=== PATIENT | male | born 1950 | race Caucasian/White ===

== ENCOUNTER 2021-04-03 08:43 | Emergency (ER) | payer OTHER, MEDICARE, SELFPAY ==
[2021-04-03] VITALS (15 sets, daily range): BP systolic 145–176; BP diastolic 76–145; PULSE 70–91; RESP 12–16; TEMP 36.7; O2SAT 97–100
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
--- NOTE | ~2021-04-03 | XR_ITS ---
[XR ribs RT 2V w CXR 2V ] INDICATION: Right rib pain TECHNIQUE: Frontal projection of the upper right ribs, frontal projection of the lower right ribs, ob lique projection of all the right ribs, frontal inspiratory chest x-ray for interpretation. FINDINGS: There are no displaced rib fractures identified. There are no soft tissue abnormality see n. The lungs are clear. IMPRESSION: 1:No acute displaced rib fractures. Reviewed, dictated and finalized at location A.
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
== END 2021-04-03 11:41 | disposition home or self-care (01) ==
PROVIDERS: Emergency Provider General Practice; PCP Internal Medicine
DX: R07.81 Pleurodynia (principal); E11.9 Type 2 diabetes mellitus without complications; Z87.891 Personal history of nicotine dependence; M47.812 Spondylosis without myelopathy or radiculopathy, cervical region; I65.29 Occlusion and stenosis of unspecified carotid artery; V49.40XA Driver injured in collision with unspecified motor vehicles in traffic accident, initial encounter
CPT/HCPCS: 71046; 71100; 72125; 72128; 99284

== ENCOUNTER 2023-04-30 01:41 | Day surgery (SDC) | payer MEDICARE, SELFPAY ==
[2023-04-21 12:15] VITALS: BMI 24.3
[2023-04-30 09:21] VITALS: BP 152/66; PULSE 81; RESP 18; TEMP 36.2; O2SAT 99; BMI 24.2
--- NOTE | 2023-04-30 09:37 | PM.HPGS ---
History of Present Illness History of Present Illness Consent: Risks, benefits, and alternatives have been discussed and questions answered. Patient agrees to proceed with procedure. Chief complaint: history of colon polyps Narrative: Tolu Mathis is a 72 year old male Presents for screening colonoscopy. Patient has a history of colon polyps in 2016. Most recent colonoscopy was limited somewhat by debris. Patient states bowel habits have improved with taking fiber supplementation. Patient denies any blood in his stools his bowel habits are normal. Review of Systems Review of Systems: Review of systems noncontributory. [facility] Past Medical History Medical History (Updated 04/30/23 @ 09:39 by Clyde Arshad MD) Diabetes mellitus Social History Social History (Updated 04/03/21 @ 10:34 by Norman Clifford, PAJignesh) Smoking packs per day: 2 Smoking cigarettes per day: 40.0 Years smoked: 25 Smoking pack-years: 50.00 Smoking status: Former smoker Tobacco type: cigarettes Alcohol intake: former Substance use: current Substance use type: marijuana Other substance usage details: OCC. GUM Living arrangements: with family Spiritual care concerns: No Meds Home Medications and Allergies Home Medications Medication Instructions Recorded Confirmed Type Azo 1 cap PO BID 04/21/23 04/21/23 History Lactobacillus rhamnosus GG 10 1 cap PO DAILY 04/21/23 04/21/23 History billion cell capsule (Culturelle) alogliptin 25 mg tablet (Nesina) 25 mg PO DAILY 04/21/23 04/21/23 History amlodipine 10 mg tablet 10 mg PO DAILY 04/21/23 04/21/23 History atorvastatin 20 mg tablet 20 mg PO DAILY 04/21/23 04/21/23 History cetirizine 10 mg tablet (Zyrtec) 10 mg PO DAILY 04/21/23 04/21/23 History cholecalciferol (vitamin D3) 50 50 mcg PO DAILY 04/21/23 04/21/23 History mcg (2,000 unit) capsule (Vitamin D3) famotidine 20 mg tablet 20 mg PO DAILY 04/21/23 04/21/23 History gabapentin 300 mg capsule 300 mg PO TID 04/21/23 04/21/23 History glimepiride 4 mg tablet 4 mg PO BID 04/21/23 04/21/23 History losartan 50 mg tablet 50 mg PO DAILY 04/21/23 04/21/23 History metformin 500 mg tablet,extended 1,000 mg PO BID 04/21/23 04/21/23 History release 24 hr omeprazole 40 mg capsule,delayed 40 mg PO DAILY 04/21/23 04/21/23 History release semaglutide 0.25 mg or 0.5 mg (2 0.5 mg subcut WEEKLY 04/21/23 04/21/23 History mg/3 mL) subcutaneous pen injector (Ozempic) Allergies Allergy/AdvReac Type Severity Reaction Status Date / Time prednisone AdvReac Unknown DOES NOT Verified 07/27/17 07:43 LIKE TO TAKE IT Vital Signs Vital Signs - 24 hr 04/30/23 09:21 Temperature 97.2 F L Pulse Rate 81 Respiratory Rate 18 Blood Pressure 152/66 H Pulse Oximetry 99 Oxygen Delivery Room Air Exam Narrative: Physical exam reveals patient to be alert. Vital signs stable. HEENT exam is unremarkable. Patient is anicteric. Lungs are clear to auscultation and percussion. Heart is without murmur or extra sounds. Abdomen bowel sounds are present soft nontender with no organomegaly. Digital external rectal exam is normal. Assessment and Plan Assessment and plan (1) History of colon polyps: Code(s): Z86.010 - Personal history of colonic polyps Status: Acute Assessment and Plan: Patient has a prior history of colon polyps. He presents today for surveillance colonoscopy. Further recommendations may be given after endoscopy.
[2023-04-30 09:43] LABS: Glucose Point of Care 106 mg/dl (65-105)
[2023-04-30] MEDS: LACTATED RINGERS 1,000 ML 150 ML IV CONT (09:47)
--- NOTE | 2023-04-30 10:30 | WPDANESEPPF ---
Anes - Initial Pre Proc Eval Procedure: Operation Date: 04/30/23 10:30 Proposed Procedures p Colonoscopy - Clyde Arshad MD Date/Time: 04/30/23 10:30 Surgeon: Clyde Arshad MD Pre Op Diagnosis: history of colon polyps Patient Data Age: 72 Gender: M Height: 1.73 m Weight: 72.2 kg Last Vital Signs Temp 97.2 F L 04/30/23 09:21 Pulse 81 04/30/23 09:21 Resp 18 04/30/23 09:21 BP 152/66 H 04/30/23 09:21 Pulse Ox 99 04/30/23 09:21 O2 Del Method Room Air 04/30/23 09:21 Allergies Allergy/AdvReac Type Severity Reaction Status Date / Time prednisone AdvReac Unknown DOES NOT Verified 07/27/17 07:43 LIKE TO TAKE IT Home Medications Medication Instructions Recorded Confirmed Type Azo 1 cap PO BID 04/21/23 04/21/23 History Lactobacillus rhamnosus GG 10 1 cap PO DAILY 04/21/23 04/21/23 History billion cell capsule (Culturelle) alogliptin 25 mg tablet (Nesina) 25 mg PO DAILY 04/21/23 04/21/23 History amlodipine 10 mg tablet 10 mg PO DAILY 04/21/23 04/21/23 History atorvastatin 20 mg tablet 20 mg PO DAILY 04/21/23 04/21/23 History cetirizine 10 mg tablet (Zyrtec) 10 mg PO DAILY 04/21/23 04/21/23 History cholecalciferol (vitamin D3) 50 50 mcg PO DAILY 04/21/23 04/21/23 History mcg (2,000 unit) capsule (Vitamin D3) famotidine 20 mg tablet 20 mg PO DAILY 04/21/23 04/21/23 History gabapentin 300 mg capsule 300 mg PO TID 04/21/23 04/21/23 History glimepiride 4 mg tablet 4 mg PO BID 04/21/23 04/21/23 History losartan 50 mg tablet 50 mg PO DAILY 04/21/23 04/21/23 History metformin 500 mg tablet,extended 1,000 mg PO BID 04/21/23 04/21/23 History release 24 hr omeprazole 40 mg capsule,delayed 40 mg PO DAILY 04/21/23 04/21/23 History release semaglutide 0.25 mg or 0.5 mg (2 0.5 mg subcut WEEKLY 04/21/23 04/21/23 History mg/3 mL) subcutaneous pen injector (Ozempic) Laboratory Tests 04/30/23 09:40 POC Capillary Glucose 106 H mg/dl (65-105) Patient hx anesthesia problems: none Family hx anesthesia problems: none Results Review: All pre-operative results and documents have been reviewed as part of the pre-operative evaluation. [facility] Past Medical History Medical History (Updated 04/30/23 @ 09:39 by Clyde Arshad MD) Diabetes mellitus Social History Social History (Updated 04/03/21 @ 10:34 by Norman Clifford, PA-C) Smoking packs per day: 2 Smoking cigarettes per day: 40.0 Years smoked: 25 Smoking pack-years: 50.00 Smoking status: Former smoker Tobacco type: cigarettes Alcohol intake: former Substance use: current Substance use type: marijuana Other substance usage details: OCC. GUMMY Living arrangements: with family Spiritual care concerns: No Anes - Eval Final PreProcedure Day of Procedure 04/30/23 10:30 Patient weight: normal Heart: regular rate and rhythm Lungs: clear to auscultation Airway: Mallampati scale class II Neurological: alert and oriented Last oral intake: >/= 8 hours ASA classification: III Emergent: no Anesthetic plan: proceed Anesthesia type and monitoring: general GIVS and standard monitoring Results Review: All pre-operative results and documents have been reviewed as part of the pre-operative evaluation. Informed Consent: The patient's anesthetic plan and its attendant risks and benefits were discussed with the patient/family/POA. Questions were solicited and answers provided to the satisfaction of the patient/family/POA.
[2023-04-30 11:06] VITALS: BP 112/53; PULSE 70; RESP 20; O2SAT 97
[2023-04-30 11:16] VITALS: BP 120/65; PULSE 71; RESP 20; O2SAT 98
[2023-04-30 11:26] VITALS: BP 129/75; PULSE 68; RESP 24; O2SAT 100
== END 2023-04-30 11:39 | disposition home or self-care (01) ==
PROVIDERS: PCP Internal Medicine; Visit Provider Internal Medicine Gastroenterology
PROC: 0DJD8ZZ Inspection of Lower Intestinal Tract, Via Natural or Artificial Opening Endoscopic (ICD-10-PCS; CPT 45378; principal; 2023-04-30 10:30)
DX: Z12.11 Encounter for screening for malignant neoplasm of colon (principal); K64.8 Other hemorrhoids; K57.30 Diverticulosis of large intestine without perforation or abscess without bleeding; Z86.010 Personal history of colon polyps; E11.9 Type 2 diabetes mellitus without complications; Z79.85 Long-term (current) use of injectable non-insulin antidiabetic drugs; Z79.84 Long term (current) use of oral hypoglycemic drugs; Z87.891 Personal history of nicotine dependence; F12.90 Cannabis use, unspecified, uncomplicated
CPT/HCPCS: G0105; 82948; J2704; J7120

== ENCOUNTER 2023-10-22 11:25 | Emergency (ER) | payer MEDICARE, SELFPAY ==
--- NOTE | ~2023-10-22 | CT_ITS ---
EXAMINATION: CT brain wo con DATE: 10/22/2023 12:31 INDICATION: Head injury. TECHNIQUE: Computed tomography (CT) of the head was performed without intravenous contrast. The mA wa s adjusted according to patient size. Iterative reconstruction technique was employed. The dose-lengt h product was 681.00 mGy-cm. COMPARISON: None FINDINGS: There are scattered areas of low attenuation in the cerebral white matter, which is within normal limits for the patient's age. There is no intracranial hemorrhage, acute infarction, or abnorm al intracranial mass lesion. The ventricles are normal in size. The orbits are normal. There is mucos al thickening in the paranasal sinuses. The mastoid air cells are normal. IMPRESSION: 1. Normal aging brain. Reviewed, dictated and finalized at location A. IMPRESSION: 1. Normal aging brain.
--- NOTE | ~2023-10-22 | CT_ITS ---
EXAMINATION: CT cervical spine wo con DATE: 10/22/2023 12:32 INDICATION: Head injury. Neck injury. TECHNIQUE: Computed tomography (CT) of the cervical spine was performed without intravenous contrast. Automated exposure control and iterative reconstruction technique were employed. The dose-length pro duct was 531.87 mGy-cm. COMPARISON: None FINDINGS: There is mild emphysema. Bone alignment is normal. Vertebral body heights are normal. There is mildly decreased disc height at C4-C5, severely decreased disc height at C5-C6 and C6-C7, and mil dly decreased disc height at C7-T1. The following disc levels are specifically discussed: C2-C3: There is mild bilateral uncovertebral joint osteoarthritis. There is severe right and moderate left facet joint osteoarthritis. There is no neural foraminal stenosis. There is no central canal st enosis. C3-C4: There is mild left uncovertebral joint osteoarthritis. There is no facet joint osteoarthritis. There is mild left neural foraminal stenosis. There is mild central canal stenosis. C4-C5: There is severe bilateral uncovertebral joint osteoarthritis. There is mild right facet joint osteoarthritis. There is mild bilateral neural foraminal stenosis. There is moderate central canal st enosis. C5-C6: There is severe bilateral uncovertebral joint osteoarthritis. There is no facet joint osteoart hritis. There is severe right and moderate left neural foraminal stenosis. There is moderate central canal stenosis. C6-C7: There is severe bilateral uncovertebral joint osteoarthritis. There is severe bilateral facet joint osteoarthritis. There is mild bilateral neural foraminal stenosis. There is mild central canal stenosis. C7-T1: There is mild bilateral uncovertebral joint osteoarthritis. There is severe bilateral facet vijay int osteoarthritis. There is mild bilateral neural foraminal stenosis. There is no central canal sten osis. IMPRESSION: 1. No fracture. 2. Severe cervical spondylosis. 3. Mild emphysema. Reviewed, dictated and finalized at location A.
[2023-10-22 11:26] VITALS: BP 174/72; PULSE 80; RESP 18; TEMP 36.6; O2SAT 97
--- NOTE | 2023-10-22 13:04 | ED.FALL ---
HPI - Fall General Chief Complaint: Fall Stated Complaint: fall Time Seen by Provider: 10/22/23 12:04 History of Present Illness HPI Narrative: Patient is a 72-year-old male who presents ER after trip and fall. He was walking his dog and stepping up curb when he fell forward striking his head jerking his head backwards. He reports immediate loss of sensation and function of the arms and legs. He was lying on the ground shopping for help. After several minutes he began to regain some strength and sensation. He endorses tingling to his hands bilaterally but no other numbness. He reports that he does still feel some weakness in his hands. He is on no blood thinning medications. He is in a cervical collar. reports very mild dementia the patient gives an appropriate history. Related Data Home Medications Medication Instructions Recorded Confirmed alogliptin 25 mg tablet mg 10/22/23 amlodipine 10 mg tablet mg 10/22/23 atorvastatin 20 mg tablet mg 10/22/23 cetirizine 10 mg capsule (Zyrtec) mg 10/22/23 10/22/23 donepezil 5 mg tablet mg 10/22/23 escitalopram oxalate 10 mg tablet mg 10/22/23 gabapentin 100 mg capsule mg 10/22/23 glimepiride 4 mg tablet mg 10/22/23 liraglutide 0.6 mg/0.1 mL (18 mg/3 mg subcut 10/22/23 mL) subcutaneous pen injector (Victoza 2-Asher) losartan 50 mg tablet mg 10/22/23 metformin 500 mg tablet,extended mg PO 10/22/23 release 24 hr omeprazole 40 mg capsule,delayed mg 10/22/23 release Allergies Allergy/AdvReac Type Severity Reaction Status Date / Time prednisone AdvReac Unknown DOES NOT Verified 10/22/23 11:32 LIKE TO TAKE IT Review of Systems Review of Systems: All systems reviewed & are unremarkable except as noted in HPI and below Constitutional: Constitutional: Reports no additional constitutional complaints ENT: Reports system reviewed and no additional complaints, except as documented Cardiovascular: Cardiovascular: Reports no additional cardiovascular complaints Respiratory: Respiratory: Reports no additional respiratory complaints Gastrointestinal: Gastrointestinal: Reports no additional gastrointestinal complaints Musculoskeletal: Musculoskeletal: Reports no additional musculoskeletal complaints Neurologic: Denies syncope, Denies headache(s), Reports focal weakness and Reports numbness [facility] Past Medical History Medical History (Updated 10/22/23 @ 14:23 by Deepak Telles MD) Diabetes mellitus Hyperlipidemia Hypertension Surgical History Surgical History (Updated 10/22/23 @ 13:07 by Deepak Telles MD) History of colonoscopy Social History Social History Smoking packs per day: 2 Smoking cigarettes per day: 40.0 Years smoked: 25 Smoking pack-years: 50.00 Smoking status: Former smoker Tobacco type: cigarettes Alcohol intake: former Substance use: current Substance use type: marijuana Other substance usage details: OCC. GUMMY Living arrangements: with family Spiritual care concerns: No Exam Narrative: GENERAL: Well-appearing, well-nourished, and in no acute distress. HEAD: Normocephalic, atraumatic. ENT: Mucous membranes moist. NECK: Supple. No midline tenderness of cervical spine. CHEST: Clear to auscultation. No respiratory distress. HEART: Regular rate and rhythm. Normal peripheral pulses. ABDOMEN: Soft, nontender, nondistended. EXTREMITIES: Normal range of motion. No edema. 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 SKIN: Warm, dry, no rash. NEURO: Alert and oriented x3. No sharp touch deficit in upper lower extremities. Strength abnormalities as document above. PSYCH: Normal mood and affect. Course Course Emergency Course: Neurosurgery consulted and feels this does represent central cord syndrome and patient would need to be in a neuro ICU for close monitoring of his mean arterial pres
[2023-10-22 13:33] VITALS: BP 157/73; PULSE 78; RESP 16; O2SAT 96
[2023-10-22 13:45] LABS: Basophils Absolute Auto 0.2 K/mm3 (0.0-0.1); Basophils Percent Auto 1.2 % (0.2-1.2); Eosinophils Absolute Auto 0.4 K/mm3 (0-0.3); Eosinophils Percent Auto 3.3 % (0-4.4); Hematocrit 33.9 % (42.0-52.0); Hemoglobin 11.3 g/dL (14.0-18.0); Immature Granulocyte Absolute 0.06 K/mm3 (0.00-0.031); Immature Granulocyte Percent A 0.5 % (0-0.5); Lymphocytes Absolute Auto 1.13 K/mm3 (0.9-3.2); Lymphocytes Percent Auto 8.9 % (18.3-44.2); Mean Corpuscular HGB Conc 33.3 g/dl (32-36); Mean Corpuscular Hemoglobin 29.6 pg (26-34); Mean Corpuscular Volume 88.7 fl (80-100); Monocytes Absolute Auto 0.9 K/mm3 (0.1-0.6); Monocytes Percent Auto 6.7 % (2.6-8.5); Neutrophils Absolute Auto 10.1 K/mm3 (1.3-6.7); Neutrophils Percent Auto 79.4 % (45.5-73.1); Platelet Count Result 468 k/mm3 (150-375); Red Blood Count 3.82 M/mm3 (4.6-6.20); Red Cell Distribution Width 13.9 % (11.5-14.5); White Blood Count 12.7 K/mm3 (4.5-10.0)
[2023-10-22 13:57] LABS: Partial Thromboplastin Time 26.8 Seconds (22.3-36.8); Prothrombin Time 13.2 Seconds (11.1-14.7)
[2023-10-22 13:59] LABS: Alanine Aminotransferase 22 U/L (6-50); Albumin Level 4.8 g/dL (3.5-5.1); Alkaline Phosphatase 63 U/L (38-126); Anion Gap 7 mmol/L (4-12); Aspartate Amino Transferase 31 U/L (17-59); Bilirubin,Total 0.5 mg/dL (0.2-1.3); Blood Urea Nitrogen 14 mg/dL (9-20); Calcium 9.6 mg/dL (8.4-10.2); Carbon Dioxide 23 mmol/L (22-30); Chloride 101 mmol/L (98-107); Estimated CRCL calculation 70 ml/min; Estimated Glomerular Filt Rate > 60; Glucose 152 mg/dL (65-110); Potassium 4.6 mmol/L (3.4-5.0); Sodium 131 mmol/L (137-145)
== END 2023-10-22 16:30 | disposition short-term general hospital (02) ==
PROVIDERS: Emergency Provider Emergency Medicine; PCP Internal Medicine
DX: S14.129A Central cord syndrome at unspecified level of cervical spinal cord, initial encounter (principal); E11.9 Type 2 diabetes mellitus without complications; E78.5 Hyperlipidemia, unspecified; I10 Essential (primary) hypertension; F03.90 Unspecified dementia, unspecified severity, without behavioral disturbance, psychotic disturbance, mood disturbance, and anxiety; Z87.891 Personal history of nicotine dependence; M47.812 Spondylosis without myelopathy or radiculopathy, cervical region; J43.9 Emphysema, unspecified; Z79.85 Long-term (current) use of injectable non-insulin antidiabetic drugs; Z79.84 Long term (current) use of oral hypoglycemic drugs; W10.1XXA Fall (on)(from) sidewalk curb, initial encounter; Y93.K1 Activity, walking an animal
CPT/HCPCS: 36415; 70450; 72125; 80053; 85025; 85610; 85730; 99285; L0140

== ENCOUNTER 2023-12-23 08:50 | Outpatient (RCR) | payer MEDICARE, SELFPAY ==
[2023-12-23 09:00] VITALS: BMI 25.6
== END 2024-03-07 13:21 | disposition home or self-care (01) ==
LOC: ANHWOC 08:50
PROVIDERS: PCP Internal Medicine; Visit Provider Internal Medicine
DX: L89.309 Pressure ulcer of unspecified buttock, unspecified stage (principal)
CPT/HCPCS: 99214; G0463

== ENCOUNTER 2024-05-06 09:24 | Inpatient (IN) | payer MEDICARE, SELFPAY ==
[2024-05-06] VITALS (17 sets, daily range): BP systolic 113–170; BP diastolic 54–81; PULSE 60–92; RESP 17–20; TEMP 36.4–36.7; O2SAT 93–100; BMI 23.4
--- NOTE | ~2024-05-06 | XR_ITS ---
EXAMINATION: XR chest 1V portable DATE: 05/06/2024 10:32 INDICATION: Cough and dyspnea. TECHNIQUE: A single frontal view of the chest was obtained. COMPARISON: Chest 2 views 04/03/2021 FINDINGS: There are airspace opacities in right lower lung zone. No pleural effusion or pneumothorax. The heart size is normal. There is a left chest pacer/fibrillator with lead in right ventricle. Ther e are changes of posterior fusion procedure in cervical spine. IMPRESSION: 1. Airspace opacities in right lower lung zone, consistent with atelectasis versus pneumonia. Reviewed, dictated and finalized at location A. IMPRESSION: 1. Airspace opacities in right lower lung zone, consistent with atelectasis teresa sherice pneumonia.
--- NOTE | 2024-05-06 09:33 | ECG_ITS ---
Test Date: 2024-05-06 09:38:00 Measurements Intervals [place] Rate: 87 P: 83 NC: 188 QRS: 19 QRSD: 90 T: 71 QT: 355 QTc: 428 Interpretive Statements SINUS RHYTHM No previous ECG available for comparison Electronically Signed On 05-06-2024 15:36:25 CDT by Rand Rios M.D.
--- NOTE | 2024-05-06 10:01 | ED_ITS ---
HPI - URI/Sore Throat General Chief Complaint: Upper Respiratory Infection <Sukhwinder Ventura PA-C - Last Filed: 05/07/24 14:23> Stated Complaint: sick for 3 days <Sukhwinder Ventura PA-C - Last Filed: 05/07/24 14:23> Time Seen by Provider: 05/06/24 09:32 <Sukhwinder Ventura PA-C - Last Filed: 05/07/24 14:23> Source: patient <SHRAVAN Talavera Last Filed: 05/07/24 14:23> Mode of arrival: ambulatory <SHRAVAN Talavera Last Filed: 05/07/24 14:23> Limitations: no limitations <Sukhwinder Ventura PA-C - Last Filed: 05/07/24 14:23> History of Present Illness HPI Narrative: This is a 73-year-old male with PMH of DM, HLD, HTN , Alzheimer's dementia who presents to the ED for chief complaint of cough x3 days. Patient reports cough along with shortness of breath with exertion. family is here bedside and helping with history, although patient does seem to be a reliable historian as well. They report that he has had this cough ongoing for the past couple of days and starting to become productive. He reports increasing dyspnea, especially with exertion. States that he has just been feeling very fatigued and unwell overall. Family states the cough has been productive. Denies chest pain. Denies any known fevers, chills, back pain, numbness, weakness, abdominal pain, nausea, vomiting, diarrhea. <Sukhwinder Ventura PA-C - Last Filed: 05/07/24 14:23> Related Data Home Medications: Home Medications Medication Instructions Recorded Confirmed sacubitril 49 mg-valsartan 51 mg 1 tablet PO BID 01/12/24 05/06/24 tablet (Entresto) dapagliflozin propanediol 5 mg 10 mg PO DAILY 05/06/24 05/06/24 tablet (Farxiga) escitalopram oxalate 10 mg tablet 10 mg PO 1700 05/06/24 05/06/24 gabapentin 300 mg capsule 600 mg PO HS 05/06/24 05/06/24 gabapentin 300 mg capsule 900 mg PO DAILY 05/06/24 05/06/24 metformin 500 mg tablet,extended 1,000 mg PO BID 05/06/24 05/06/24 release 24 hr tamsulosin 0.4 mg capsule 0.4 mg PO 1700 05/06/24 05/06/24 <Sukhwinder Ventura PA-C - Last Filed: 05/07/24 14:23> Allergies/Adverse Reactions: Allergies Allergy/AdvReac Type Severity Reaction Status Date / Time prednisone AdvReac Unknown DOES NOT Verified 04/07/24 11:26 LIKE TO TAKE IT <Sukhwinder Ventura PA-C - Last Filed: 05/07/24 14:23> Review of Systems Review of Systems: All systems as dictated in HPI <Sukhwinder Ventura PA-C - Last Filed: 05/07/24 14:23> [facility] Past Medical History Medical History: Medical History Central cord syndrome Diabetes mellitus Diabetic neuropathy Hyperlipidemia Hypertension <Sukhwinder Ventura PA-C - Last Filed: 05/07/24 14:23> Surgical History Surgical History: Surgical History AICD (automatic cardioverter/defibrillator) present H/O hernia repair History of colonoscopy <Sukhwinder Ventura PA-C - Last Filed: 05/07/24 14:23> Social History Social History: Social History Smoking packs per day: 2 Smoking cigarettes per day: 40.0 Years smoked: 25 Smoking pack-years: 50.00 Smoking status: Never smoker Tobacco type: cigarettes Alcohol intake: former Substance use: never Substance use type: does not use Other substance usage details: OCC. GUMMY Do You Feel Safe in your Home?: Yes Lack of Transportation: No Lack of Food: Never True Current Housing: I Have Housing Concerned About Future Housing: No Difficulty Paying Gas/Electric Bills: No Difficulty Paying for Meds: No Currently Unemployed: No Education: High School Diploma/GED Difficulty w/ Childcare or Family Care: No Living arrangements: with family Spiritual care concerns: No <SHRAVAN Talavera Last Filed: 05/07/24 14:23> Exam Narrative: GENERAL: Well-appearing, well-nourished, and in no acute distress. HEAD: Normocephalic, atraumatic. EYES: PERRLA and EOMI. ENT: Nares clear, no rhinorrhea or epistaxis. Mucous membranes moist. Oropharynx without tonsillar hypertrophy exudate or other lesions. NECK: Supple. No adenopathy or masses. CHEST: No respiratory distress. Saturating 98% room air. Mild wheezing at the bases bilaterally. Questionable rales heard side. HEART: Regular rate and rhythm. No murmur heard. Normal peripheral pulses. ABDOMEN: Soft, nontender, nondistended, normal active bowel sounds. MSK: Normal range of motion. No edema. SKIN: Warm, dry, no rash. NEURO: Alert and oriented x4. No focal deficits. PSYCH: Normal mood and affect. <SHRAVAN Talavera Last Filed: 05/07/24 14:23> Course Vital Signs Vital signs: Vital Signs Pulse Rate 84 05/06/24 09:30 Respiratory Rate 19 05/06/24 09:30 Blood Pressure 142/72 H 05/06/24 09:30 Pulse Oximetry 95 05/06/24 09:30 Temperature 97.9 F 05/07/24 12:00 Pulse Rate 72 05/07/24 14:26 Respiratory Rate 18 05/07/24 14: Blood Pressure 144/63 H 05/07/24 12:00 Pulse Oximetry 93 05/07/24 12:00 Oxygen Delivery Room Air 05/07/24 12:00 <SHRAVAN Talavera Last Filed: 05/07/24 14:23> Vital Signs Pulse Rate 84 05/06/24 09:30 Respiratory Rate 19 05/06/24 09:30 Blood Pressure 142/72 H 05/06/24 09:30 Pulse Oximetry 95 05/06/24 09:30 Temperature 97.9 F 05/07/24 12:00 Pulse Rate 72 05/07/24 14:26 Respiratory Rate 18 05/07/24 14:26 Blood Pressure 144/63 H 05/07/24 12:00 Pulse Oximetry 93 05/07/24 12:00 Oxygen Delivery Room Air 05/07/24 12:00 <Rea Husain MD - Last Filed: 05/07/24 14:34> MDM - URI/Sore Throat MDM Narrative Medical decision making narrative: This is a 73 yo male who presents to the ED for chief complaint of cough and dyspnea. Vitals Are normal. He is saturating well on room air. No respiratory distress. Exam shows Some mild wheezing and adventitious breath sounds. He does appear mildly ill but has good mental status. Not meeting se psis criteria shows elevated white count of 17. BNP elevated at 39 90. Troponin initially elevated at 0.072. EKG does show nonspecific changes but does not show acute ischemia. Again the patient is not having any chest pain today. Viral swabs are negative Chest x-ray: IMPRESSION: 1. Airspace opacities in right lower lung zone, consistent with atelectasis versus pneumonia. Presentation overall is consistent with pneumonia. He will be treated with Rocephin and azithromycin here in the ED. will hold on large volume fluid resuscitation due to possible coinciding CHF and not meeting sepsis. Blood pressure is stable in the 140s. curb 65 score is only 1 today. Advised that the patient be admitted for pneumonia CHF exacerbation with jerman vated troponin/BNP. He is understanding and agreeable. Family understand and agree with this plan as well. Discussed the plan with hospitalist, SOFI Meadows who agrees to admit the patient. Patient will be admitted in stable condition CURB-65 Score for Pneumonia Severity from [email or web address] on 05/06/2024 All calculations should be rechecked by clinician prior to use RESULT SUMMARY: 1 points Low risk group: 2.7% 30-day mortality. Consider outpatient treatment. INPUTS: Confusion ?> 0 = No BUN >19 mg/dL (>7 mmol/L urea) ?> 0 = No Respiratory Rate >=0 ?> 0 = No Systolic BP <90 mmHg or Diastolic BP <=0 mmHg ?> 0 = No Age >=5 ?> 1 = Yes <Sukhwinder Ventura PA-C - Last Filed: 05/07/24 14:23> Lab Data Result diagrams: 05/07/24 04:26 05/07/24 04:26 <Sukhwinder Ventura PA-C - Last Filed: 05/07/24 14:23> Labs: Lab Results 05/06/24 05/06/24 05/06/24 Range/Units 10:14 11:09 11:10 WBC 17.3 H (4.5-10.0) K/mm3 RBC 4.25 L (4.6-6.20) M/mm3 Hgb 12.2 L (14.0-18.0) g/dL Hct 37.7 L (42.0-52.0) % MCV 88.7 (80-100) fl MCH 28.7 (26-34) pg MCHC 32.4 (32-36) g/dl RDW 15.5 H (11.5-14.5) % Plt Count 345 D (150-375) k/mm3 MPV 9.5 (7.4-10.4) fl Immature Gran % (Auto) 0.4 (0-0.5) % Neut % (Auto) 82.9 H (45.5-73.1) % Lymph % (Auto) 7.7 L (18.3-44.2) % [place] % (Auto) 7.8 (2.6-8.5) % Eos % (Auto) 0.4 (0-4.4) % Baso % (Auto) 0.8 (0.2-1.2) % Lymph # (Auto) 1.33 (0.9-3.2) K/mm3 [place] # (Auto) 1.4 H (0.1-0.6) K/mm3 Eos # (Auto) 0.1 (0-0.3) K/mm3 Baso # (Auto) 0.1 (0.0-0.1) K/mm3 Abs Immat Gran (auto) 0.07 H (0.00-0.031) K/mm3 Absolute Neuts (auto) 14.4 H (1.3-6.7) K/mm3 Absolute Nucleated RBC 0.000 (0.0-0.012) K/mm3 Nucleated RBC % 0.0 (0.0-0.2) % Sodium 138 (137-145) mmol/L Potassium 4.0 (3.4-5.0) mmol/L Chloride 102 (98-107) mmol/L Carbon Dioxide 26 (22-30) mmol/L Anion Gap 10 (4-12) mmol/L BUN 20 (9-20) mg/dL Creatinine 0.90 (0.7-1.3) mg/dL Estim Creat Clear Calc 64 ml/min Estimated GFR > 60 (59 - ) Glucose 170 H (65-110) mg/dL Calcium 9.1 (8.4-10.2) mg/dL Magnesium 1.9 (1.6-2.3) mg/dL Total Bilirubin 0.8 (0.2-1.3) mg/dL AST 25 (17-59) U/L ALT 17 (6-50) U/L Alkaline Phosphatase 85 (38-126) U/L Troponin I 0.072 H* (0.000-0.034) ng/mL NT-Pro-B Natriuret Pep 3990 H (19.9-100) pg/mL Total Protein 8.0 (6.3-8.2) g/dL Albumin 4.1 (3.5-5.1) g/dL Influenza A (RT-PCR) Negative (Negative) Influenza B (RT-PCR) Negative (Negative) RSV (RT-PCR) Negative (Negative) SARS-CoV-2 RNA (RT-PCR) Negative (Negative) <Sukhwinder Ventura PA-C - Last Filed: 05/07/24 14:23> Lab Results 05/06/24 05/06/24 05/06/24 Range/Units 10:14 11:09 11:10 WBC 17.3 H (4.5-10.0) K/mm3 RBC 4.25 L (4.6-6.20) M/mm3 Hgb 12.2 L (14.0-18.0) g/dL Hct 37.7 L (42.0-52.0) % MCV 88.7 (80-100) fl MCH 28.7 (26-34) pg MCHC 32.4 (32-36) g/dl RDW 15.5 H (11.5-14.5) % Plt Count 345 D (150-375) k/mm3 MPV 9.5 (7.4-10.4) fl Immature Gran % (Auto) 0.4 (0-0.5) % Neut % (Auto) 82.9 H (45.5-73.1) % Lymph % (Auto) 7.7 L (18.3-44.2) % [place] % (Auto) 7.8 (2.6-8.5) % Eos % (Auto) 0.4 (0-4.4) % Baso % (Auto) 0.8 (0.2-1.2) % Lymph # (Auto) 1.33 (0.9-3.2) K/mm3 [place] # (Auto) 1.4 H (0.1-0.6) K/mm3 Eos # (Auto) 0.1 (0-0.3) K/mm3 Baso # (Auto) 0.1 (0.0-0.1) K/mm3 Abs Immat Gran (auto) 0.07 H (0.00-0.031) K/mm3 Absolute Neuts (auto) 14.4 H (1.3-6.7) K/mm3 Absolute Nucleated RBC 0.000 (0.0-0.012) K/mm3 Nucleated RBC % 0.0 (0.0-0.2) % Sodium 138 (137-145) mmol/L Potassium 4.0 (3.4-5.0) mmol/L Chloride 102 (98-107) mmol/L Carbon Dioxide 26 (22-30) mmol/L Anion Gap 10 (4-12) mmol/L BUN 20 (9-20) mg/dL Creatinine 0.90 (0.7-1.3) mg/dL Estim Creat Clear Calc 64 ml/min Estimated GFR > 60 (59 - ) Glucose 170 H (65-110) mg/dL Calcium 9.1 (8.4-10.2) mg/dL Magnesium 1.9 (1.6-2.3) mg/dL Total Bilirubin 0.8 (0.2-1.3) mg/dL AST 25 (17-59) U/L ALT 17 (6-50) U/L Alkaline Phosphatase 85 (38-126) U/L Troponin I 0.072 H* (0.000-0.034) ng/mL NT-Pro-B Natriuret Pep 3990 H (19.9-100) pg/mL Total Protein 8.0 (6.3-8.2) g/dL Albumin 4.1 (3.5-5.1) g/dL Influenza A (RT-PCR) Negative (Negative) Influenza B (RT-PCR) Negative (Negative) RSV (RT-PCR) Negative (Negative) SARS-CoV-2 RNA (RT-PCR) Negative (Negative) <Rea Husain MD - Last Filed: 05/07/24 14:34> ECG Data EKG #1: ECG completion date: 05/06/24 <Sukhwinder Ventura PA-C - Last Filed: 05/07/24 14:23> ECG completion time: 09:38 <Sukhwinder Ventura PA-C - Last Filed: 05/07/24 14:23> Prior ECG tracings: available for review <Sukhwinder Ventura PA-C - Last Filed: 05/07/24 14:23> Interpretation: sinus rhythm Rate 87 Normal QRS Normal QTC Nonspecific ST T wave changes and anterior leads No acute ischemic findings <Sukhwinder Ventura PA-C - Last Filed: 05/07/24 14:23> Discharge Plan Discharge Clinical Impression: Pneumonia <Sukhwinder Ventura PA-C - Last Filed: 05/07/24 14:23> Patient Disposition: Still a Patient <Sukhwinder Ventura PA-C - Last Filed: 05/07/24 14:23> Condition: Stable <Sukhwinder Ventura PA-C - Last Filed: 05/07/24 14:23> Attestation Supervising Provider Attestation I was informed by VALERIA that this patient was being admitted for pneumonia and elevated troponin. I had received provider report from urgent care about this patient who they felt needed further work up given his underlying cardiac history (implantable device). I was aware this patient had arrived to the dep [facility] but did not personally evaluate them and was not involved in their care though was available for consultation as needed. <Rea Husain MD - Last Filed: 05/07/24 14:34>
[2024-05-06] MEDS: IPRATROPIUM 0.5 MG/ALBUTEROL SULFATE 2.5 MG AMPUL.NEB 3 ML INHALATION (10:20)
[2024-05-06 10:57] LABS: Influenza A QL RT-PCR Negative (Negative); Influenza B QL RT-PCR Negative (Negative); RSV RNA, RT-PCR Negative (Negative); SARS-CoV-2 RNA PCR Negative (Negative)
--- NOTE | 2024-05-06 11:13 | PC.NURSE ---
Per VALERIA Pretty, no cultures needed prior to antibiotic administration
[2024-05-06 11:16] LABS: Basophils Absolute Auto 0.1 K/mm3 (0.0-0.1); Basophils Percent Auto 0.8 % (0.2-1.2); Eosinophils Absolute Auto 0.1 K/mm3 (0-0.3); Eosinophils Percent Auto 0.4 % (0-4.4); Hematocrit 37.7 % (42.0-52.0); Hemoglobin 12.2 g/dL (14.0-18.0); Immature Granulocyte Absolute 0.07 K/mm3 (0.00-0.031); Immature Granulocyte Percent A 0.4 % (0-0.5); Lymphocytes Absolute Auto 1.33 K/mm3 (0.9-3.2); Lymphocytes Percent Auto 7.7 % (18.3-44.2); Mean Corpuscular HGB Conc 32.4 g/dl (32-36); Mean Corpuscular Hemoglobin 28.7 pg (26-34); Mean Corpuscular Volume 88.7 fl (80-100); Mean Platelet Volume 9.5 fl (7.4-10.4); Monocytes Absolute Auto 1.4 K/mm3 (0.1-0.6); Monocytes Percent Auto 7.8 % (2.6-8.5); Neutrophils Absolute Auto 14.4 K/mm3 (1.3-6.7); Neutrophils Percent Auto 82.9 % (45.5-73.1); Platelet Count Result 345 k/mm3 (150-375); Red Blood Count 4.25 M/mm3 (4.6-6.20); Red Cell Distribution Width 15.5 % (11.5-14.5); White Blood Count 17.3 K/mm3 (4.5-10.0)
[2024-05-06 11:32] LABS: Alanine Aminotransferase 17 U/L (6-50); Albumin Level 4.1 g/dL (3.5-5.1); Alkaline Phosphatase 85 U/L (38-126); Anion Gap 10 mmol/L (4-12); Aspartate Amino Transferase 25 U/L (17-59); Bilirubin,Total 0.8 mg/dL (0.2-1.3); Blood Urea Nitrogen 20 mg/dL (9-20); Calcium 9.1 mg/dL (8.4-10.2); Carbon Dioxide 26 mmol/L (22-30); Chloride 102 mmol/L (98-107); Estimated CRCL calculation 64 ml/min; Estimated Glomerular Filt Rate > 60; Glucose 170 mg/dL (65-110); Magnesium 1.9 mg/dL (1.6-2.3); Sodium 138 mmol/L (137-145)
[2024-05-06 11:43] LABS: Troponin I 0.072 ng/mL (0.000-0.034)
[2024-05-06] MEDS: AZITHROMYCIN 500 MG/NS 250 ML 500 MG/250 ML BAG 250 MG IVPB (11:51)
[2024-05-06 12:30] LABS: NT Pro B Type Natriuretic Pept 3990 pg/mL (19.9-100)
--- NOTE | 2024-05-06 12:53 | ECG_ITS ---
Test Date: 2024-05-06 13:05:08 Measurements Intervals [place] Rate: 64 P: 69 [place]: 188 QRS: 2 QRSD: 97 T: 89 QT: 430 QTc: 445 Interpretive Statements SINUS RHYTHM POSSIBLE ANTERIOR MYOCARDIAL INFARCTION , OF INDETERMINATE AGE [30 ms Q WAVE IN V3/V4, OR R < 0.2 mV IN V4] Compared to ECG 05/06/2024 09:38:00 NO SIGNIFICANT CHANGES Electronically Signed On 05-06-2024 15:39:54 CDT by Rand Rios M.D.
--- NOTE | 2024-05-06 12:56 | P.HP_ITS ---
H&P: HPI History of Present Illness Date/Time: 05/06/24 12:56 Chief Complaint: cough shortness of breath with exertion Narrative: This is a 73-year-old male with a significant past medical history of diabetes, CHF, hyperlipidemia, hypertension, BPH, Alzheimer's dementia, former smoker who presented with a 3 day history of cough and shortness of breath with dyspnea. Patient states that he had a cough and shortness of breath for 3 days prior to presenting to the hospital however today and worsening shortness of breath that concerned him and he came in for further evaluation. He denies any recent sick contacts. He also reports that he took some Dimetapp for his cough which did not give him much relief. Patient denies any fever, chills, nausea, vomiting, diarrhea, chest pain. Patient endorses cough, congestion, shortness of breath. Workup in the hospital included a chest x-ray which showed airspace opacities in right lower lung zone consistent with atelectasis versus pneumonia. Initial labs showed a white blood cell count of 17.3, hemoglobin 12.2, blood glucose 170, troponin 0.072, proBNP 3990. Respiratory panel was negative for influenza a and B, RSV, COVID. EKG showed sinus rhythm with a rate of 87, QTC 428. There were concerned for ST elevation in V3 and V4 however patient is non symptomatic and denied any chest pain. He was given DuoNeb, Rocephin, azithromycin, and 40 mg IV push Lasix while in the ED. Review of Systems Review of Systems: All systems reviewed & are unremarkable except as noted in HPI and below Constitutional: Constitutional: Reports as per HPI and Reports no additional constitutional complaints Eyes: Eyes: Reports as per HPI and Reports no additional eye complaints ENT: Reports system reviewed and no additional complaints, except as doc umented and Reports as per HPI Cardiovascular: Cardiovascular: Reports as per HPI and Reports no additional cardiovascular complaints Respiratory: Respiratory: Reports as per HPI and Reports no additional respiratory complaints Gastrointestinal: Gastrointestinal: Reports as per HPI and Reports no additional gastrointestinal complaints Genitourinary: Genitourinary: Reports no additional male genitourinary complaints and Reports as per HPI Musculoskeletal: Musculoskeletal: Reports no additional musculoskeletal complaints and Reports as per HPI Integumentary/Breasts: Skin/Breast: Reports system reviewed and no additional complaints, except as docu and Reports as per HPI Neurologic: Reports system reviewed and no additional complaints, except as documented and Reports as per HPI Psychiatric: Psychiatric: Reports no additional psychiatric complaints and Reports as per HPI [facility] Past Medical History Medical History Central cord syndrome Diabetes mellitus Diabetic neuropathy Hyperlipidemia Hypertension Surgical History Surgical History AICD (automatic cardioverter/defibrillator) present H/O hernia repair History of colonoscopy Social History Social History Smoking packs per day: 2 Smoking cigarettes per day: 40.0 Years smoked: 25 Smoking pack-years: 50.00 Smoking status: Never smoker Tobacco type: cigarettes Alcohol intake: former Substance use: never Substance use type: does not use Other substance usage details: OCC. GUMMY Do You Feel Safe in your Home?: Yes Lack of Transportation: No Lack of Food: Never True Current Housing: I Have Housing Concerned About Future Housing: No Difficulty Paying Gas/Electric Bills: No Difficulty Paying for Meds: No Currently Unemployed: No Education: High School Diploma/GED Difficulty w/ Childcare or Family Care: No Living arrangements: with family Spiritual care concerns: No Meds Home Medications and Allergies Home Medications Medication Instructions Recorded Confirmed Type donepezil 5 mg tablet 5 mg PO HS #30 tabs 11/16/23 05/06/24 Rx metoprolol succinate 25 mg 25 mg PO DAILY #30 tabs 11/16/23 05/06/24 Rx tablet,extended release 24 hr omeprazole 40 mg capsule,delayed 40 mg PO BID #60 caps 11/16/23 05/06/24 Rx release sacubitril 49 mg-valsartan 51 mg 1 tablet PO BID 01/12/24 05/06/24 History tablet (Entresto) dapagliflozin propanediol 5 mg 10 mg PO DAILY 05/06/24 05/06/24 History tablet (Farxiga) escitalopram oxalate 10 mg tablet 10 mg PO 1700 05/06/24 05/06/24 History gabapentin 300 mg capsule 600 mg PO HS 05/06/24 05/06/24 History gabapentin 300 mg capsule 900 mg PO DAILY 05/06/24 05/06/24 History metformin 500 mg tablet,extended 1,000 mg PO BID 05/06/24 05/06/24 History release 24 hr tamsulosin 0.4 mg capsule 0.4 mg PO 1700 05/06/24 05/06/24 History Allergies Allergy/AdvReac Type Severity Reaction Status Date / Time prednisone AdvReac Unknown DOES NOT Verified 04/07/24 11:26 LIKE TO TAKE IT Vital Signs Vital Signs - 24 hr 05/06/24 09:31 05/06/24 10:20 05/06/24 10:30 Temperature 97.6 F Pulse Rate 92 71 73 Respiratory Rate 20 18 18 Blood Pressure 170/81 H Pulse Oximetry 93 Oxygen Delivery Room Air 05/06/24 11:00 05/06/24 12:00 05/06/24 10:00 Temperature 98.1 F Pulse Rate 77 72 77 Respiratory Rate 20 20 19 Blood Pressure 113/73 130/62 145/79 H Pulse Oximetry 93 95 94 Oxygen Delivery 05/06/24 09:30 Temperature Pulse Rate 84 Respiratory Rate 19 Blood Pressure 142/72 H Pulse Oximetry 95 Oxygen Delivery Exam Narrative: General: In no acute distress, well nourished Head: atraumatic, no encephalopathy Eyes:PERRLA, sclera clear ENT: moist mucous membranes, nasal passages clear Neck: supple, no JVD, no adenopathy, trachea midline Cardiac: Normal S1 and S2. No murmur, gallops or friction rubs, peripheral pulses intact. Respiratory: Lungs clear to auscultation, no adventitious lung sounds currently on room air Gastrointestinal: soft, non-distended, non-tender, normoactive bowel sounds. : voiding without difficulty. Extremities: moves all extremities well, no edema, good ROM, strength 5/5 Skin: clean, dry, intact. No wounds or lesions. Neuro: Alert and oriented x4, cranial nerves intact, no neuro deficits. Psych: normal mood, normal affect, interactive H&P: Results Labs Labs: Short CBC 05/06/24 Range/Units 11:09 WBC 17.3 H (4.5-10.0) K/mm3 Hgb 12.2 L (14.0-18.0) g/dL Hct 37.7 L (42.0-52.0) % Plt Count 345 D (150-375) k/mm3 BMP 05/06/24 11:10 Sodium 138 Potassium 4.0 Chloride 102 Carbon Dioxide 26 BUN 20 Creatinine 0.90 Glucose 170 H Calcium 9.1 Cardiac Enzymes 05/06/24 Range/Units 11:10 Troponin I 0.072 H* (0.000-0.034) ng/mL Liver Function 05/06/24 Range/Units 11:10 Total Bilirubin 0.8 (0.2-1.3) mg/dL AST 25 (17-59) U/L ALT 17 (6-50) U/L Alkaline Phosphatase 85 (38-126) U/L Albumin 4.1 (3.5-5.1) g/dL Imaging Chest x-ray: Radiologist's impression: EXAMINATION: XR chest 1V portable DATE: 05/06/2024 10:32 INDICATION: Cough and dyspnea. TECHNIQUE: A single frontal view of the chest was obtained. COMPARISON: Chest 2 views 04/03/2021 FINDINGS: There are airspace opacities in right lower lung zone. No pleural effusion or pneumothorax. The heart size is normal. There is a left chest pacer/fibrillator with lead in right ventricle. There are changes of posterior fusion procedure in cervical spine. IMPRESSION: 1. Airspace opacities in right lower lung zone, consistent with atelectasis versus pneumonia. Reviewed, dictated and finalized at location A. Assessment and Plan Assessment and plan (1) Community acquired pneumonia: Code(s): J18.9 - Pneumonia, unspecified organism Status: Acute Assessment and Plan: * chest x-ray revealed airspace opacities in right lower lung zone consistent with pneumonia * white blood cell count 17.3 * respiratory panel negative for influenza a B, RSV, COVID * continue DuoNeb breathing treatments * continue Rocephin and azithromycin * will check urine strep, urine Legionella, mycoplasma * will check procalcitonin (2) Acute exacerbation of CHF (congestive heart failure): Code(s): I50.9 - Heart failure, unspecified Status: Acute Assessment and Plan: * will obtain echocardiogram as we do not have one to review from the EMR * continue Entresto, spironolactone and metoprolol * proBNP 3990 * patient was given a dose of 40 mg IV push Lasix in the ED * continue Lasix 40 mg IV push b.i.d. (3) Elevated troponin: Code(s): R79.89 - Other specified abnormal findings of blood chemistry Status: Acute Assessment and Plan: * troponin 0.072 * initial EKG initially showing sinus rhythm with possible anterior TX of indeterminate age, with a rate of 87, QTC 428. patient denied any signs or symptoms of TX while in the ED * likely demand ischemia * repeat EKG showing sinus rhythm with a rate of 64, QTC 445. There is some ST elevation in leads V3 and V4 however not as prominent as the 1st EKG. * Will consult Cardiology * admit to IMU for continuous cardiac monitoring (4) Type 2 diabetes mellitus with hyperglycemia: Code(s): E11.65 - Type 2 diabetes mellitus with hyperglycemia Status: Acute Assessment and Plan: * Blood sugars ranging 143-170 * Hgb A1C 5.7 on 11/10/2023 * Repeat Hgb A1C 6.9 * Accu checks AC/HS * low dose SSI ordered * hypoglycemic protocol in place * Diabetic diet ordered * will hold Farxiga and metformin for now (5) BPH (benign prostatic hyperplasia): Code(s): N40.0 - Benign prostatic hyperplasia without lower urinary tract symptoms Status: Acute Assessment and Plan: * continue tamsulosin (6) GERD (gastroesophageal reflux disease): Code(s): K21.9 - Gastro-esophageal reflux disease without esophagitis Status: Acute Assessment and Plan: * Protonix ordered (7) Hyperlipidemia: Code(s): E78.5 - Hyperlipidemia, unspecified Status: Chronic Assessment and Plan: * continue rosuvastatin (8) Hypertension: Code(s): I10 - Essential (primary) hypertension Status: Chronic Assessment and Plan: * blood pressures ranging * continue Entresto, spironolactone, metoprolol (9) Alzheimer's dementia: Code(s): G30.9 - Alzheimer's disease, unspecified; F02.80 - Dementia in other diseases classified elsewhere, unspecified severity, without behavioral disturbance, psychotic disturbance, mood disturbance, and anxiety Status: Chronic Assessment and Plan: * continue Aricept Quality VTE Prophylaxis VTE prophylaxis: pharmacologic ordered Hospitalist MIPS Advance Care Plan I have confirmed that the patient's Advanced Care Plan is present, code status is documented, or surrogate decision maker is listed in patient medical record.: Yes Medication Reconciliation I have utilized all available resources to obtain, update and review the patients current medications (includes all prescriptions, OTC, herbals, cannabis, and nutritional supplements).: Yes
[2024-05-06] MEDS: FUROSEMIDE INJ 40 MG/4 ML VIAL IV PUSH (13:23)
--- NOTE | 2024-05-06 13:32 | PC.NURSE ---
recieved report from ER nurse at [id number]
--- NOTE | 2024-05-06 13:50 | ADMGEN ---
This patient, Tolu Mathis, was admitted to IMU Room 205- at 1350 Patient/family oriented to hospital policies and general routines including ID bracelet, bed and alarms, visiting hours, pain management, procedures, bathroom and other care routines, personal items, smoking policy, room service/diet, and visiting hours. Information on how to activate the Rapid Response Team has been discussed. Patient/Family are encouraged to report perceived risks to care and to ask questions if they do not understand what they are told or what they should do.
[2024-05-06 14:42] LABS: Magnesium 1.9 mg/dL (1.6-2.3)
[2024-05-06 14:58] LABS: Troponin I 0.076 ng/mL (0.000-0.034)
[2024-05-06 15:05] LABS: Hemoglobin A1C 6.9 % (<5.7)
[2024-05-06 15:14] LABS: Thyroid Stimulating Hormone 0.763 uIU/mL (0.465-4.680)
[2024-05-06 15:20] LABS: Procalcitonin 0.2 ng/mL
--- NOTE | 2024-05-06 16:18 | P.CONCA_ITS ---
Assessment and Plan Assessment and plan (1) Elevated troponin: Code(s): R79.89 - Other specified abnormal findings of blood chemistry Status: Acute Assessment and Plan: His troponin levels are mildly elevated and flat. He does not have any anginal symptoms. EKG shows sinus rhythm with no ST or T-wave abnormalities. These troponin levels do not represent an acute coronary syndrome. He recently had a left heart catheterization that showed DIRECTOR WHOLESALE of his RCA. At this point, do not plan on any additional cardiac workup as he recently had an extensive workup at [place] including left heart catheterization, echocardiogram. Cardiology will sign off at this point. Please do not hesitate to call with questions. He will follow up with his vegetable tester at [place] in the future. At History of Present Illness History of Present Illness Consult date/time: 05/06/24 16:18 Reason For Visit: Pneumonia, CHF Narrative: Tolu Mathis is a 73-year-old male with coronary artery disease, heart failure, and ICD placed at [place] in the setting of syncope, coronary artery disease, and HFrEF. He comes to [facility] with complaints of cough and congestion. Cardiology has been asked to see him because his troponin levels were sampled in our mildly elevated. Patient denies any chest pain, palpitations, syncope, or presyncope. He has not had any therapy from his ICD. He is known to have a RCA DIRECTOR WHOLESALE. Review of Systems Review of Systems: All systems reviewed & are unremarkable except as noted in HPI and below PMFSH Past Medical History Medical History Central cord syndrome Diabetes mellitus Hyperlipidemia Hypertension Surgical History Surgical History History of colonoscopy Social History Social History Smoking packs per day: 2 Smoking cigarettes per day: 40.0 Years smoked: 25 Smoking pack-years: 50.00 Smoking status: Never smoker Tobacco type: cigarettes Alcohol intake: former Substance use: never Substance use type: does not use Other substance usage details: OCC. GUMMY Do You Feel Safe in your Home?: Yes Lack of Transportation: No Lack of Food: Never True Current Housing: I Have Housing Concerned About Future Housing: No Difficulty Paying Gas/Electric Bills: No Difficulty Paying for Meds: No Currently Unemployed: No Education: High School Diploma/GED Difficulty w/ Childcare or Family Care: No Living arrangements: with family Spiritual care concerns: No Meds Home Medications and Allergies Home Medications Medication Instructions Recorded Confirmed Type donepezil 5 mg tablet 5 mg PO HS #30 tabs 11/16/23 05/06/24 Rx escitalopram oxalate 10 mg tablet 10 mg PO DAILY #30 tabs 11/16/23 05/06/24 Rx metoprolol succinate 25 mg 25 mg PO DAILY #30 tabs 11/16/23 05/06/24 Rx tablet,extended release 24 hr omeprazole 40 mg capsule,delayed 40 mg PO BID #60 caps 11/16/23 05/06/24 Rx release spironolactone 25 mg tablet 25 mg PO DAILY #30 tabs 11/16/23 05/06/24 Rx tamsulosin 0.4 mg capsule 0.4 mg PO DAILY #30 caps 11/16/23 05/06/24 Rx sacubitril 49 mg-valsartan 51 mg 1 tablet PO BID 01/12/24 05/06/24 History tablet (Entresto) rosuvastatin 5 mg tablet 5 mg PO .COMPLEX #45 tabs 02/01/24 05/06/24 Rx dapagliflozin propanediol 5 mg 10 mg PO DAILY 05/06/24 05/06/24 History tablet (Farxiga) gabapentin 300 mg capsule 600 mg PO DAILY 05/06/24 05/06/24 History gabapentin 300 mg capsule 900 mg PO HS 05/06/24 05/06/24 History metformin 500 mg tablet,extended 1,000 mg PO BID 05/06/24 05/06/24 History release 24 hr Allergies Allergy/AdvReac Type Severity Reaction Status Date / Time prednisone AdvReac Unknown DOES NOT Verified 04/07/24 11:26 LIKE TO TAKE IT Vital Signs Vital Signs - 24 hr 05/06/24 09:31 05/06/24 10:20 05/06/24 10:30 Temperature 36.4 C Pulse Rate 92 71 73 Respiratory Rate 20 18 18 Blood Pressure 170/81 H Pulse Oximetry 93 Oxygen Delivery Room Air 05/06/24 11:00 05/06/24 12:00 05/06/24 10:00 Temperature 36.7 C Pulse Rate 77 72 77 Respiratory Rate 20 20 19 Blood Pressure 113/73 130/62 145/79 H Pulse Oximetry 93 95 94 Oxygen Delivery 05/06/24 09:30 05/06/24 13:32 05/06/24 14:01 Temperature 36.6 C Pulse Rate 84 63 65 Respiratory Rate 19 17 20 Blood Pressure 142/72 H 127/65 155/61 H Pulse Oximetry 95 94 98 Oxygen Delivery 05/06/24 14:15 05/06/24 14:00 05/06/24 16:00 Temperature Pulse Rate 67 64 Respiratory Rate Blood Pressure Pulse Oximetry Oxygen Delivery Room Air 05/06/24 14:14 Temperature 36.6 C Pulse Rate 65 Respiratory Rate 20 Blood Pressure 155/61 H Pulse Oximetry 98 Oxygen Delivery Exam Const: General: comfortable, no acute distress, alert and awake Orientation/consciousness: patient oriented x3 HENMT: Head: normal to inspection Eyes: General: appearance normal, both eyes and all related structures Pupils: Equal, round and reactive pupils present Neck: Neck: normal visual inspection, supple and no JVD Carotids: normal carotid upstroke Chest: Other: Left pectoral ICD incision well healed. Resp: Effort & Inspection: normal respiratory effort Auscultation: clear to auscultation bilaterally Cardio: Rate: regular rate Rhythm: regular rhythm Heart sounds: S1 normal heart sound present, S2 normal heart sound present and no murmurs GI: Auscultation: normal bowel sounds Skin: General skin exam: normal color Neuro: General: patient oriented x3 Cranial nerves: Yes Equal, round and reactive pupils present Extrem: General: normal to inspection Psych: Appearance: grossly normal Mental Status: mental status grossly normal Results Labs and Meds 05/06/24 11:09 05/06/24 11:10 Lab results: Cardiac Enzymes 05/06/24 05/06/24 Range/Units 11:10 14:24 AST 25 (17-59) U/L Troponin I 0.072 H* 0.076 H* (0.000-0.034) ng/mL CBC 05/06/24 Range/Units 11:09 WBC 17.3 H (4.5-10.0) K/mm3 RBC 4.25 L (4.6-6.20) M/mm3 Hgb 12.2 L (14.0-18.0) g/dL Hct 37.7 L (42.0-52.0) % Plt Count 345 D (150-375) k/mm3 Lymph # (Auto) 1.33 (0.9-3.2) K/mm3 [place] # (Auto) 1.4 H (0.1-0.6) K/mm3 Eos # (Auto) 0.1 (0-0.3) K/mm3 Baso # (Auto) 0.1 (0.0-0.1) K/mm3 Comprehensive Metabolic Panel 05/06/24 Range/Units 11:10 Sodium 138 (137-145) mmol/L Potassium 4.0 (3.4-5.0) mmol/L Chloride 102 (98-107) mmol/L Carbon Dioxide 26 (22-30) mmol/L BUN 20 (9-20) mg/dL Creatinine 0.90 (0.7-1.3) mg/dL Glucose 170 H (65-110) mg/dL Calcium 9.1 (8.4-10.2) mg/dL AST 25 (17-59) U/L ALT 17 (6-50) U/L Alkaline Phosphatase 85 (38-126) U/L Total Protein 8.0 (6.3-8.2) g/dL Albumin 4.1 (3.5-5.1) g/dL Intake and Output 05/06/24 05/06/24 05/06/24 07:59 15:59 23:59 Intake Total 300 Balance 300 Intake: IV 300 Azithromycin 500 mg/Ns 250 ml 250 500 mg In 250 ml @ 250 mls/hr IVPB ONCE STA Rx#:[id number] cefTRIAXone 1 GM/NS 50 ML 1 gm 50 In 50 ml @ 100 mls/hr IVPB ONCE STA Rx#:[id number] Patient Weight 05/06/24 23:59 Weight 69.9 kg
[2024-05-06 16:59] LABS: Glucose Point of Care 167 mg/dl (65-105)
[2024-05-06] MEDS: ACETAMINOPHEN 325 MG TABLET 650 MG PO (18:26)
[2024-05-06] MEDS: INSULIN ASPART (*BKC) 100 UNITS/ML SUB-Q (19:45)
[2024-05-06 20:29] LABS: Glucose Point of Care 285 mg/dl (65-105)
[2024-05-06] MEDS: ESCITALOPRAM OXALATE 10 MG TABLET PO (21:53)
[2024-05-06] MEDS: DONEPEZIL HCL 5 MG TABLET PO (21:53)
[2024-05-06] MEDS: GABAPENTIN 300 MG CAPSULE 600 MG PO (21:53)
[2024-05-06] MEDS: TAMSULOSIN HCL 0.4 MG CAPSULE PO (21:54)
[2024-05-06] MEDS: SACUBITRIL/VALSARTAN 49-51 MG TABLET 1 TABLET PO (21:54)
[2024-05-07] VITALS (18 sets, daily range): BP systolic 135–155; BP diastolic 51–82; PULSE 59–87; RESP 14–22; TEMP 36.5–36.7; O2SAT 91–95
[2024-05-07 04:47] LABS: Basophils Absolute Auto 0.2 K/mm3 (0.0-0.1); Basophils Percent Auto 1.2 % (0.2-1.2); Eosinophils Absolute Auto 0.5 K/mm3 (0-0.3); Eosinophils Percent Auto 4.2 % (0-4.4); Hematocrit 37.3 % (42.0-52.0); Hemoglobin 12.1 g/dL (14.0-18.0); Immature Granulocyte Absolute 0.06 K/mm3 (0.00-0.031); Immature Granulocyte Percent A 0.5 % (0-0.5); Lymphocytes Absolute Auto 2.12 K/mm3 (0.9-3.2); Mean Corpuscular HGB Conc 32.4 g/dl (32-36); Mean Corpuscular Hemoglobin 28.6 pg (26-34); Mean Corpuscular Volume 88.2 fl (80-100); Mean Platelet Volume 9.8 fl (7.4-10.4); Monocytes Absolute Auto 1.4 K/mm3 (0.1-0.6); Monocytes Percent Auto 11.4 % (2.6-8.5); Neutrophils Absolute Auto 8.2 K/mm3 (1.3-6.7); Neutrophils Percent Auto 65.7 % (45.5-73.1); Platelet Count Result 357 k/mm3 (150-375); Red Blood Count 4.23 M/mm3 (4.6-6.20); Red Cell Distribution Width 15.3 % (11.5-14.5); White Blood Count 12.5 K/mm3 (4.5-10.0)
[2024-05-07 05:01] LABS: Alanine Aminotransferase 16 U/L (6-50); Albumin Level 4.1 g/dL (3.5-5.1); Alkaline Phosphatase 75 U/L (38-126); Anion Gap 12 mmol/L (4-12); Aspartate Amino Transferase 26 U/L (17-59); Bilirubin,Total 0.7 mg/dL (0.2-1.3); Blood Urea Nitrogen 26 mg/dL (9-20); Calcium 9.1 mg/dL (8.4-10.2); Carbon Dioxide 28 mmol/L (22-30); Chloride 100 mmol/L (98-107); Estimated CRCL calculation 53 ml/min; Estimated Glomerular Filt Rate > 60; Glucose 146 mg/dL (65-110); Potassium 3.8 mmol/L (3.4-5.0); Sodium 140 mmol/L (137-145)
[2024-05-07 08:05] LABS: Glucose Point of Care 171 mg/dl (65-105)
[2024-05-07 08:08] LABS: Troponin I 0.039 ng/mL (0.000-0.034)
[2024-05-07] MEDS: AMOXICILLIN/CLAVULANATE K 875-125 MG TAB 1 TABLET PO ×2 (08:56→20:31)
[2024-05-07] MEDS: AZITHROMYCIN 250 MG TABLET PO (08:56)
[2024-05-07] MEDS: METOPROLOL SUCCINATE EXT REL 25 MG TABCR PO (08:56)
[2024-05-07] MEDS: SACUBITRIL/VALSARTAN 49-51 MG TABLET 1 TABLET PO ×2 (08:56→20:31)
[2024-05-07] MEDS: GABAPENTIN 300 MG CAPSULE 900 MG PO (08:57)
[2024-05-07] MEDS: ACETAMINOPHEN 325 MG TABLET 650 MG PO ×2 (08:57→17:04)
[2024-05-07] MEDS: PANTOPRAZOLE 40 MG TABLET PO (08:57)
[2024-05-07] MEDS: ENOXAPARIN 40 MG/0.4 ML SYRINGE SUB-Q (08:57)
[2024-05-07 11:53] LABS: Glucose Point of Care 168 mg/dl (65-105)
[2024-05-07 13:07] LABS: MRSA (PCR) NOT DETECTED (NOT DETECTE)
[2024-05-07] MEDS: IPRATROPIUM 0.5 MG/ALBUTEROL SULFATE 2.5 MG AMPUL.NEB 3 ML INHALATION ×2 (14:26→20:39)
[2024-05-07] MEDS: TAMSULOSIN HCL 0.4 MG CAPSULE PO (17:03)
[2024-05-07] MEDS: ESCITALOPRAM OXALATE 10 MG TABLET PO (17:04)
[2024-05-07] MEDS: INSULIN ASPART (*BKC) 100 UNITS/ML SUB-Q ×2 (17:04→20:32)
[2024-05-07 17:13] LABS: Glucose Point of Care 204 mg/dl (65-105)
--- NOTE | 2024-05-07 17:13 | P.PNIM_ITS ---
Progress Note: A&P Assessment and Plan (1) Community acquired pneumonia: Code(s): J18.9 - Pneumonia, unspecified organism Status: Acute Assessment and Plan: Patient presents with CRISOSTOMO and cough. CXR shows airspace opacities in right lower lung zone consistent with pneumonia. WBC 17.3K. Influenza, RSV and COVID PCR negative. Urine Ag ordered. No BCx ordered. PCT 0.2. remains on room air. WBC trending down. Given DuoNebs, Rocephin and azithromycin in the ED but not continued. Order Sputum Resume DuoNeb breathing treatments Resume abx but change to oral route. (2) Acute exacerbation of CHF (congestive heart failure): Code(s): I50.9 - Heart failure, unspecified Status: Acute Assessment and Plan: Possible CHF exacerbation but felt less likely. proBNP 3990. CXR as above. Weight stable when compared to prior visits. He was given Lasix IV 40mg once in ED but not continued Continue Entresto, spironolactone and metoprolol Cardiology consulted and appreciate their input (3) Elevated troponin: Code(s): R79.89 - Other specified abnormal findings of blood chemistry Status: Acute Assessment and Plan: Troponin was elevated to 0.072. EKG showing sinus rhythm with possible anterior HI of indeterminate age Patient denies symptoms to suggest cardiac ischemia. Elevated Troponin felt related demand ischemia and not acute coronary syndrome He has had a recent LHC at [place] that showed [employer] of his RCA. Appreciate Cardiology input (4) Type 2 diabetes mellitus with hyperglycemia: Code(s): E11.65 - Type 2 diabetes mellitus with hyperglycemia Status: Acute Assessment and Plan: A1c 6.9%. The patient's blood glucose was reviewed on 05/07 Glucose elevated at times. Diabetic diet Continue AccuCheks covering with sliding scale. Hypoglycemia protocol available as needed. Continue current medications. (5) BPH (benign prostatic hyperplasia): Code(s): N40.0 - Benign prostatic hyperplasia without lower urinary tract symptoms Status: Acute Assessment and Plan: Stable. Continue tamsulosin (6) Hypertension: Code(s): I10 - Essential (primary) hypertension Status: Chronic Assessment and Plan: Patient's blood pressure was reviewed on 05/07 Blood pressure remains reasonably well controlled. Will continue current medications. (7) Alzheimer's dementia: Code(s): G30.9 - Alzheimer's disease, unspecified; F02.80 - Dementia in other diseases classified elsewhere, unspecified severity, without behavioral disturbance, psychotic disturbance, mood disturbance, and anxiety Status: Chronic Assessment and Plan: Stable. Continue Aricept and lexapro Monitor symptoms of feeling 'weird' and shaking. Plan DVT prophylaxis - Lovenox Code status - full Subjective Date/time seen: 05/07/24 17:13 Interval history: 73yo male with DM, CHF, BPH, dementia and HTN here for CRISOSTOMO and cough. Patient feels well. he has these episodes where he feels 'weird' and hands started to shake. These have happened at home. Glucose normal during these episodes. He is unsure if there are other symptoms associated with it. Family in the room feel this is related to anxiety. Better after eating. No CP. Cough is productive still. He has had a recent ICD interrogation this week and no issues. Exam Narrative: AF 97.9 140/72 70 18 95% ra Gen - NARD Chest - distant BS with expiratory wheezes, nml RR CV - RRR S1/S2. Tele showing PVCs. Abd - Soft, NT/ND, Positive BS Ext - No pedal edema Psych - Nml mood and affect Skin - Warm and dry Objective Data Vital Signs Vital Signs: Vital Signs - 24 hr 05/06/24 18:00 05/06/24 20:00 05/06/24 20:22 Temperature 97.6 F Pulse Rate 69 67 Respiratory Rate 20 Blood Pressure 160/71 H Pulse Oximetry 100 Oxygen Delivery Room Air 05/06/24 20:00 05/06/24 22:00 05/06/24 23:13 Temperature Pulse Rate 61 61 Respiratory Rate Blood Pressure Pulse Oximetry Oxygen Delivery Room Air 05/06/24 23:22 05/07/24 00:00 05/07/24 02:00 Temperature 97.7 F Pulse Rate 60 59 L 59 L Respiratory Rate 20 Blood Pressure 159/54 H Pulse Oximetry 95 Oxygen Delivery 05/07/24 04:00 05/07/24 04:00 05/07/24 04:45 Temperature 98.1 F Pulse Rate 63 72 Respiratory Rate 20 Blood Pressure 135/51 L Pulse Oximetry 92 Oxygen Delivery Room Air 05/07/24 06:00 05/07/24 08:00 05/07/24 08:00 Temperature 98.1 F Pulse Rate 73 87 86 Respiratory Rate 20 Blood Pressure 152/82 H Pulse Oximetry 92 Oxygen Delivery 05/07/24 08:44 05/07/24 08:56 05/07/24 08:00 Temperature Pulse Rate 87 Respiratory Rate Blood Pressure Pulse Oximetry 91 Oxygen Delivery Room Air Room Air 05/07/24 10:00 05/07/24 12:00 05/07/24 12:00 Temperature Pulse Rate 77 77 Respiratory Rate Blood Pressure Pulse Oximetry Oxygen Delivery Room Air 05/07/24 12:00 05/07/24 14:00 05/07/24 14:26 Temperature 97.9 F Pulse Rate 72 72 72 Respiratory Rate 22 H 18 Blood Pressure 144/63 H Pulse Oximetry 93 Oxygen Delivery 05/07/24 16:00 05/07/24 16:00 Temperature 97.9 F Pulse Rate 73 70 Respiratory Rate 18 Blood Pressure 140/72 Pulse Oximetry 95 Oxygen Delivery Intake/Output Intake/Output: Intake & Output 05/04/24 05/05/24 05/06/24 05/07/24 23:59 23:59 23:59 23:59 Intake Total 1020 1720 Output Total 1750 Balance -730 1720 Meds/Results Medications: Active Medications Generic Name Dose Route Start Last Admin Trade Name Freq PRN Reason Stop Dose Admin Acetaminophen 650 mg 05/06/24 12:56 05/07/24 17:04 Acetaminophen 325 Mg Tablet PO 650 mg Q4H PRN Administration Mild Pain (1-3) or Fever Albuterol/Ipratropium 3 ml 05/07/24 14:00 05/07/24 14:26 Ipratropium 0.5 Mg/Albuterol Sulfate 2.5 Mg Ampul.Neb 3 Ml INHALATION 3 ml Q6HRT DIONE Administration Amoxicillin/Clavulanate Potassium 1 tablet 05/07/24 09:00 05/07/24 08:56 Amoxicillin/Clavulanate K 875-125 Mg Tab PO 05/12/24 21:01 1 tablet Q12HR DIONE Administration Azithromycin 250 mg 05/07/24 09:00 05/07/24 08:56 Azithromycin 250 Mg Tablet PO 05/10/24 09:01 250 mg DAILY DIONE Administration Dextrose 12.5 gm 05/06/24 13:22 Dextrose 50% 25 Gm/50 Ml Syringe IV PUSH PRN PRN Hypoglycemia Protocol Donepezil HCl 5 mg 05/07/24 21:00 Donepezil Hcl 5 Mg Tablet PO HS DIONE Enoxaparin Sodium 40 mg 05/07/24 09:00 05/07/24 08:57 Enoxaparin 40 Mg/0.4 Ml Syringe SUB-Q 40 mg DAILY DIONE Administration Escitalopram Oxalate 10 mg 05/07/24 17:00 05/07/24 17:04 Escitalopram Oxalate 10 Mg Tablet PO 10 mg 1700 DIONE Administration Gabapentin 900 mg 05/07/24 09:00 05/07/24 08:57 Gabapentin 300 Mg Capsule PO 900 mg DAILY DIONE Administration Gabapentin 600 mg 05/07/24 21:00 Gabapentin 300 Mg Capsule PO HS DIONE Glucagon 1 mg 05/06/24 13:22 Glucagon For Inj 1 Mg Vial IM PRN PRN Hypoglycemia Protocol Glucose 15 gm 05/06/24 13:22 Glucose Oral Gel 15 Gm Of Glucse In 37.5 Gm Tube PO PRN PRN Hypoglycemia Protocol Dextrose 1,000 mls @ 100 mls/hr 05/06/24 13:22 Dextrose 5% 1,000 Ml IVPB PRN PRN Hypoglycemia Protocol Insulin Aspart 2 - 5 units 05/06/24 17:00 05/07/24 17:04 Insulin Aspart (*Bkc) 100 Units/Ml SUB-Q 2 units TIDWM DIONE Administration Protocol Insulin Aspart 1 - 2 units 05/06/24 21:00 05/06/24 19:45 Insulin Aspart (*Bkc) 100 Units/Ml SUB-Q 1 units HS DIONE Administration Protocol Metoprolol Succinate 25 mg 05/07/24 09:00 05/07/24 08:56 Metoprolol Succinate Ext Rel 25 Mg Tabcr PO 25 mg DAILY DIONE Administration Ondansetron HCl 4 mg 05/06/24 13:31 Ondansetron Inj 4 Mg/2 Ml Vial IV PUSH Q6H PRN Nausea And Vomiting Pantoprazole Sodium 40 mg 05/07/24 09:00 05/07/24 08:57 Pantoprazole 40 Mg Tablet PO 40 mg QAM DIONE Administration Sacubitril/Valsartan 1 tablet 05/07/24 09:00 05/07/24 08:56 Sacubitril/Valsartan 49-51 Mg Tablet PO 1 tablet Q12HR DIONE Administration Tamsulosin HCl 0.4 mg 05/07/24 17:00 05/07/24 17:03 Tamsulosin Hcl 0.4 Mg Capsule PO 0.4 mg 1700 DIONE Administration Radiology Results: ITS Impressions Chest X-Ray 05/06/24 10:46 IMPRESSION: 1. Airspace opacities in right lower lung zone, consistent with atelectasis versus pneumonia. Labs Labs: Laboratory Results - last 24 hr 05/06/24 05/07/24 05/07/24 19:41 04:21 04:26 WBC 12.5 H RBC 4.23 L Hgb 12.1 L Hct 37.3 L MCV 88.2 MCH 28.6 MCHC 32.4 RDW 15.3 H Plt Count 357 MPV 9.8 Immature Gran % (Auto) 0.5 Neut % (Auto) 65.7 Lymph % (Auto) 17.0 L [place] % (Auto) 11.4 H Eos % (Auto) 4.2 Baso % (Auto) 1.2 Lymph # (Auto) 2.12 [place] # (Auto) 1.4 H Eos # (Auto) 0.5 H Baso # (Auto) 0.2 H Abs Immat Gran (auto) 0.06 H Absolute Neuts (auto) 8.2 H Absolute Nucleated RBC 0.000 Nucleated RBC % 0.0 Sodium 140 Potassium 3.8 Chloride 100 Carbon Dioxide 28 Anion Gap 12 BUN 26 H Creatinine 1.10 Estim Creat Clear Calc 53 Estimated GFR > 60 Glucose 146 H POC Capillary Glucose 285 H Calcium 9.1 Total Bilirubin 0.7 AST 26 ALT 16 Alkaline Phosphatase 75 Troponin I 0.039 H* Total Protein 8.0 Albumin 4.1 Nasal MRSA (PCR) 05/07/24 05/07/24 08:00 11:47 WBC RBC Hgb Hct MCV MCH MCHC RDW Plt Count MPV Immature Gran % (Auto) Neut % (Auto) Lymph % (Auto) [place] % (Auto) Eos % (Auto) Baso % (Auto) Lymph # (Auto) [place] # (Auto) Eos # (Auto) Baso # (Auto) Abs Immat Gran (auto) Absolute Neuts (auto) Absolute Nucleated RBC Nucleated RBC % Sodium Potassium Chloride Carbon Dioxide Anion Gap BUN Creatinine Estim Creat Clear Calc Estimated GFR Glucose POC Capillary Glucose 171 H 168 H Calcium Total Bilirubin AST ALT Alkaline Phosphatase Troponin I Total Protein Albumin Nasal MRSA (PCR) Not detected
[2024-05-07] MEDS: DONEPEZIL HCL 5 MG TABLET PO (20:31)
[2024-05-07] MEDS: GABAPENTIN 300 MG CAPSULE 600 MG PO (20:31)
[2024-05-07 20:41] LABS: Glucose Point of Care 213 mg/dl (65-105)
[2024-05-08] VITALS (17 sets, daily range): BP systolic 103–133; BP diastolic 49–67; PULSE 64–92; RESP 18–20; TEMP 36.4–36.7; O2SAT 92–95
[2024-05-08] MEDS: IPRATROPIUM 0.5 MG/ALBUTEROL SULFATE 2.5 MG AMPUL.NEB 3 ML INHALATION ×3 (02:15→13:56)
[2024-05-08] MEDS: ACETAMINOPHEN 325 MG TABLET 650 MG PO ×2 (03:58→08:27)
[2024-05-08 04:59] LABS: Basophils Absolute Auto 0.1 K/mm3 (0.0-0.1); Basophils Percent Auto 0.8 % (0.2-1.2); Eosinophils Absolute Auto 0.5 K/mm3 (0-0.3); Hemoglobin 11.1 g/dL (14.0-18.0); Immature Granulocyte Absolute 0.05 K/mm3 (0.00-0.031); Immature Granulocyte Percent A 0.4 % (0-0.5); Lymphocytes Absolute Auto 1.82 K/mm3 (0.9-3.2); Mean Corpuscular HGB Conc 32.6 g/dl (32-36); Mean Corpuscular Hemoglobin 28.6 pg (26-34); Mean Corpuscular Volume 87.6 fl (80-100); Mean Platelet Volume 9.9 fl (7.4-10.4); Monocytes Absolute Auto 1.4 K/mm3 (0.1-0.6); Monocytes Percent Auto 10.9 % (2.6-8.5); Neutrophils Absolute Auto 9.1 K/mm3 (1.3-6.7); Neutrophils Percent Auto 69.9 % (45.5-73.1); Platelet Count Result 363 k/mm3 (150-375); Red Blood Count 3.88 M/mm3 (4.6-6.20); Red Cell Distribution Width 15.2 % (11.5-14.5)
[2024-05-08 05:17] LABS: Alanine Aminotransferase 13 U/L (6-50); Albumin Level 3.7 g/dL (3.5-5.1); Alkaline Phosphatase 73 U/L (38-126); Anion Gap 12 mmol/L (4-12); Aspartate Amino Transferase 19 U/L (17-59); Bilirubin,Total 0.6 mg/dL (0.2-1.3); Blood Urea Nitrogen 23 mg/dL (9-20); Calcium 8.7 mg/dL (8.4-10.2); Carbon Dioxide 26 mmol/L (22-30); Chloride 97 mmol/L (98-107); Estimated CRCL calculation 48 ml/min; Estimated Glomerular Filt Rate 60; Glucose 187 mg/dL (65-110); Potassium 3.3 mmol/L (3.4-5.0); Sodium 135 mmol/L (137-145)
[2024-05-08 08:20] LABS: Glucose Point of Care 198 mg/dl (65-105)
[2024-05-08] MEDS: AMOXICILLIN/CLAVULANATE K 875-125 MG TAB 1 TABLET PO (08:27)
[2024-05-08] MEDS: SACUBITRIL/VALSARTAN 49-51 MG TABLET 1 TABLET PO (08:27)
[2024-05-08] MEDS: AZITHROMYCIN 250 MG TABLET PO (08:28)
[2024-05-08] MEDS: PANTOPRAZOLE 40 MG TABLET PO (08:28)
[2024-05-08] MEDS: METOPROLOL SUCCINATE EXT REL 25 MG TABCR PO (08:28)
[2024-05-08] MEDS: GABAPENTIN 300 MG CAPSULE 900 MG PO (08:28)
[2024-05-08] MEDS: ENOXAPARIN 40 MG/0.4 ML SYRINGE SUB-Q (08:28)
[2024-05-08] MEDS: INSULIN ASPART (*BKC) 100 UNITS/ML SUB-Q (12:37)
[2024-05-08 13:01] LABS: Glucose Point of Care 277 mg/dl (65-105)
--- NOTE | 2024-05-08 14:21 | P.DS_ITS ---
DS: Admitting Diagnosis Discharge Date 05/08/24 Admitting Diagnosis Dyspnea on exertion DS: Discharge Diagnosis Discharge Diagnosis (1) Community acquired pneumonia: Code(s): J18.9 - Pneumonia, unspecified organism Status: Acute (2) Elevated troponin: Code(s): R79.89 - Other specified abnormal findings of blood chemistry Status: Acute (3) Type 2 diabetes mellitus with hyperglycemia: Code(s): E11.65 - Type 2 diabetes mellitus with hyperglycemia Status: Acute (4) BPH (benign prostatic hyperplasia): Code(s): N40.0 - Benign prostatic hyperplasia without lower urinary tract symptoms Status: Acute (5) Hypertension: Code(s): I10 - Essential (primary) hypertension Status: Chronic (6) Alzheimer's dementia: Code(s): G30.9 - Alzheimer's disease, unspecified; F02.80 - Dementia in other diseases classified elsewhere, unspecified severity, without behavioral disturbance, psychotic disturbance, mood disturbance, and anxiety Status: Chronic DS: Summary Hospital Course Reason for hospitalization: 73yo male with DM, CHF, BPH, dementia and HTN here for CRISOSTOMO and cough. Please see H&P for details. Hospital Course: Patient presented with CRISOSTOMO and cough. CXR shows airspace opacities in right lower lung zone consistent with pneumonia. WBC 17.3K. Influenza, RSV and COVID PCR negative. Urine Ag ordered. No BCx ordered. PCT 0.2. He remained on room air. WBC trended down. Treated with DuoNebs, Rocephin and azithromycin in the ED. Sputum ordered. We continued DuoNeb breathing treatments and abx. Possible CHF exacerbation but felt less likely. proBNP 3990. Weight stable when compared to prior visits. He was given Lasix IV 40mg once in ED but not continued. We continued Entresto, spironolactone and metoprolol. Troponin was elevated to 0.072. EKG showing sinus rhythm with possible anterior NH of indeterminate age; QTc 428. Patient denies symptoms to suggest cardiac ischemia. Elevated Troponin felt related demand ischemia and not acute coronary syndrome. He has had a recen t LHC at [place] that showed [employer] OFFICER of his RCA. Cardiology consulted and appreciate their input. He overall did well and was able to be discharged on 05/08/24. Status at Discharge Cognitive/behavioral status at discharge: stable Time Spent with Patient Time attestation: Total time spent providing and/or coordinating discharge services: 35 minutes Time spent: Greater than 30 minutes Exam Narrative: AF 97.5 123/67 64 20 92% ra Gen - NARD Chest - rt base rhonchi o/w scattered rhonchi. nml RR. no wheezing CV - RRR S1/S2. Tele showing no significant dysrhythmias Abd - Soft, NT/ND, Positive BS Ext - No pedal edema Psych - Nml mood and affect Skin - Warm and dry DS: Data Data Completed and Pending Labs on day of discharge: Labs from last 24 hours 05/08/24 05/08/24 05/08/24 11:24 07:43 04:25 WBC 13.0 H RBC 3.88 L Hgb 11.1 L Hct 34.0 L MCV 87.6 MCH 28.6 MCHC 32.6 RDW 15.2 H Plt Count 363 MPV 9.9 Immature Gran % (Auto) 0.4 Neut % (Auto) 69.9 Lymph % (Auto) 14.0 L [place] % (Auto) 10.9 H Eos % (Auto) 4.0 Baso % (Auto) 0.8 Lymph # (Auto) 1.82 [place] # (Auto) 1.4 H Eos # (Auto) 0.5 H Baso # (Auto) 0.1 Abs Immat Gran (auto) 0.05 H Absolute Neuts (auto) 9.1 H Absolute Nucleated RBC 0.000 Nucleated RBC % 0.0 Sodium 135 L Potassium 3.3 L Chloride 97 L Carbon Dioxide 26 Anion Gap 12 BUN 23 H Creatinine 1.20 Estim Creat Clear Calc 48 Estimated GFR 60 Glucose 187 H POC Capillary Glucose 277 H 198 H Calcium 8.7 Total Bilirubin 0.6 AST 19 ALT 13 Alkaline Phosphatase 73 Total Protein 7.0 Albumin 3.7 05/07/24 05/07/24 20:30 16:15 WBC RBC Hgb Hct MCV MCH MCHC RDW Plt Count MPV Immature Gran % (Auto) Neut % (Auto) Lymph % (Auto) [place] % (Auto) Eos % (Auto) Baso % (Auto) Lymph # (Auto) [place] # (Auto) Eos # (Auto) Baso # (Auto) Abs Immat Gran (auto) Absolute Neuts (auto) Absolute Nucleated RBC Nucleated RBC % Sodium Potassium Chloride Carbon Dioxide Anion Gap BUN Creatinine Estim Creat Clear Calc Estimated GFR Glucose POC Capillary Glucose 213 H 204 H Calcium Total Bilirubin AST ALT Alkaline Phosphatase Total Protein Albumin Discharge Plan Discharge Attending physician on discharge: Mario Arceo Consulting providers: Rand Rios Discharging Clinician: Mario Arceo Anticipated Discharge Date/Time: 05/08/24 14:27 Patient Disposition: Home, Self-Care Activity: as tolerated Diet: diabetic Discharge Instructions: Please check glucose before meals and before bed. Record and bring into your doctor for review. Please complete your antibiotic course even if you are starting to feel well. Take precautions to avoid falls. Rise slowly from a lying or sitting position. Pause before standing or walking. Check daily morning weights after voiding. Call your doctor if you gain more than 3 lb in 2 days or 5 lb in 1 week. Contact your doctor or call 911 and come to the Emergency Room if you have fever s, lightheadedness with standing or other worrisome symptoms. Avoid NSAIDs (ibuprofen, naproxen, Aleve). Tylenol is safe to take. Follow-up with your primary care provider in 1-2 weeks. Please call for appointment. Thank you for using [facility] for your health care needs. Patient Instructions: Antibiotic Form, Amoxicillin/Clavulanate Potassium (By mouth), Azithromycin (By mouth), Community Acquired Pneumonia (DC) Stand Alone Forms: General Discharge Information Follow-up/Referrals: Abdirizak,MD Lio [Primary Care Provider] - Call for Appointment Discharge Medications: New azithromycin [Zithromax] 250 mg Tablet 250 mg PO DAILY Qty: 2 0RF albuterol sulfate 90 mcg/actuation HFA aerosol inhaler 2 puff inhalation QID PRN (Reason: shortness of breath or wheezing) Qty: 6.7 0RF amoxicillin-pot clavulanate 875-125 mg tablet 1 tablet PO Q12H Qty: 9 0RF Continued Entresto 49-51 mg tablet 1 tablet PO BID Hold Instructions: Patient Condition gabapentin 300 mg capsule 900 mg PO DAILY metformin 500 mg tablet extended release 24 hr 1,000 mg PO BID gabapentin 300 mg capsule 600 mg PO HS dapagliflozin propanediol [Farxiga] 5 mg tablet 10 mg PO DAILY tamsulosin 0.4 mg capsule 0.4 mg PO 1700 escitalopram oxalate 10 mg tablet 10 mg PO 1700 donepezil 5 mg tablet 5 mg PO HS Qty: 30 0RF omeprazole 40 mg capsule,delayed release(DR/EC) 40 mg PO BID Qty: 60 0RF metoprolol succinate 25 mg Tablet Extended Release 24 Hr 25 mg PO DAILY Qty: 30 0RF Date of admission: 05/07/24 18:23 Primary Care Provider: YashiraLio Admitting Provider: Mario Arceo Attending physician on admission: Mario Arceo Condition: Stable Hospitalist MIPS Heart Failure (Exclusion) Patient has history of Heart Transplant or Left Ventricular Assistive Device?: No IF YES, STOP HERE Heart Failure (Qualifier) Patient has current or prior documentation of LVEF less than or equal to 40%, or mod/servere depressed LVSF?: No IF NO, STOP HERE
[2024-05-08] MEDS: POTASSIUM CHLORIDE 20 MEQ PACKET (FOR LIQUID) 40 MEQ PO (15:16)
== END 2024-05-08 15:18 | disposition home or self-care (01) | DRG 194 ==
LOC: ANHED 13:06 → ANHIMU 13:28
PROVIDERS: Nurse Practitioner Acute Care; Admitting Provider Internal Medicine; Emergency Provider Physician Assistant; PCP Internal Medicine; Visit Provider Internal Medicine
DX: J18.9 Pneumonia, unspecified organism (principal); I24.89 Other forms of acute ischemic heart disease; E11.65 Type 2 diabetes mellitus with hyperglycemia; N40.0 Benign prostatic hyperplasia without lower urinary tract symptoms; G30.9 Alzheimer's disease, unspecified; F02.80 Dementia in other diseases classified elsewhere, unspecified severity, without behavioral disturbance, psychotic disturbance, mood disturbance, and anxiety; I11.0 Hypertensive heart disease with heart failure; I50.9 Heart failure, unspecified; I25.10 Atherosclerotic heart disease of native coronary artery without angina pectoris; E78.5 Hyperlipidemia, unspecified; E11.42 Type 2 diabetes mellitus with diabetic polyneuropathy; Z20.822 Contact with and (suspected) exposure to COVID-19; Z87.891 Personal history of nicotine dependence; Z95.810 Presence of automatic (implantable) cardiac defibrillator
CPT/HCPCS: 36415; 71045; 80053; 82948; 83036; 83735; 83880; 84145; 84443; 84484; 85025; 87449; 87581; 87637; 87641; 87899; 93005; 94640; 96365; 96367; 96372; 96375; 99285; A9270; G0378; J0456; J0696; J1650; J1815; J1940

== ENCOUNTER 2024-05-17 08:00 | Outpatient (RCR) | payer MEDICARE, SELFPAY ==
--- NOTE | 2024-02-24 11:01 | OPREHPOC ---
Outpatient Therapy Plan of Care This is a Multidisciplinary Plan of Care that may contain components documented by all disciplines (PT, OT, and ST.) PT Problem 1 PT Problem #1 Knowledge Deficit PT Goal 1 Goal *indep with HEP Target Visit 8 PT Problem 2 PT Problem #2 Pain PT Goal 1 Goal 1* pain rating of 2/10 at worst 2* self assessment with Neck DIsability Index rating of 10% limitation in activity level 3* pt report headache occurance of 1x/wk Target Visit 8 PT Problem 3 PT Problem #3 Impaired Strength PT Goal 1 Goal increase strength of shoulders, to increase activity at home and self care activities: in standing x 5 reps to 90': 1* R flexion with 4# 2* R abduction with 3# 3* L flexion with 5# 4* L abduction with 5# Target Visit 8
--- NOTE | 2024-02-24 11:01 | PTOPEVAL1 ---
Assessment and note entered by Catherine Cam, PT Evaluation Information Assessment Status Evaluation Other ICD-10 Condition Codes ( Z98.1--s/p cervical fusion PT) Onset October 28, 2023 Subjective Information after cervical fusion--- C 3 to T-1, cardiac cath and life vest placed; had in pt rehab to November 16, then had [facility] therapy; d/c from [facility] in January; doing the exercises from [facility] therapy; increase walking--able to walk 3 blocks outside; doing band exercises at home-- blue for elbow and standing exercises at sink; no longer using the neck brace, cane, walker or any equipment; feel comfortable with walking and mobility in his home and community; since surgery-- no longer do yard work, heavy tasks around home; per pt-- surgeon told him to take it easy GOAL: get arms stronger; is R handed and have weakness of both arms; Reported Pain Level Pain Score Self Report Additional Pain Score Comments pain range in the past week 0-3/10; increase pain: wake up in am decrease pain: tylenol not use heat/ice; have headaches 2-3x/week, take tylenol to ease it; R shoulder pain 0-4/10; L shoulder pain 0-2/10; Assessment PT Clinical Summary Tolu is s/p cervical fusion of C 3 to T1. He has completed in pt and [facility] therapy services. Self assessment Neck Disability Index rating of 18% limitation in activity level. He has restrictions from dr of take it easy and light lifting only. He is scheduled to have cardiac defibrillator implanted next week and is wearing a life vest now. He has headaches 2-3 x/week with neck pain. With the evaluation: he has decreased cervical rotation from the fusion; decreased R and L shoulder ROM and strength; tightness and spasms over cervical incision; poor shoulder and neck positioning; indep with gait and mobility skills. Skilled PT services are indicated for modalities to decrease pain and spasms, to reduce headaches; therapeutic exercises to increase shoulder strength and positioning with education for HEP and posture. Plan of Care Interventions Hot Pack/Cold Pack,Manual Therapy,Neuro Re- education,Patient Education,Therapeutic Activities,Therapeutic Exercise,Other Other Interventions taping, I[facility] PT Services Indicated Yes Treatment Frequency and 1-2 x/wk for 8 visits Duration These treatments will address the objective and functional deficits as defined above. The patient will be advanced safely and appropriately in order for the patient to progress towards his/her prior level of function. Additional exercises will be introduced and as well as a comprehensive home exercise program upon discharge, if needed, ?to ensure carryover of functional gains achieved in the clinic. This treatment plan has been reviewed and agreement upon by the patient.
--- NOTE | 2024-04-14 08:56 | PTOPPROG ---
Assessment and note entered by [facility] Evaluation Information Assessment Status Progress ICD-10 Condition Codes (PT) Cervicalgia M54.2,Weakness R53.1 Other ICD-10 Condition Codes ( Z98.1 s/p cervical fusion PT) Onset 10/28/23 Subjective Information Pt. reports he has been unable to attend therapy due to recent defibrillator placement. He has been unable to do therapy or HEP due to precautions with being unable to lift the left arm overhead. He reports that he no longer has his precautions. He states that he continues to notice a generalized weakness. He states that he is also concerned regarding his balance. he states that he continues to walk the dog daily, but can only go a short distance. he reports that he is still able to get into the community without assistance. He states that he notices that he tends to stumble more often, and recalls one fall recently while bending to grade something off the ground. He reports that his goal for therapy is to improve his strength and improve his balance. Assessment PT Clinical Summary Pt. is a 73 year old male who re-enters the clinic post fusion and post defibrillator implantation. He presents with generalized l.e. and u.e. weakness, impaired gait, impaired balance, moderate fall risk and functional decline. Continued skilled PT is indicated in order to improve these areas to allow for improved safety and efficiency with IADL's. New goals established on this date reflecting current impairments. We will discontinue goal that were established prior to his last procedure and begin to focus on goals established on this date. Plan of Care Interventions Gait Training,Manual Therapy,Neuro Re-education, Patient/Caregiver Educati,Therapeutic Activities, Therapeutic Exercise Other Interventions [facility] PT Services Indicated Yes Treatment Frequency and 2x/week x 10 visits Duration These treatments will address the objective and functional deficits as defined above. The patient will be advanced safely and appropriately in order for the patient to progress towards his/her prior level of function. Additional exercises will be introduced and as well as a comprehensive home exercise program upon discharge, if needed, ?to ensure carryover of functional gains achieved in the clinic. This treatment plan has been reviewed and agreement upon by the patient.
--- NOTE | 2024-04-14 08:57 | OPREHPOC ---
Outpatient Therapy Plan of Care This is a Multidisciplinary Plan of Care that may contain components documented by all disciplines (PT, OT, and ST.) PT Problem 1 PT Problem #1 Knowledge Deficit PT Goal 1 Goal / Goal Update *indep with HEP Target Visit 2 Progress Not Met PT Problem 2 PT Problem #2 Impaired Balance PT Goal 1 Goal / Goal Update Pt. will improve his Tinetti score to 24 or greater indicating low fall risk. Pt. will be able to safely reach to the floor for 5-10 reps to lift and small object without support Target Visit 10 PT Problem 3 PT Problem #3 Impaired Wheelchair Mobil PT Goal 1 Goal / Goal Update Pt. will present with 4+/5 gross l.e. and u.e. strength Pt. will be able to stand on Airex foam with NBOS for duration of 2 minutes without LOB indicating improved stability and postural control. Target Visit 10 PT Problem 4 PT Problem #4 Impaired Gait PT Goal 1 Goal / Goal Update Pt. will be able to ambulate a distance of 300' demonstrating appropriate olivia with no incidence of lateral deviation or LOB. Target Visit 10 PT Problem 5 PT Problem #5 Impaired Endurance PT Goal 1 Goal / Goal Update Pt. will be able to participate in 30 minutes of standing therapeutic activities without rest indicating improved endurance. Target Visit 10
--- NOTE | 2024-04-28 09:12 | PCPTNOTE ---
Pt. did not show for physical therapy appointment this morning. Called and spoke with pt. and pt. asked to reschedule for later this morning.
--- NOTE | 2024-05-09 08:43 | PCPTNOTE ---
Pt canceled due to illness.
--- NOTE | 2024-05-17 08:46 | PTOPDC ---
Assessment and note entered by Catherine Cam, PT Discharge Report Assessment Status Discharge ICD-10 Condition Codes (PT) Cervicalgia M54.2,Weakness R53.1 Other ICD-10 Condition Codes ( Z98.1 s/p cervical fusion PT) Onset 10/28/23 Subjective Information was in the hospital for pneumonia for 4 days; not having any pain in neck, but sometimes feel like arms need to rest; after sit and rest, few minutes and it passes; am little slow getting around due to breathing, now have an inhaler to help my breathing; have not had any falls since starting therapy; is doing everything at home; agrees to discharge from therapy and continue with HEP. Reported Pain Level Pain Score 0: Self Report Assessment PT Clinical Summary Tolu has received 8 PT sessions. Compared to the last reevaluation: increase UE and LE strength; self assessment with Neck Disability Index rating from 18 to 8% limitation in activity level; Tinetti balance score from 18 to 26/28 for improved mobility safety & balance; 5 reps sit/stand time of 20 seconds; 12 steps without hand railing, indep and 2 minute walking test distance of 460' with good gait pattern; education completed for HEP and safety with mobility. The goals were achieved. Discharge PT services. Plan of Care PT Services Indicated No
== END 2024-05-17 10:11 | disposition home or self-care (01) ==
LOC: ANHPT 08:00
PROVIDERS: PCP Internal Medicine
DX: Z98.1 Arthrodesis status (principal)
CPT/HCPCS: 97110; 97112; 97161; 97530

== ENCOUNTER 2024-06-13 14:36 | Outpatient (CLI) | payer MEDICARE, SELFPAY ==
--- NOTE | ~2024-06-13 | XR_ITS ---
Clinical Indication: Cough PA and lateral views of the chest: Comparison: 05/06/2024 Findings: The lungs are clear, without evidence of focal consolidation or pleural effusion. Probable COPD. Cardiomediastinal silhouette is stable, with pacemaker device. Bones and soft tissues are unrem arkable, aside from cervicothoracic spine fixation hardware. Impression: COPD. Clear lungs. Reviewed, dictated and finalized at location . [employer] Impression: COPD. Clear lungs.
== END 2024-06-13 14:37 | disposition home or self-care (01) ==
PROVIDERS: PCP Internal Medicine; Visit Provider Internal Medicine
DX: R05.3 Chronic cough (principal); J44.9 Chronic obstructive pulmonary disease, unspecified
CPT/HCPCS: 71046

== ENCOUNTER 2024-06-30 13:30 | Outpatient (RCR) | payer MEDICARE, SELFPAY | END 2024-10-17 10:23 | disposition home or self-care (01) | LOC: ANHDMC 13:30 | PROVIDERS: PCP Internal Medicine; Visit Provider Internal Medicine Endocrinology, Diabetes & Metabolism | DX: E11.65 Type 2 diabetes mellitus with hyperglycemia (principal); Z71.89 Other specified counseling | CPT/HCPCS: 97110; 97530; G0108 ==

== ENCOUNTER 2024-07-25 12:43 | Outpatient (CLI) | payer MEDICARE, SELFPAY ==
--- NOTE | ~2024-07-25 | XR_ITS ---
CHEST RADIOGRAPH, PA AND LATERAL CLINICAL HISTORY: Cough . COMPARISON: 06/13/2024 TECHNIQUE: PA and lateral views of the chest. FINDINGS The left mid lung is partially obscured due to AICD generator. A single wire projects over the right atrium and right ventricle. The remainder of the cardiomediastinal silhouette is otherwise unremarkable. The lungs are clear. Visualized osseous structures and soft tissues are unremarkable. IMPRESSION: No focal infiltrate or effusion. Reviewed, dictated and finalized at location A. [employer]ENSING ADVISOR
== END 2024-07-25 12:44 | disposition home or self-care (01) ==
PROVIDERS: PCP Internal Medicine; Visit Provider Internal Medicine
DX: R05.9 Cough, unspecified (principal)
CPT/HCPCS: 71046

== ENCOUNTER 2024-08-25 09:25 | Outpatient (RCR) | payer MEDICARE, SELFPAY | END 2024-11-21 09:23 | disposition home or self-care (01) | LOC: ANHDMC 09:25 | PROVIDERS: Visit Provider Internal Medicine Endocrinology, Diabetes & Metabolism | DX: E11.65 Type 2 diabetes mellitus with hyperglycemia (principal); G35 Multiple sclerosis; G31.84 Mild cognitive impairment of uncertain or unknown etiology; Z71.89 Other specified counseling | CPT/HCPCS: G0108 ==

== ENCOUNTER 2024-11-02 00:57 | Day surgery (SDC) | payer MEDICARE, SELFPAY ==
[2024-10-20 15:12] VITALS: BMI 25.4
--- NOTE | 2024-11-01 14:45 | WPDANESEPPF ---
Anes - Initial Pre Proc Eval Procedure: Operation Date: 11/02/24 13:30 Proposed Procedures p Esophagogastroduodenoscopy EGD - Brian Eid MD Date/Time: 11/01/24 14:45 Surgeon: Brian Eid MD Pre Op Diagnosis: GERD, Melena, Anemia Patient Data Age: 73 Gender: M Height: 1.73 m Weight: 76 kg Allergies Allergy/AdvReac Type Severity Reaction Status Date / Time prednisone AdvReac Unknown DOES NOT Verified 11/02/24 12:35 LIKE TO TAKE IT Home Medications ?Medication ?Instructions ?Recorded ?Confirmed ?Type donepezil 5 mg tablet 5 mg PO HS #30 tabs 11/16/23 11/02/24 Rx metoprolol succinate 25 mg 25 mg PO DAILY #30 tabs 11/16/23 11/02/24 Rx tablet,extended release 24 hr omeprazole 40 mg capsule,delayed 40 mg PO BID #60 caps 11/16/23 11/02/24 Rx release sacubitril 49 mg-valsartan 51 mg 1 tablet PO BID 01/12/24 11/02/24 History tablet (Entresto) dapagliflozin propanediol 5 mg 10 mg PO DAILY 05/06/24 11/02/24 History tablet (Farxiga) escitalopram oxalate 10 mg tablet 10 mg PO 1700 05/06/24 11/02/24 History gabapentin 300 mg capsule 600 mg PO HS 05/06/24 11/02/24 History gabapentin 300 mg capsule 900 mg PO DAILY 05/06/24 11/02/24 History metformin 500 mg tablet,extended 1,000 mg PO BID 05/06/24 11/02/24 History release 24 hr albuterol sulfate 90 mcg/actuation 2 puff inhalation QID PRN 05/08/24 10/20/24 Rx aerosol inhaler shortness of breath or wheezing #6.7 grams blood-glucose sensor (Dexcom G7 #9 ea 08/09/24 08/22/24 Rx Sensor device) sodium zirconium cyclosilicate 10 10 g PO DAILY 08/09/24 11/02/24 History gram oral powder packet (Lokelma) pen needle, diabetic 32 gauge x #400 ea 08/31/24 Rx (BD Ultra-Fine Ai Pen Needle) rosuvastatin 5 mg tablet 5 mg PO DAILY #90 tabs 09/14/24 11/02/24 Rx semaglutide 0.25 mg or 0.5 mg (2 0.5 mg subcut WEEKLY 10/20/24 11/02/24 History mg/3 mL) subcutaneous pen injector Patient hx anesthesia problems: none Family hx anesthesia problems: none Results Review: All pre-operative results and documents have been reviewed as part of the pre-operative evaluation. [facility] Past Medical History Medical History (Updated 11/01/24 @ 14:46 by Tolu Cruz DO) Cardiomyopathy ICD (implantable cardioverter-defibrillator) in place Alzheimer's dementia Anemia Black stools Diarrhea Diabetic neuropathy Central cord syndrome Hyperlipidemia Hypertension Diabetes mellitus Surgical History Surgical History H/O hernia repair AICD (automatic cardioverter/defibrillator) present History of colonoscopy Social History Social History Smoking packs per day: 2 Smoking cigarettes per day: 40.0 Years smoked: 30 Smoking pack-years: 60.00 Smoking status: Former smoker Tobacco type: cigarettes Alcohol intake: former Substance use: never Substance use type: does not use Other substance usage details: OCC. GUMMY Do You Feel Safe in your Home?: Yes Lack of Transportation: No Lack of Food: Never True Current Housing: I Have Housing Concerned About Future Housing: No Difficulty Paying Gas/Electric Bills: No Difficulty Paying for Meds: No Currently Unemployed: No Education: High School Diploma/GED Difficulty w/ Childcare or Family Care: No Living arrangements: with family Spiritual care concerns: No Anes - Eval Final PreProcedure Day of Procedure 11/01/24 14:45 Patient weight: normal Heart: regular rate and rhythm Lungs: clear to auscultation and normal air movement Airway: Mallampati scale class III Neurological: alert and oriented Last oral intake: >/= 8 hours ASA classification: IV Emergent: no Anesthetic plan: proceed Anesthesia type and monitoring: general GIVS and standard monitoring Results Review: All pre-operative results and documents have been reviewed as part of the pre-operative evaluation. Informed Consent: The patient's anesthetic plan and its attendant risks and benefits were discussed with the patient/family/POA. Questions were solicited and answers provided to the satisfaction of the patient/family/POA.
--- OUTSIDE RECORDS SUMMARY | 2024-11-02 01:03 | XMS_ITS | Encounter Summary ---
Author Organization [facility] Address [address] [place] [address] Phone Care Team Providers Care Order Desk Caller Name Role Phone Lio Reveles MD Primary Care Provider + [phone] Vahe Rouse MD Unavailable [phone] Emily Staples RN Unavailable Unavailable Gisselle Morgan RN Unavailable Unavaila Alie Henao RN Unavailable Unavailable Kalyani Muller Unavailable Unavailable Encounter Details Date Type Department Care Team (Late st Contact Info) Description 11/01/2024 Telephone [facility] Cardiology [address] [facility] [address] [place] [address] [place] [address] Yeison Tom MD [address] [facility] [address] [place] [address] Social History Tobacco Use Types Packs/Day Years Used Date Smoking Tobacco: Former Cigarettes Q uit: 1999 Passive Smoke Exposure: Never Smokeless Tobacco: Never [facility] Utilities Answer Date Recorded In the past 12 months has [employer] electric, gas, oil, or water company threatened to shut off services in your home? No 11/02/2023 Social Connection and Isolat ion Panel [NHANES] Answer Date Recorded In a typical week, how many times do you talk on the phone with family, friends, or neighbors? More than three times a week 11/02/2023 How often do you get togethe r with friends or relatives? More than three times a week 11/02/2023 How often do you attend chur ch or yarsani services? Never 11/02/2023 Do you belong to any clubs o r organizations such as restorationism groups, unions, fraternal or athletic groups, or school groups? No 11/02/2023 How often do you attend meet ings of the clubs or organizations you belong to? Never 11/02/2023 Are you , , di vorced, , never , or living with a partner? 11/02/2023 AUDIT-C Answer Date Recorded Q1: How often do you have a drink containing alcohol? Never 03/03/2024 Q2: How many drinks containi ng alcohol do you have on a typical day when you are drinking? Patient does not drink Q3: How often do you have si x or more drinks on one occasion? Never 03/03/2024 Overall Financial Resource Strain (CARDIA) Answe r Date Recorded How hard is it for you to pa y for the very basics like food, housing, medical care, and heating? Not very hard 11/02/2023 Hunger Vital Sign Answer Date Recorded Within the past 12 months, y ou worried that your food would run out before you got the money to buy more. Never true 11/02/19 24 Within the past 12 months, t he food you bought just didn't last and you didn't have money to get more. Never true 11/02/2023 PRAPARE - Transportation Answer Date Re corded In the past 12 months, has l ack of transportation kept you from medical appointments or from getting medications? No 10/12 In the past 12 months, has l ack of transportation kept you from meetings, work, or from getting things needed for daily living? No 11/02/2023 Housing Stability Vital Sign Answer Ryan e Recorded In the last 12 months, was t here a time when you were not able to pay the mortgage or rent on time? No 11/02/2023 In the last 12 months, how many places have you lived? 1 11/02/2023 In the last 12 months, was t here a time when you did not have a steady place to sleep or slept in a fdc (including now)? No 11/02/2023 Personal Safety Answer Date Recorded Have you ever been in or are you currently in a harmful physical or emotional relationship or is someone making you feel afraid or unsafe? 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 Perioperative Cardiac Rhythm Device Management form received, completed, and faxed back to requesting facility. Fax confirmation received. documented in this encounter Plan of Treatment Not on file documented as of this encounter Visit Diagnoses Not on filedocumented in this encounter Care Teams Order Desk Caller Relationship Specialty Start Date End Date Lio Reveles MD PCP - General Internal Medicine 10/24/23 Vahe Rouse MD [address] [place] [address] Referring Physician Neurology 01/04/24 Emily Staples, welding pantograph machine operator Failure Coordinator Transplant 05/03/24 Gisselle Morgan, welding pantograph machine operator Failure Coordinator 05/03/24 Alie Joyner, french folderPlasterer Maintenance 10/31/24 Kalyani Muller Primary Digital Marketing Lead Transplant 10/31/24 documented as of this encounter
--- OUTSIDE RECORDS SUMMARY | 2024-11-02 01:03 | XMS_ITS | Encounter Summary ---
Author Organization [facility] Address [address] [place] [address] Phone Care Team Providers Care Certified Ophthalmic Assistant Name Role Phone Lio Reveles MD Primary Care Provider + [phone] Vahe Rouse MD Unavailable [phone] Emily Staples RN Unavailable Unavailable Gisselle Morgan RN Unavailable Unavaila Alie Henao RN Unavailable Unavailable Kalyani uMller Unavailable Unavailable Encounter Details Date Type Department Care Team (Late st Contact Info) Description 01/15/2024 Telephone [facility] Cardiology [address] [facility] [address] 8th [place] [address] [place] [address] Benji Esparza MD [address] [facility] [address] [place] [address] Social History Tobacco Use Types Packs/Day Years Used Date Smoking Tobacco: Former Cigarettes [facility] Utilities Answer Date Recorded In the past 12 months has [employer] electric, gas, oil, or water company threatened [...] week 11/02/2023 How often do you attend [facility] or jewish services? Never 11/02/2023 Do you belong to any clubs o r organizations such as jainism groups, unions, fraternal or athletic groups, or school groups? No 11/02/2023 How often do you attend meet ings of the clubs or organizations you belong to? Never 11/02/2023 Are you , , di vorced, , never , or living with a partner? 11/02/2023 AUDIT-C Answer Date Recorded Q1: How often do you have a drink containing alcohol? Never 11/05/2023 Q2: How many drinks containi ng alcohol do you have on a typical day when you are drinking? Patient does not drink Q3: How often do you have si x or more drinks on one occasion? Never 11/05/2023 Overall Financial Resource Strain (CARDIA) Answe r [...] place to sleep or slept in a care home (including now)? No 11/02/2023 Personal Safety Answer Date Recorded Have you ever been in or are you currently in a harmful physical or emotional relationship or is someone making you feel afraid or unsafe? 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 Gender Identity Male 03/25/2023 11:15 AM CDT Sexual Orientation Not on file documented as of this encounter Plan of Treatment Not on file documented as of this encounter Visit Diagnoses Not on filedocumented in this encounter Care Teams Certified Ophthalmic Assistant Relationship Specialty Start Date End Date Lio Reveles MD PCP - General Internal Medicine 10/24/23 Vahe Rouse MD [address] [facility] [address] [place] [address] Referring Physician Neurology 01/04/24 Emily Staples, catcher helper Failure Coordinator Transplant 05/03/24 Gisselle Morgan, catcher helper Failure Coordinator 05/03/24 Alie Joyner, earth science technical officerBakery Machine Mechanic 10/31/24 Kalyani Muller Primary Luggage Maker Transplant 10/31/24 documented as of this encounter
--- OUTSIDE RECORDS SUMMARY | 2024-11-02 01:03 | XMS_ITS | Encounter Summary ---
Author Organization [facility] Address [address] [place] [address] Care Team Providers Care System Sales Consultant Name Role Phone Lio Reveles MD Primary Care Provider + [phone] Vahe Rouse MD Unavailable [phone] Emily Staples RN Unavailable Unavailable Gisselle Morgan RN Unavailable Unavaila Alie Henao RN Unavailable Unavailable Kalyani Muller Unavailable Unavailable Encounter Details Date Type Department Care Team (Late st Contact Info) Description 11/01/2024 Telephone [facility] Transplant Heart [address] [facility] [id number] [place] [address] Avinash Cleaning Social History Tobacco Use Types Packs/Day Years Used Date Smoking Tobacco: Former Cigarettes Q uit: 1999 Passive Smoke Exposure: Never Smokeless Tobacco: Never [facility] Utilities Answer Date Recorded In the past 12 months has [employer], gas, oil, or water [employer] threatened to shut off services in your [...] 11/02/2023 How often do you attend chur or jainism services? Never 11/02/2023 Do you belong to any clubs o r organizations such as tenriism groups, unions, fraternal or athletic groups, or [...] place to sleep or slept in a jail (including now)? No 11/02/2023 Personal Safety Answer Date Recorded Have you ever been in or are you currently in a harmful physical or emotional relationship or is someone making you feel afraid or unsafe? 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 She needs this faxed back today as the surgery is tomorrow. Please fax the form back and the fax number is on the form in [employer] marked CMRD please signon October 27, 2024. * Telephone Encounter - Avinash Cleaning - 11/01/2024 1:54 PM CDT Received call from [facility] with [facility] needing to speak with nurse coordinator regarding: Isabella with [facility] left a voicemail over lunch regarding the CRMD form. She apologized that they sent to the wrong fax number initially but stated we hopefully have it now. There's a blank CRMD form in the media tab from 10/27 that I believe she's referring to. The patient procedure is scheduled for tomorrow morning. They're requesting a call back to see if this is able to be completed today. If not, they want to let the patient know and get him rescheduled. Please call their office back at [phone] documented in this encounter Plan of Treatment Not on file documented as of this encounter Visit Diagnoses Not on filedocumented in this encounter Care Teams System Sales Consultant Relationship Specialty Start Date End Date Lio Reveles MD PCP - General Internal Medicine 10/24/23 Vahe Rouse MD [address] [place] [address] Referring Physician Neurology 01/04/24 Emily Staples, forest products gatherer Failure Coordinator Transplant 05/03/24 Gisselle Morgan, forest products gatherer Failure Coordinator 05/03/24 Alie Joyner, airline ticket agentMedical Health Researcher 10/31/24 Kalyani Muller Primary Church Musician Transplant 10/31/24 documented as of this encounter
--- OUTSIDE RECORDS SUMMARY | 2024-11-02 01:03 | XMS_ITS | Clinical Summary ---
Author Organization [facility] [address] [place] [address] Care Team Providers Care Children'S Minister Name Role Phone Lio Reveles MD Primary Care Provider + [phone] Vahe Rouse MD Unavailable [phone] Emily Staples RN Unavailable Unavailable Gisselle Morgan RN Unavailable Unavaila Alie Henao RN Unavailable Unavailable Kalyani Muller Unavailable Unavailable Allergies No known active allergies Medications metFORMIN XR (GLUCOPHAGE XR) 500 mg 24 hr tabletIndications :type 2 diabetes mellitus Take 2 tablets (1,000 mg total) by mouth 2 (two) times a day 01/06/20 23 Active omeprazole (PriLOSEC) 40 mg capsuleIndication s:Treatment of Non-Bleeding Gastric Disorder Take 1 capsule (40 mg total) by mouth 2 (two) times a day 02/25/20 23 Active gabapentin (NEURONTIN) 300 mg capsuleIndication s:Diabetic Peripheral Neuropathy,Postop erative Acute Pain Take 1 capsule (300 mg total) by mouth 3 (three) times a day 11/06/19 24 025 Active escitalopram (LEXAPRO) 10 mg tabletIndications :Generalized Anxiety Disorder Take 1 tablet (10 mg total) by mouth every morning 11/17/19 24 Active sacubitriL-valsar cheatham (ENTRESTO) 49-51 mg tabletIndications :chronic heart failure Take 1 tablet by mouth 2 (two) times a day with meals 180 tablet 3 01/01/20 24 Active rosuvastatin (CRESTOR) 5 mg tabletIndications :hyperlipidemia Take 1 tablet (5 mg total) by mouth nightly 02/01/20 24 Active Dexcom G7 Sensor device CHANGE SENSOR EVERY 10-14 DAYS TO CHECK BLOOD SUGAR 02/20/20 24 Active dapagliflozin propanediol (FARXIGA) 10 mg tablet Take 1 tablet (10 mg total) by mouth daily 90 tablet 2 04/21/20 24 Active sodium zirconium cyclosilicate (Lokelma) 10 gram packetIndications :hyperkalemia Take 1 packet (10 g total) by mouth daily Take one packet three times a day for 2 days, then take one packet daily. 90 packet 3 05/31/20 24 025 Active FIASP 100 unit/mL (3 mL) pen for injection INJECT 4 UNITS UNDER THE SKIN THREE TIMES DAILY BEFORE A MEAL WITH SLIDING SCALE. MAX DAILY DOSE OF 20 UNITS. 05/23/20 24 Active BASAGLAR 100 unit/mL (3 mL) pen for injection ADMINISTER 15 UNITS UNDER THE SKIN EVERY MORNING 05/23/20 24 Active BD Ai 2nd Gen Pen Needle 32 gauge x 5/32 needle USE FOUR TIMES DAILY 03/23/20 24 Active metoprolol XL (TOPROL-XL) 50 mg extended release tabletIndications :chronic heart failure,hypertens ion Take 1 tablet (50 mg total) by mouth daily before breakfast 90 tablet 2 09/15/19 25 Active donepeziL (ARICEPT) 5 mg tablet Take 1 tablet (5 mg total) by mouth nightly 30 tablet 5 10/06/19 25 025 Active donepeziL (ARICEPT) 5 mg tablet Take 1 tablet (5 mg total) by mouth nightly 30 tablet 5 06/27/20 24 025 Discontin ued(Reord er) Active Problems Problem Noted Date Diagnosed Date VT (ventricular tachycardia) 03/03/2024 Cardiomyopathy, ischemic 02/04/2024 Chronic systolic heart failure 02/03/2024 Syncope 01/06/2024 Ischemic congestive cardiomyopathy 01/04/2024 Macroalbuminuric diabetic nephropathy 12/11/2023 Hyperlipidemia 12/11/2023 Degenerative joint disease of hand 12/11/2023 Acute bronchitis 12/11/2023 Erectile dysfunction 12/11/2023 Hyperlipidemia, unspecified 11/17/2023 Benign prostatic hyperplasia without lower urinary tract symptoms 11/17/2023 Presence of automatic (implantable) cardiac defi brillator 11/06/2023 Assessment & Plan (09/14/2024 11:48 AM METHOD CONSULTANT): Denies therapies. Central cord syndrome at C4 level of cervical sp inal cord 11/06/2023 Central cord syndrome, initial encounter 024 Ischemic cardiomyopathy 10/28/2023 Assessment & Plan (09/14/2024 11:47 AM METHOD CONSULTANT): ICM: Chronic systolic heart failure. Denies angina. He appears euvolemic on exam, with NYHA class I-II findings. Denies ICD therapies. Increase metoprolol to 50 mg xl daily, continue Farxiga 10 mg daily, entresto 49/51 mg BID, aldactone stopped previously for hyperkalemia. ASA and crestor [address] Marinelli in 3 months. Hyponatremia 10/25/2023 Assessment & Plan (10/27/2023 12:27 PM CDT): - FWR to 1.5 L - Trend BMP - 10/25: Na 127 (133) - 10/26: Na 133 - Further management per PCP Leukocytosis 10/24/2023 Assessment & Plan (10/25/2023 11:53 AM CDT): UA negative WBC trending down 11 (14) Fall on same level as cause of accidental injury 10/23/2023 Central cord syndrome 10/23/2023 Assessment & Plan (10/27/2023 12:19 PM CDT): # Concern for central cord syndrome - Ortho spine consult - C-spine precautions - Soft C-collar - HOB < 30 degrees - Pain control - Standing scoli AP/lateral - MRI total spine - Hold DVT ppx per Ortho - F/U with Orthopedic Spine in 2-3 weeks Hypertension 10/23/2023 Assessment & Plan (10/27/2023 12:20 PM CDT): - Home losartan held due to K 5.2, normotensive blood pressures - Home amlodipine daily - Further management per PCP Type 2 diabetes mellitus 10/23/2023 Assessment & Plan (10/27/2023 12:20 PM CDT): - Home metformin, glimepiride and Victoza held - SSI - 10/25 Hypoglycemia overnight, continue QID POCT - Further management per PCP GERD (gastroesophageal reflux disease) Assessment & Plan (10/23/2023 12:56 PM CDT): - Home omeprazole-> pantoprazole Discharge planning issues 10/23/2023 Assessment & Plan (10/27/2023 12:20 PM CDT): 10/22: new admit. Pending further spine recs and PT/OT evals 10/24: Pending therapy evaluations. Family interested in rehab/placement. 10/25: Pending therapy re-evaluation 10/26: Discharge home Hyperkalemia 10/23/2023 Assessment & Plan (10/25/2023 11:55 AM CDT): - Home Losartan held - Telemetry x 24 hours -RESOLVED Alzheimer's disease, unspecified 05/28/2023 Assessment & Plan (10/23/2023 12:55 PM CDT): - Home donepezil Encounters Date Type Department Care Team Description 11/01/2024 Telephone [facility] [address] [facility] Medicine 8th [place] [address] [place] [address] Yeison Tom MD 11/01/2024 Telephone [facility] [address] [facility] [address] [phone] [place] [address] Avinash Cleaning 10/31/2024 Telephone [facility] [address] [facility] [address] [phone] [place] [address] Karina Amador 10/19/2024 Documentation Orthopaedic Surgery Fer Pizano BS 10/17/2024 Orders Only [facility] [address] [facility] 8th [place] [address] [place] [address] Yeison Tom MD 09/14/2024 10:00 AM METHOD CONSULTANT Office Visit [facility] [address] [facility] 8th [place] [address] [place] [address] Pratibha Jennings NP Presence of automatic (implantable) cardiac defibrillator (Primary Dx); Ischemic cardiomyopathy 08/29/2024 Telephone [facility] [address] [facility] [address] Floor [address] [place] [address] Rupesh Casper LCSW from Last 3 Months Immunizations Immunization Administration Dates Next Due Influenza, Quad, Adjuvantate d, Intramuscular 04/28/2022 Influenza, Quadrivalent, Hig h Dose, Preservative Free, Intrr 04/10/2020 Influenza, Quadrivalent, Spl it, Intramuscular 04/08/2021,05/10/2019,06/03/2017 Influenza, Unspecified 04/12/2022 Pneumococcal Conjugate PCV 13 04/10/2020 Pneumococcal Polysaccharide PPV23 04/11/2021 Tdap 09/04/2022 ZOSTER Recombinant 08/14/2022,05/28/2022 Surgical History Surgery Date Site/Laterality Comments FL FLUORO GUIDED LUMBAR PUNCTURE 03/18/2023 Right HERNIA REPAIR 07/13/1992 - 07/12/1993 SPINAL FUSION 10/28/2023 C4-6 laminectomy ; C3-T1 cervicothoracic fusion with instrumentation-Dr. Clyde Dotson CARDIAC CATHETERIZATION 10/12/2023 - 11/10/2023 COLONOSCOPY Medical History Medical History Date Comments Diabetes mellitus (HCC) Hypertension GERD (gastroesophageal reflux disease) Alzheimer disease (HCC) Family History Medical History Relation Name Comments Diabetes Father Hypertension Father Diabetes Mother Diabetes type I Mother heart problems Mother Diabetes Sister Relation Name Status Comments Father Mother Sister Social History Tobacco Use Types Packs/Day Years Used Date Smoking Tobacco: Former Cigarettes Q uit: 2000 Passive Smoke Exposure: Never Smokeless Tobacco: Never Tobacco Cessation:Counseling Given: Not Answered [facility] Utilities Answer Date Recorded In the past 12 months has [employer], gas, oil, or water [employer] threatened to shut off services in your [...] often do you attend chur ch or faith services? Never 11/02/2023 Do you belong to any clubs o r organizations such as episcopal groups, unions, fraternal or athletic groups, or [...] place to sleep or slept in a alf (including now)? No 11/02/2023 Personal Safety Answer Date Recorded Have you ever been in or are you currently in a harmful physical or emotional relationship or is someone making you feel afraid or unsafe? Denies 03/03/2024 Sex and Gender Information Value Date Recorded Sex Assigned at Not on file Legal Sex Male 5:49 AM METHOD CONSULTANT Gender Identity Male 03/25/2023 11:15 AM CDT Sexual Orientation Not on file Obstetrics History Last Filed Vital Signs Vital Sign Reading Time Taken Comments Blood Pressure 126/75 09/14/2024 10:13 AM METHOD CONSULTANT Pulse 92 09/14/2024 10:13 AM METHOD CONSULTANT Temperature 36.6 C (97.8 F) 06/27/2024 10:39 AM METHOD CONSULTANT Respiratory Rate 25 03/03/2024 2:20 PM CDT Oxygen Saturation 96% 09/14/2024 10:13 AM METHOD CONSULTANT Inhaled Oxygen Concentration - - Weight 77.8 kg (171 lb 9.6 oz) 09/14/2024 10:13 AM METHOD CONSULTANT Height 171.5 cm (5' 7.5 ) 09/14/2024 10:13 AM CS T Body Mass Index 26.48 09/14/2024 10:13 AM METHOD CONSULTANT Plan of Treatment Health Maintenance Due Date Last Done Comments Albumin Creatinine Ratio, Urine 1952 Colon Cancer Screening-Colonoscopy 1952 Depression Screening 1952 Hepatitis C Screening 1952 Dilated Eye Exam 1952 Foot Exam 1952 Hepatitis B Screening 1970 Well Visit 65+ 2017 Covid-19 Vaccine (2023-08 5 season) 2024 04/27/2022, 11/14/2021, 05/29/2021, Additional history exists Hemoglobin A1C 04/22/2024 10/22/2023 Lipid Panel 01/05/2025 01/06/2024, 10/11, 10/23/2023 Fall Risk Assessment 03/03/2025 03/03/2024, 08/29/20 23 Influenza Vaccine (Season Ended) 2025 04/28/2022, 04/12/2022, 04/08/2021, Additional history exists eGFR 06/21/2025 06/21/2024, 05/13, 05/12/2024, Additional history exists DTaP/Tdap/Td Vaccine (2 - Td or Tdap) 09/04/2032 09/04/2022 Pneumococcal vaccine 65+ Completed 04/11/2021, 03/14 Zoster Vaccine Completed 08/14/2022, 05/28/2022 Abdominal Aortic Aneurysm (A AA) Screen Completed 10/22/2023 Medical Devices Implanted Type Area Lead Systems Architect Device Identifier Shelf Expiration Date Model / Serial / Lot DoveConviene Angio-Seal Vip 6fr Closere Device [id number] - [id number] - [id number] Implanted:Qty: 1 on 11/05/2023 by Héctor Richards MD at [facility] Collagen Right: Groin [employer] Kandice 06/15/2024 [id number] / [id number] / [id number] [employer] Kandice Defibrillator Single Chamber Vigilant 0.99x5.37x7.36cm D232 - [id number] - [id number] Implanted:Qty: 1 on 03/03/2024 by Yeison Tom MD at [facility] ICD Left: Chest Wall [employer] Kandice 06/16/2025 [id number] / [id number] / [id number] [employer] Kandice Lead Cardioverter Defibrillator Bipolar Active Fixation Endocardium Steroid Eluting [place] 4 Front [id number] 0672 - [id number] - [id number] Implanted:Qty: 1 on 03/03/2024 by Yeison Tom MD at [facility] Lead Right: Ventricle [employer] Kandice 09/24/2025 0672 / [id number] / [id number] Allosource Crushed Fresh Frozen Cancellous 1-4mm Graft 15ml Bone [id number] - [id number] Implanted:Qty: 1 on 10/28/2023 by Clyde Dotson MD at [facility] N/A: Spine Cervical Allosource 12/15/2027 [id number] / / [id number] Nuv[employer] Inc Screw Spine Reline C Lock Open Non-Sterile Latex Free [id number] - [id number] Implanted:Qty: 10 on 10/28/2023 by Clyde Dotson MD at [facility] N/A: Spine Cervical [employer]uv[employer] Inc [id number] / / [employer]uv[employer] Screw Spinal Posterior Cervical Solid Reline C 3.5x14mm [id number] - [id number] Implanted:Qty: 6 on 10/28/2023 by Clyde Dotson MD at [facility] N/A: Spine Cervical [employer]uv[employer] Inc [id number] / / Nuv[employer] Inc Reline C Screw 3.5x20mm Ma [id number] - [id number] Implanted:Qty: 2 on 10/28/2023 by Clyde Dotson MD at [facility] N/A: Spine Cervical [employer] Inc [id number] / / [employer] Screw Spinal Thoracic Solid Reline 4.0x24mm Titanium [id number] - [id number] Implanted:Qty: 2 on 10/28/2023 by Clyde Dotson MD at [facility] N/A: Spine Cervical Nuv[employer] Inc [id number] / / Nuv[employer] Inc Melvin Spinal Posterior Cervical Prebent Reline 4.0x80mm Titanium [id number] - [id number] Implanted:Qty: 2 on 10/28/2023 by Clyde Dotson MD at [facility] N/A: Spine Cervical [employer]uv[employer] Inc [id number] / / Procedures Procedure Name Priority Date/Time Associated Diagnosis Comments DEVICE CHECK - REMOTE Routine 10/17/2024 6:10 AM CDT BASIC METABOLIC PANEL Routine 06/21/2024 1:50 PM METHOD CONSULTANT Ischemic cardiomyopathy LIPID PANEL Routine 01/06/2024 11:37 AM CDT Ischemic cardiomyopathy Hyperlipidemia Syncope, unspecified syncope type CT CHEST ABDOMEN PELVIS W CONTRAST ED 10/22/2023 7:10 PM CDT HEMOGLOBIN A1C STAT 10/22/2023 5:22 PM CDT from Last 3 Months or Most Recently Relevant to Health Maintenance Results * DEVICE CHECK - REMOTE (10/17/2024 6:10 AM CDT) Anatomical Region Laterality Modality Other 10/17/2024 6:10 AM CDT Narrative 10/20/2024 7:29 AM CDT Interpretation Summary: Battery and Leads (BL) Normal parameters noted on battery and lead(s) --- 15 years remaining (this is an estimate based on prior usage) Presenting Rhythm (KS) Ventricular Sensing (VS) --- rate 55 Arrhythmic events (AE) No new arrhythmic events in monitoring period Transmission Information (TI) Device Summary Report Procedure Note Yeison Tom MD - 10/20/2024 Interpretation Summary: Battery and Leads (BL) Normal parameters noted on battery and lead(s) --- 15 years remaining(this is an estimate based on prior usage) Presenting Rhythm (KS) Ventricular Sensing (VS) --- rate 55 Arrhythmic events (AE) No new arrhythmic events in monitoring period Transmission Information (TI) Device Summary Report Yeison Tom MD [facility] PROCEDURES Final Result * (ABNORMAL) Basic metabolic panel (06/21/2024 1:50 PM METHOD CONSULTANT) Pathologist [facility] Glucose 133(H) 70 - 99 mg/dL [facility] - 01 BUN 19 8 - 27 mg/dL [facility] - 01 Creatinine, Serum 1.31(H) 0.76 - 1.27 mg/dL [facility] - 01 eGFR 58(L) >59 mL/min/1.7 3 [facility] - 01 BUN/creat ratio 15 10 - 24 [facility] - 01 Sodium 141 134 - 144 mmol/L [facility] - 01 Potassium, sr 4.9 3.5 - 5.2 mmol/L [facility] - 01 Chloride 105 96 - 106 mmol/L [facility] - 01 CO2 25 20 - 29 mmol/L [facility] - 01 Calcium 9.3 8.6 - 10.2 mg/dL [facility] - 01 Blood 06/21/2024 1:50 PM METHOD CONSULTANT 06/21/2024 Narrative [facility] - 06/22/2024 7:10 AM METHOD CONSULTANT Performed at: [address] [id number] Customer Service Leader: Carlitos Jung PhD, Phone: [phone] us Vickey Marinelli MD PhD LAB BLOOD ORDERABL ES Final Result [facility] - 01 * (ABNORMAL) Lipid panel (01/06/2024 11:37 AM CDT) Cholesterol 243(H) 30 - 199 mg/dL Comment: Interpretive Data Ages < or = 19 years Acceptable: <170 mg/dL Borderline high: 170-199 mg/dL High: >or= 200 mg/dL Ages > or = 20 years Desirable: <200 mg/dL Borderline high: 200-239 mg/dL High: >or= 240 mg/dL Literature References: 1. Expert Panel on Integrated Guidelines for Cardiovascular Health and Risk Reduction in Children and Adolescents. Pediatrics 2011;128:S213 2. NCEP Expert Panel. Circulation 2004;110:227 Current Interpretive Data was last revised on 2018. Triglycerides 368(H) <=149 mg/dL [facility] Comment: Interpretive Data Ages < or = 9 years Acceptable: <75 mg/dL Borderline high: 75-99 mg/dL High: >or= 100 mg/dL Ages 10 to 20 years Acceptable: <90 mg/dL Borderline high: 90-129 mg/dL High: >or= 130 mg/dL Ages > or = 20 years Desirable: <150 mg/dL Borderline high: 150-199 mg/dL High: 200-499 mg/dL Very high: >or= 499 mg/dL Literature References: 1. Expert Panel on Integrated Guidelines for Cardiovascular Health and Risk Reduction in Children and Adolescents. Pediatrics 2011;128:S213 2. NCEP Expert Panel. Circulation 2004;110:227 Current Interpretive Data was last revised on 2018. HDL 31(L) >=40 mg/dL [facility] Comment: Interpretive Data Ages < or = 19 years Acceptable: >45 mg/dL Borderline low: 40-45 mg/dL Low: <40 mg/dL Ages > or = 20 years Desirable: >or= 60 mg/dL Low: <40 mg/dL Literature References: 1. Expert Panel on Integrated Guidelines for Cardiovascular Health and Risk Reduction in Children and Adolescents. Pediatrics 2011;128:S213 2. NCEP Expert Panel. Circulation 2004;110:227 Current Interpretive Data was last revised on 2018. LDL, calculated 138(H) <=129 mg/dL [facility] Comment: Interpretive Data Ages < or = 19 years Acceptable: <110 mg/dL Borderline high: 110-129 mg/dL High: >or= 130 mg/dL Ages > or = 20 years Optimal: <100 mg/dL Near optimal: 100-129 mg/dL Borderline high: 130-159 mg/dL High: >160 mg/dL Literature References: 1. Expert Panel on Integrated Guidelines for Cardiovascular Health and Risk Reduction in Children and Adolescents. Pediatrics 2011;128:S213 2. NCEP Expert Panel. Circulation 2004;110:227 Current Interpretive Data was last revised on 2018. Non-HDL Cholesterol 212 mg/dL [facility] Comment: Interpretive Data Ages < or = 19 years Acceptable: <120 mg/dL Borderline high: 120-144 mg/dL High: >145 mg/dL Ages > or = 20 years When triglycerides are >200 mg/dL, Non-HDL cholesterol is a secondary target of therapy with treatment goals that are 30 mg/dL greater than the LDL cholesterol target. Literature References: 1. Expert Panel on Integrated Guidelines for Cardiovascular Health and Risk Reduction in Children and Adolescents. Pediatrics 2011;128:S213 2. NCEP Expert Panel. Circulation 2004;110:227 Current Interpretive Data was last revised on 2018. Chol/HDL ratio 8 [facility] Blood 01/06/2024 11:3 7 AM CDT 01/06/2024 2:09 PM CDT us Benji Esparza MD LAB BLOOD ORDERABLES Final Result [facility] [place] [address] * CT Chest Abdomen Pelvis W Contrast (10/22/2023 7:10 PM CDT) Anatomical Region Laterality Modality Body N/A Computed Tomogra phy 10/22/2023 7:26 PM CDT Impressions 10/22/2023 7:44 PM CDT No acute traumatic injury in the chest, abdomen, or pelvis. Dictated by: Sathya Piper M.D. The radiology attending physician has personally reviewed this study, and had reviewed and/or edited this written report and agrees with it. Electronically signed by: Kathe Jason M.D. Narrative 10/22/2023 7:44 PM CDT EXAMINATION: CT CHEST ABDOMEN PELVIS W CONTRAST HISTORY: trauma TECHNIQUE: Transaxial computed tomographic images of the chest abdomen pelvis were obtained according to the standard protocol after the uneventful administration of 90 mL of intravenous contrast. COMPARISON: None. FINDINGS: CHEST: Mild apical predominant centrilobular emphysema. Mild basilar atelectasis. No pleural effusion or pneumothorax. No suspicious pulmonary nodule. Patent central airways with small amount of secretions and mild mucoid impaction in both lungs, in keeping with mild aspiration. Heart size within normal limits. No pericardial effusion. Extensive coronary artery calcifications. Aortic valve calcification. Severe atherosclerosis of the left carotid artery.No thoracic lymphadenopathy. Small hiatal hernia. Fluid filling the esophagus, placing the patient at risk for aspiration. ABDOMEN/PELVIS: Liver, pancreas, spleen within normal limits. Cholelithiasis without evidence of cholecystitis. Thickening of the adrenal glands. No hydronephrosis. Small nonobstructing renal calculi versus excreted contrast in the bilateral renal collecting systems. Distended urinary bladder. Mild prostatomegaly. Colonic diverticulosis without diverticulitis. No evidence of bowel obstruction. Normal appendix. No ascites or pneumoperitoneum. No abdominal or pelvic lymphadenopathy. Severe aortoiliac atherosclerosis without aneurysmal dilatation of the abdominal aorta, including up to moderate stenosis of the superior mesenteric artery origin and left renal artery origin. Diffuse aneurysmal dilatation of the right common iliac artery measuring 1.8 cm in caliber. Bones: Mild superior endplate irregularity of the T11 and T12 vertebral bodies, which may represent degenerative change and/or chronic compression deformity. Procedure Note Kathe Jason MD - 10/22/2023 EXAMINATION: CT CHEST ABDOMEN PELVIS W CONTRAST HISTORY: trauma TECHNIQUE: Transaxial computed tomographic images of the chest abdomen pelvis were obtained according to the standard protocol after the uneventful administration of 90 mL of intravenous contrast. COMPARISON: None. FINDINGS: CHEST: Mild apical predominant centrilobular emphysema. Mild basilar atelectasis. No pleural effusion or pneumothorax. No suspicious pulmonary nodule. Patent central airways with small amount of secretions and mild mucoid impaction in both lungs, in keeping with mild aspiration. Heart size within normal limits. No pericardial effusion. Extensive coronary artery calcifications. Aortic valve calcification. Severe atherosclerosis of the left carotid artery.No thoracic lymphadenopathy. Small hiatal hernia. Fluid filling the esophagus, placing the patient at risk for aspiration. ABDOMEN/PELVIS: Liver, pancreas, spleen within normal limits. Cholelithiasis without evidence of cholecystitis. Thickening of the adrenal glands. No hydronephrosis. Small nonobstructing renal calculi versus excreted contrast in the bilateral renal collecting systems. Distended urinary bladder. Mild prostatomegaly. Colonic diverticulosis without diverticulitis. No evidence of bowel obstruction. Normal appendix. No ascites or pneumoperitoneum. No abdominal or pelvic lymphadenopathy. Severe aortoiliac atherosclerosis without aneurysmal dilatation of the abdominal aorta, including up to moderate stenosis of the superior mesenteric artery origin and left renal artery origin. Diffuse aneurysmal dilatation of the right common iliac artery measuring 1.8 cm in caliber. Bones: Mild superior endplate irregularity of the T11 and T12 vertebral bodies, which may represent degenerative change and/or chronic compression deformity. IMPRESSION: No acute traumatic injury in the chest, abdomen, or pelvis. Dictated by: Sathya Piper M.D. The radiology attending physician has personally reviewed this study, and had reviewed and/or edited this written report and agrees with it. Electronically signed by: Kathe Jason M.D. Samantha Tucker MD IM CT PROCEDURES Final Result * (ABNORMAL) Hemoglobin A1c (10/22/2023 5:22 PM CDT) Hgb A1C 6.3(H) 4.0 - 5.6 % Estimated Average Glucose 134 mg/dL [facility] Comment: The ADA recommends reporting an estimated Average Glucose (eAG) with all Hemoglobin A1c results using the equation derived from a study of 507 normal and diabetic adults. Minority populations were underrepresented and children were not included. (Diabetes Care 2020; 43(S1): S66-S76). The eAG is not equivalent to a fasting glucose. Blood 10/22/2023 5:22 PM CDT 10/22/2023 5:31 PM CDT us Janette Navas MD LAB BLOOD ORDERABLES Final Res ult [facility] [place] [address] from Last 3 Months or Most Recently Relevant to Health Maintenance Insurance MEDICARE [facility] [place] MEDICARE [place] [employer] [place] Advance Directives For more information, please contact: [phone] * Full Code (Latest Code Status on File) Date Activated Date Inactivated Comments 03/03/2024 12:25 PM 03/03/2024 7:03 PM * Full Code Date Activated Date Inactivated Comments 10/29/2023 7:36 AM 11/06/2023 6:01 PM * Full Code Date Activated Date Inactivated Comments 10/28/2023 9:17 PM 10/29/2023 7:36 AM * Full Code Date Activated Date Inactivated Comments 10/28/2023 1:40 PM 10/28/2023 9:16 PM * Full Code Date Activated Date Inactivated Comments 10/23/2023 11:18 AM 10/27/2023 9:08 PM Care Teams Children'S Minister Relationship Specialty Start Date End Date Lio Reveles MD PCP - General Internal Medicine 10/24/23 Vahe Rouse MD [address] [facility] [address] [place] [address] Referring Physician Neurology 01/04/24 Emily Staples, astrophysics teacher Failure Coordinator Transplant 05/03/24 Gisselle Morgan, astrophysics teacher Failure Coordinator 05/03/24 Alie Joyner, mirror machine feederGourmet Coffee Attendant 10/31/24 Kalyani Muller Primary Salesperson Neckties Transplant 10/31/24
--- OUTSIDE RECORDS SUMMARY | 2024-11-02 01:03 | XMS_ITS | Encounter Summary ---
Author Organization [facility] Address [address] [place] [address] Care Team Providers Care Millroom Supervisor Name Role Phone Nikky Mathews MD Primary Care Provider Encounter Details Date Type Department Care Team (Late st Contact Info) Description 05/21/2023 Lab Requisition [facility] - DermPath Lab [address] [place] [address] Eldon Morfin MD [address] [place] [address] Social History Tobacco Use Types Packs/Day Years Used Date Smoking Tobacco: Former Cigarettes Q uit: 08/01/1998 Smokeless Tobacco: Never Comments:OCCASIONAL CIGAR Alcohol Use Standard Drinks/Week Comments No 0 (1 standard drink = 0.6 oz pur e alcohol) Sex and Gender Information Value Date Recorded Sex Assigned at Not on file Legal Sex Male 1:09 PM CUTTING SUPERVISOR Gender Identity Not on file Sexual Orientation Not on file documented as of this encounter Plan of Treatment Not on file documented as of this encounter Procedures Procedure Name Priority Date/Time Associated Diagnosis Comments DERMATOPATHOLOGY Routine 05/20/2023 12:0 0 AM CUTTING SUPERVISOR documented in this encounter Results * DERMATOPATHOLOGY (05/20/2023 12:00 AM CUTTING SUPERVISOR) Case Report Dermatopathology Report Case: [id number] Authorizing Provider: Eldon Morfin MD Collected: 05/20/2023 12:00 AM Ordering Location: [facility] DermPath Lab Received: 05/21/2023 07:40 AM Pathologist: Miranda Yañez MD Specimen: Skin, right ant neck 11/10/202 3 2:27 PM [facility] DERMATOPATHOLOGY LABORATORY Final Diagnosis Specimen A. SKIN, right ant neck: BENIGN VERRUCOUS KERATOSIS, INFLAMED (L82.1) (see microscopic description) 3 2:27 PM [facility] DERMATOPATHOLOGY LABORATORY Clinical History Nevus vs BCC 3 2:27 PM [facility] DERMATOPATHOLOGY LABORATORY Gross Description Specimen A: Received is one formalin filled container labeled with the patient's name and designated right ant neck. The specimen consists of a(2) pieces shave biopsy measuring 5x3x1, 5x4x1 mm. Jar 0. 3 2:27 PM [facility] DERMATOPATHOLOGY LABORATORY Microscopic Description Specimen A. SKIN, right ant neck: Sections show hyperkeratosis, papillomatosis, hypergranulosis, and acanthosis. Inflammatory cells are present within the dermis. These histological findings can be seen in a verruca vulgaris or a seborrheic keratosis. Additional deeper sections were obtained and reviewed. 3 2:27 PM [facility] DERMATOPATHOLOGY LABORATORY Disclaimer An external and internal positive and negative controls are appropriate for the histochemical, immunohistochemical and immunofluorescence stain(s) in this case (if any), except where stated explicitly. The performance characteristics of the stain(s) cited in this report were developed and its performance characteristic determined by the Dermatopathology Laboratory at [facility], directed by Dr. Marito Guerrero. These tests need not be, and therefore are not, approved by the [place] Food and Drug Administration. The tests are used for clinical purposes. Billing Codes Specimen Charges Stain Charges 58546 1 3 2:27 PM [facility] DERMATOPATHOLOGY LABORATORY Embedded Images 3 2:27 PM [facility] DERMATOPATHOLOGY LABORATORY Pathology/Cytolog y TISSUE SPECIMEN FROM SKIN / Unknown 05/20/2023 05/21/2023 7:40 AM [facility] us Eldon Morfin MD LAB - PATHOLOGY/CYTOLOGY ORDERAB LES Final Result DERMATOPATHOLOGY LABORATORY [facility] - Department of Dermatology [address], [address] [phone] documented in this encounter Visit Diagnoses Not on filedocumented in this encounter Care Teams Millroom Supervisor Relationship Specialty Start Date End Date Nikky Mathews MD [address] [place] [address] PCP - General Internal Medicine 09/01/11 documented as of this encounter
--- OUTSIDE RECORDS SUMMARY | 2024-11-02 01:03 | XMS_ITS | Clinical Summary ---
Author Organization [facility] Address [address] [place] [address] Care Team Providers Care Legal Process Specialist Name Role Phone Nikky Mathews MD Primary Care Provider [phone] Social History Tobacco Use Types Packs/Day Years Used Date Smoking Tobacco: Never Assessed Sex and Gender Information Value Date Recorded Sex Assigned at Not on file Legal Sex Male 11:48 AM CDT Gender Identity Not on file Sexual Orientation Not on file Plan of Treatment Health Maintenance Due Date Last Done Comments Colorectal Cancer Screening Colonoscopy (10 Years) 1952 Hepatitis C 1970 DTaP, Tdap and Td Vaccines ( 1 - Tdap) 11/19/1971 Pneumococcal Vaccine: 50+ Ye ars (1 of 1 - PCV) 2002 Zoster Vaccines (1 of 2) 2002 Annual Medicare Wellness Visit 2017 COVID-19 Vaccine (1 - 2023-2 5 season) 2024 PHQ-2 (Physician Nelson) 07/13/2024 RSV Immunization or 60+ Years (1 - 1-dose 75+ series) 11/19/2027 Meningococcal B Vaccine Aged Out No l onger eligible based on patient's age to complete this topic Meningococcal Vaccine Aged Out No steven ethel eligible based on patient's age to complete this topic RSV Immunizations Under 20 Months Aged Out No longer eligible based on patient's age to complete this topic Insurance MEDICARE Care Teams Legal Process Specialist Relationship Specialty Start Date End Date Nikky Mathews MD [address] [place] [address] PCP - General INTERNAL MEDICINE 01/09/20
--- OUTSIDE RECORDS SUMMARY | 2024-11-02 01:03 | XMS_ITS | Referral Summary ---
Author Organization [facility] Physician Office Building [id number] [place] [address] Care Team Providers Care Imager Name Role Phone Lio Reveles MD Primary Care Provider + [phone] Vahe Rouse MD Unavailable [phone] Emily Staples RN Unavailable Unavailable Gisselle Morgan RN Unavailable Unavaila Alie Henao RN Unavailable Unavailable Kalyani Muller Unavailable Unavailable Encounters Date Type Department Care Team Description 11/01/2024 Telephone [facility] Advanced Medicine [address]th [place] [address] [place] [address] Yeison Tom MD 11/01/2024 Telephone [facility] Transplant Heart [address] [facility] [address] [phone] [place] [address] Avinash Cleaning 10/31/2024 Telephone [facility] Transplant Heart [address] [facility] [id number] [place] [address] Karina Amador 10/19/2024 Documentation Orthopaedic Surgery Fer Pizano BS 10/17/2024 Orders Only [facility] [address] [place] [address] Advanced Medicine 8th [place] [address] [place] [address] Yeison Tom MD 09/14/2024 10:00 AM PIZZA DELIVERY DRIVER Office Visit [facility] [address] [place] [address] Advanced Medicine 8th [place] [address] [place] [address] Pratibha Jennings NP Presence of automatic (implantable) cardiac defibrillator (Primary Dx); Ischemic cardiomyopathy 08/29/2024 Telephone [facility] [address] [facility] First Floor [address] [place] [address] Rupesh Casper LCSW from Last 3 Months Allergies No known active allergies Medications metFORMIN [...] MAX DAILY DOSE OF 20 UNITS. 05/23/20 Active BASAGLAR 100 unit/mL (3 mL) pen for injection ADMINISTER 15 UNITS UNDER THE SKIN EVERY MORNING 05/23/20 Active BD Ai 2nd Gen Pen Needle [...] 11/06/2023 Assessment & Plan (09/14/2024 11:48 AM PIZZA DELIVERY DRIVER): Denies therapies. Central cord syndrome at C4 level of cervical sp inal cord 11/06/2023 Central cord syndrome, initial encounter 024 Ischemic cardiomyopathy 10/28/2023 Assessment & Plan (09/14/2024 11:47 AM PIZZA DELIVERY DRIVER): ICM: Chronic systolic heart failure. Denies angina. [...] (10/23/2023 12:55 PM CDT): - Home donepezil Immunizations Immunization Administration Dates Next Due Influenza, Quad, Adjuvantate d, Intramuscular 04/28/2022 Influenza, Quadrivalent, Hig h Dose, Preservative Free, Intrr 04/10/2020 Influenza, Quadrivalent, Spl it, Intramuscular 04/08/2021,05/10/2019,06/03/2017 Influenza, Unspecified 04/12/2022 Pneumococcal Conjugate PCV 13 04/10/2020 Pneumococcal Polysaccharide PPV23 04/11/2021 Tdap 09/04/2022 ZOSTER Recombinant 08/14/2022,05/28/2022 Social History Tobacco Use Types Packs/Day Years Used Date Smoking Tobacco: Former Cigarettes Q uit: 2000 Passive Smoke Exposure: Never Smokeless Tobacco: Never Tobacco Cessation:Counseling Given: Not Answered [facility] [employer] Answer Date Recorded In the past 12 months has Immunovaccine, [employer], oil, or water [employer] threatened to shut off services in your [...] often do you attend chur ch or congregational services? Never 11/02/2023 Do you belong to any clubs o r organizations such as pentecostal groups, unions, fraternal or athletic groups, or [...] place to sleep or slept in a retirement (including now)? No 11/02/2023 Personal Safety Answer Date Recorded Have you ever been in or are you currently in a harmful physical or emotional relationship or is someone making you feel afraid or unsafe? Denies 03/03/2024 Sex and Gender Information Value Date Recorded Sex Assigned at Not on file Legal Sex Male 5:49 AM PIZZA DELIVERY DRIVER Gender Identity Male 03/25/2023 11:15 AM CDT Sexual Orientation Not on file Last Filed Vital Signs Vital Sign Reading Time Taken Comments Blood Pressure 126/75 09/14/2024 10:13 AM PIZZA DELIVERY DRIVER Pulse 92 09/14/2024 10:13 AM PIZZA DELIVERY DRIVER Temperature 36.6 C (97.8 F) 06/27/2024 10:39 AM PIZZA DELIVERY DRIVER Respiratory Rate 25 03/03/2024 2:20 PM CDT Oxygen Saturation 96% 09/14/2024 10:13 AM PIZZA DELIVERY DRIVER Inhaled Oxygen Concentration - - Weight 77.8 kg (171 lb 9.6 oz) 09/14/2024 10:13 AM PIZZA DELIVERY DRIVER Height 171.5 cm (5' 7.5 ) 09/14/2024 10:13 AM CS T Body Mass Index 26.48 09/14/2024 10:13 AM PIZZA DELIVERY DRIVER Plan of Treatment Not on file Medical Devices Implanted Type Area Respiratory Therapy Aide Device Identifier Shelf Expiration Date Model / Serial / Lot TerumAvid [employer] Medical Kandice Angio-Seal Vip 6fr Closere Device [id number] - [id number] - [id number] Implanted:Qty: 1 on 11/05/2023 by Héctor Richards MD at [facility] Collagen Right: Groin Terumo Medical Kandice 06/15/2024 [id number] / [id number] / [id number] [employer] Kandice Defibrillator Single Chamber Vigilant 0.99x5.37x7.36cm D232 - [id number] - [id number] Implanted:Qty: 1 on 03/03/2024 by Yeison Tom MD at [facility] ICD Left: Chest Wall [employer] Kandice 06/16/2025 D232 / [id number] / [id number] [employer] Kandice Lead Cardioverter Defibrillator Bipolar Active Fixation Endocardium Steroid Eluting Lehighton 4 Front [id number] 0672 - [id number] - [id number] Implanted:Qty: 1 on 03/03/2024 by Yeison Tom MD at [facility] Lead Right: Ventricle [employer] Kandice 09/24/2025 0672 / [id number] / [id number] Allosource Crushed Fresh Frozen Cancellous 1-4mm Graft 15ml Bone [id number] - [id number] Implanted:Qty: 1 on 10/28/2023 by Clyde Dotson MD at [facility] N/A: Spine Cervical Allosource 12/15/2027 [id number] / / [id number] Nuvasive Inc Screw Spine Reline C Lock Open Non-Sterile Latex Free [id number] - [id number] Implanted:Qty: 10 on 10/28/2023 by Clyde Dotson MD at [facility] N/A: Spine Cervical Nuvasive Inc [id number] / / Nuvasive Inc Screw Spinal Posterior Cervical Solid Reline C 3.5x14mm [id number] - [id number] Implanted:Qty: 6 on 10/28/2023 by Clyde Dotson MD at [facility] N/A: Spine Cervical Nuv[employer] Inc [id number] / / Nuvasive Inc Reline C Screw 3.5x20mm Ma [id number] - [id number] Implanted:Qty: 2 on 10/28/2023 by Clyde Dotson MD at [facility] N/A: Spine Cervical Nuv[employer] Inc [id number] / / Nuv[employer] Inc Screw Spinal Thoracic Solid Reline 4.0x24mm Titanium [id number] - [id number] Implanted:Qty: 2 on 10/28/2023 by Clyde Dotson MD at [facility] N/A: Spine Cervical Nuvasive Inc [id number] / / Nuvasive Inc Melvin Spinal Posterior Cervical Prebent Reline 4.0x80mm Titanium [id number] - [id number] Implanted:Qty: 2 on 10/28/2023 by Clyde Dotson MD at [facility] N/A: Spine Cervical Nuvasive Inc [id number] / / Procedures Procedure Name Priority Date/Time Associated Diagnosis Comments DEVICE CHECK - REMOTE Routine 10/17/2024 6:10 AM CDT BASIC METABOLIC PANEL Routine 06/21/2024 1:50 PM PIZZA DELIVERY DRIVER Ischemic cardiomyopathy LIPID PANEL Routine 01/06/2024 11:37 [...] estimate based on prior usage) Presenting Rhythm (AZ) Ventricular Sensing (VS) --- rate 55 Arrhythmic events (AE) No new arrhythmic events in monitoring period Transmission Information (TI) Device Summary Report Procedure Note Yeison Tom MD - 10/20/2024 Interpretation Summary: Battery and Leads (BL) Normal parameters noted on battery and lead(s) --- 15 years remaining(this is an estimate based on prior usage) Presenting Rhythm (AZ) Ventricular Sensing (VS) --- rate 55 Arrhythmic events (AE) No new arrhythmic events in monitoring period Transmission Information (TI) Device Summary Report Yeison Tom MD [facility] PROCEDURES Final Result * (ABNORMAL) Basic metabolic panel (06/21/2024 1:50 PM PIZZA DELIVERY DRIVER) Glucose 133(H) 70 - 99 mg/dL [facility] [...] 01 Calcium 9.3 8.6 - 10.2 mg/dL [facility] - 01 Blood 06/21/2024 1:50 PM PIZZA DELIVERY DRIVER 06/21/2024 Narrative [facility] - 06/22/2024 7:10 AM PIZZA DELIVERY DRIVER Performed at: 01 - [facility] [id number] Revenue Stamper: Carlitos Jung PhD, Phone: [phone] us Vickey Marinelli MD PhD LAB BLOOD ORDERABL ES Final Result [facility] - * (ABNORMAL) Lipid panel (01/06/2024 11:37 AM [...] on 2018. Triglycerides 368(H) <=149 mg/dL [facility] Comment: Interpretive Data Ages < or = [...] revised on 2018. HDL 31(L) >=40 mg/dL [facility] Comment: Interpretive Data Ages < or = [...] on 2018. LDL, calculated 138(H) <=129 mg/dL [facility] Comment: Interpretive Data Ages < or = [...] revised on 2018. Non-HDL Cholesterol 212 mg/dL [facility] Comment: Interpretive Data Ages < or = [...] last revised on 2018. Chol/HDL ratio 8 [facility] Blood 01/06/2024 11:3 7 AM CDT 01/06/2024 2:09 PM CDT us Benji Esparza MD LAB BLOOD ORDERABLES Final Result [facility] Department [place] [address] * CT Chest Abdomen Pelvis W Contrast [...] by: Kathe Jason M.D. Samantha Tucker MD IMG CT PROCEDURES Final Result * (ABNORMAL) Hemoglobin A1c (10/22/2023 5:22 PM CDT) Hgb A1C 6.3(H) 4.0 - 5.6 % Estimated Average Glucose 134 mg/dL [facility] Comment: The ADA recommends reporting an estimated [...] MD LAB BLOOD ORDERABLES Final Res ult [facility] Department [place] [address] from Last 3 Months or Most Recently Relevant to Health Maintenance Insurance MEDICARE [facility] MEDICARE [facility] Advance Directives For more information, please contact: [phone] * Full Code (Latest Code Status on [...] 11:18 AM 10/27/2023 9:08 PM Care Teams Imager Relationship Specialty Start Date End Date Lio Reveles MD PCP - General Internal Medicine 10/24/23 Vahe Rouse MD [address] [place] [address] Referring Physician Neurology 01/04/24 Emily Staples, retail shift leader Failure Coordinator Transplant 05/03/24 Gisselle Morgan, retail shift leader Failure Coordinator 05/03/24 Alie Joyner, metal melterMachine Sizer 10/31/24 Kalyani Muller Primary Complex Director Transplant 10/31/24
--- OUTSIDE RECORDS SUMMARY | 2024-11-02 01:03 | XMS_ITS | Encounter Summary ---
Author Organization [facility] Healthcare Address [address] [place] [address] Care Team Providers Care Medical Voucher Clerk Name Role Phone Lio Reveles MD Primary Care Provider + [phone] Vahe Rouse MD Unavailable [phone] Emily Staples RN Unavailable Unavailable Gisselle Morgan RN Unavailable Unavaila Alie Henao RN Unavailable Unavailable Kalyani Muller Unavailable Unavailable Encounter Details Date Type Department Care Team (Late st Contact Info) Description 10/19/2024 Documentation Orthopaedic Surgery Fer Pizano BS Social History Tobacco Use Types Packs/Day Years Used Date Smoking Tobacco: Former Cigarettes Q uit: 2000 Passive Smoke Exposure: Never Smokeless Tobacco: Never [facility] Utilities Answer Date Recorded In the past 12 months has [employer] electric, gas, oil, or water company threatened [...] often do you attend chur ch or jewish services? Never 11/02/2023 Do you belong to any clubs o r organizations such as taoist groups, unions, fraternal or athletic groups, or [...] place to sleep or slept in a mcc (including now)? No 11/02/2023 Personal Safety Answer Date Recorded Have you ever been in or are you currently in a harmful physical or emotional relationship or is someone making you feel afraid or unsafe? Denies 03/03/2024 Sex and Gender Information Value Date Recorded Sex Assigned at Not on file Legal Sex Male 5:49 AM SPRINKLER INSTALLER Gender Identity Male 03/25/2023 11:15 AM CDT Sexual Orientation Not on file documented as of this encounter Plan of Treatment Not on file documented as of this encounter Visit Diagnoses Not on filedocumented in this encounter Care Teams Medical Voucher Clerk Relationship Specialty Start Date End Date Lio Reveles MD PCP - General Internal Medicine 10/24/23 Vahe Rouse MD [address] [facility] [address] [place] [address] Referring Physician Neurology 01/04/24 Emily Staples, senior electronics design engineer Failure Coordinator Transplant 05/03/24 Gisselle Morgan, senior electronics design engineer Failure Coordinator 05/03/24 Alie Joyner, callisthenics instructorLathe Turner 10/31/24 Kalyani Muller Primary Manager Printing Transplant 10/31/24 documented as of this encounter
--- OUTSIDE RECORDS SUMMARY | 2024-11-02 01:03 | XMS_ITS | Data Portability ---
[facility] [address] [facility] [place] [address] Care Team Providers Care Budget Analyst Name Role Phone NOAM REVELES Primary Care Provider [phone] Assessment Encounter Date Assessment Date Assessment LastModified by Organization Details LastModified Time 02/29/2024 02/29/2024 Medicare annual wellness preventative checklist all risk assessments have been discussed immunizations ordered and screenings ordered were appropriate and patient agreeable keep regular follow up Not available 03/05/2024 14:04:00 04/04/2024 04/04/2024 he will continue current therapy follow up in 2 months advised to get flu COVID and RSV shots [email or web address] Not available 04/09/2024 13:58:54 05/16/2024 05/16/2024 needs a spacer for his inhaler. Healthy lifestyle care instructions seems to be doing well clinically following up the pneumonia diagnosis he will keep his regular appointment [email or web address] Not available 05/22/2024 16:41:30 06/06/2024 06/06/2024 clinically he has pneumonia has resolved blood pressure looks good no signs of decompensated heart failure follow up with sc September 01, 2024 [email or web address] Not available 06/09/2024 14:58:12 09/05/2024 09/05/2024 fall seems to be doing fine diarrhea is getting better order CBC CMP lipid A1c urinary albumin creatinine ratio continue current therapy follow up in 3 months [email or web address] Not available 09/05/2024 20:56:32 Plan of Treatment Reminders Order Date Submit Date Provider Last Modified By Organization Details Last Modified Time Details Appointments ANY 15 2024 10:15A Brigitte Reveles MD Not available Not available Not available Lab HbA1c (hemoglob in A1c), blood 2024 025 [facility], [address] [facility], [place], [address], 09/07/2024 07:08:15 albumin/c reatinine , mass ratio, urine 2024 025 [facility], [address] [facility], [facility] [address], [place], [address], 09/07/2024 07:08:12 lipid panel, serum 2024 025 [facility], [address] [facility], [facility] [address], [place], [address], 09/07/2024 07:08:13 CMP, serum or plasma 2024 025 [facility], [address] [facility], [facility] [address], [place], [address], 09/07/2024 07:08:14 CBC w/ auto diff 2024 025 [facility], [address] [facility], [facility] [address], [place], [address], 09/07/2024 07:08:16 Referral None recorded. Procedures None recorded. Surgeries None recorded. Imaging None recorded. Medication Orders albuterol sulfate HFA 90 mcg/actua tion aerosol inhaler 2023 024 [email or web address] [id number], [address], [place], [id number], 05/16/2024 17:47:37 Patient TargetsNo targets recorded. Patient Instructions Encounter Date Encounter Id Patient Instructions Last Modified By Organization Details Last Modified Time 02/29/2024 [id number] preventing falls : care instructions [email or web address] Not available 02/29/2024 13:11:15 Medicare Wellnes s Preventive Checklist [email or web address] Not available 02/29/2024 13:11:15 04/04/2024 [id number] A healthy lifestyle: care instructions [email or web address] Not available 04/09/2024 14:02:03 05/16/2024 [id number] A healthy lifestyle: care instructions [email or web address] Not available 05/16/2024 17:47:37 09/05/2024 [id number] A healthy lifestyle: care instructions [email or web address] Not available 09/05/2024 11:45:04 Reason for Referral None Reported. Results Created Date Observation Date Name Description Value Unit Range Abnormal Flag Note LastModifiedBy Organization Detail LastModifiedTime 09/06/1909/07/2024 ALBUM IN/CR EATIN INE RATIO ,URIN E creatinine, urine 61.4 mg/dL notest ab. Not Available [facility] ([facility]) [address] [place], [address], 09/07/2024 07:08:12 09/06/1909/07/2024 ALBUM IN/CR EATIN INE RATIO ,URIN E albumin, urine 22.5 ug/mL notest ab. Not Available [facility] ([facility]) [address] [place], [address], 09/07/2024 07:08:12 09/06/1909/07/2024 ALBUM IN/CR EATIN INE RATIO ,URIN E alb/creat ratio 37 mg/g_ creat 0-29 above high normal Tesha l: 0 - 29 Moder ately incre ased: 30 - 300 Sever camila incre ased: >300 Not Available [facility] ([facility]) [address] [place], [address], 09/07/2024 07:08:12 09/06/1909/07/2024 LIPID PANEL cholesterol, total 120 mg/dL 100-19 9 Not Available [facility] ([facility]) [address] [place], [address], 09/07/2024 07:08:13 09/06/1909/07/2024 LIPID PANEL triglyceride s 78 mg/dL 0-149 Not Available [facility] ([facility]) [address] [place], [address], 09/07/2024 07:08:13 09/06/19 25 09/07/2024 LIPID PANEL HDL cholesterol 39 mg/dL >39 below low normal Not Available [facility] ([facility]) [address] [place], [address], 09/07/2024 07:08:13 09/06/19 25 09/07/2024 LIPID PANEL VLDL cholesterol renny 16 mg/dL 5-40 Not Available [facility] ([facility]) [address] [place], [address], 09/07/2024 07:08:13 09/06/19 25 09/07/2024 LIPID PANEL LDL chol calc ([facility]) 65 mg/dL 0-99 Not Available [facility] ([facility]) [address] [place], [address], 09/07/2024 07:08:13 09/06/19 25 09/07/2024 COMP. METAB OLIC PANEL (14) glucose 49 mg/dL 70-99 below low normal Not Available [facility] ([facility]) [address] [place], [address], 09/07/2024 07:08:14 09/06/19 25 09/07/2024 COMP. METAB OLIC PANEL (14) BUN 20 mg/dL 8-27 Not Available [facility] ([facility]) [address] [place], [address], 09/07/2024 07:08:14 09/06/19 25 09/07/2024 COMP. METAB OLIC PANEL (14) creatinine 1.18 mg/dL 0.76-1 .27 Not Available [facility] ([facility]) [address] [place], [address], 09/07/2024 07:08:14 09/06/19 25 09/07/2024 COMP. METAB OLIC PANEL (14) eGFR 66 mL/mi n/1.7 3 >59 Not Available [facility] ([facility]) [address] [place], [address], 09/07/2024 07:08:14 09/06/19 25 09/07/2024 COMP. METAB OLIC PANEL (14) BUN/creatini ne ratio 17 10-24 Not Available [facility] ([facility]) [address] [place], [address], 09/07/2024 07:08:14 09/06/19 25 09/07/2024 COMP. METAB OLIC PANEL (14) sodium 143 mmol/ L 134-14 4 Not Available [facility] ([facility]) [address] [place], [address], 09/07/2024 07:08:14 09/06/19 25 09/07/2024 COMP. METAB OLIC PANEL (14) potassium 4.5 mmol/ L 3.5-5. 2 Not Available [facility] ([facility]) [address] [place], [address], 09/07/2024 07:08:14 09/06/19 25 09/07/2024 COMP. METAB OLIC PANEL (14) chloride 105 mmol/ L 96-106 Not Available [facility] ([facility]) [address] [place], [address], 09/07/2024 07:08:14 09/06/19 25 09/07/2024 COMP. METAB OLIC PANEL (14) carbon dioxide, total 25 mmol/ L 20-29 Not Available [facility] ([facility]) [address] [place], [address], 09/07/2024 07:08:14 09/06/19 25 09/07/2024 COMP. METAB OLIC PANEL (14) calcium 9.8 mg/dL 8.6-10 .2 Not Available [facility] ([facility]) [address] [facility] [place], [address], 09/07/2024 07:08:14 09/06/19 25 09/07/2024 COMP. METAB OLIC PANEL (14) protein, total 7.1 g/dL 6.0-8. 5 Not Available [facility] ([facility]) [address] [place], [address], 09/07/2024 07:08:14 09/06/19 25 09/07/2024 COMP. METAB OLIC PANEL (14) albumin 4.4 g/dL 3.8-4. 8 Not Available [facility] ([facility]) [address] [place], [address], 09/07/2024 07:08:14 09/06/19 25 09/07/2024 COMP. METAB OLIC PANEL (14) globulin, total 2.7 g/dL 1.5-4. 5 Not Available [facility] ([facility]) [address] [place], [address], 09/07/2024 07:08:14 09/06/1909/07/2024 COMP. METAB OLIC PANEL (14) bilirubin, total 0.3 mg/dL 0.0-1. 2 Not Available [facility] ([facility]) [address] [place], [address], 09/07/2024 07:08:14 09/06/19 25 09/07/2024 COMP. METAB OLIC PANEL (14) alkaline phosphatase 62 IU/L 44-121 Not Available [facility] ([facility]) [address] [place], [address], 09/07/2024 07:08:14 09/06/19 25 09/07/2024 COMP. METAB OLIC PANEL (14) AST (SGOT) 20 IU/L 0-40 Not Available [facility] ([facility]) [address] [place], [address], 09/07/2024 07:08:14 09/06/19 25 09/07/2024 COMP. METAB OLIC PANEL (14) ALT (SGPT) 13 IU/L 0-44 Not Available [facility] ([facility]) [address] [place], [address], 09/07/2024 07:08:14 09/06/19 25 09/07/2024 HEMOG LOBIN A1C hemoglobin A1C 7.3 % 4.8-5. 6 above high normal Predi abete s: 5.7 - 6.4 Diabe rere: >6.4 Glyce jeannine contr ol for adult s with diabe rere: <7.0 Not Available [facility] ([facility]) [address] [place], [address], 09/07/2024 07:08:15 09/06/1909/06/2024 CBC WITH DIFFE RENTI AL/PL ATELE T WBC 7.6 x10e3 /uL 3.4-10 .8 Not Available [facility] ([facility]) [address] [place], [address], 09/07/2024 07:08:16 09/06/19 25 09/06/2024 CBC WITH DIFFE RENTI AL/PL ATELE T RBC 4.58 x10e6 /uL 4.14-5 .80 Not Available [facility] ([facility]) [address] [place], [address], 09/07/2024 07:08:16 09/06/19 25 09/06/2024 CBC WITH DIFFE RENTI AL/PL ATELE T hemoglobin 12.1 g/dL 13.0-1 7.7 below low normal Not Available [facility] ([facility]) [address] [place], [address], 09/07/2024 07:08:16 09/06/19 25 09/06/2024 CBC WITH DIFFE RENTI AL/PL ATELE T hematocrit 40.1 % 37.5-5 1.0 Not Available [facility] ([facility]) [address] [place], [address], 09/07/2024 07:08:16 09/06/19 25 09/06/2024 CBC WITH DIFFE RENTI AL/PL ATELE T MCV 88 fL 79-97 Not Available [facility] ([facility]) [address] [facility], [place], [address], 09/07/2024 07:08:16 09/06/19 25 09/06/2024 CBC WITH DIFFE RENTI AL/PL ATELE T MCH 26.4 pg 26.6-3 3.0 below low normal Not Available [facility] ([facility]) [address] [place], [address], 09/07/2024 07:08:16 09/06/19 25 09/06/2024 CBC WITH DIFFE RENTI AL/PL ATELE T MCHC 30.2 g/dL 31.5-3 5.7 below low normal Not Available [facility] ([facility]) [address] [place], [address], 09/07/2024 07:08:16 09/06/19 25 09/06/2024 CBC WITH DIFFE RENTI AL/PL ATELE T RDW 15.2 % 11.6-1 5.4 Not Available [facility] ([facility]) [address] [place], [address], 09/07/2024 07:08:16 09/06/19 25 09/06/2024 CBC WITH DIFFE RENTI AL/PL ATELE T platelets 320 x10e3 /uL 150-45 0 Not Available [facility] ([facility]) [address] [place], [address], 09/07/2024 07:08:16 09/06/19 25 09/06/2024 CBC WITH DIFFE RENTI AL/PL ATELE T neutrophils 54 % notest ab. Not Available [facility] ([facility]) [address] [place], [address], 09/07/2024 07:08:16 09/06/19 25 09/06/2024 CBC WITH DIFFE RENTI AL/PL ATELE T lymphs 23 % notest ab. Not Available [facility] ([facility]) [address] [place], [address], 09/07/2024 07:08:16 09/06/19 25 09/06/2024 CBC WITH DIFFE RENTI AL/PL ATELE T monocytes 11 % notest ab. Not Available [facility] ([facility]) [address] [facility], [place], [address], 09/07/2024 07:08:16 09/06/19 25 09/06/2024 CBC WITH DIFFE RENTI AL/PL ATELE T eos 10 % notest ab. Not Available [facility] ([facility]) [address] [place], [address], 09/07/2024 07:08:16 09/06/1909/06/2024 CBC WITH DIFFE RENTI AL/PL ATELE T basos 2 % notest ab. Not Available [facility] ([facility]) [address] [place], [address], 09/07/2024 07:08:16 09/06/19 25 09/06/2024 CBC WITH DIFFE RENTI AL/PL ATELE T neutrophils (absolute) 4.1 x10e3 /uL 1.4-7. 0 Not Available [facility] ([facility]) [address] [place], [address], 09/07/2024 07:08:16 09/06/19 25 09/06/2024 CBC WITH DIFFE RENTI AL/PL ATELE T lymphs (absolute) 1.8 x10e3 /uL 0.7-3. 1 Not Available [facility] ([facility]) [address] [facility], [place], [address], 09/07/2024 07:08:16 09/06/19 25 09/06/2024 CBC WITH DIFFE RENTI AL/PL ATELE T monocytes(ab solute) 0.8 x10e3 /uL 0.1-0. 9 Not Available [facility] ([facility]) [address] [facility], [place], [address], 09/07/2024 07:08:16 09/06/19 25 09/06/2024 CBC WITH DIFFE RENTI AL/PL ATELE T eos (absolute) 0.8 x10e3 /uL 0.0-0. 4 above high normal Not Available [facility] ([facility]) [address] [facility], [place], [address], 09/07/2024 07:08:16 09/06/19 25 09/06/2024 CBC WITH DIFFE RENTI AL/PL ATELE T baso (absolute) 0.2 x10e3 /uL 0.0-0. 2 Not Available [facility] ([facility]) [address] [facility], [place], [address], 09/07/2024 07:08:16 09/06/19 25 09/06/2024 CBC WITH DIFFE RENTI AL/PL ATELE T immature granulocytes 0 % notest ab. Not Available [facility] ([facility]) [address] [facility], [place], [address], 09/07/2024 07:08:16 09/06/19 25 09/06/2024 CBC WITH DIFFE RENTI AL/PL ATELE T immature grans (abs) 0.0 x10e3 /uL 0.0-0. 1 Not Available [facility] ([facility]) [address] [facility], [place], [address], 09/07/2024 07:08:16 05/06/20 24 05/06/2024 XR, chest No observ ation record ed. [facility] [address], [place], [address], 05/09/2024 09:14:40 06/14/20 24 06/13/2024 XR, chest , 2 view No observ ation record ed. [facility] [address] [facility] [address], [place], [address], 06/18/2024 22:53:25 07/25/19 25 07/25/2024 XR, chest , 2 view No observ ation record ed. [facility] [address] [facility], [place], [address], 07/27/2024 09:34:35 Result Notes None recorded. 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 288199217 Active Not Available [facility] 4 05:26:53 Essential hypertension 19921873 Active Not Available [facility] 4 05:26:53 Acute bronchitis 65871413 Active Not Available [facility] 4 05:26:53 Ischemic congestive cardiomyopath y 028294842 Active 2023 Noam Reveles MD Attn: Accounting ,[address] [place], [address] , [facility] 4 21:59:48 Central cord syndrome 956131656 Active 2023 Noam Reveles MD Attn: Accounting ,[address] [place], [address] , [facility] 4 21:59:49 Secondary erectile dysfunction 227916654 Active Not Available [facility] 4 05:26:53 Degenerative joint disease of hand 69415083 Active Not Available [facility] 4 05:26:53 Problem Notes None recorded. Procedures Surgical History Date Name Laterality Status Provider Name and Address Organization Details Recorded Time Hernia Repair completed Martina RORO Walsh [facility] 10/12/2023 14:30:07 simple cystectomy completed Martina Walsh MA [facility] 10/12/2023 14:30:15 Vasectomy completed Martina RORO Walsh [facility] 10/12/2023 14:30:27 Imaging Results Imaging Date Name Status LastModified by [facility] Details LastModified Time 05/06/2024 XR, chest completed [address] [place] [address], [address], 05/09/2024 09:14:40 06/13/2024 XR, chest, 2 view completed [address] [place] [address], [address], 06/18/2024 22:53:25 07/25/2024 XR, chest, 2 view completed [address] [place] [address], [address], 07/27/2024 09:34:35 Procedure Notes None recorded. Medical Equipment None Reported. Allergies Allergen ID Allergen Name Allergen Category Reaction Reaction Severity Criticality Documentation Date Start Date Code Code System Note Provider Name and Address Organization Details Recorded Time [id number] prednison e medicatio n Not available Not available Not available 09/05/2024 8640 RxNorm Not Available Not Available Not Available Medications Name Sig Start Date Stop Date Status Note LastModified by Organization Details LastModified Time Prescript ion - Change 08/30 completed Not Available Not Available Not Available Prescript ion - Renewal 06/03 completed Not Available Not Available Not Available Prescript ion - Prior Authoriza tion Request 10/11 completed Prior Authoriz ation Request faxed 04-23-20 Not Available Not Available Not Available losartan 50 mg tablet TAKE ONE TABLET BY MOUTH EVERY DAY FOR BLOOD PRESSURE 01/03 completed Not Available Not Available Not Available cyclobenz aprine 10 mg tablet TAKE 1 TABLET BY MOUTH EVERY 8 HOURS 04/04 completed Not Available Not Available Not Available atorvasta tin 20 mg tablet Take 1 tablet every day by oral route. active Endo put pt on per Emily @ Not Available Not Available Not Available donepezil 5 mg tablet TAKE 1 TABLET BY MOUTH AT BEDTIME active Not Available Not Available No t Available clindamyc in HCl 300 mg capsule Take 1 capsule every 6 hours by oral route after meals for 10 days. 02/24 completed Not Available Not Available Not Available azithromy sigrid 250 mg tablet TAKE 1 TABLET BY MOUTH ONCE DAILY FOR 2 DAYS. 05/16 completed Not Available Not Available Not Available benzonata te 200 mg capsule TAKE ONE CAPSULE BY MOUTH THREE TIMES DAILY NEEDED FOR 10 DAYS 10/11 completed Not Available Not Available Not Available minocycli ne 100 mg capsule TAKE 1 CAPSULE BY MOUTH TWICE DAILY FOR 14 DAYS 08/30 completed Not Available Not Available Not Available lisinopri l 20 mg tablet TAKE ONE TABLET BY MOUTH EVERY DAY FOR BLOOD PRESSURE 03/30 completed Not Available Not Available Not Available benzoyl peroxide 5 % topical gel APPLY TOPICALL Y TO RASH TWICE DAILY UNTIL CLEAR 08/30 completed Not Available Not Available Not Available Viagra 50 mg tablet Take 1 tablet every day by oral route as needed for 30 days. 01/20 completed 1 box of viagra 50 mg. [id number]. 1 box sample of viagra 5omg, lot. [id number] 0. exp. 12/11/19 19. with package insert. Not Available Not Available Not Available metronida zole 250 mg tablet TAKE 1 TABLET BY MOUTH EVERY 8 HOURS FOR 10 DAYS 09/05 completed Not Available Not Available Not Available amlodipin e 5 mg tablet TAKE 1 TABLET BY MOUTH EVERY DAY DIRECTED 03/30 completed Not Available Not Available Not Available sulfameth oxazole 800 mg-trimet hoprim 160 mg tablet TAKE ONE TABLET BY MOUTH EVERY TWELVE HOURS AFTER MEALS FOR 5 DAYS 10/11 completed Not Available Not Available Not Available peg-elect rolyte solution 420 gram oral solution 10/26 completed Not Available Not Available Not Available omeprazol e 40 mg capsule,d elayed release TAKE 1 CAPSULE BY MOUTH TWICE DAILY BEFORE A MEAL FOR STOMACH active Not Available Not Available No t Available tramadol 50 mg tablet take 1/2 tablet by mouth three times daily as needed for pain active Not Available Not Available No t Available spironola ctone 25 mg tablet TAKE 1 TABLET BY MOUTH DAILY 04/04 completed Not Available Not Available Not Available oxycodone -acetamin ophen 5 mg-325 mg tablet TAKE 1 TABLET BY MOUTH EVERY 4 HOURS NEEDED FOR PAIN 01/03 completed Not Available Not Available Not Available quinapril 10 mg tablet TAKE 1 TABLET BY MOUTH EVERY DAY DIRECTED 11/19 completed Not Available Not Available Not Available tamsulosi n 0.4 mg capsule TAKE 1 CAPSULE BY MOUTH EVERY DAY 2024 active Not Available Not Available Not Avai lable Humalog U-100 Insulin 100 unit/mL subcutane ous solution 01/20 completed Not Available Not Available Not Available amlodipin e 10 mg tablet TAKE ONE TABLET BY MOUTH EVERY MORNING FOR BLOOD PRESSURE 01/03 completed Not Available Not Available Not Available benzonata te 100 mg capsule Take 1 capsule 3 times a day by oral route as needed for 10 days. 08/30 completed Not Available Not Available Not Available metformin 1,000 mg tablet Take 1 tablet twice a day by oral route as directed for 30 days. 11/18 completed Not Available Not Available Not Available neomycin- polymyxin -dexameth 3.5 mg/mL-10, 000 unit/mL-0 .1% eye drops INSTILL 1 DROP INTO LEFT EYE FOUR TIMES DAILY FOR 4 DAYS 01/03 completed Not Available Not Available Not Available glimepiri de 4 mg tablet TAKE TWO TABLETS BY MOUTH EVERY DAY FOR DIABETES 01/03 completed Not Available Not Available Not Available gabapenti n 300 mg capsule TAKE 2 CAPSULE BY MOUTH EVERY MORNING AND 3 CAPSULE BY MOUTH EVERY EVENING active Not Available Not Available No t Available quinapril 20 mg tablet TAKE ONE TABLET BY MOUTH EVERY DAY FOR BLOOD PRESSURE 03/30 completed Not Available Not Available Not Available gabapenti n 100 mg capsule TAKE ONE CAPSULE BY MOUTH THREE TIMES DAILY DIRECTED 09/05 completed Not Available Not Available Not Available metoprolo l succinate ER 25 mg tablet,ex tended release 24 hr TAKE 1 TABLET BY MOUTH EVERY DAY active Not Available Not Available No t Available clobetaso l 0.05 % topical ointment RUB IN WELL TWICE DAILY TO RED AREAS UNTIL CLEAR 08/13 completed Not Available Not Available Not Available albuterol sulfate HFA 90 mcg/actua tion aerosol inhaler INHALE 2 PUFFS BY MOUTH EVERY 4 HOURS active Not Available Not Available No t Available pioglitaz one 30 mg tablet Take 1 tablet every day by oral route as directed for 30 days. 02/24 completed Not Available Not Available Not Available metformin ER 500 mg tablet,ex tended release 24 hr TAKE 2 TABLETS BY MOUTH TWICE DAILY active Not Available Not Available No t Available amoxicill in 875 mg-potass ium clavulana te 125 mg tablet TAKE 1 TABLET BY MOUTH EVERY 12 HOURS 05/16 completed Not Available Not Available Not Available amoxicill in 500 mg-potass ium clavulana te 125 mg tablet Take 1 tablet every 12 hours by oral route with meals for 7 days. 08/25 completed Not Available Not Available Not Available escitalop mahad 10 mg tablet TAKE 1 TABLET BY MOUTH DAILY 2024 active Not Available Not Available Not Avai lable rosuvasta tin 5 mg tablet TAKE 1 TABLET BY MOUTH EVERY OTHER DAY active Not Available Not Available No t Available metformin ER 1,000 mg tablet,ex tended release 24hr (osmotic) Take 1 tablet twice a day by oral route after meals for 30 days. 03/30 completed Not Available Not Available Not Available Januvia 100 mg tablet TAKE ONE TABLET BY MOUTH EVERY DAY FOR DIABETES 11/19 completed Not Available Not Available Not Available ProChambe r USE DIRECTED WITH INHALER. active Not Available Not Available No t Available sodium,po tassium,m ag sulfates 17.5 gram-3.13 gram-1.6 gram oral soln 10/11 completed Not Available Not Available Not Available Tradjenta 5 mg tablet TAKE ONE TABLET DAILY FOR DIABETES 10/11 completed Not Available Not Available Not Available Accu-Chek Matilda Plus test strips TEST ONCE DAILY active Not Available Not Available No t Available Victoza 2-Asher 0.6 mg/0.1 mL (18 mg/3 mL) subcutane ous pen injector INJECT 0.6MG EVERY DAY UNDER THE SKIN 01/03 completed Not Available Not Available Not Available aloglipti n 25 mg tablet Take 1 tablet every day by oral route. 01/03 completed Not Available Not Available Not Available Farxiga 10 mg tablet TAKE ONE TABLET BY MOUTH EVERY DAY with a meal FOR DIABETES active Not Available Not Available No t Available Farxiga 5 mg tablet TAKE 1 TABLET BY MOUTH DAILY 09/05 completed Not Available Not Available Not Available Entresto 49 mg-51 mg tablet TAKE 1 TABLET BY MOUTH TWICE DAILY 04/04 completed Not Available Not Available Not Available Basaglar KwikPen U-100 Insulin 100 unit/mL (3 mL) subcutane ous ADMINIST ER 15 UNITS UNDER THE SKIN EVERY MORNING active Not Available Not Available No t Available Robitussi n Cough-Pema st Congestio n DM 5 mg-100 mg/5 mL oral liquid Take 10 mL 3 times a day by oral route as needed for 10 days. 10/11 completed Not Available Not Available Not Available TRUEplus Pen Needle 31 gauge x 3/16 USE DIRECTED TO INJECT VICTOZA 01/03 completed Not Available Not Available Not Available Fiasp FlexTouch U-100 Insulin 100 unit/mL (3 mL) subcutane ous pen INJECT 4 UNITS UNDER THE SKIN THREE TIMES DAILY BEFORE A MEAL WITH SLIDING SCALE. MAX DAILY DOSE OF 20 UNITS. active Not Available Not Available No t Available Fiasp U-100 Insulin 4 Units tid active Per [facility] put pt on Not Available Not Available Not Available Ozempic 0.25 mg or 0.5 mg (2 mg/1.5 mL) subcutane ous pen injector INJECT 0.5MG UNDER THE SKIN every week 07/29 completed Not Available Not Available Not Available Lokelma 10 gram oral powder packet TAKE 10G BY MOUTH THREE TIMES DAILY active Not Available Not Available No t Available BD Ai 2nd Gen Pen Needle 32 gauge x 5/32 USE FOUR TIMES DAILY active Not Available Not Available No t Available Gvoke HypoPen 2-Pack 1 mg/0.2 mL subcutane ous auto-inje ctor INJECT 1MG UNDER THE SKIN DIRECTED ONCE NEEDED FOR HYPOGLYC EMIA. active Not Available Not Available No t Available Paxlovid 300 mg (150 mg x 2)-100 mg tablets in a dose pack TK 2 NIRMATRE LVIR TS AND 1 RITONAVI R T TOGETHER PO BID FOR 5 DAYS BID FOR 5 DAYS 02/18 completed Not Available Not Available Not Available Dexcom G7 Purchasing Manager DIRECTED active Not Available Not Available No t Available Dexcom G7 Sensor device CHANGE SENSOR EVERY 10-14 DAYS TO CHECK BLOOD SUGAR active Not Available Not Available No t Available Ozempic 0.25 mg or 0.5 mg (2 mg/3 mL) subcutane ous pen injector INJECT 0.5MG UNDER THE SKIN EVERY WEEK 07/29 completed switched to Victoza Not Available Not Available Not Available Vitals Date Recorded Body height Body mass index (BMI) Body weight Oxygen saturation Oxygen saturation in Arterial blood by Pulse oximetry Heart rate Systolic blood pressure Diastolic blood pressure Provider Name and Address Organization Details Last Updated DateTime 4 170.18 cm 24.9 kg/m2 77210.4 7 g 96 % 96 % 66 /min 108 mm[Hg] 64 mm[Hg] Cory Christensen MA [facility] 4 12:22:28 Date Recorded Pain severity - 0-10 verbal numeric rating [Score] - Reported Provider Name and Address Organization Details Last Updated DateTime 02/29/2024 0 Chata Sanz [facility] 02/29/2024 12:31:02 Date Recorded Body height Provider Name an d Address Organization Details Last Updated DateTime 04/04/2024 170.18 cm Maria Ines Hammer MA [facility] 4 11:14:34 Date Recorded Body mass index (BMI) Body weight Heart rate Oxygen saturation Oxygen saturation in Arterial blood by Pulse oximetry Systolic blood pressure Diastolic blood pressure Provider Name and Address Organization Details Last Updated DateTime 4 24.1 kg/m2 52199.2 2 g 77 /min 97 % 97 % 130 mm[Hg] 78 mm[Hg] Joanne Mc MA [facility] 4 11:21:03 Date Recorded Body height Body mass index (BMI) Body weight Heart rate Oxygen saturation Oxygen saturation in Arterial blood by Pulse oximetry Systolic blood pressure Diastolic blood pressure Provider Name and Address Organization Details Last Updated DateTime 4 170.18 cm 24.3 kg/m2 07301.1 8 g 66 /min 93 % 93 % 126 mm[Hg] 62 mm[Hg] Maria Ines Hammer MA [facility] 4 14:26:47 Date Recorded Body height Body mass index (BMI) Body weight Heart rate Oxygen saturation Oxygen saturation in Arterial blood by Pulse oximetry Systolic blood pressure Diastolic blood pressure Provider Name and Address Organization Details Last Updated DateTime 4 170.18 cm 25.6 kg/m2 41788.3 5 g 55 /min 98 % 98 % 136 mm[Hg] 70 mm[Hg] Maria Ines Hammer MA [facility] 4 14:23:25 Date Recorded Body height Body mass index (BMI) Body weight Heart rate Oxygen saturation Oxygen saturation in Arterial blood by Pulse oximetry Systolic blood pressure Diastolic blood pressure Provider Name and Address Organization Details Last Updated DateTime 5 170.18 cm 26.6 kg/m2 63924.6 3 g 56 /min 96 % 96 % 120 mm[Hg] 62 mm[Hg] Joanne Mc MA [facility] 5 11:05:56 Social History Question Answer Notes LastModified by Organizat ion Details LastModified Time Tobacco Smoking Status [facility] 12:31:51 Do You Have An Advance Directive? No Information not available 11/19/2023 What Is Your Level Of Alcohol Consumption? None Information not available 05/21/2021 Are You Blind Or Do You Have Difficulty Seeing? No Information not available 10/12/2023 What Is Your Level Of Caffeine Consumption? Moderate 3 Cups A Day [email or web address] Information not available 01/04/2024 In The 14 Days Before Symptom Onset, Have You Had Close Contact With A Laboratory-confi rmed COVID-19 While That Case Was Ill? No Information not available 11/19/2023 In The 14 Days Before Symptom Onset, Have You Had Close Contact With A Person Who Is Under Investigation For COVID-19 While That Person Was Ill? No Information not available 11/19/2023 Have You Been To An Area Known To Be High Risk For COVID-19? No Information not available 11/19/2023 Are You Currently Employed? No Information not available 11/19/2023 Are You Deaf Or Do You Have Serious Difficulty Hearing? Yes Hearing Aids- Both Ear Information not available 10/12/2023 What Type Of Diet Are You Following? REGULAR Information not available 11/19/2023 What Is The Highest Grade Or Level Of School You Have Completed Or The Highest Degree You Have Received? [id number] Information not available 02/29/2024 Are There Any Guns Present In Your Home? No Information not available 11/19/2023 In The Past 7 Days, How Many Days Did You Exercise? -1 Information not available 02/29/2024 In The Past 7 Days, How Much Pain Have You [place]? None Information not available 02/29/2024 In General, Would You Say You Health Is: Good Information not available 02/29/2024 How Would You Describe The Condition Of Your Mouth And Teeth- Including False Teeth Or Dentures? Good Information not available 02/29/2024 Each Night, How Many Hours Of Sleep Do You Get? 8 Information not available 02/29/2024 Has Anyone Ever Told You That You Snore? Yes Information not available 02/29/2024 In The Past 7 Days, How Often Have You [place] Sleepy In The Daytime? Sometimes Information not available 02/29/2024 # Alcohol Drinks Per Week 0 Information not available 02/29/2024 What Was The Date Of Your Most Recent Tobacco Screening? 09/05/2024 [email or web address] Information not available 09/05/2024 What Is Your Current Pack Years? 10packyears Information not available 11/19/2023 What Is Your Relationship Status? Information not available 10/12/2023 Do You Use Your Seat Belt Or Car Seat Routinely? Yes Information not available 10/12/2023 Do You Have Smoke And Carbon Monoxide Detectors In Your Home? Yes Information not available 11/19/2023 How Much Tobacco Do You Smoke? No Information not available 11/19/2023 Do You Feel Stressed (tense, Restless, Nervous, Or Anxious, Or Unable To Sleep At Night)? [id number] Information not available 10/12/2023 Do You Use Any Illicit Or Recreational Drugs? No Information not available 11/19/2023 Do You Use Sunscreen Routinely? No Information not available 02/29/2024 Has Tobacco Cessation Counseling Been Provided? No Information not available 11/19/2023 How Many Years Have You Smoked Tobacco? 30 Patient Also Smoked Cigarettes For About 30 Years [email or web address] Information not available 09/13/2014 Do You Or Have You Ever Used Any Other Forms Of Tobacco Or Nicotine? No Information not available 05/21/2021 Sex: Male Functional Status Question Answer Note LastModified by Organizat ion Details LastModified Time Are you able to care for yourself? Yes Information not available 10/12/2023 What is your exercise level? Occasional Information not available 11/19/2023 Mental Status None recorded. Family History Relationship Description Onset Age of this Age Resolved Age Notes LastModified by Organization Details LastModified Time Father Alcohol abuse [email or web address] Not available 2023 14:35:19 Father Diabetes mellitus [email or web address] Not available 2023 14:35:32 Father Heart disease [email or web address] Not available 2023 14:35:39 Father Hypertensive disorder [email or web address] Not available 2023 14:35:50 Father Hypercholest erolemia apaytonma Not available 2023 14:35:57 Brother Diabetes mellitus [email or web address] Not available 2023 14:35:32 Mother Diabetes mellitus [email or web address] Not available 2023 14:35:32 Mother Heart disease [email or web address] Not available 2023 14:35:39 Mother Hypertensive disorder [email or web address] Not available 2023 14:35:50 Mother Hypercholest erolemia apaytonma Not available 2023 14:35:57 Sister Diabetes mellitus [email or web address] Not available 2023 14:35:32 Sister Kidney disease [email or web address] Not available 2023 14:36:02 Medical History Condition Response Coronary Artery Disease N Other Y Atrial Fibrillation N High Blood Pressure Y Thyroid Problems N Kidney or Bladder Problems N Depression N COPD N Blood Clots N GI Problems N Have you had a mammogram in the last yea r? N Skin Problems N Anemia N Heart Attack (NC) N Diabetes Y Anxiety Disorder N Muscle, Joint, or Bone Problems Y Seizures/Epilepsy N Have you had a colonoscopy in the last 1 0 years? Y Acid Reflux (GERD) N Cancer N Stroke N Allergies N Asthma N Have you had a PSA blood test in the las t year? Y High Cholesterol Y Hepatitis N Liver Disease N Headaches N Osteoporosis N Heart Failure N Immunizations Vaccine Type Date Status Note Provider Nam e and Address Organization Details Recorded Time COVID-19, mRNA, LNP-S, PF, 30 mcg/0.3 mL dose 1 completed Not Available [facility] 08/05/2023 05:26:53 COVID-19, mRNA, LNP-S, PF, 30 mcg/0.3 mL dose 1 completed Not Available [facility] 08/05/2023 05:26:53 influenza, unspecified formulation 2 completed [place], [place] [facility] 09/05/2024 09:46:47 Influenza, split virus, quadrivalent, preservative 9 completed Not Available [facility] 08/05/2023 05:26:53 pneumococcal polysaccharide PPV23 1 [place] [facility] 09/05/2024 09:46:47 Pneumococcal conjugate PCV 13 0 [place] [facility] 09/05/2024 09:46:47 zoster recombinant 2 [place] [facility] 09/05/2024 09:46:47 Influenza, high-dose, quadrivalent, PF 0 completed Joanne Mc [place] [facility] 09/05/2024 09:46:47 Influenza, adjuvanted, quadrivalent, PF 2 completed [place] [facility] 09/05/2024 09:46:47 COVID-19, mRNA, LNP-S, PF, 30 mcg/0.3 mL dose 1 [place] [facility] 09/05/2024 09:46:47 COVID-19, mRNA, LNP-S, PF, 30 mcg/0.3 mL dose, darleen-sucrose 2 completed Joanne [place] [facility] 09/05/2024 09:46:47 COVID-19, mRNA, LNP-S, bivalent, PF, 30 mcg/0.3 mL dose 2 completed Joanne [place] [facility] 09/05/2024 09:46:47 zoster recombinant 3 completed Joanne Mc [place] [facility] 09/05/2024 10:54:09 Influenza, split virus, quadrivalent, preservative 7 completed Not Available [facility] 07/30/2019 02:49:48 Influenza, split virus, quadrivalent, preservative 1 completed Curtis Fox [place] [facility] 04/08/2021 13:12:07 Tdap 3 completed Stephy Guevar[place] [facility] 09/04/2022 12:19:54 Influenza, high-dose, trivalent, PF 5 completed Noam Reveles MD Attn: Accounting[address] [place], [address], [place] [facility] 09/05/2024 20:53:10 Past Encounters Encounter ID Performer Location Encounter Start Date Encounter Closed Date Diagnosis/Indication Diagnosis SNOMED-CT Code Diagnosis ICD10 Code Diagnosis Note [id number] [facility] (Adult Med) [address] [place] [address] [id number] 09/13/2014 16:14:24 09/14/2014 11:03:15 Diabetes mellitus 74841621 Hyperlipidemia 72179968 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 782821280 Essential hypertension 69615090 Acute bronchitis 76171453 [id number] [facility] (Adult Med) [address] [place] [address] [id number] 04/09/2015 13:36:28 04/09/2015 17:58:50 Diabetes mellitus 39106189 Essential hypertension 79343605 Hyperlipidemia 19436053 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 215236186 [id number] Nikky Mathews MD [facility] (Adult Med) [address] [place] [address] [id number] 09/13/2015 09:48:53 09/13/2015 11:14:18 Diabetes mellitus 91109202 E13.65 Essential hypertension 05864482 I10 Hyperlipidemia 38264478 E78.5 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 917249027 E11.21 Secondary erectile dysfunction 807616170 N52.8 [id number] Tenisha MicheleArturo Carter (Adult Med) [address] [place] [address] [id number] 10/29/2015 11:50:40 10/29/2015 14:48:10 Diabetes mellitus 46474474 E11.9 Secondary erectile dysfunction 123583600 N52.8 Degenerati ve joint disease of hand 45402488 M19.041 M19.042 [id number] Nikky Mathews MD [facility] (Adult Med) [address] [place] [address] [id number] 04/04/2016 16:28:18 04/04/2016 17:40:02 Diabetes mellitus 09002077 E11.9 Degenerati ve joint disease of hand 24489357 M19.041 M19.042 Hyperlipidemia 85365126 E78.5 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 Hyperlipidemia 68330405 E78.5 Low saturated fat diet. Essential hypertension 16728958 I10 Covered by quinapril as well. Diabetes mellitus 252207 09 E11.9 Diabetic diet, exercise, keep the weight down. Annual eye check. [id number] [facility] [address] [place] [address] [id number] 06/03/2017 09:47:08 06/03/2017 11:09:41 Type 2 diabetes mellitus 91487408 E11.65 diabetic diet, exercise, will adjust his medication s. He will change his eating habit. Essential hypertension 27809191 I10 Covered by quinapril as well. Low salt diet. will add amlodipine to bring down the BP to the more safe level. 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 Annual eye check. Type 2 kirsten betes mellitus 46482096 E11.65 diabetic diet, exercise, will adjust his medication s. He will change his eating habit. Essential hypertension 86379099 I10 Covered by quinapril as well. Low salt diet. will add amlodipine to bring down the BP to the more safe level. 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 Annual eye check. Patient agreed the metformin ER 1,00 mg twice /day to achieve the better control of his rachell 2 DM. [id number] MD Emma King (Adult Med) [address] [place] [address] [id number] 01/26/2018 12:20:07 01/26/2018 13:41:59 Essential hypertension 68223373 I10 Covered by quinapril as well. Low salt diet. will add amlodipine to bring down the BP to the more safe level.Will increase amlodipine to 10 mg/day. Type 2 kirsten betes mellitus without complication 392947090 E11.9 Diabetic diet, exercise, keep the weight down. OTC aspirin /day. Diabetes mellitus 993336 09 E11.9 Diabetic diet, exercise, keep the weight down. Annual eye check. Patient agreed the metformin ER 500 mg twice /day to achieve the better control of his rachell 2 DM. Dyslipidemia 928320296 E 78.5 Low saturated fat diet, exercise and keep the weight down Type 2 kirsten betes mellitus 27297142 E11.65 diabetic diet, exercise, will adjust his medication s. He will change his eating habit. [id number] [facility] [address] [place] [address] [id number] 03/30/2018 10:04:31 03/30/2018 11:07:33 Furuncle 341961200 L02.92 Type 2 kirsten betes mellitus without complication 121287835 E11.9 Diabetic diet, exercise, keep the weight down. OTC aspirin /day. Has enough medication s. [id number] [facility] [address] [place] [address] [id number] 04/01/2018 16:18:44 04/08/2018 16:12:51 Furuncle 475707653 L02.92 Right buttock resolving, advised to continue clindamyci n. Discussed with patient and he understood and agreed. [id number] MD Emma King (Adult Med) [address] [place] [address] [id number] 04/06/2018 15:56:11 04/07/2018 12:14:40 Furuncle 357269820 L02.92 Right buttock resolving, advised to continue clindamyci n. Discussed with patient and he understood and agreed. [id number] Nikky Mathews MD [facility] (Adult Med) [address] [place] [address] [id number] 08/27/2018 10:09:37 08/30/2018 09:32:56 Diabetes mellitus 54270776 E11.9 Diabetic diet, exercise, keep the weight down. Annual eye check. Patient agreed the metformin ER 500 mg twice /day to achieve the better control of his rachell 2 DM. Discussed with patient, he agreed with add on pioglitazo ne. Retinopath y due to diabetes mellitus 0247386 E13.3593 Under the care of his ophthalmol ogist. Essential hypertension 56009889 I10 Covered by quinapril as well. Low salt diet. will add amlodipine to bring down the BP to the more safe level.Will increase amlodipine to 10 mg/day. Blood sugar is 261 mg%, patient informed 08-27-2018 . Hyperlipidemia 08758845 E78.5 Low saturated fat diet. Type 2 kirsten betes mellitus without complication 822487290 E11.9 Diabetic diet, exercise, keep the weight down. OTC aspirin /day. Has enough medication s. Dyslipidemia 694900181 E 78.5 Low saturated fat diet, exercise and keep the weight down Type 2 kirsten betes mellitus 28433667 E11.65 diabetic diet, exercise, will adjust his medication s. He will change his eating habit. [id number] Nikky Mathews MD [facility] (Adult Med) [address] [place] [address] [id number] 10/25/2018 15:53:18 10/26/2018 09:24:31 Uncontrolled type 2 diabetes mellitus 415194124 E11.65 Will check HgA1C. Retinopath y due to diabetes mellitus 2473076 E13.3593 Under the care of his ophthalmol ogist. 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 Degenerati ve joint disease of hand 01489909 M19.041 M19.042 Stable, able to ambulate by himself without assitance. Hyperlipidemia 70696884 E78.5 Low saturated fat diet. Essential hypertension 58820460 I10 Covered by quinapril as well. Low salt diet. will add amlodipine to bring down the BP to the more safe level.Will increase amlodipine to 10 mg/day. Blood sugar is 261 mg%, patient informed 08-27-2018 . [id number] Nikky Mathews MD [facility] (Adult Med) [address] [place] [address] [id number] 12/17/2018 16:46:47 12/20/2018 09:42:49 Type 2 diabetes mellitus without complication 512597777 E11.9 Diabetic diet, exercise, keep the weight down. OTC aspirin /day. Has enough medication s. Dyslipidem ia due to type 2 diabetes mellitus 3083566686 02 E78.5 On low saturated fat diet. and atorvastat in 90 dys supply with 3 more refills. Essential hypertension 02045455 I10 Covered by quinapril as well. Low salt diet. will add amlodipine to bring down the BP to the more safe level.Will increase amlodipine to 10 mg/day. Blood sugar is 261 mg%, patient informed 08-27-2018 . Dyslipidemia 287228209 E 78.5 Low saturated fat diet, exercise and keep the weight down Type 2 kirsten betes mellitus 14457921 E11.65 diabetic diet, exercise, will adjust his medication s. He will change his eating habit. [id number] Nikky Mathews MD [facility] (Adult Med) [address] [place] [address] [id number] 02/24/2019 16:42:14 02/24/2019 17:27:56 Diabetes mellitus 46392863 E11.9 Diabetic diet, exercise, keep the weight down. Annual eye check. Patient agreed the metformin ER 500 mg twice /day to achieve the better control of his rachell 2 DM. Discussed with patient, he agreed with add on pioglitazo ne. [id number] Nikky Mathews MD [facility] (Adult Med) [address] [place] [address] [phone] 06/17/2019 10:32:26 06/20/2019 10:09:21 Degenerative joint disease of hand 93181987 M19.041 M19.042 Stable, able to ambulate by himself without assitance. Diabetes mellitus 495588 09 E11.9 Diabetic diet, exercise, keep the weight down. Annual eye check. Patient agreed the metformin ER 500 mg twice /day to achieve the better control of his rachell 2 DM. Discussed with patient, he agreed with add on pioglitazo ne. Essential hypertension 23687808 I10 Covered by quinapril as well. Low salt diet. will add amlodipine to bring down the BP to the more safe level.Will increase amlodipine to 10 mg/day. Blood sugar is 261 mg%, patient informed 08-27-2018 . Hyperlipidemia 52033894 E78.5 Low saturated fat diet. 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 On quinapril. Secondary erectile dysfunction 386806848 N52.8 Stable, not on viagra. Dyslipidemia 051324349 E 78.5 Low saturated fat diet, exercise and keep the weight down Type 2 kirsten betes mellitus without complication 816894077 E11.9 Diabetic diet, exercise, keep the weight down. OTC aspirin /day. Has enough medication s. Type 2 kirsten betes mellitus 24373334 E11.65 diabetic diet, exercise, will adjust his medication s. He will change his eating habit. [id number] MD Emma King (Adult Med) [address] [place] [address] [id number] 07/01/2019 12:23:14 07/04/2019 14:10:16 Acute bronchitis 48046592 J20.9 Discussed with patient, D/C smiley. [id number] [facility] [address] [place] [address] [id number] 08/25/2019 15:29:19 08/26/2019 08:58:09 Diabetes mellitus 48233855 E11.9 Diabetic diet, exercise, keep the weight down. Annual eye check. Patient agreed the metformin ER 500 mg twice /day to achieve the better control of his rachell 2 DM. Discussed with patient, he agreed with add on pioglitazo ne. Degenerati ve joint disease of hand 84047981 M19.041 M19.042 Stable, able to ambulate by himself without assitance. Essential hypertension 67312166 I10 Covered by quinapril as well. Low salt diet. will add amlodipine to bring down the BP to the more safe level.Will increase amlodipine to 10 mg/day. Blood sugar is 261 mg%, patient informed 08-27-2018 . Hyperlipidemia 72608244 E78.5 Low saturated fat diet. 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 On quinapril. Type 2 kirsten betes mellitus 10849861 E11.65 diabetic diet, exercise, will adjust his medication s. He will change his eating habit. Type 2 kirsten betes mellitus without complication 233801192 E11.9 Diabetic diet, exercise, keep the weight down. OTC aspirin /day. Has enough medication s. Dyslipidemia 340627309 E 78.5 Low saturated fat diet, exercise and keep the weight down [id number] Nikky Mathews MD [facility] (Adult Med) [address] [place] [address] [id number] [id number] 12/22/2019 08:14:26 12/23/2019 06:57:50 Type 2 diabetes mellitus 84844707 E11.65 diabetic diet, exercise, will adjust his medication s. He will change his eating habit. 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 [id number] Nikky Mathews MD [facility] (Adult Med) [address] [place] [address] [id number] 05/22/2020 08:32:52 05/23/2020 10:59:28 Acute bronchitis 66281154 J20.9 Discussed with patient, D/Mahnaz reis. Degenerati ve joint disease of hand 95538848 M19.041 M19.042 Stable, able to ambulate by himself without assitance. Diabetes mellitus 244053 09 E11.9 Diabetic diet, exercise, keep the weight down. Annual eye check. Patient agreed the metformin ER 500 mg twice /day to achieve the better control of his rachell 2 DM. Discussed with patient, he agreed with add on pioglitazo ne. Essential hypertension 92019421 I10 Covered by quinapril as well. Low salt diet. will add amlodipine to bring down the BP to the more safe level.Will increase amlodipine to 10 mg/day. Blood sugar is 261 mg%, patient informed 08-27-2018 . Will continue to monitor Blood pressure., once porter virus pandemic is over. Hyperlipidemia 85397920 E78.5 Low saturated fat diet. Low animal fat diet. 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 On quinapril. Secondary erectile dysfunction 558372626 N52.8 Stable, not on viagra. Dyslipidemia 175855875 E 78.5 Low saturated fat diet, exercise and keep the weight down Type 2 kirsten betes mellitus without complication 032488121 E11.9 Diabetic diet, exercise, keep the weight down. OTC aspirin /day. Has enough medication s. Type 2 kirsten betes mellitus 54537975 E11.65 diabetic diet, exercise, will adjust his medication s. He will change his eating habit. [id number] [facility] [address] [place] [phone] 08/13/2020 08:20:45 08/14/2020 08:43:41 Diabetes mellitus 44273693 E11.9 Diabetic diet, exercise, keep the weight down. Annual eye check. Patient agreed the metformin ER 500 mg twice /day to achieve the better control of his rachell 2 DM. Discussed with patient, he agreed with add on pioglitazo ne. Essential hypertension 83592081 I10 Covered by quinapril as well. Low salt diet. will add amlodipine to bring down the BP to the more safe level.Will increase amlodipine to 10 mg/day. Blood sugar is 261 mg%, patient informed 08-27-2018 . Will continue to monitor Blood pressure., once porter virus pandemic is over. Degenerati ve joint disease of hand 37812023 M19.041 M19.042 Stable, able to ambulate by himself without assitance. [id number] Nikky Mathews MD [facility] (Adult Med) [address] [place] [address] 01/01/2021 11:35:21 01/01/2021 12:15:57 Diabetes mellitus 75566821 E11.9 Diabetic diet, exercise, keep the weight down. Annual eye check. Patient agreed the metformin ER 500 mg twice /day to achieve the better control of his rachell 2 DM. Discussed with patient, he agreed with add on pioglitazo ne. Degenerati ve joint disease of hand 09779670 M19.041 M19.042 Stable, able to ambulate by himself without assitance. Essential hypertension 63221638 I10 Covered by quinapril as well. Low salt diet. will add amlodipine to bring down the BP to the more safe level.Will increase amlodipine to 10 mg/day. Blood sugar is 261 mg%, patient informed 08-27-2018 . Will continue to monitor Blood pressure., once porter virus pandemic is over. He just drank his morning coffee which might have raise Blood pressure, will continue to monitor his blood pressure. he is comfort with current medication s. 01-01-2021 . Hyperlipidemia 99238603 E78.5 Low saturated fat diet. Low animal fat diet. 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 On quinapril. Secondary erectile dysfunction 410867016 N52.8 Stable, not on viagra. [id number] Nikky Mathews MD [facility] (Adult Med) [address] [place] [address] 04/08/2021 11:48:12 04/10/2021 16:10:15 Diabetes mellitus 19656281 E11.9 Diabetic diet, exercise, keep the weight down. Annual eye check. Patient agreed the metformin ER 500 mg twice /day to achieve the better control of his rachell 2 DM. Discussed with patient, he agreed with add on pioglitazo ne. Degenerati ve joint disease of hand 80984642 M19.041 M19.042 Stable, able to ambulate by himself without assitance. Essential hypertension 33128593 I10 Covered by quinapril as well. Low salt diet. will add amlodipine to bring down the BP to the more safe level.Will increase amlodipine to 10 mg/day. Blood sugar is 261 mg%, patient informed 08-27-2018 . Will continue to monitor Blood pressure., once porter virus pandemic is over. He just drank his morning coffee which might have raise Blood pressure, will continue to monitor his blood pressure. he is comfort with current medication s. 01-01-2021 . Blood pressure reading is 142/66 mm Hg. He is on quinapril. 04-08-2021 . Hyperlipidemia 02172533 E78.5 Low saturated fat diet. Low animal fat diet. 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 On quinapril. Secondary erectile dysfunction 531579344 N52.8 Stable, not on viagra. Administra tion of influenza vaccine 20906929 Z23 Will get annual flu shot. Dyslipidemia 927854279 E 78.5 Low saturated fat diet, exercise and keep the weight down Type 2 kirsten betes mellitus without complication 921868187 E11.9 Diabetic diet, exercise, keep the weight down. OTC aspirin /day. Has enough medication s. Type 2 kirsten betes mellitus 19460097 E11.65 diabetic diet, exercise, will adjust his medication s. He will change his eating habit. [id number] Nikky Mathews MD [facility] (Adult Med) [address] [place] [address] 05/21/2021 10:20:28 05/24/2021 12:24:20 Hyperlipidemia 20718035 E78.5 Low saturated fat diet. Low animal fat diet. Secondary erectile dysfunction 981207978 N52.8 Stable, not on viagra. Essential hypertension 40297712 I10 Covered by quinapril as well. Low salt diet. will add amlodipine to bring down the BP to the more safe level.Will increase amlodipine to 10 mg/day. Blood sugar is 261 mg%, patient informed 08-27-2018 . Will continue to monitor Blood pressure., once porter virus pandemic is over. He just drank his morning coffee which might have raise Blood pressure, will continue to monitor his blood pressure. he is comfort with current medication s. 01-01-2021 . Blood pressure reading is 142/66 mm Hg. He is on quinapril. 04-08-2021 . Diabetes mellitus 148383 09 E11.9 Diabetic diet, exercise, keep the weight down. Annual eye check. Patient agreed the metformin ER 500 mg twice /day to achieve the better control of his rachell 2 DM. Discussed with patient, he agreed with add on pioglitazo ne. Degenerati ve joint disease of hand 01427948 M19.041 M19.042 Stable, able to ambulate by himself without assitance. Microalbum inuric diabetic nephropathy 452243082 E11.21 Normal renal functions, normal BUN, creatinine and GFR on 04-15-2021 , on 05-02-2021 elevated albumin/cr eatine ratio could be hypertensi ve and diabetic nephropath y, will increase quinapril to 20 mg /day . Copies of lab. explained and provided to patient today, 05-21-2021 . [id number] MD Emma King (Adult Med) [address] [place] [phone] 08/05/2021 09:33:33 08/06/2021 10:04:23 Type 2 diabetes mellitus 86587685 E11.65 diabetic diet, exercise, will adjust his medication s. He will change his eating habit. Persistent cough 0952504 02 R05.3 Will try benzontate for the mean time. [id number] MD Emma King (Adult Med) [address] [place] [phone] 08/30/2021 15:36:26 09/02/2021 12:30:09 Type 2 diabetes mellitus 93765424 E11.65 diabetic diet, exercise, will adjust his medication s. He will change his eating habit. Has lost some weight, also has gone to endocrinol ogist , rosalinda was D/C, and farxiga was put in , starting 5 mg/day , now is on 10 mg/day, stil on ozempic shot. he had seen his blood sugar has come down. 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 On quinapril. Repeat test of urine albumin reported to be normal from his endocrinol ogist office. 11-19-2021 . Screening for malignant neoplasm of prostate 743887601 Z12.5 He went to his urologist Dr. Saldana, and was suggested to have PSA screening. Type 2 kirsten betes mellitus 48859332 E11.65 diabetic diet, exercise, will adjust his medication s. He will change his eating habit. Has lost some weight, also has gone to endocrinol ogist , rosalinda was D/C, and farxiga was put in , starting 5 mg/day , now is on 10 mg/day, stil on ozempic shot. he had seen his blood sugar has come down.Heavenly nguyen he is under the care of his endocrinol ogist.., 11-19-2021 . [id number] MD Emma King (Adult Med) [address] [place] [phone] 02/18/2022 10:15:10 02/19/2022 11:59:28 Type 2 diabetes mellitus 22076917 E11.65 diabetic diet, exercise, will adjust his medication s. He will change his eating habit. Has lost some weight, also has gone to endocrinol ogist , ezequieluvia was D/C, and xavierxiga was put in , starting 5 mg/day , now is on 10 mg/day, stil on ozempic shot. he had seen his blood sugar has come down.Heavenly nguyen he is under the care of his endocrinol ogist.., 11-19-2021 . Dyslipidem ia due to type 2 diabetes mellitus 8194204631 02 E78.5 On low saturated fat diet. and atorvastat in 90 dys supply with 3 more refills.As 02-18-2022 his LDL is 44 mg%. HDL is 35 mg% from out side lab. Open wound, heel 3495906 09 S91.301A Discussed with patient, will try ABS as ordered. Essential hypertension 40405430 I10 Covered by quinapril as well. Low salt diet. will add amlodipine to bring down the BP to the more safe level.Will increase amlodipine to 10 mg/day. Blood sugar is 261 mg%, patient informed 08-27-2018 . Will continue to monitor Blood pressure., once porter virus pandemic is over. He just drank his morning coffee which might have raise Blood pressure, will continue to monitor his blood pressure. he is comfort with current medication s. 01-01-2021 . Blood pressure reading is 142/66 mm Hg. He is on quinapril. 04-08-2021 .. As 02-18-2022 blood pressure is 120/66 today. [id number] MD Emma King (Adult Med) [address] [place] [address] 07/11/2022 10:31:47 07/15/2022 14:49:24 Overweight 628487622 E66.3 BMI is 26.3, he has been advised to watch his diabetic diet, exercise and keep the weight down. Smoker 31940299 F17.200 Advised to quit smoking if he still smokes. Acute bronchitis 4553670 2 J20.9 Discussed with patient, Becka/Mahnaz reis. Type 2 kirsten zehra mellitus 09707657 E11.65 diabetic diet, exercise, will adjust his medication s. He will change his eating habit. Has lost some weight, also has gone to endocrinol ogist , ezequieluvia was D/C, and farxiga was put in , starting 5 mg/day , now is on 10 mg/day, stil on ozempic shot. he had seen his blood sugar has come down.Heavenly nguyen he is under the care of his endocrinol ogist.., 11-19-2021 . [id number] Nikky Mathews MD [facility] (Adult Med) [address] [place] [phone] 09/04/2022 10:18:01 09/08/2022 15:20:39 Administration of diphtheria, pertussis, and tetanus vaccine 143407554 Z23 He tolerated shot well. Type 2 kirsten betalexus mellitus 40597371 E11.65 diabetic diet, exercise, will adjust his medication s. He will change his eating habit. Has lost some weight, also has gone to endocrinol ogist , alyia was D/C, and farxiga was put in , starting 5 mg/day , now is on 10 mg/day, stil on ozempic shot. he had seen his blood sugar has come down.Heavenly nguyen he is under the care of his endocrinol ogist.., 11-19-2021 . as 09-04-22, wants to refill test strip at [facility].. Chronic cough 26121777 R 05.3 smokes once a while, benzonatat e only temporally relieve the cough, will x ray and try promethazi ne with codeine,.o r similar product. He agreed. Diabetic p eripheral neuropathy 253127816 E11.40 Pain of feet, on OTC cream, was told to have diabetic neuropathy , asking some med for relief. [id number] [facility] [address] [place] [phone] 12/11/2022 11:51:32 12/15/2022 16:10:44 Dementia 69818200 F03.90 wants him to be evaluated by neurolognoah johnson. She has no written consent, from patient, to relase [facility] informatio n to her, nor the latter has no signature or date on it, will keep copy in file, patient agreed for the referral. Type 2 kirsten betes mellitus 44599412 E11.65 diabetic diet, exercise, will adjust his medication s. He will change his eating habit. Has lost some weight, also has gone to endocrinol ogist , rosalinda was D/C, and farxiga was put in , starting 5 mg/day , now is on 10 mg/day, stil on ozempic shot. he had seen his blood sugar has come down.Heavenly nguyen he is under the care of his endocrinol ogist.., 11-19-2021 . as 09-04-22, wants to refill test strip at [facility] Administra tion of pneumococcal vaccine 93600071 Z23 He declined today 12-11-22. [id number] Nikky Mathews MD [facility] (Adult Med) [address] [place] [address] 01/29/2023 15:37:23 01/30/2023 14:36:48 Type 2 diabetes mellitus 97289205 E11.65 diabetic diet, exercise, will adjust his medication s. He will change his eating habit. Has lost some weight, also has gone to endocrinol ogist , rosalinda was D/C, and farxiga was put in , starting 5 mg/day , now is on 10 mg/day, stil on ozempic shot. he had seen his blood sugar has come down.Heavenly nguyen he is under the care of his endocrinol ogist.., 11-19-2021 . as 09-04-22, wants to refill test strip at [facility] Diabetic p eripheral neuropathy 918788438 E11.40 Pain of feet, on OTC cream, was told to have diabetic neuropathy , asking some med for relief. Wants 100 mg instead of 300 mg of gabapentin from which he took and made him sleep for 2 days. Urinary tr act infectious disease 27564718 N39.0 Will send urine to Lab for U/A and culture , ABS also been ordered in case, he agreed. 01-29-23. [id number] Nikky Mathews MD [facility] (Adult Med) [address] [place] [address] 03/30/2023 16:12:13 03/30/2023 17:01:55 Alzheimer's disease 20108040 G30.9 saw neurolognoah johnson, had spinal CSG analysis tau elevated. , he has been informed the diagnosis, might be referred to [facility] for ne treatment. Type 2 kirsten betes mellitus 90448622 E11.65 diabetic diet, exercise, will adjust his medication s. He will change his eating habit. Has lost some weight, also has gone to endocrinol ogist , ezequielshukri was D/C, and farxiga was put in , starting 5 mg/day , now is on 10 mg/day, stil on ozempic shot. he had seen his blood sugar has come down.Heavenly nguyen he is under the care of his endocrinol ogist.., 11-19-2021 . as 09-04-22, wants to refill test strip at [facility].. Acid reflux 061637965 K2 1.9 Med refills. Diabetic p eripheral neuropathy 103797831 E11.40 Pain of feet, on OTC cream, was told to have diabetic neuropathy , asking some med for relief. Wants 100 mg instead of 300 mg of gabapentin from which he took and made him sleep for 2 days. Essential hypertension 30751408 I10 Covered by quinapril as well. Low salt diet. will add amlodipine to bring down the BP to the more safe level.Will increase amlodipine to 10 mg/day. Blood sugar is 261 mg%, patient informed 08-27-2018 . Will continue to monitor Blood pressure., once porter virus pandemic is over. He just drank his morning coffee which might have raise Blood pressure, will continue to monitor his blood pressure. he is comfort with current medication s. 01-01-2021 . Blood pressure reading is 142/66 mm Hg. He is on quinapril. 04-08-2021 .. As 02-18-2022 blood pressure is 120/66 today. Was on lisinopril which made him having dry cough , will stop it and change to losartan , he agreed, -03-30-23. SARS-CoV-2 mRNA vaccine declined 0975173120 Z28.21 He declined 03-30-23. [id number] Nikky Mathews MD [facility] (Adult Med) [address] [place] [address] 06/26/2023 09:48:36 06/29/2023 14:43:57 Type 2 diabetes mellitus 32461040 E11.65 Diabetic diet, exercise and keep the weight down. Med refills. Alzheimer's disease 9334 1860 G30.9 saw neurolognoah johnson, had spinal CSG analysis tau elevated. , he has been informed the diagnosis, might be referred to [facility] for the treatment. Essential hypertension 48180672 I10 Covered by quinapril as well. Low salt diet. will add amlodipine to bring down the BP to the more safe level.Will increase amlodipine to 10 mg/day. Blood sugar is 261 mg%, patient informed 08-27-2018 . Will continue to monitor Blood pressure., once porter virus pandemic is over. He just drank his morning coffee which might have raise Blood pressure, will continue to monitor his blood pressure. he is comfort with current medication s. 01-01-2021 . Blood pressure reading is 142/66 mm Hg. He is on quinapril. 04-08-2021 .. As 02-18-2022 blood pressure is 120/66 today. Was on lisinopril which made him having dry cough , will stop it and change to losartan , he agreed, -03-30-23. BP 130/76 today 06-26-23. Dyslipidem ia due to type 2 diabetes mellitus 4673511111 02 E78.5 On low saturated fat diet. and atorvastat in 90 dys supply with 3 more refills.As 02-18-2022 his LDL is 44 mg%. HDL is 35 mg% from out side lab. Diabetic p eripheral neuropathy 550730369 E11.40 Pain of feet, on OTC cream, was told to have diabetic neuropathy , asking some med for relief. Wants 100 mg instead of 300 mg of gabapentin from which he took and made him sleep for 2 days. Acid reflux 440248903 K2 1.9 Med refills. Acute bronchitis 0864550 2 J20.9 Discussed with patient, Becka/Mahnaz reis. [id number] Noam Reveles MD [facility] [employer] [facility] [place] [address] [place] [address] 10/12/2023 14:13:47 10/12/2023 15:24:53 Diabetes mellitus 67655322 E11.9 Essential hypertension 11883752 I10 Screening for malignant neoplasm of prostate 844010704 Z12.5 Hyperlipidemia 84067075 E78.5 [id number] Noam Reveles MD [facility] [facility] [place] [address] [place] [address] 11/19/2023 13:49:54 11/19/2023 14:48:10 Diabetes mellitus 93491580 E11.9 Essential hypertension 07585020 I10 Hyperlipidemia 59978241 E78.5 Ischemic c ongestive cardiomyopathy 255726399 I25.5 Central cord syndrome 28 5896711 S14.129D [id number] Noam Reveles MD [facility] [place] [address] [place] [address] 01/04/2024 10:55:41 01/04/2024 12:03:07 Essential hypertension 65442718 I10 Diabetes mellitus 039990 09 E11.9 Central cord syndrome 28 4970451 S14.129D Ischemic c ongestive cardiomyopathy 228306331 I25.5 [id number] Noam Reveles MD [facility] [facility] [place] [address] [place] [address] 02/29/2024 11:28:44 02/29/2024 13:10:10 Adult health examination 100216526 Z00.00 Health Risk Assessment collected and reviewed [id number] Noam Reveles MD [facility] [facility] [place] [address] [place] [address] 04/04/2024 10:38:30 04/04/2024 12:08:46 Overweight 530461614 E66.3 Essential hypertension 12258994 I10 Hyperlipidemia 71461942 E78.5 Diabetes mellitus 819176 09 E11.9 Ischemic c ongestive cardiomyopathy 216948427 I25.5 [id number] Noam Reveles MD [facility] [place] [address] [place] [address] 05/16/2024 13:56:02 05/16/2024 15:19:59 Body mass index 20-24 - normal 334654779 Z68.24 Pneumonia 670390126 J18. 9 Essential hypertension 32692842 I10 Diabetes mellitus 759293 09 E11.9 Hyperlipidemia 85035347 E78.5 [id number] Noam Reveles MD [facility] [place] [address] [place] [address] 06/06/2024 14:12:33 06/06/2024 15:10:12 Pneumonia 320326542 J18.9 Ischemic c ongestive cardiomyopathy 388047496 I25.5 Essential hypertension 37080275 I10 [id number] Noam Reveles MD [facility] [facility] [place] [address] [place] [address] 09/05/2024 10:55:19 09/05/2024 11:41:03 Body mass index 25-29 - overweight 421766830 Z68.26 Overweight 066659859 E66 .3 Administra tion of influenza vaccine 66469850 Z23 Essential hypertension 83692189 I10 Diabetes mellitus 317010 09 E11.9 Hyperlipidemia 51354162 E78.5 Health Concerns Section Related Observation LastModified by Organization Detai ls LastModified Time None Recorded Concern Status LastModified by Organization Details LastModified Time None Recorded Advance Directives Directive N: Payers Encounter Date Sequence Insurance Name Policy Number Policy Dang Covered Member ID Dang Member ID Guarantor Name 02/29/2024 1 [place] Tolu Lotts [id number] [facility] 02/29/2024 2 [employer] (MEDICARE SUPPLEMENT) Tolu Lotts [id number] [facility] 04/04/2024 1 [place] Tolu Kirkpatrick Delfina [id number] Tolu Delfina 04/04/2024 2 [employer] (MEDICARE SUPPLEMENT) Tolu Mathis [id number] Tolu Delfina 05/16/2024 1 [place] Tolu Mathis [id number] Tolu Delfina 05/16/2024 2 [employer] (MEDICARE SUPPLEMENT) Tolu Mathis [id number] [facility] 06/06/2024 1 [place] Tolu Mathis [id number] [facility] 06/06/2024 2 [employer] (MEDICARE SUPPLEMENT) Tolu Mathis [id number] [facility] 09/05/2024 1 [place] Tolu Mathis [id number] Tolu Delfina 09/05/2024 2 [employer] (MEDICARE SUPPLEMENT) [facility] [id number] [facility] Notes Date Note Type Note Provider Name and Address Organization Details Recorded Time 02/29/2024 text/html MAW 2Reported bypatient.Diet and Nutrition:healthy diet Fracture Risk:no sudden unexplained fractures;history of fractures Concentration and Memory:no decreased concentrating ability; no memory lapses or loss; does not forget words Speech/Motor difficulties:no speech difficulties; no difficulty expressing formulated concepts; no difficulty with fine manipulative tasks; no difficulty writing/copying; no slowed reaction time; does not knock things over when trying to pick them up Hearing:loss of hearing: in both ears; wears hearing aids Vision:worse both distance and near(bifocals, cataracts);increased sensitivity to glare Activities of Daily Living:able to bathe with limited or no assistance; able to contol urination and bowels; able to dress with limited or no assistance; able to feed self with limited or no assistance; able to get out of chair or bed with limited or no assistance; able to groom with limited or no assistance; able to toilet with limited or no assistance Instrumental Activities of Daily Living:able to do house work with limited or no assistance; able to grocery shop with limited or no assistance; able to manage medications with limited or no assistance; able to manage money with limited or no assistance; able to prepare meals with limited or no assistance; able to use the phone with limited or no assistance Falls Risk Assessment:no frequent falls while walking; no fall since last visit; no dizziness/vertigo; fall(s) in the past year 1 Home Safety:reviewed sun protection; no unsafe diya hazzards; no unsafe stairs; working smoke/CO detectors; practicing 'safer sex'; no fire arms; has hand bars in the bathroom/shower; good lighting in the home Noam Reveles MD Attn: [employer] [place], [address], [facility] 03/05/2024 14:04:14 04/04/2024 text/html he has had no hypoglycemic spells did see endocrinology. Ischemic cardiomyopathy no signs or symptoms of heart failure. Central cord syndrome status post surgical intervention doing fine Noam Reveles MD Attn: Accounting, [address] [place], [place], [address] [place] [address], [facility] 04/09/2024 14:02:07 05/16/2024 text/html hospitalize CRISOSTOMO pneumonia discharged on Zithromax and Augmentin feeling better slow improvement slight elevated tropes felt to be demand ischemia breathing is doing fine no chest pain occasionally he will feel a little bit of wheeze. hypertension no headache no dizziness dyslipidemia trying to follow his diet blood sugars have been doing okay no hyper or hypoglycemic symptomatology Noam Reveles MD Attn: Accounting, [address] [place], [address], [facility] 05/22/2024 16:42:04 06/06/2024 text/html appears to be do ing fine with no interval developments or complaints getting over the pneumonia nicely Noam Reveles MD Attn: Accounting, [address] [place], [address], [facility] 06/09/2024 14:58:51 09/05/2024 text/html hypertension no headache or dizziness blood pressure looks good. Dyslipidemia trying to follow a low-fat he is taking his atorvastatin without any difficulties cardiomyopathy no PND orthopnea no edema. Diarrhea being worked on by GI doing better with the metronidazole is scheduled for an EGD did have some black tarry stools that he admitted to with GI Noam Reveles MD Attn: Accounting,[address] [facility], [place], [address], [facility] 09/05/2024 20:56:53
--- OUTSIDE RECORDS SUMMARY | 2024-11-02 01:03 | XMS_ITS | Clinical Summary ---
Author Organization [facility] Address [address] [address] Care Team Providers Care Bacteriologist Industrial Name Role Phone Nikky Mathews MD Primary Care Provider [phone] Source Comments [facility],non-owned Affiliates and Associated Physician Practices is amultiple site organization consisting of ambulatory clinics and hospital sitesin [place], [place], [place] and [place]. This disclosure is being madepursuant to the Care Everywhere program and may not contain all information available regarding this patient. Last updated 18.[facility] Allergies No known active allergies Medications * Be aware that medications may not be up to date on this document. Alwaysverify current medications with the patient. metFORMIN (GLUCOPHAGE) 1000 MG tablet Take 1,000 mg by mouth 2 times daily with breakfast and dinner. Active atorvastatin (LIPITOR) 20 MG tablet Take 20 mg by mouth at bedtime. Active glimepiride (AMARYL) 4 MG tablet Take 4 mg by mouth daily with breakfast. Active lisinopril (PRINIVIL;ZESTR IL) 5 MG tablet Take 5 mg by mouth once daily. Active aspirin 81 MG tablet Take 81 mg by mouth once daily. Active Family History Medical History Relation Name Comments Diabetes Father Stroke Father CAD (Coronary Artery Disease) Mother Cancer Mother Diabetes Mother Relation Name Status Comments Father Mother Social History Tobacco Use Types Packs/Day Years Used Date Smoking Tobacco: Former Cigarettes Q uit: 08/01/1998 Smokeless Tobacco: Never Comments:OCCASIONAL CIGAR Alcohol Use Standard Drinks/Week Comments No 0 (1 standard drink = 0.6 oz pur e alcohol) Sex and Gender Information Value Date Recorded Sex Assigned at Not on file Legal Sex Male 1:09 PM SOLAR FABRICATION TECHNICIAN Gender Identity Not on file Sexual Orientation Not on file Last Filed Vital Signs Vital Sign Reading Time Taken Comments Blood Pressure 193/90 09/01/2011 1:15 PM SOLAR FABRICATION TECHNICIAN Pulse 88 09/01/2011 1:15 PM SOLAR FABRICATION TECHNICIAN Temperature 36.6 C (97.9 F) 09/01/2011 1:15 PM SOLAR FABRICATION TECHNICIAN Respiratory Rate 18 09/01/2011 1:15 PM SOLAR FABRICATION TECHNICIAN Oxygen Saturation - - Inhaled Oxygen Concentration - - Weight 79.4 kg (175 lb) 09/01/2011 1:15 PM SOLAR FABRICATION TECHNICIAN Height 174 cm (5' 8.5 ) 09/01/2011 1:15 PM SOLAR FABRICATION TECHNICIAN Body Mass Index 26.22 09/01/2011 1:15 PM SOLAR FABRICATION TECHNICIAN Plan of Treatment Health Maintenance Due Date Last Done Comments COLOGUARD (AGES 45-75) - COL ON CA SCREENING 1952 COLON MONITORING 1952 COLONOSCOPY - COLON CA SCREENING 1952 CT COLONOGRAPHY - COLON CA SCREENING 1952 Colorectal Cancer Screening 1952 FIT - COLON CA SCREENING 1952 FLEX SIG - COLON CA SCREENING 1952 MEDICARE AWV 12 MONTHS 1952 HEPATITIS C SCREENING 11/14/1970 DTAP/TDAP/TD VACCINES (1 - Tdap) 11/19/1971 PNEUMOCOCCAL VACCINE 50+ (1 of 1 - PCV) 2002 ZOSTER VACCINE (1 of 2) 2002 AAA SCREENING 2017 COVID-19 VACCINE ( - 2023-2 5 season) 2024 DEPRESSION SCREENING 07/13/2024 INFLUENZA VACCINE (Season Ended) 2025 Respiratory Syncytial Virus (RSV) Vaccine Pt: or over 60 yrs (1 - 1-dose 75+ series) 11/19/2027 HEPATITIS B VACCINE Aged Out No longe r eligible based on patient's age to complete this topic HIB VACCINE Aged Out No longer eligi ble based on patient's age to complete this topic HPV VACCINE Aged Out No longer eligi ble based on patient's age to complete this topic MENINGOCOCCAL (Group B) VACC INE SHARED DECISION-MAKING Aged Out No longer eligibl e based on patient's age to complete this topic MENINGOCOCCAL GROUPS A/C/Y/W VACCINE Aged Out No longer eligible b ased on patient's age to complete this topic Insurance [facility] MEDICARE AET Care Teams Bacteriologist Industrial Relationship Specialty Start Date End Date Nikky Mathews MD [address] [place] [id number] PCP - General Internal Medicine 09/01/11
--- OUTSIDE RECORDS SUMMARY | 2024-11-02 01:03 | XMS_ITS | Encounter Summary ---
Author Organization [facility] Healthcare Address [address] [place] [address] Care Team Providers Care Wedding Makeup Artist Name Role Phone Lio Reveles MD Primary Care Provider [phone] Vahe Rouse MD Unavailable [phone] Emily Staples RN Unavailable Unavailable Gisselle Morgan RN Unavailable Unavaila Alie Henao RN Unavailable Unavailable Kalyani Muller Unavailable Unavailable Encounter Details Date Type Department Care Team (Late st Contact Info) Description 10/31/2024 Telephone [facility] Transplant Heart [address] [facility] [id number] [place] [address] Karina Amador Social History Tobacco Use Types Packs/Day Years Used Date Smoking Tobacco: Former Cigarettes Q uit: 1999 Passive Smoke Exposure: Never Smokeless Tobacco: Never [facility] Utilities Answer Date Recorded In the past 12 months has [employer], gas, oil, or water [employer] threatened to shut off services in your [...] How often do you attend chur or sabianist services? Never 11/02/2023 Do you belong to any clubs o r organizations such as shinto groups, unions, fraternal or athletic groups, or [...] place to sleep or slept in a skilled nursing (including now)? No 11/02/2023 Personal Safety Answer Date Recorded Have you ever been in or are you currently in a harmful physical or emotional relationship or is someone making you feel afraid or unsafe? Denies 03/03/2024 Sex and Gender Information Value Date Recorded Sex Assigned at Not on file Legal Sex Male 5:49 AM MANAGER PAYMENT Gender Identity Male 03/25/2023 11:15 AM CDT Sexual Orientation Not on file documented as of this encounter Miscellaneous Notes * Telephone Encounter - Nano Diaz RN - 10/31/2024 3:33 PM CDT Called and connected to the voicemail- message left * Telephone Encounter - Karina Amador - 10/31/2024 2:37 PM CDT Received call from [facility] needing to speak with nurse coordinator regarding: [facility] is waiting for the return of CRMD form in [employer] [place] on both 10/21/24 and . Please sign and a fax back today Patient needs a return call from the nurse coordinator. Please call back back [phone] and fax the form, fax number is on the form documented in this encounter Plan of Treatment Not on file documented as of this encounter Visit Diagnoses Not on filedocumented in this encounter Care Teams Wedding Makeup Artist Relationship Specialty Start Date End Date Lio Reveles MD PCP - General Internal Medicine 10/24/23 Vahe Rouse MD [address] [place] [address] Referring Physician Neurology 01/04/24 Emily Staples, field auditor Failure Coordinator Transplant 05/03/24 Gisselle Morgan, field auditor Failure Coordinator 05/03/24 Alie Joyner, infrastructure security architectEbd Special Education Teacher 10/31/24 Kalyani Muller Primary Seasoner Hand Transplant 10/31/24 documented as of this encounter
[2024-11-02 12:38] VITALS: BP 125/44; PULSE 62; RESP 16; TEMP 36.5; O2SAT 96
[2024-11-02 12:54] LABS: Glucose Point of Care 107 mg/dl (65-105)
[2024-11-02] MEDS: LACTATED RINGERS 1,000 ML 150 ML IV CONT (12:54)
--- NOTE | 2024-11-02 13:28 | PM.IMHP ---
H&P: HPI History of Present Illness Date/Time: 11/02/24 13:28 Chief Complaint: Dark stools Narrative: This patient has been experiencing dark stools intermittently. There is no definite evidence also melena or hematochezia. The patient denies abdominal pain. He is referred for EGD to rule out upper sources of possible GI bleeding. Review of Systems Review of Systems: All systems reviewed & are unremarkable except as noted in HPI and below PMFSH Past Medical History Medical History (Updated 11/01/24 @ 14:46 by Tolu Cruz, ) Cardiomyopathy ICD (implantable cardioverter-defibrillator) in place Alzheimer's dementia Anemia Black stools Diarrhea Diabetic neuropathy Central cord syndrome Hyperlipidemia Hypertension Diabetes mellitus Surgical History Surgical History H/O hernia repair AICD (automatic cardioverter/defibrillator) present History of colonoscopy Social History Social History Smoking packs per day: 2 Smoking cigarettes per day: 40.0 Years smoked: 30 Smoking pack-years: 60.00 Smoking status: Former smoker Tobacco type: cigarettes Alcohol intake: former Substance use: never Substance use type: does not use Other substance usage details: OCC. GUMMY Do You Feel Safe in your Home?: Yes Lack of Transportation: No Lack of Food: Never True Current Housing: I Have Housing Concerned About Future Housing: No Difficulty Paying Gas/Electric Bills: No Difficulty Paying for Meds: No Currently Unemployed: No Education: High School Diploma/GED Difficulty w/ Childcare or Family Care: No Living arrangements: with family Spiritual care concerns: No Meds Home Medications and Allergies Home Medications ?Medication ?Instructions ?Recorded ?Confirmed ?Type donepezil 5 mg tablet 5 mg PO HS #30 tabs 11/16/23 11/02/24 Rx metoprolol succinate 25 mg 25 mg PO DAILY #30 tabs 11/16/23 11/02/24 Rx tablet,extended release 24 hr omeprazole 40 mg capsule,delayed 40 mg PO BID #60 caps 11/16/23 11/02/24 Rx release sacubitril 49 mg-valsartan 51 mg 1 tablet PO BID 01/12/24 11/02/24 History tablet (Entresto) dapagliflozin propanediol 5 mg 10 mg PO DAILY 05/06/24 11/02/24 History tablet (Farxiga) escitalopram oxalate 10 mg tablet 10 mg PO 1700 05/06/24 11/02/24 History gabapentin 300 mg capsule 600 mg PO HS 05/06/24 11/02/24 History gabapentin 300 mg capsule 900 mg PO DAILY 05/06/24 11/02/24 History metformin 500 mg tablet,extended 1,000 mg PO BID 05/06/24 11/02/24 History release 24 hr albuterol sulfate 90 mcg/actuation 2 puff inhalation QID PRN 05/08/24 10/20/24 Rx aerosol inhaler shortness of breath or wheezing #6.7 grams blood-glucose sensor (Dexcom G7 #9 ea 08/09/24 08/22/24 Rx Sensor device) sodium zirconium cyclosilicate 10 10 g PO DAILY 08/09/24 11/02/24 History gram oral powder packet (Lokelma) pen needle, diabetic 32 gauge x #400 ea 08/31/24 Rx 5/32 (BD Ultra-Fine Ai Pen Needle) rosuvastatin 5 mg tablet 5 mg PO DAILY #90 tabs 09/14/24 11/02/24 Rx semaglutide 0.25 mg or 0.5 mg (2 0.5 mg subcut WEEKLY 10/20/24 11/02/24 History mg/3 mL) subcutaneous pen injector Allergies Allergy/AdvReac Type Severity Reaction Status Date / Time prednisone AdvReac Unknown DOES NOT Verified 11/02/24 12:35 LIKE TO TAKE IT Vital Signs Vital Signs - 24 hr 11/02/24 12:38 Temperature 97.7 F Pulse Rate 62 Respiratory Rate 16 Blood Pressure 125/44 L Pulse Oximetry 96 Oxygen Delivery Room Air Exam Const: General: cooperative and healthy appearing Resp: Effort & Inspection: normal respiratory effort and able to speak in complete sentences Auscultation: clear to auscultation bilaterally Cardio: Rate: regular rate Rhythm: regular rhythm GI: Inspection: normal to inspection GI Palp: No No hepatosplenomegaly present Auscultation: normal bowel sounds Rectal Exam: deferred Skin: General skin exam: normal color Psych: Appearance: grossly normal Mental Status: mental status grossly normal Assessment and Plan Assessment and plan (1) Black stools: Code(s): K92.1 - Melena Status: Acute Assessment and Plan: The patient is deemed a good candidate for the procedure. Consent signed. Will proceed.
[2024-11-02] MEDS: BENZOCAINE (*SP) 60 ML SPRAY CAN (HURRICAINE) 1 SPRAY MUCOUS MEM (13:34)
[2024-11-02 13:45] VITALS: BP 127/66; PULSE 54; RESP 16; O2SAT 96
[2024-11-02 13:55] VITALS: BP 128/64; PULSE 55; RESP 17; O2SAT 96
[2024-11-02 14:10] LABS: Glucose Point of Care 111 mg/dl (65-105)
== END 2024-11-02 14:15 | disposition home or self-care (01) ==
PROVIDERS: PCP Internal Medicine; Referring Provider Nurse Practitioner Family; Visit Provider Internal Medicine Gastroenterology
PROC: 0DJ08ZZ Inspection of Upper Intestinal Tract, Via Natural or Artificial Opening Endoscopic (ICD-10-PCS; CPT 43239; principal; 2024-11-02 13:30)
DX: K29.50 Unspecified chronic gastritis without bleeding (principal); K31.89 Other diseases of stomach and duodenum; E78.5 Hyperlipidemia, unspecified; I10 Essential (primary) hypertension; D64.9 Anemia, unspecified; E11.40 Type 2 diabetes mellitus with diabetic neuropathy, unspecified; G30.9 Alzheimer's disease, unspecified; F02.80 Dementia in other diseases classified elsewhere, unspecified severity, without behavioral disturbance, psychotic disturbance, mood disturbance, and anxiety; F12.90 Cannabis use, unspecified, uncomplicated; Z79.84 Long term (current) use of oral hypoglycemic drugs; Z79.51 Long term (current) use of inhaled steroids; Z79.85 Long-term (current) use of injectable non-insulin antidiabetic drugs; Z98.890 Other specified postprocedural states; Z95.810 Presence of automatic (implantable) cardiac defibrillator; Z87.891 Personal history of nicotine dependence; Z86.69 Personal history of other diseases of the nervous system and sense organs
CPT/HCPCS: 43239; 82948; 88305; 88342; J2003; J2704; J7120

== ENCOUNTER 2024-12-01 14:53 | Outpatient (CLI) | payer MEDICARE, SELFPAY ==
--- NOTE | ~2024-12-01 | XR_ITS ---
CHEST RADIOGRAPH, PA AND LATERAL CLINICAL HISTORY: wheezing . COMPARISON: 07/25/2024 and dating back to 05/06/2024 TECHNIQUE: PA and lateral views of the chest. FINDINGS The left mid lung is partially obscured due to AICD generator. A single wire projects over the right atrium and right ventricle. The remainder of the cardiomediastinal silhouette is otherwise unremarkable. Peribronchial thickening is present. The lungs are otherwise clear. IMPRESSION: Peribronchial thickening, without focal infiltrate or effusion. Reviewed, dictated and finalized at location A.
--- OUTSIDE RECORDS SUMMARY | 2024-12-01 14:58 | XMS_ITS | Encounter Summary ---
Author Organization [facility] Healthcare Address [address] [place] [address] Care Team Providers Care Boring Mill Operator Name Role Phone Lio Reveles MD Primary Care Provider + [phone] Vahe Rouse MD Unavailable [phone] Emily Staples RN Unavailable Unavailable Gisselle Morgan RN Unavailable Unavaila Alie Henao RN Unavailable Unavailable Kalyani Muller Unavailable Unavailable Encounter Details Date Type Department Care Team (Late st Contact Info) Description 10/19/2024 Documentation Orthopaedic Surgery Fer Pizano BS Social History Tobacco Use Types Packs/Day Years Used Date Smoking Tobacco: Former Cigarettes Q uit: 1999 Passive Smoke Exposure: Never Smokeless Tobacco: Never [facility] Utilities Answer Date Recorded In the past 12 months has [employer] electric, gas, oil, or water company threatened [...] often do you attend chur ch or confucianist services? 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 Gender Identity Male 03/25/2023 11:15 AM CDT Sexual Orientation Not on file documented as of this encounter Plan of Treatment Not on file documented as of this encounter Visit Diagnoses Not on filedocumented in this encounter Care Teams Boring Mill Operator Relationship Specialty Start Date End Date Lio Reveles MD PCP - General Internal Medicine 10/24/23 Vahe Rouse MD [address] [facility] [address] [place] [address] Referring Physician Neurology 01/04/24 Emily Staples, job developer for deaf adults Failure Coordinator Transplant 05/03/24 Gisselle Morgan, job developer for deaf adults Failure Coordinator 05/03/24 Alie Joyner, fabricator artificial breastAgricultural Engineering Technician 10/31/24 Kalyani Muller Primary Zoo Keeper Transplant 10/31/24 documented as of this encounter
--- OUTSIDE RECORDS SUMMARY | 2024-12-01 14:58 | XMS_ITS | Data Portability ---
[facility] [address] [place] [address] Care Team Providers Care Senior Investment Manager Name Role Phone NOAM REVELES Primary Care Provider Assessment Encounter Date Assessment Date Assessment LastModified by Organization Details LastModified Time 04/04/2024 04/04/2024 he will continue current therapy follow up in 2 months advised to get flu COVID and RSV shots Not available 04/09/2024 13:58:54 05/16/2024 05/16/2024 needs a spacer for his inhaler. Healthy lifestyle care instructions seems to be doing well clinically following up the pneumonia diagnosis he will keep his regular appointment Not available 05/22/2024 16:41:30 06/06/2024 06/06/2024 clinically he has pneumonia has resolved blood pressure looks good no signs of decompensated heart failure follow up with me September 01, 2024 Not available 06/09/2024 14:58:12 09/05/2024 09/05/2024 fall seems to be doing fine diarrhea is getting better order CBC CMP lipid A1c urinary albumin creatinine ratio continue current therapy follow up in 3 months [email or web address] Not available 09/05/2024 20:56:32 11/08/2024 11/08/2024 Augmentin 875 b.i.d. for a week albuterol inhaler he will let me know if he is not improved also opportunity here for healthy lifestyle care instructions [email or web address] Not available 11/08/2024 21:58:15 Plan of Treatment Reminders Order Date Submit Date Provider Last Modified By Organization Details Last Modified Time Details Appointments ANY 15 2024 10:15A Brigitte Reveles MD Not available Not available Not available Lab HbA1c (hemoglob in A1c), blood 2024 025 [facility], [address] [place] [address] 2, [place], [address], 09/07/2024 07:08:15 albumin/c reatinine , mass ratio, urine 2024 025 [facility], [address] [place] [address] 2, [place], [address], 09/07/2024 07:08:12 lipid panel, serum 2024 025 [facility], [address] [place] [address] 2, [place], [address], 09/07/2024 07:08:13 CMP, serum or plasma 2024 025 [facility], [address] [place] [address] 2, [place], [address], 09/07/2024 07:08:14 CBC w/ auto diff 2024 025 [facility], [address] [place] [address] 2, [place], [address], 09/07/2024 07:08:16 Referral None recorded. Procedures None recorded. Surgeries None recorded. Imaging None recorded. Medication Orders amoxicill in 875 mg-potass ium clavulana te 125 mg tablet 2024 025 [email or web address] [facility][id number], [address], [place], [place], [id number], 11/08/2024 17:14:12 albuterol sulfate HFA 90 mcg/actua tion aerosol inhaler 2024 025 [email or web address] [facility] #[id number], [address], [place], [id number], 11/08/2024 17:14:12 albuterol sulfate HFA 90 mcg/actua tion aerosol inhaler 2023 024 [email or web address] [facility] #[id number], [address], [place], [place], [id number], 05/16/2024 17:47:37 Patient TargetsNo targets recorded. Patient Instructions Encounter Date Encounter Id Patient Instructions Last Modified By Organization Details Last Modified Time 04/04/2024 [id number] A healthy lifestyle: care instructions [email or web address] Not available 04/09/2024 14:02:03 05/16/2024 [id number] A healthy lifestyle: care instructions [email or web address] Not available 05/16/2024 17:47:37 09/05/2024 [id number] A healthy lifestyle: care instructions [email or web address] Not available 09/05/2024 11:45:04 11/08/2024 [id number] A healthy lifestyle: care instructions [email or web address] Not available 11/08/2024 17:14:12 Reason for Referral None Reported. Results Created Date Observation Date Name Description Value Unit Range Abnormal Flag Note LastModifiedBy Organization Detail LastModifiedTime 09/06/1909/07/2024 ALBUM IN/CR EATIN INE RATIO ,URIN E creatinine, urine 61.4 mg/dL notest ab. Not Available [facility] ([facility]) [address] [place], [address], 09/07/2024 07:08:12 09/06/1909/07/2024 ALBUM IN/CR EATIN INE RATIO ,URIN E albumin, urine 22.5 ug/mL notest ab. Not Available [facility] ([facility]) [address] [place], [address], 09/07/2024 07:08:12 09/06/1909/07/2024 ALBUM IN/CR EATIN INE RATIO ,URIN E alb/creat ratio 37 mg/g_ creat 0-29 above high normal Tesha l: 0 - 29 Moder ately incre ased: 30 - 300 Sever camila incre ased: >300 Not Available [facility] ([facility]) [address] [place], [address], 09/07/2024 07:08:12 09/06/19 25 09/07/2024 LIPID PANEL cholesterol, total 120 mg/dL 100-19 9 Not Available [facility] ([facility]) [address] [place], [address], 09/07/2024 07:08:13 09/06/19 25 09/07/2024 LIPID PANEL triglyceride s 78 mg/dL 0-149 Not Available [facility] ([facility]) [address] [place], [address], 09/07/2024 07:08:13 09/06/19 25 09/07/2024 LIPID PANEL HDL cholesterol 39 mg/dL >39 below low normal Not Available [facility] ([facility]) [address] [place], [address], 09/07/2024 07:08:13 09/06/19 25 09/07/2024 LIPID PANEL VLDL cholesterol renny 16 mg/dL 5-40 Not Available [facility] ([facility]) [address] [place], [address], 09/07/2024 07:08:13 09/06/19 25 09/07/2024 LIPID PANEL LDL chol calc ([facility]) 65 mg/dL 0-99 Not Available [facility] ([facility]) [address] [place], [address], 09/07/2024 07:08:13 09/06/19 25 09/07/2024 COMP. METAB OLIC PANEL (14) glucose 49 mg/dL 70-99 below low normal Not Available [facility] ([facility]) [address] [place], [address], 09/07/2024 07:08:14 09/06/19 25 09/07/2024 COMP. METAB OLIC PANEL (14) BUN 20 mg/dL 8-27 Not Available [facility] ([facility]) [address] [facility] [place], [address], 09/07/2024 07:08:14 09/06/19 25 09/07/2024 COMP. METAB OLIC PANEL (14) creatinine 1.18 mg/dL 0.76-1 .27 Not Available [facility] ([facility]) [address] [facility] [place], [address], 09/07/2024 07:08:14 09/06/19 25 09/07/2024 COMP. METAB OLIC PANEL (14) eGFR 66 mL/mi n/1.7 3 >59 Not Available [facility] ([facility]) [address] [place], [address], 09/07/2024 07:08:14 09/06/19 25 09/07/2024 COMP. METAB OLIC PANEL (14) BUN/creatini ne ratio 17 10-24 Not Available [facility] ([facility]) [address] [place], [address], 09/07/2024 07:08:14 09/06/19 25 09/07/2024 COMP. METAB OLIC PANEL (14) sodium 143 mmol/ L 134-14 4 Not Available [facility] ([facility]) [address] [place], [address], 09/07/2024 07:08:14 09/06/19 25 09/07/2024 COMP. METAB OLIC PANEL (14) potassium 4.5 mmol/ L 3.5-5. 2 Not Available [facility] ([facility]) [address] [place], [address], 09/07/2024 07:08:14 09/06/19 25 09/07/2024 COMP. METAB OLIC PANEL (14) chloride 105 mmol/ L 96-106 Not Available [facility] ([facility]) [address] [place], [address], 09/07/2024 07:08:14 09/06/19 25 09/07/2024 COMP. METAB OLIC PANEL (14) carbon dioxide, total 25 mmol/ L Not Available [facility] ([facility]) [address] [facility] [place], [address], 09/07/2024 07:08:14 09/06/1909/07/2024 COMP. METAB OLIC PANEL (14) calcium 9.8 mg/dL 8.6-10 .2 Not Available [facility] ([facility]) [address] [facility] [place], [address], 09/07/2024 07:08:14 09/06/19 25 09/07/2024 COMP. METAB OLIC PANEL (14) protein, total 7.1 g/dL 6.0-8. 5 Not Available [facility] ([facility]) [address] [facility] [place], [address], 09/07/2024 07:08:14 09/06/19 25 09/07/2024 COMP. METAB OLIC PANEL (14) albumin 4.4 g/dL 3.8-4. 8 Not Available [facility] ([facility]) [address] [facility] [place], [address], 09/07/2024 07:08:14 09/06/1909/07/2024 COMP. METAB OLIC PANEL (14) globulin, total 2.7 g/dL 1.5-4. 5 Not Available [facility] ([facility]) [address] [facility] [place], [address], 09/07/2024 07:08:14 09/06/19 25 09/07/2024 COMP. METAB OLIC PANEL (14) bilirubin, total 0.3 mg/dL 0.0-1. 2 Not Available [facility] ([facility]) [address] [facility] [place], [address], 09/07/2024 07:08:14 09/06/19 25 09/07/2024 COMP. METAB OLIC PANEL (14) alkaline phosphatase 62 IU/L 44-121 Not Available [facility] ([facility] [address] [facility], [place], [address], 09/07/2024 07:08:14 09/06/19 25 09/07/2024 COMP. METAB OLIC PANEL (14) AST (SGOT) 20 IU/L 0-40 Not Available [facility] ([facility]) [address] [place], [address], 09/07/2024 07:08:14 09/06/19 25 09/07/2024 COMP. METAB OLIC PANEL (14) ALT (SGPT) 13 IU/L 0-44 Not Available [facility] ([facility]) [address] [place], [address], 09/07/2024 07:08:14 09/06/1909/07/2024 HEMOG LOBIN A1C hemoglobin A1C 7.3 % 4.8-5. 6 above high normal Predi abete s: 5.7 - 6.4 Diabe rere: >6.4 Glyce jeannine contr ol for adult s with diabe rere: <7.0 Not Available [facility] ([facility]) [address] [facility], [place], [address], 09/07/2024 07:08:15 09/06/1909/06/2024 CBC WITH DIFFE RENTI AL/PL ATELE T WBC 7.6 x10e3 /uL 3.4-10 .8 Not Available [facility] ([facility]) [address] [place], [address], 09/07/2024 07:08:16 09/06/19 25 09/06/2024 CBC WITH DIFFE RENTI AL/PL ATELE T RBC 4.58 x10e6 /uL 4.14-5 .80 Not Available [facility] ([facility]) [address] [place], [address], 09/07/2024 07:08:16 09/06/1909/06/2024 CBC WITH DIFFE RENTI AL/PL ATELE T hemoglobin 12.1 g/dL 13.0-1 7.7 below low normal Not Available [facility] ([facility]) [address] [place], [address], 09/07/2024 07:08:16 09/06/1909/06/2024 CBC WITH DIFFE RENTI AL/PL ATELE T hematocrit 40.1 % 37.5-5 1.0 Not Available [facility] ([facility]) [address] [place], [address], 09/07/2024 07:08:16 09/06/1909/06/2024 CBC WITH DIFFE RENTI AL/PL ATELE T MCV 88 fL 79-97 Not Available [facility] ([facility]) [address] [place], [address], 09/07/2024 07:08:16 09/06/1909/06/2024 CBC WITH DIFFE RENTI AL/PL ATELE T MCH 26.4 pg 26.6-3 3.0 below low normal Not Available [facility] ([facility]) [address] [place], [address], 09/07/2024 07:08:16 09/06/1909/06/2024 CBC WITH DIFFE RENTI AL/PL ATELE T MCHC 30.2 g/dL 31.5-3 5.7 below low normal Not Available [facility] ([facility]) [address] [place], [address], 09/07/2024 07:08:16 09/06/19 25 09/06/2024 CBC WITH DIFFE RENTI AL/PL ATELE T RDW 15.2 % 11.6-1 5.4 Not Available [facility] ([facility]) [address] [facility], [place], [address], 09/07/2024 07:08:16 09/06/19 25 09/06/2024 CBC WITH DIFFE RENTI AL/PL ATELE T platelets 320 x10e3 /uL 150-45 0 Not Available [facility] ([facility]) [address] [facility], [place], [address], 09/07/2024 07:08:16 09/06/19 25 09/06/2024 CBC WITH DIFFE RENTI AL/PL ATELE T neutrophils 54 % notest ab. Not Available [facility] ([facility]) [address] [facility], [place], [address], 09/07/2024 07:08:16 09/06/19 25 09/06/2024 CBC WITH DIFFE RENTI AL/PL ATELE T lymphs 23 % notest ab. Not Available [facility] ([facility]) [address] [facility], [place], [address], 09/07/2024 07:08:16 09/06/19 25 09/06/2024 CBC WITH DIFFE RENTI AL/PL ATELE T monocytes 11 % notest ab. Not Available [facility] ([facility]) [address] [facility], [place], [address], 09/07/2024 07:08:16 09/06/19 25 09/06/2024 CBC WITH DIFFE RENTI AL/PL ATELE T eos 10 % notest ab. Not Available [facility] ([facility]) [address] [facility], [place], [address], 09/07/2024 07:08:16 09/06/19 25 09/06/2024 CBC WITH DIFFE RENTI AL/PL ATELE T basos 2 % notest ab. Not Available [facility] ([facility]) [address] [facility], [place], [address], 09/07/2024 07:08:16 09/06/19 25 09/06/2024 CBC WITH DIFFE RENTI AL/PL ATELE T neutrophils (absolute) 4.1 x10e3 /uL 1.4-7. 0 Not Available [facility] ([facility]) [address] [facility], [place], [address], 09/07/2024 07:08:16 09/06/19 25 09/06/2024 CBC WITH DIFFE RENTI AL/PL ATELE T lymphs (absolute) 1.8 x10e3 /uL 0.7-3. 1 Not Available [facility] ([facility]) [address] [facility], [place], [address], 09/07/2024 07:08:16 09/06/19 25 09/06/2024 CBC WITH DIFFE RENTI AL/PL ATELE T monocytes(ab solute) 0.8 x10e3 /uL 0.1-0. 9 Not Available [facility] ([facility]) [address] [facility], [place], [address], 09/07/2024 07:08:16 09/06/19 25 09/06/2024 CBC WITH DIFFE RENTI AL/PL ATELE T eos (absolute) 0.8 x10e3 /uL 0.0-0. 4 above high normal Not Available [facility] ([facility]) [address] [facility], [place], [address], 09/07/2024 07:08:16 09/06/19 25 09/06/2024 CBC WITH DIFFE RENTI AL/PL ATELE T baso (absolute) 0.2 x10e3 /uL 0.0-0. 2 Not Available [facility] ([facility]) [address] [place], [address], 09/07/2024 07:08:16 09/06/19 25 09/06/2024 CBC WITH DIFFE RENTI AL/PL ATELE T immature granulocytes 0 % notest ab. Not Available [facility] ([facility]) [address] [facility], [place], [address], 09/07/2024 07:08:16 09/06/1909/06/2024 CBC WITH DIFFE RENTI AL/PL ATELE T immature grans (abs) 0.0 x10e3 /uL 0.0-0. 1 Not Available [facility] ([facility]) [address] [facility], [place], [address], 09/07/2024 07:08:16 05/06/2005/06/2024 XR, chest No observ ation record ed. [address], [place], [address], 05/09/2024 09:14:40 06/14/20 24 06/13/2024 XR, chest , 2 view No observ ation record ed. [address], [place], [address], 06/18/2024 22:53:25 07/25/19 25 07/25/2024 XR, chest , 2 view No observ ation record ed. [address], [place], [address], 07/27/2024 09:34:35 Result Notes None recorded. 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 122311592 Active Not Available [facility] 4 05:26:53 Essential hypertension 14147363 Active Not Available [facility] 4 05:26:53 Acute bronchitis 42294063 Active Not Available [facility] 4 05:26:53 Ischemic congestive cardiomyopath y 090873796 Active 2023 Noam Reveles MD Attn: Accounting ,[address] [place], [address] , [place] - [facility] 4 21:59:48 Central cord syndrome 760605513 Active 2023 Noam Reveles MD Attn: Accounting ,[address] [facility], [place], [address] , [place] [facility] 4 21:59:49 Secondary erectile dysfunction 929842145 Active Not Available [facility] 4 05:26:53 Osteoarthriti s of joint of hand 40557675 Active Not Available [facility] 4 05:26:53 Problem Notes None recorded. Procedures Surgical History Date Name Laterality Status Provider Name and Address Organization Details Recorded Time Hernia Repair completed Martina Walsh MA [facility] 10/12/2023 14:30:07 simple cystectomy completed Martina Walsh MA [facility] 10/12/2023 14:30:15 Vasectomy completed Martina Walsh MA [facility] 10/12/2023 14:30:27 Imaging Results Imaging Date Name Status LastModified by Organiz ation Details LastModified Time 05/06/2024 XR, chest completed [address] [place] [address], [address], 05/09/2024 09:14:40 06/13/2024 XR, chest, 2 view completed [address] [place] [address], [address], 06/18/2024 22:53:25 07/25/2024 XR, chest, 2 view [address] [place] [address], [address], 07/27/2024 09:34:35 Procedure Notes None recorded. Medical Equipment None Reported. Allergies Allergen ID Allergen Name Allergen Category Reaction Reaction Severity Criticality Documentation Date Start Date Code Code System Note Provider Name and Address Organization Details Recorded Time 281066 prednison e medicatio n other moderate high 09/05/2024 8640 RxNorm jitte rness & diffi culty sleep ing Sunita Patel, [employer]INE [employer]PA[employer]ER null, [place] - [facility] 14:19:38 Medications Name Sig Start Date Stop Date Status Note LastModified by Organization Details LastModified Time Prescript ion - Renewal 06/03 completed Not Available Not Available Not Available Prescript ion - Change 08/30 completed Not [...] Not Available Not Available amoxicill in 500 mg capsule TAKE 1 CAPSULE BY MOUTH THREE TIMES DAILY active Not Available Not Available No t Available doxycycli ne hyclate 100 mg capsule Take 1 capsule twice a day by oral route for 10 days. 2024 active Not Available Not Available Not Avai lable atorvasta tin 20 mg tablet Take 1 [...] completed Not Available Not Available Not Available hydrocodo ne 5 mg-acetam inophen 325 mg tablet TAKE 1 TABLET BY MOUTH EVERY 4-6 HOURS NEEDED FOR PAIN active Not Available Not Available No t Available minocycli ne 100 mg capsule TAKE [...] 1 box of viagra 50 mg. [id number]. 1 box sample of viagra 5omg, lot. [id number] 0. exp. 12/11/19 19. with package insert. [...] TAKE 1 CAPSULE BY MOUTH EVERY DAY active Not Available Not Available No t Available Humalog U-100 Insulin 100 unit/mL subcutane ous [...] completed Not Available Not Available Not Available methylpre dnisolone 4 mg tablets in a dose pack FOLLOW PACKAGE DIRECTIO NS active Not Available Not Available No t Available albuterol sulfate HFA 90 mcg/actua tion [...] Not Available Not Available No t Available colestipo l 1 gram tablet TAKE 1 TABLET BY MOUTH TWICE DAILY active Not Available Not Available No t Available amoxicill in 875 mg-potass ium clavulana te 125 mg tablet TAKE 1 TABLET BY MOUTH TWICE DAILY FOR 7 DAYS active Not Available Not Available No t Available amoxicill in 500 mg-potass ium clavulana te 125 mg tablet Take 1 tablet every 12 hours by oral route with meals for 7 days. 08/25 completed Not Available Not Available Not Available escitalop mahad 10 mg tablet TAKE 1 TABLET BY MOUTH DAILY active Not Available Not Available No t Available rosuvasta tin 5 mg tablet TAKE 1 TABLET BY MOUTH DAILY active Not Available Not Available No [...] completed Not Available Not Available Not Available Basaglgopal KwikPen U-100 Insulin 100 unit/mL (3 mL) [...] Available Lokelma 10 gram oral powder packet MIX 1 PACKET DAILY DIRECTED . active Not Available Not Available No t Available BD Ai 2nd Gen Pen Needle 32 gauge x 5/32 USE TO INJECT FOUR TIMES DAILY DIRECTED active Not Available Not Available No [...] Available Not Available Not Available Dexcom G7 Dray Truck Driver DIRECTED active Not Available Not Available No t Available Dexcom G7 Sensor device CHANGE SENSOR EVERY 10 DAYS. active Not Available Not Available No t Available Ozempic 0.25 mg or 0.5 mg (2 mg/3 mL) subcutane ous pen injector INJECT 0.5MG UNDER THE SKIN EVERY WEEK 07/29 completed switched to Victoza Not Available Not Available Not Available Vitals Date Recorded Body height Provider Name an d Address Organization Details Last Updated DateTime 04/04/2024 170.18 cm Maria Ines Hammer [place] - [facility] 4 11:14:34 Date Recorded Body mass index (BMI) Body weight Heart rate Oxygen saturation Oxygen saturation in Arterial blood by Pulse oximetry Systolic blood pressure Diastolic blood pressure Provider Name and Address Organization Details Last Updated DateTime 4 24.1 kg/m2 79882.2 2 g 77 /min 97 % 97 % 130 mm[Hg] 78 mm[Hg] Joanne Mc MA [facility] 4 11:21:03 Date Recorded Body height Body mass index (BMI) Body weight Heart rate Oxygen saturation Oxygen saturation in Arterial blood by Pulse oximetry Systolic blood pressure Diastolic blood pressure Provider Name and Address Organization Details Last Updated DateTime 4 170.18 cm 24.3 kg/m2 65471.1 8 g 66 /min 93 % 93 % 126 mm[Hg] 62 mm[Hg] Maria Ines Hammer MA [facility] 4 14:26:47 Date Recorded Body height Body mass index (BMI) Body weight Heart rate Oxygen saturation Oxygen saturation in Arterial blood by Pulse oximetry Systolic blood pressure Diastolic blood pressure Provider Name and Address Organization Details Last Updated DateTime 4 170.18 cm 25.6 kg/m2 53596.3 5 g 55 /min 98 % 98 % 136 mm[Hg] 70 mm[Hg] Maria Ines Hammer MA [facility] 4 14:23:25 Date Recorded Body height Body mass index (BMI) Body weight Heart rate Oxygen saturation Oxygen saturation in Arterial blood by Pulse oximetry Systolic blood pressure Diastolic blood pressure Provider Name and Address Organization Details Last Updated DateTime 5 170.18 cm 26.6 kg/m2 71873.6 3 g 56 /min 96 % 96 % 120 mm[Hg] 62 mm[Hg] Joanne Mc RORO [facility] 5 11:05:56 Date Recorded Body height Body mass index (BMI) Body weight Heart rate Oxygen saturation Oxygen saturation in Arterial blood by Pulse oximetry Systolic blood pressure Diastolic blood pressure Provider Name and Address Organization Details Last Updated DateTime 5 170.18 cm 25.6 kg/m2 54263.9 9 g 76 /min 98 % 98 % 120 mm[Hg] 66 mm[Hg] Maria Ines Hammer MA [facility] 5 16:06:54 Social History Question Answer Notes LastModified by Organizat ion Details LastModified Time Tobacco Smoking Status Former Smoker quit 1999 Chata arias [facility] 02/29/2024 12:31:51 Do You Have An Advance Directive? No Information not available 11/19/2023 Are You Blind Or Do You Have [...] Or The Highest Degree You Have Received? [id number] Information not available 02/29/2024 Are There Any Guns Present In Your Home? No Information not available 11/19/2023 In The Past 7 Days, How Many Days Did You Exercise? -1 Information not available 02/29/2024 In The Past 7 Days, How Much Pain Have You Doon? None Information not available 02/29/2024 In General, [...] Past 7 Days, How Often Have You Doon Sleepy In The Daytime? Sometimes Information not available 02/29/2024 # Alcohol Drinks Per Week 0 Information not available 02/29/2024 What Was The Date Of Your Most Recent Tobacco Screening? 11/08/2024 Information not available 11/08/2024 What Is Your Current Pack Years? 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 No Information not available 11/19/2023 Do you or have you ever used any other forms of tobacco or nicotine? No Information not available 05/21/2021 What is your level of alcohol consumption? None Information not available 05/21/2021 Are you currently employed? No Information not available 11/19/2023 Are you able to care for yourself? Yes Information n ot available 10/12/2023 What is your exercise level? Occasional Information not available 11/19/2023 Mental Status Question Answer Note LastModified by Organization D etails LastModified Time Do you feel stressed (tense, restless, nervous, or anxious, or unable to sleep at night)? [id number] Information not available 10/12/2023 Family History Relationship Description Onset Age of this Age Resolved Age Notes LastModified by Organization Details LastModified Time Father Harmful pattern of use of alcohol [email or web address] Not available 2023 14:35:19 Father Diabetes [...] Response Coronary Artery Disease N Other Y High Blood Pressure Y Atrial Fibrillation N Kidney or Bladder Problems N Thyroid Problems N GI Problems N Depression N COPD N Blood Clots N Have you had a mammogram in the last yea r? N Skin Problems N Anemia N Heart Attack ([place]) N Anxiety Disorder N Diabetes Y Muscle, Joint, or Bone Problems Y Seizures/Epilepsy N Have you had a colonoscopy in the last 1 0 years? Y Acid Reflux (GERD) N Cancer N Stroke N Asthma N Allergies N Have you had a PSA blood test in the las t year? Y High Cholesterol Y Hepatitis N Liver Disease N Headaches N Heart Failure N Osteoporosis N Immunizations Vaccine Type Date Status Note Provider Nam e and Address Organization Details Recorded Time COVID-19, mRNA, LNP-S, PF, 30 mcg/0.3 mL dose 1 completed Not Available [facility] 08/05/2023 05:26:53 COVID-19, mRNA, LNP-S, PF, 30 mcg/0.3 mL dose 1 completed Not Available [facility] 08/05/2023 05:26:53 influenza, unspecified formulation 2 completed Joanne Mc [place] null, [place] [facility] 09/05/2024 09:46:47 Influenza, split virus, quadrivalent, preservative 9 completed Not Available [facility] 08/05/2023 05:26:53 pneumococcal polysaccharide PPV23 1 completed Joanne Mc [place], [place] [facility] 09/05/2024 09:46:47 Pneumococcal conjugate PCV 13 0 completed Joanne Mc [place] [facility] 09/05/2024 09:46:47 zoster recombinant 2 completed Joanne Mc [place] [facility] 09/05/2024 09:46:47 Influenza, high-dose, quadrivalent, PF 0 completed Joanne Mc [place] [facility] 09/05/2024 09:46:47 Influenza, adjuvanted, quadrivalent, PF 2 completed Joanne Mc [place] [facility] 09/05/2024 09:46:47 COVID-19, mRNA, LNP-S, PF, 30 mcg/0.3 mL dose 1 completed Joanne Mc [place] - [...] virus, quadrivalent, preservative 7 completed Not Available [facility] 07/30/2019 02:49:48 Influenza, split virus, quadrivalent, preservative 1 completed Curtis Fox [place] [facility] 04/08/2021 13:12:07 Tdap 3 completed Stephy Guevar[place] [facility] 09/04/2022 12:19:54 Influenza, high-dose, trivalent, PF 5 completed Noam Reveles MD Attn: Accounting,[address] [facility], [place], [address], [facility] - [facility] 09/05/2024 20:53:10 Past Encounters Encounter ID Performer Location Encounter Start Date Encounter Closed Date Diagnosis/Indication Diagnosis SNOMED-CT Code Diagnosis ICD10 Code Diagnosis Note [id number] [facility] [address] [place] [address] [phone] 0 09/13/2014 16:14:24 09/14/2014 11:03:15 Diabetes mellitus [id number] Hyperlipidemia 17849596 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 894897887 Essential hypertension 92607865 Acute bronchitis [id number] [id number] Nikky Mathews MD [facility] (Adult Med) [address] [place] [address] [phone] 0 04/09/2015 13:36:28 04/09/2015 17:58:50 Diabetes mellitus 16430824 Essential hypertension 68553575 Hyperlipidemia 28924935 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 113823303 [id number] Nikky Mathews MD [facility] (Adult Med) [address] [place] [address] [phone] 0 09/13/2015 09:48:53 09/13/2015 11:14:18 Diabetes mellitus 45225593 E13.65 Essential hypertension 06444967 I10 Hyperlipidemia 82186120 E78.5 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 088511418 E11.21 Secondary erectile dysfunction 856435009 N52.8 [id number] MD Emma King (Adult Med) [address] [place] [address] [id number] 0 10/29/2015 11:50:40 10/29/2015 14:48:10 Diabetes mellitus 59056353 E11.9 Secondary erectile dysfunction 112350118 N52.8 Osteoarthr itis of joint of hand 06306171 M19.041 M19.042 [id number] MD Emma King (Adult Med) [address] [place], [place] [phone] 04/04/2016 16:28:18 04/04/2016 17:40:02 Diabetes mellitus 66198450 E11.9 Osteoarthr itis of joint of hand 21328109 M19.041 M19.042 Hyperlipidemia 90397717 E78.5 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 Hyperlipidemia 23031402 E78.5 Low saturated fat diet. Essential hypertension 49292952 I10 Covered by quinapril as well. Diabetes mellitus 938020 09 E11.9 Diabetic diet, exercise, keep the weight down. Annual eye check. [id number] [facility] [address] [place] [address] [phone] 0 06/03/2017 09:47:08 06/03/2017 11:09:41 Type 2 diabetes mellitus 32769870 E11.65 diabetic diet, exercise, will adjust his medication s. He will change his eating habit. Essential hypertension 19545777 I10 Covered by quinapril as well. Low salt diet. will add amlodipine to bring down the BP to the more safe level. 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 Annual eye check. Type 2 kirsten betes mellitus 53479021 E11.65 diabetic diet, exercise, will adjust his medication s. He will change his eating habit. Essential hypertension 40334535 I10 Covered by quinapril as well. Low salt diet. will add amlodipine to bring down the BP to the more safe level. 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 Annual eye check. Patient agreed the metformin ER 1,00 mg twice /day to achieve the better control of his rachell 2 DM. [id number] Nikky Mathews MD [facility] (Adult Med) [address] [place] [address] [phone] 0 01/26/2018 12:20:07 01/26/2018 13:41:59 Essential hypertension 23658922 I10 Covered by quinapril as well. Low salt diet. will add amlodipine to bring down the BP to the more safe level.Will increase amlodipine to 10 mg/day. Type 2 kirsten betes mellitus without complication 116214978 E11.9 Diabetic diet, exercise, keep the weight down. OTC aspirin /day. Diabetes mellitus 503692 09 E11.9 Diabetic diet, exercise, keep the weight down. Annual eye check. Patient agreed the metformin ER 500 mg twice /day to achieve the better control of his rachell 2 DM. Dyslipidemia 109428009 E 78.5 Low saturated fat diet, exercise and keep the weight down Type 2 kirsten betes mellitus 12552521 E11.65 diabetic diet, exercise, will adjust his medication s. He will change his eating habit. [id number] MD Emma King (Adult Med) [address] [place] [address] [phone] 0 03/30/2018 10:04:31 03/30/2018 11:07:33 Furuncle 066163301 L02.92 Type 2 kirsten betes mellitus without complication 134713010 E11.9 Diabetic diet, exercise, keep the weight down. OTC aspirin /day. Has enough medication s. [id number] Nikky Mathews MD [facility] (Adult Med) [address] [place] [address] 0 04/01/2018 16:18:44 04/08/2018 16:12:51 Furuncle 478747590 L02.92 Right buttock resolving, advised to continue clindamyci n. Discussed with patient and he understood and agreed. [id number] MD Emma King (Adult Med) [address] [place] [address] 0 04/06/2018 15:56:11 04/07/2018 12:14:40 Furuncle [id number] L02.92 Right buttock resolving, advised to continue clindamyci n. Discussed with patient and he understood and agreed. [id number] Nikky Mathews MD [facility] (Adult Med) [address] [place] [address] 0 08/27/2018 10:09:37 08/30/2018 09:32:56 Diabetes mellitus 88565270 E11.9 Diabetic diet, exercise, keep the weight down. Annual eye check. Patient agreed the metformin ER 500 mg twice /day to achieve the better control of his rachell 2 DM. Discussed with patient, he agreed with add on pioglitazo ne. Retinopath y due to diabetes mellitus 8094825 E13.3593 Under the care of his ophthalmol ogist. Essential hypertension 29789432 I10 Covered by quinapril as well. Low salt diet. will add amlodipine to bring down the BP to the more safe level.Will increase amlodipine to 10 mg/day. Blood sugar is 261 mg%, patient informed 08-27-2018 . Hyperlipidemia 52236676 E78.5 Low saturated fat diet. Type 2 kirsten betes mellitus without complication 588687843 E11.9 Diabetic diet, exercise, keep the weight down. OTC aspirin /day. Has enough medication s. Dyslipidemia 205882564 E 78.5 Low saturated fat diet, exercise and keep the weight down Type 2 kirsten betes mellitus 33776878 E11.65 diabetic diet, exercise, will adjust his medication s. He will change his eating habit. [id number] Nikky Mathews MD [facility] (Adult Med) [address] [place] [address] 0 10/25/2018 15:53:18 10/26/2018 09:24:31 Uncontrolled type 2 diabetes mellitus 362921081 E11.65 Will check HgA1C. Retinopath y due to diabetes mellitus 1936860 E13.3593 Under the care of his ophthalmol ogist. 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 Osteoarthr itis of joint of hand 03983801 M19.041 M19.042 Stable, able to ambulate by himself without assitance. Hyperlipidemia 00640824 E78.5 Low saturated fat diet. Essential hypertension 22886929 I10 Covered by quinapril as well. Low salt diet. will add amlodipine to bring down the BP to the more safe level.Will increase amlodipine to 10 mg/day. Blood sugar is 261 mg%, patient informed 08-27-2018 . [id number] Nikky Mathews MD [facility] (Adult Med) [address] [place] [address] [phone] 0 12/17/2018 16:46:47 12/20/2018 09:42:49 Type 2 diabetes mellitus without complication 012166806 E11.9 Diabetic diet, exercise, keep the weight down. OTC aspirin /day. Has enough medication s. Dyslipidem ia due to type 2 diabetes mellitus 2831159900 02 E78.5 On low saturated fat diet. and atorvastat in 90 dys supply with 3 more refills. Essential hypertension 98027212 I10 Covered by quinapril as well. Low salt diet. will add amlodipine to bring down the BP to the more safe level.Will increase amlodipine to 10 mg/day. Blood sugar is 261 mg%, patient informed 08-27-2018 . Dyslipidemia 981884816 E 78.5 Low saturated fat diet, exercise and keep the weight down Type 2 kirsten betes mellitus 54878574 E11.65 diabetic diet, exercise, will adjust his medication s. He will change his eating habit. [id number] MD Emma King (Adult Med) [address] [place] [address] [phone] 0 02/24/2019 16:42:14 02/24/2019 17:27:56 Diabetes mellitus 04431260 E11.9 Diabetic diet, exercise, keep the weight down. Annual eye check. Patient agreed the metformin ER 500 mg twice /day to achieve the better control of his rachell 2 DM. Discussed with patient, he agreed with add on pioglitazo ne. [id number] Nikky Mathews MD [facility] (Adult Med) [address] [place] [address] [phone] 0 06/17/2019 10:32:26 06/20/2019 10:09:21 Osteoarthritis of joint of hand 56543533 M19.041 M19.042 Stable, able to ambulate by himself without assitance. Diabetes mellitus 629594 09 E11.9 Diabetic diet, exercise, keep the weight down. Annual eye check. Patient agreed the metformin ER 500 mg twice /day to achieve the better control of his rachell 2 DM. Discussed with patient, he agreed with add on pioglitazo ne. Essential hypertension 43576573 I10 Covered by quinapril as well. Low salt diet. will add amlodipine to bring down the BP to the more safe level.Will increase amlodipine to 10 mg/day. Blood sugar is 261 mg%, patient informed 08-27-2018 . Hyperlipidemia 43788563 E78.5 Low saturated fat diet. 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 On quinapril. Secondary erectile dysfunction 019772502 N52.8 Stable, not on viagra. Dyslipidemia 867273832 E 78.5 Low saturated fat diet, exercise and keep the weight down Type 2 kirsten betes mellitus without complication 147545057 E11.9 Diabetic diet, exercise, keep the weight down. OTC aspirin /day. Has enough medication s. Type 2 kirsten betes mellitus 86677799 E11.65 diabetic diet, exercise, will adjust his medication s. He will change his eating habit. [id number] MD Emma King (Adult Med) [address] [place] [address] [phone] 0 07/01/2019 12:23:14 07/04/2019 14:10:16 Acute bronchitis 81445653 J20.9 Discussed with patient, D/Mahnaz reis. [id number] MD Emma King (Adult Med) [address] [place] [address] [phone] 0 08/25/2019 15:29:19 08/26/2019 08:58:09 Diabetes mellitus 17287907 E11.9 Diabetic diet, exercise, keep the weight down. Annual eye check. Patient agreed the metformin ER 500 mg twice /day to achieve the better control of his rachell 2 DM. Discussed with patient, he agreed with add on pioglitazo ne. Osteoarthr itis of joint of hand 07299605 M19.041 M19.042 Stable, able to ambulate by himself without assitance. Essential hypertension 68888096 I10 Covered by quinapril as well. Low salt diet. will add amlodipine to bring down the BP to the more safe level.Will increase amlodipine to 10 mg/day. Blood sugar is 261 mg%, patient informed 08-27-2018 . Hyperlipidemia 21103032 E78.5 Low saturated fat diet. 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 On quinapril. Type 2 kirsten betes mellitus 77149452 E11.65 diabetic diet, exercise, will adjust his medication s. He will change his eating habit. Type 2 kirsten betes mellitus without complication 930800255 E11.9 Diabetic diet, exercise, keep the weight down. OTC aspirin /day. Has enough medication s. Dyslipidemia 479737190 E 78.5 Low saturated fat diet, exercise and keep the weight down [id number] MD Emma King (Adult Med) [address] [place] [address] [phone] 0 12/22/2019 08:14:26 12/23/2019 06:57:50 Type 2 diabetes mellitus 52652572 E11.65 diabetic diet, exercise, will adjust his medication s. He will change his eating habit. Bilateral shoulder joint pain 1604118699 2991770 M25.511 M25.512 Under the care of his [facility] . [id number] MD [facility] (Adult Med) [address] [place] [address] 0 05/22/2020 08:32:52 05/23/2020 10:59:28 Acute bronchitis 20330653 J20.9 Discussed with patient, D/Mahnaz reis. Osteoarthr itis of joint of hand 92804180 M19.041 M19.042 Stable, able to ambulate by himself without assitance. Diabetes mellitus 540383 09 E11.9 Diabetic diet, exercise, keep the weight down. Annual eye check. Patient agreed the metformin ER 500 mg twice /day to achieve the better control of his rachell 2 DM. Discussed with patient, he agreed with add on pioglitazo ne. Essential hypertension 14833018 I10 Covered by quinapril as well. Low salt diet. will add amlodipine to bring down the BP to the more safe level.Will increase amlodipine to 10 mg/day. Blood sugar is 261 mg%, patient informed 08-27-2018 . Will continue to monitor Blood pressure., once porter virus pandemic is over. Hyperlipidemia 19852109 E78.5 Low saturated fat diet. Low animal fat diet. 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 On quinapril. Secondary erectile dysfunction 044716765 N52.8 Stable, not on viagra. Dyslipidemia 102268467 E 78.5 Low saturated fat diet, exercise and keep the weight down Type 2 kirsten betes mellitus without complication 435645293 E11.9 Diabetic diet, exercise, keep the weight down. OTC aspirin /day. Has enough medication s. Type 2 kirsten betes mellitus 30324796 E11.65 diabetic diet, exercise, will adjust his medication s. He will change his eating habit. [id number] Nikky Mathews MD [facility] (Adult Med) [address] [place] [address] 0 08/13/2020 08:20:45 08/14/2020 08:43:41 Diabetes mellitus 51650313 E11.9 Diabetic diet, exercise, keep the weight down. Annual eye check. Patient agreed the metformin ER 500 mg twice /day to achieve the better control of his rachell 2 DM. Discussed with patient, he agreed with add on pioglitazo ne. Essential hypertension 36014835 I10 Covered by quinapril as well. Low salt diet. will add amlodipine to bring down the BP to the more safe level.Will increase amlodipine to 10 mg/day. Blood sugar is 261 mg%, patient informed 08-27-2018 . Will continue to monitor Blood pressure., once porter virus pandemic is over. Osteoarthr itis of joint of hand 59816161 M19.041 M19.042 Stable, able to ambulate by himself without assitance. [id number] MD Emma King (Adult Med) [address] [place] [address] [phone] 0 01/01/2021 11:35:21 01/01/2021 12:15:57 Diabetes mellitus 09021519 E11.9 Diabetic diet, exercise, keep the weight down. Annual eye check. Patient agreed the metformin ER 500 mg twice /day to achieve the better control of his rachell 2 DM. Discussed with patient, he agreed with add on pioglitazo ne. Osteoarthr itis of joint of hand 23632419 M19.041 M19.042 Stable, able to ambulate by himself without assitance. Essential hypertension 47093479 I10 Covered by quinapril as well. Low [...] with current medication s. 01-01-2021 . Hyperlipidemia 36042996 E78.5 Low saturated fat diet. Low animal fat diet. 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 On quinapril. Secondary erectile dysfunction 416562091 N52.8 Stable, not on viagra. [id number] MD Emma King (Adult Med) [address] [place] [address] [phone] 0 04/08/2021 11:48:12 04/10/2021 16:10:15 Diabetes mellitus 83208568 E11.9 Diabetic diet, exercise, keep the weight down. Annual eye check. Patient agreed the metformin ER 500 mg twice /day to achieve the better control of his rachell 2 DM. Discussed with patient, he agreed with add on pioglitazo ne. Osteoarthr itis of joint of hand 85001217 M19.041 M19.042 Stable, able to ambulate by himself without assitance. Essential hypertension 36430445 I10 Covered by quinapril as well. Low [...] He is on quinapril. 04-08-2021 . Hyperlipidemia 69410463 E78.5 Low saturated fat diet. Low animal fat diet. 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 On quinapril. Secondary erectile dysfunction 234067491 N52.8 Stable, not on viagra. Administra tion of influenza vaccine 65549346 Z23 Will get annual flu shot. Dyslipidemia 506262636 E 78.5 Low saturated fat diet, exercise and keep the weight down Type 2 kirsten betes mellitus without complication 304859811 E11.9 Diabetic diet, exercise, keep the weight down. OTC aspirin /day. Has enough medication s. Type 2 kirsten betes mellitus 96908506 E11.65 diabetic diet, exercise, will adjust his medication s. He will change his eating habit. [id number] Nikky Mathews MD [facility] (Adult Med) [address] [place] [address] [phone] 0 05/21/2021 10:20:28 05/24/2021 12:24:20 Hyperlipidemia 33700423 E78.5 Low saturated fat diet. Low animal fat diet. Secondary erectile dysfunction 118125359 N52.8 Stable, not on viagra. Essential hypertension 06358892 I10 Covered by quinapril as well. Low [...] is on quinapril. 04-08-2021 . Diabetes mellitus 383915 09 E11.9 Diabetic diet, exercise, keep the weight down. Annual eye check. Patient agreed the metformin ER 500 mg twice /day to achieve the better control of his rachell 2 DM. Discussed with patient, he agreed with add on pioglitazo ne. Osteoarthr itis of joint of hand 13548183 M19.041 M19.042 Stable, able to ambulate by himself without assitance. Microalbum inuric diabetic nephropathy 984530754 E11.21 Normal renal functions, normal BUN, creatinine and GFR on 04-15-2021 , on 05-02-2021 elevated albumin/cr eatine ratio could be hypertensi ve and diabetic nephropath y, will increase quinapril to 20 mg /day . Copies of lab. explained and provided to patient today, 05-21-2021 . [id number] [facility] [address] [place] [address] [phone] 0 08/05/2021 09:33:33 08/06/2021 10:04:23 Type 2 diabetes mellitus 61524564 E11.65 diabetic diet, exercise, will adjust his medication s. He will change his eating habit. Persistent cough 2838778 02 R05.3 Will try benzontate for the mean time. [id number] MD Emma King (Adult Med) [address] [place] [address] [phone] 0 08/30/2021 15:36:26 09/02/2021 12:30:09 Type 2 diabetes mellitus 83416255 E11.65 diabetic diet, exercise, will adjust his medication s. He will change his eating habit. Has lost some weight, also has gone to endocrinol ogist , rosalinda was D/C, and farxiga was put in , starting 5 mg/day , now is on 10 mg/day, stil on ozempic shot. he had seen his blood sugar has come down. 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 On quinapril. Repeat test of urine albumin reported to be normal from his endocrinol ogist office. 11-19-2021 . Screening for malignant neoplasm of prostate 067190740 Z12.5 He went to his urologist Dr. Saldana, and was suggested to have PSA screening. Type 2 kirsten betes mellitus 10903345 E11.65 diabetic diet, exercise, will adjust his [...] care of his endocrinol ogist.., 11-19-2021 . [id number] Nikky Mathews MD [facility] (Adult Med) [address] [place] [address] 01040-756 0 02/18/2022 10:15:10 02/19/2022 11:59:28 Type 2 diabetes mellitus 42247591 E11.65 diabetic diet, exercise, will adjust his [...] ia due to type 2 diabetes mellitus 9162567691 02 E78.5 On low saturated fat diet. and atorvastat in 90 dys supply with 3 more refills.As 02-18-2022 his LDL is 44 mg%. HDL is 35 mg% from out side lab. Open wound, heel 2003261 09 S91.301A Discussed with patient, will try ABS as ordered. Essential hypertension 24398805 I10 Covered by quinapril as well. Low [...] As 02-18-2022 blood pressure is 120/66 today. [id number] [facility] [address] [place] [address] [phone] 0 07/11/2022 10:31:47 07/15/2022 14:49:24 Overweight 256313959 E66.3 BMI is 26.3, he has been advised to watch his diabetic diet, exercise and keep the weight down. Smoker 43116493 F17.200 Advised to quit smoking if he still smokes. Acute bronchitis 1473534 2 J20.9 Discussed with patient, D/C smiley. Type 2 kirsten betes mellitus 80148205 E11.65 diabetic diet, exercise, will adjust his medication s. He will change his eating habit. Has lost some weight, also has gone to endocrinol ogist , rosalinda was D/C, and xavierxiga was put in , starting 5 mg/day , now is on 10 mg/day, stil on ozempic shot. he had seen his blood sugar has come down.Heavenly nguyen he is under the care of his endocrinol ogist.., 11-19-2021 . [id number] MD Emma King (Adult Med) [address] [place] [address] [phone] 0 09/04/2022 10:18:01 09/08/2022 15:20:39 Administration of diphtheria, pertussis, and tetanus vaccine 732064727 Z23 He tolerated shot well. Type 2 kirsten betalexus mellitus 43376103 E11.65 diabetic diet, exercise, will adjust his [...] 09-04-22, [facility] to [facility] strip [facility] Chronic cough 66174306 R 05.3 smokes once a while, benzonatat e only temporally relieve the cough, will x ray and try promethazi ne with codeine,.o r similar product. He agreed. Diabetic p eripheral neuropathy 954959908 E11.40 Pain of feet, on OTC cream, was told to have diabetic neuropathy , asking some med for relief. [id number] Nikky Mathews MD [facility] (Adult Med) [address] [place] [address] 12/11/2022 11:51:32 12/15/2022 16:10:44 Dementia 85929063 F03.90 wants him to be evaluated by neurologis t. She has no written consent, from patient, to relase [facility] informatio n to her, nor the latter has no signature or date on it, will keep copy in file, patient agreed for the referral. Type 2 kirsten betalexus mellitus 30307125 E11.65 diabetic diet, exercise, will adjust his [...] 09-04-22, wants to refill test strip at [facility] Administra tion of pneumococcal vaccine 69614344 Z23 He declined today 12-11-22. [id number] Nikky Mathews MD [facility] (Adult Med) [address] [place] [phone] 01/29/2023 15:37:23 01/30/2023 14:36:48 Type 2 diabetes mellitus 37858153 E11.65 diabetic diet, exercise, will adjust his medication s. He will change his eating habit. Has lost some weight, also has gone to endocrinol ogist , januvia was D/C, and farxiga was put in , starting 5 mg/day , now is on 10 mg/day, stil on ozempic shot. he had seen his blood sugar has come down.Heavenly nguyen he is under the care of his endocrinol ogist.., 11-19-2021 . as 09-04-22, [facility] Diabetic p eripheral neuropathy [id number] E11.40 Pain of feet, on OTC cream, was told to have diabetic neuropathy , asking some med for relief. Wants 100 mg instead of 300 mg of gabapentin from which he took and made him sleep for 2 days. Urinary tr act infectious disease 04150189 N39.0 Will send urine to Lab for U/A and culture , ABS also been ordered in case, he agreed. 01-29-23. [id number] [facility] [address] [place] [phone] 0 03/30/2023 16:12:13 03/30/2023 17:01:55 Alzheimer's disease 40525678 G30.9 saw neurolognoah johnson, had spinal CSG analysis tau elevated. , he has been informed the diagnosis, might be referred to [facility] for ne treatment. Type 2 kirsten betes mellitus 12035043 E11.65 diabetic diet, exercise, will adjust his medication s. He will change his eating habit. Has lost some weight, also has gone to endocrinol ogist , januvia was D/C, and farxiga was put in , starting 5 mg/day , now is on 10 mg/day, stil on ozempic shot. he had seen his blood sugar has come down.Heavenly nguyen he is under the care of his endocrinol ogist.., 11-19-2021 . as 09-04-22, wants to refill test strip at [facility] Acid reflux 698702139 K2 1.9 Med refills. Diabetic p eripheral neuropathy 080443466 E11.40 Pain of feet, on OTC cream, was told to have diabetic neuropathy , asking some med for relief. Wants 100 mg instead of 300 mg of gabapentin from which he took and made him sleep for 2 days. Essential hypertension 81161181 I10 Covered by quinapril as well. Low [...] he agreed, -03-30-23. SARS-CoV-2 mRNA vaccine declined [id number] Z28.21 He declined 03-30-23. [id number] Nikky Mathews MD [facility] (Adult Med) [address] [place] [address] 06/26/2023 09:48:36 06/29/2023 14:43:57 Type 2 diabetes mellitus 65285758 E11.65 Diabetic diet, exercise and keep the weight down. Med refills. Alzheimer's disease 4875 4292 G30.9 saw neurologis elizabeth, had spinal CSG analysis tau elevated. , he has been informed the diagnosis, might be referred to [facility] for the treatment. Essential hypertension 46367282 I10 Covered by quinapril as well. Low [...] ia due to type 2 diabetes mellitus 5675251111 02 E78.5 On low saturated fat diet. and atorvastat in 90 dys supply with 3 more refills.As 02-18-2022 his LDL is 44 mg%. HDL is 35 mg% from out side lab. Diabetic p eripheral neuropathy 304897330 E11.40 Pain of feet, on OTC cream, was told to have diabetic neuropathy , asking some med for relief. Wants 100 mg instead of 300 mg of gabapentin from which he took and made him sleep for 2 days. Acid reflux 670394510 K2 1.9 Med refills. Acute bronchitis 0254730 2 J20.9 Discussed with patient, D/C smiley. [id number] Noam Reveles MD [facility] [address] [place] [phone] 10/12/2023 14:13:47 10/12/2023 15:24:53 Diabetes mellitus 17604226 E11.9 Essential hypertension 22057413 I10 Screening for malignant neoplasm of prostate 083060760 Z12.5 Hyperlipidemia 58865377 E78.5 [id number] Noam Reveles MD [facility] [address] [place] [address] 11/19/2023 13:49:54 11/19/2023 14:48:10 Diabetes mellitus 59026263 E11.9 Essential hypertension 25758677 I10 Hyperlipidemia 47390679 E78.5 Ischemic c ongestive cardiomyopathy 888712575 I25.5 Central cord syndrome 28 8550145 S14.129D [id number] Noam Reveles MD [facility] [address] [place] [address] 01/04/2024 10:55:41 01/04/2024 12:03:07 Essential hypertension 04076638 I10 Diabetes mellitus 403044 09 E11.9 Central cord syndrome 28 8327654 S14.129D Ischemic c ongestive cardiomyopathy 099476572 I25.5 [id number] Noam Reveles MD [facility] [address] [place] [address] 02/29/2024 11:28:44 02/29/2024 13:10:10 Adult health examination 380922002 Z00.00 Health Risk Assessment collected and reviewed [id number] Noam Reveles MD [facility] [address] [place] [address] 04/04/2024 10:38:30 04/04/2024 12:08:46 Overweight 257786599 E66.3 Essential hypertension 96604400 I10 Hyperlipidemia 22115746 E78.5 Diabetes mellitus 676323 09 E11.9 Ischemic c ongestive cardiomyopathy 296788109 I25.5 [id number] Noam Reveles MD [facility] [address] [place] [address] 05/16/2024 13:56:02 05/16/2024 15:19:59 Body mass index 20-24 - normal 927871738 Z68.24 Pneumonia 862959466 J18. 9 Essential hypertension 18719038 I10 Diabetes mellitus 946408 09 E11.9 Hyperlipidemia 65124227 E78.5 [id number] Noam Reveles MD [facility] [address] [place] [address] 06/06/2024 14:12:33 06/06/2024 15:10:12 Pneumonia 340054681 J18.9 Ischemic c ongestive cardiomyopathy 441506167 I25.5 Essential hypertension 39703516 I10 [id number] Noam Reveles MD [facility] [address] [place] [address] 09/05/2024 10:55:19 09/05/2024 11:41:03 Body mass index 25-29 - overweight 886421697 Z68.26 Overweight 254091183 E66 .3 Administra tion of influenza vaccine 02378651 Z23 Essential hypertension 04276879 I10 Diabetes mellitus 782281 09 E11.9 Hyperlipidemia 81180396 E78.5 [id number] Noam Reveles MD [facility] (Adult Med) [address] [place] [phone] 11/08/2024 15:50:43 11/08/2024 16:27:18 Overweight in adulthood with body mass index of 25 or more but less than 30 936003210 E66.3 Z68.25 Overweight 346905853 E66 .3 Bronchitis 66639059 J40 Health Concerns Section Related Observation LastModified by Organization Detai ls LastModified Time None Recorded Concern Status LastModified by Organization Details LastModified Time None Recorded Advance Directives Directive N: Payers Encounter Date Sequence Insurance Name Policy Number Policy Dang Covered Member ID Dang Member ID Guarantor Name 04/04/2024 1 [place] Tolu Kirkpatrick Delfina [id number] [facility] 04/04/2024 2 AETNA (MEDICARE SUPPLEMENT) [facility] [id number] [facility] 05/16/2024 1 [place] Tolu Kirkpatrick Delfina [id number] [facility] 05/16/2024 2 AET[employer] (MEDICARE SUPPLEMENT) [facility]u [facility] [id number] Tolu [facility] 06/06/2024 1 [place] Tolu Kirkpatrick Delfina [id number] [facility]u [facility] 06/06/2024 2 AET[employer] (MEDICARE SUPPLEMENT) [facility]u [facility] [id number] Tolu [facility] 09/05/2024 1 [place] Tolu Kirkpatrick Delfina [id number] Tolu [employer] 09/05/2024 2 AET[employer] (MEDICARE SUPPLEMENT) Tolu Mathis [id number] Tolu Mathis 11/08/2024 1 [place] Tolu Mathis [id number] Tolu Mathis 11/08/2024 2 AET[employer] (MEDICARE SUPPLEMENT) Tolu Mathis [id number] Tolu Mathis Notes Date Note Type Note Provider Name and Address Organization Details Recorded Time 04/04/2024 text/html he has had no hypoglycemic spells did see endocrinology. Ischemic cardiomyopathy no signs or symptoms of heart failure. Central cord syndrome status post surgical intervention doing fine Noam Reveles MD Attn: [facility] [facility], [place], [address], [facility] 04/09/2024 14:02:07 05/16/2024 text/html hospitalize CRISOSTOMO pneumonia [...] or hypoglycemic symptomatology Noam Reveles MD Attn: Accounting[address] [facility], [place], [address], [facility] 05/22/2024 16:42:04 06/06/2024 text/html appears to be do ing fine with no interval developments or complaints getting over the pneumonia nicely Noam Reveles MD Attn: Accounting[address] [facility], [place], [address], [facility] 06/09/2024 14:58:51 09/05/2024 text/html hypertension no headache [...] GI Noam Reveles MD Attn: Accounting[address] [facility], [place], [address], [facility] 09/05/2024 20:56:53 11/08/2024 text/html Acute appointmen t 7-10 days of cough congestion now with some off yellow to yellowish sputum no hemoptysis granddaughter was sick last week no specific diagnosis such as COVID or flu or strep throat he is not short of breath but he feels a little tired Noam Reveles MD Attn: Accounting,[address] [facility], [place], [address], [facility] 11/08/2024 21:58:35
--- OUTSIDE RECORDS SUMMARY | 2024-12-01 14:59 | XMS_ITS | Clinical Summary ---
Author Organization [facility] [address] [place] [address] Care Team Providers Care Utility Tech Name Role Phone Lio Reveles MD Primary Care Provider + [phone] Vahe Rouse MD Unavailable [phone] Emily Staples RN Unavailable Unavailable Gisselle Morgan RN Unavailable Unavaila Alie Henao RN Unavailable Unavailable Kalyani Muller Unavailable Unavailable Allergies No known active allergies Medications metFORMIN XR (GLUCOPHAGE XR) 500 mg 24 hr tabletIndications :type 2 diabetes mellitus Take 2 tablets (1,000 mg total) by mouth 2 (two) times a day 3 Active omeprazole (PriLOSEC) 40 mg capsuleIndication s:Treatment of Non-Bleeding Gastric Disorder Take 1 capsule (40 mg total) by mouth 2 (two) times a day 3 Active gabapentin (NEURONTIN) 300 mg capsuleIndication s:Diabetic Peripheral Neuropathy,Postop erative Acute Pain Take 1 capsule (300 mg total) by mouth 3 (three) times a day 4 Active escitalopram (LEXAPRO) 10 mg tabletIndications :Generalized Anxiety Disorder Take 1 tablet (10 mg total) by mouth every morning 4 Active sacubitriL-valsar cheatham (ENTRESTO) 49-51 mg tabletIndications :chronic heart failure Take 1 tablet by mouth 2 (two) times a day with meals 180 tablet 3 4 Active rosuvastatin (CRESTOR) 5 mg tabletIndications :hyperlipidemia Take 1 tablet (5 mg total) by mouth nightly 4 Active Dexcom G7 Sensor device CHANGE SENSOR EVERY 10-14 DAYS TO CHECK BLOOD SUGAR 4 Active dapagliflozin propanediol (FARXIGA) 10 mg tablet Take 1 tablet (10 mg total) by mouth daily 90 tablet 2 4 Active sodium zirconium cyclosilicate (Lokelma) 10 gram packetIndications :hyperkalemia Take 1 packet (10 g total) by mouth daily Take one packet three times a day for 2 days, then take one packet daily. 90 packet 3 4 05/31/20 25 Active FIASP 100 unit/mL (3 mL) pen for injection INJECT 4 UNITS UNDER THE SKIN THREE TIMES DAILY BEFORE A MEAL WITH SLIDING SCALE. MAX DAILY DOSE OF 20 UNITS. 4 Active BASAGLAR 100 unit/mL (3 mL) pen for injection ADMINISTER 15 UNITS UNDER THE SKIN EVERY MORNING 4 Active BD Ai 2nd Gen Pen Needle 32 gauge x /32 needle USE FOUR TIMES DAILY 4 Active metoprolol XL (TOPROL-XL) 50 mg extended release tabletIndications :chronic heart failure,hypertens ion Take 1 tablet (50 mg total) by mouth daily before breakfast 90 tablet 2 5 Active donepeziL (ARICEPT) 5 mg tablet Take 1 tablet (5 mg total) by mouth nightly 30 tablet 5 5 04/03/20 25 Active Active Problems Problem Noted Date Diagnosed Date [...] 11/06/2023 Assessment & Plan (09/14/2024 11:48 AM VOLTMETER OPERATOR): Denies therapies. Central cord syndrome at C4 level of cervical sp inal cord 11/06/2023 Central cord syndrome, initial encounter 024 Ischemic cardiomyopathy 10/28/2023 Assessment & Plan (09/14/2024 11:47 AM VOLTMETER OPERATOR): ICM: Chronic systolic heart failure. Denies angina. [...] Type Department Care Team Description 11/01/2024 Telephone [facility] Cardiology [address] [facility] [address]th [place] [address] [place] [address] Yeison Tom MD 11/01/2024 Telephone [facility] Trans[facility] Heart [address] [facility] [address] [place] [address] Avinash Cleaning 10/31/2024 Telephone [facility] [address] [facility] [address] [place] [address] Karina Amador 10/19/2024 Documentation Orthopaedic Surgery Fer Pizano BS 10/17/2024 Orders Only [facility] Cardiology [address] [facility] 8th [place] [address] [place] [address] Yeison Tom MD 09/14/2024 10:00 AM VOLTMETER OPERATOR Office Visit [facility] Cardiology [address] [facility] 8th [place] [address] [place] [address] Pratibha Jennings NP Presence of automatic (implantable) cardiac defibrillator (Primary Dx); Ischemic cardiomyopathy from Last 3 Months Immunizations Immunization Administration [...] Tobacco: Never Tobacco Cessation:Counseling Given: Not Answered [facility] Utilities Answer Date Recorded In the past 12 months has [employer] gas, oil, or water [employer] threatened to shut off services in your [...] week 11/02/2023 How often do you attend [facility] or spiritism services? Never 11/02/2023 Do you belong to any clubs o r organizations such as sabianism groups, unions, fraternal or athletic groups, or [...] place to sleep or slept in a detention (including now)? No 11/02/2023 Personal Safety Answer Date Recorded Have you ever been in or are you currently in a harmful physical or emotional relationship or is someone making you feel afraid or unsafe? Denies 03/03/2024 Sex and Gender Information Value Date Recorded Sex Assigned at Not on file Legal Sex Male 5:49 AM VOLTMETER OPERATOR Gender Identity Male 03/25/2023 11:15 AM CDT Sexual Orientation Not on file Obstetrics History Last Filed Vital Signs Vital Sign Reading Time Taken Comments Blood Pressure 126/75 09/14/2024 10:13 AM VOLTMETER OPERATOR Pulse 92 09/14/2024 10:13 AM VOLTMETER OPERATOR Temperature 36.6 C (97.8 F) 06/27/2024 10:39 AM VOLTMETER OPERATOR Respiratory Rate 25 03/03/2024 2:20 PM CDT Oxygen Saturation 96% 09/14/2024 10:13 AM VOLTMETER OPERATOR Inhaled Oxygen Concentration - - Weight 77.8 kg (171 lb 9.6 oz) 09/14/2024 10:13 AM VOLTMETER OPERATOR Height 171.5 cm (5' 7.5 ) 09/14/2024 10:13 AM CS T Body Mass Index 26.48 09/14/2024 10:13 AM VOLTMETER OPERATOR Plan of Treatment Health Maintenance Due Date Last Done Comments Albumin Creatinine Ratio, Urine 1952 Colon Cancer Screening-Colonoscopy 1952 Depression Screening 1952 Hepatitis C Screening 1950 Dilated Eye Exam 1952 Foot Exam 1952 Hepatitis B Screening 1970 Well Visit 65+ 2017 Covid-19 Vaccine (2023-2 5 season) 2024 04/27/2022, 11/14/2021, 05/29/2021, Additional history exists Hemoglobin A1C 04/22/2024 10/22/2023 Lipid Panel 01/05/2025 01/06/2024, 10/11, 10/23/2023 Fall Risk Assessment 03/03/2025 03/03/2024, 03/10/20 23 Influenza Vaccine (Season Ended) 2025 04/28/2022, 04/12/2022, 04/08/2021, Additional history exists eGFR 06/21/2025 06/21/2024, 05/13, 05/12/2024, Additional history exists DTaP/Tdap/Td Vaccine (2 - Td or Tdap) 09/04/2032 09/04/2022 Pneumococcal vaccine 65+ Completed 04/11/2021, 03/14 Zoster Vaccine Completed 08/14/2022, 05/28/2022 Abdominal Aortic Aneurysm (A AA) Screen Completed 10/22/2023 Medical Devices Implanted Type Area Student Records Specialist Device Identifier Shelf Expiration Date Model / Serial / Lot [employer] Kandice Angio-Seal Vip 6fr Closere Device [id number] - [id number] - [id number] Implanted:Qty: 1 on 11/05/2023 by Héctor Richards MD at [facility] Collagen Right: Groin [employer] Kandice 06/15/2024 [id number] / [id number] / [id number] [employer] Kandice Defibrillator Single Chamber Vigilant 0.99x5.37x7.36cm D232 - [id number] - [id number] Implanted:Qty: 1 on 03/03/2024 by Yeison Tom MD at [facility] ICD Left: Chest Wall [employer] Kandice 06/16/2025 D232 / [id number] / [id number] [employer] Kandice Lead Cardioverter Defibrillator Bipolar Active Fixation Endocardium Steroid Eluting Gl[place] 4 Front 7.2chc86ssf58em 0672 - [id number] - [id number] Implanted:Qty: 1 on 03/03/2024 by Yeison Tom MD at [facility] Lead Right: Ventricle [employer] Kandice 09/24/2025 0672 / [id number] / [id number] Allosource Crushed Fresh Frozen Cancellous 1-4mm Graft 15ml Bone [id number] - [id number] Implanted:Qty: 1 on 10/28/2023 by Clyde Dotson MD at [facility] N/A: Spine Cervical [employer]ource 12/15/2027 [id number] / / [id number] Nuv[employer] Inc Screw Spine Reline C Lock Open Non-Sterile Latex Free [id number] - [id number] Implanted:Qty: 10 on 10/28/2023 by Clyde Dotson MD at [facility] N/A: Spine Cervical [employer]uv[employer] Inc [id number] / / [employer]uv[employer] Screw Spinal Posterior Cervical Solid Reline C 3.5x14mm [id number] - [id number] Implanted:Qty: 6 on 10/28/2023 by Clyde Dotson MD at [facility] N/A: Spine Cervical [employer]uv[employer] Inc [id number] / / Nuv[employer] Inc Reline C Screw 3.5x20mm Ma [id number] - [id number] Implanted:Qty: 2 on 10/28/2023 by Clyde Dotson MD at [facility] N/A: Spine Cervical [employer] Inc [id number] / / [employer] Screw Spinal Thoracic Solid Reline 4.0x24mm Titanium [id number] - [id number] Implanted:Qty: 2 on 10/28/2023 by Clyde Dotson MD at [facility] N/A: Spine Cervical Nuv[employer] Inc [id number] / / Nuv[employer] Inc Melvin Spinal Posterior Cervical Prebent Reline 4.0x80mm Titanium [id number] - [id number] Implanted:Qty: 2 on 10/28/2023 by Clyde Dotson MD at [facility] N/A: Spine Cervical Nuv[employer] Inc [id number] / / Procedures Procedure Name Priority Date/Time Associated Diagnosis Comments DEVICE CHECK - REMOTE Routine 10/17/2024 6:10 AM CDT BASIC METABOLIC PANEL Routine 06/21/2024 1:50 PM VOLTMETER OPERATOR Ischemic cardiomyopathy LIPID PANEL Routine 01/06/2024 11:37 [...] estimate based on prior usage) Presenting Rhythm (NJ) Ventricular Sensing (VS) --- rate 55 Arrhythmic events (AE) No new arrhythmic events in monitoring period Transmission Information (TI) Device Summary Report Procedure Note Yeison Tom MD - 10/20/2024 Interpretation Summary: Battery and Leads (BL) Normal parameters noted on battery and lead(s) --- 15 years remaining(this is an estimate based on prior usage) Presenting Rhythm (NJ) Ventricular Sensing (VS) --- rate 55 Arrhythmic events (AE) No new arrhythmic events in monitoring period Transmission Information (TI) Device Summary Report us Yeison Tom MD [facility] PROCEDURES Final Result * (ABNORMAL) Basic metabolic panel (06/21/2024 1:50 PM VOLTMETER OPERATOR) Pathologist [facility] Glucose 133(H) 70 [...] [facility] - 01 Blood 06/21/2024 1:50 PM VOLTMETER OPERATOR 06/21/2024 Narrative [facility] - 06/22/2024 7:10 AM VOLTMETER OPERATOR Performed at: 01 - [address] [id number] Complaint Evaluation Supervisor: Carlitos Jung PhD, Phone: [phone] us Vickey Marinelli MD PhD LAB BLOOD ORDERABL ES Final Result [facility] - 01 * (ABNORMAL) Lipid panel (01/06/2024 [...] revised on 2018. Triglycerides 368(H) <=149 mg/dL [facility] Comment: Interpretive Data Ages < [...] revised on 2018. HDL 31(L) >=40 mg/dL [facility] Comment: Interpretive Data Ages < [...] on 2018. LDL, calculated 138(H) <=129 mg/dL [facility] Comment: Interpretive Data Ages < [...] revised on 2018. Non-HDL Cholesterol 212 mg/dL [facility] Comment: Interpretive Data Ages < [...] last revised on 2018. Chol/HDL ratio 8 [facility] Blood 01/06/2024 11:3 7 AM CDT 01/06/2024 2:09 PM CDT Benji Esparza MD LAB BLOOD ORDERABLES Final Result [facility] [place] [address] * CT Chest Abdomen Pelvis W Contrast [...] % Estimated Average Glucose 134 mg/dL [facility] Comment: The ADA recommends reporting an [...] LAB BLOOD ORDERABLES Final Res ult [facility] [place] [address] from Last 3 Months or Most Recently Relevant to Health Maintenance Insurance MEDICARE Getting-in [place] [employer] [place] Advance Directives For more information, please contact: [phone] * Full Code (Latest Code Status on [...] 11:18 AM 10/27/2023 9:08 PM Care Teams Utility Tech Relationship Specialty Start Date End Date Lio Reveles MD PCP - General Internal Medicine 10/24/23 Vahe Rouse MD [address] [place] [address] Referring Physician Neurology 01/04/24 Emily Staples, unit director Failure Coordinator Transplant 05/03/24 Gisselle Morgan, unit director Failure Coordinator 05/03/24 Alie Joyner, press tenderDietetic Assistant 10/31/24 Kalyani Muller Primary Insurance Checker Transplant 10/31/24
--- OUTSIDE RECORDS SUMMARY | 2024-12-01 14:59 | XMS_ITS | Encounter Summary ---
Author Organization [facility] Address [address] [place] [address] Care Team Providers Care Ux Designer Name Role Phone Nikky Mathews MD Primary Care Provider [phone] Encounter Details Date Type Department Care Team (Late st Contact Info) Description 05/21/2023 Lab Requisition [facility] Derm[facility] Lab [address] [facility], [place] [address] Eldon Morfin MD [address] [place], [place] [id number] Social History Tobacco Use Types Packs/Day Years Used Date Smoking Tobacco: Former Cigarettes Q uit: 08/01/1998 Smokeless Tobacco: Never Comments:OCCASIONAL CIGAR Alcohol Use Standard Drinks/Week Comments No 0 (1 standard drink = 0.6 oz pur e alcohol) Sex and Gender Information Value Date Recorded Sex Assigned at Not on file Legal Sex Male 1:09 PM EXPRESS CLERK Gender Identity Male 11/11/2024 4:55 PM CDT Sexual Orientation Straight 11/11/2024 4: 55 PM CDT documented as of this encounter Plan of Treatment Upcoming Encounters Date Type Department Care Team (Latest Contact Info) Description 12/21/2024 9:50 AM CDT Hospital Encounter [facility] ENDOSCOPY [address] [place] [address] Karthik Anderson MD [address] [place] [address] Surgery General 12/21/2024 9:50 AM CDT - 12/21/2024 11:50 AM CDT Surgery [facility] ENDOSCOPY [address] [place] [phone] Karthik Anderson MD [address] [place] [address] Egd+ESD Scheduled Procedures Name Priority Associated Diagnoses Date/Ti ar ESOPHAGOGASTRODUODENOSCOPY ( EGD) DIAGNOSTIC Congenital malformation of stomach 12/21/2024 9:50 AM CDT documented as of this encounter Procedures Procedure Name Priority Date/Time Associated Diagnosis Comments DERMATOPATHOLOGY Routine 05/20/2023 12:0 0 AM EXPRESS CLERK documented in this encounter Results * DERMATOPATHOLOGY (05/20/2023 12:00 AM EXPRESS CLERK) Case Report Dermatopathology Report Case: [id number] Authorizing Provider: Eldon Morfin MD Collected: 05/20/2023 12:00 AM Ordering Location: [facility] DermPath Lab Received: 05/21/2023 07:40 AM Pathologist: Miranda Yañez MD Specimen: Skin, right ant neck 3 2:27 PM [facility] DERMATOPATHOLOGY LABORATORY Final Diagnosis Specimen A. SKIN, right ant neck: BENIGN VERRUCOUS KERATOSIS, INFLAMED (L82.1) (see microscopic description) 3 2:27 PM [facility] DERMATOPATHOLOGY LABORATORY at [address]27 EXPRESS CLERK Clinical History Nevus vs BCC 3 2:27 PM [facility] DERMATOPATHOLOGY LABORATORY Gross Description Specimen A: Received is one formalin filled container labeled with the patient's name and designated right ant neck. The specimen consists of a(2) pieces shave biopsy measuring 5x3x1, 5x4x1 mm. Jar 0. 3 2:27 PM [facility] DERMATOPATHOLOGY LABORATORY Microscopic Description Specimen A. SKIN, right ant neck: Sections show hyperkeratosis, papillomatosis, hypergranulosis, and acanthosis. Inflammatory cells are present within the dermis. These histological findings can be seen in a verruca vulgaris or a seborrheic keratosis. Additional deeper sections were obtained and reviewed. 3 2:27 PM [facility] DERMATOPATHOLOGY LABORATORY Disclaimer An external and internal positive and negative controls are appropriate for the histochemical, immunohistochemical and immunofluorescence stain(s) in this case (if any), except where stated explicitly. The performance characteristics of the stain(s) cited in this report were developed and its performance characteristic determined by the Dermatopathology Laboratory at [facility], directed by Dr. Marito Guerrero. These tests need not be, and therefore are not, approved by the [place] Food and Drug Administration. The tests are used for clinical purposes. Billing Codes Specimen Charges Stain Charges 47335 1 3 2:27 PM [facility] DERMATOPATHOLOGY LABORATORY Embedded Images 3 2:27 PM [facility] DERMATOPATHOLOGY LABORATORY Pathology/Cytolog y TISSUE SPECIMEN FROM SKIN / Unknown 05/20/2023 05/21/2023 7:40 AM EXPRESS CLERK Eldon Morfin MD LAB - PATHOLOGY/CYTOLOGY ORDERAB LES Final Result DERMATOPATHOLOGY LABORATORY [facility] - Department of Dermatology [facility] [address] [place] [address], [address]rd [address] [phone] documented in this encounter Visit Diagnoses Not on filedocumented in this encounter Care Teams Ux Designer Relationship Specialty Start Date End Date Nikky Mathews MD [address] [place] [phone] PCP - General Internal Medicine 09/01/11 documented as of this encounter
--- OUTSIDE RECORDS SUMMARY | 2024-12-01 14:59 | XMS_ITS | Clinical Summary ---
Author Organization [facility] [employer] Address [address] [facility] [place] [address] Care Team Providers Care Greenkeeper Name Role Phone Nikky Mathews MD Primary Care Provider [phone] Source Comments [facility],non-owned Affiliates and Associated Physician Practices is amultiple site organization consisting of ambulatory clinics and hospital sitesin [place], [place], [place] and [place]. This disclosure is being madepursuant to the Care Everywhere program and may not contain all information available regarding this patient. Last updated 18.[facility] Allergies No known active allergies Medications * [...] 81 mg by mouth once daily. Active Encounters Date Type Department Care Team Description 11/10/2024 Telephone [facility] ENDOSCOPY [address] [place] [address] Rekha Gray Procedure (External Referral, Egd+ESD, Dr. Eid ) 11/09/2024 Telephone [facility] ENDOSCOPY [address] [place] [address] Rekha Gray Follow-up from Last 3 Months Family History Medical History Relation Name Comments [...] on file Legal Sex Male 1:09 PM CONCRETE SPREADER Gender Identity Male 11/11/2024 4:55 PM CDT Sexual Orientation Straight 11/11/2024 4: 55 PM CDT Last Filed Vital Signs Vital Sign Reading Time Taken Comments Blood Pressure 193/90 09/01/2011 1:15 PM CONCRETE SPREADER Pulse 88 09/01/2011 1:15 PM CONCRETE SPREADER Temperature 36.6 C (97.9 F) 09/01/2011 1:15 PM CONCRETE SPREADER Respiratory Rate 18 09/01/2011 1:15 PM CONCRETE SPREADER Oxygen Saturation - - Inhaled Oxygen Concentration - - Weight 79.4 kg (175 lb) 09/01/2011 1:15 PM CONCRETE SPREADER Height 174 cm (5' 8.5 ) 09/01/2011 1:15 PM CONCRETE SPREADER Body Mass Index 26.22 09/01/2011 1:15 PM CONCRETE SPREADER Plan of Treatment Upcoming Encounters Date Type Department Care Team (Latest Contact Info) Description 12/21/2024 9:50 AM CDT Hospital Encounter [facility] ENDOSCOPY [address] [place] [address] Karthik Anderson MD [facility] [place] [phone] Surgery General 12/21/2024 9:50 AM CDT - 12/21/2024 11:50 AM CDT Surgery [facility] ENDOSCOPY [address] [place] [address] Karthik Anderson MD [facility] [place] [phone] Egd+ESD Scheduled Procedures Name Priority Associated Diagnoses Date/Ti me ESOPHAGOGASTRODUODENOSCOPY ( EGD) DIAGNOSTIC Congenital malformation of stomach 12/21/2024 9:50 AM CDT Health Maintenance Due Date Last Done Comments COLOGUARD (AGES 45-75) - COLON CA SCREENING 1952 COLON MONITORING 1952 COLONOSCOPY [...] 2) 2002 AAA SCREENING 2017 COVID-19 VACCINE (1 - season) 2024 DEPRESSION SCREENING 07/13/2024 INFLUENZA VACCINE (Season Ended) 2025 04/12/2022, 04/08/2021, 05/10/2019, Additional history exists Respiratory Syncytial Virus (RSV) Vaccine Pt: or [...] to complete this topic MENINGOCOCCAL (Group B) VACCINE SHARED DECISION-MAKING Aged Out No longer eligible based on patient's age to complete this topic MENINGOCOCCAL GROUPS A/C/Y/W VACCINE Aged Out No longer eligible based on patient's age to complete this topic Insurance [facility] MEDICARE [employer] SELF PAY NO INSURANCE Member Subscriber Plan / Payer (Ef fective for All Dates) Name:Tolu Jha Member ID:Not on file Relation to Subscriber:Not on file Name:TOLU JHA Subscriber ID:Not on file (Home) Address: [address] [place] [id number] Payer ID:Not on file Group ID:Not on file Type:Self Pay Address: [place], [place] Care Teams Greenkeeper Relationship Specialty Start Date End Date Nikky Mathews MD [address] [place] [address] PCP - General Internal Medicine 09/01/11
--- OUTSIDE RECORDS SUMMARY | 2024-12-01 14:59 | XMS_ITS | Encounter Summary ---
Author Organization [facility] Address [address] [place] [address] Phone Care Team Providers Care Die Repair Name Role Phone Lio Reveles MD Primary Care Provider + [phone] Vahe Rouse MD Unavailable [phone] Emily Staples RN Unavailable Unavailable Gisselle Morgan RN Unavailable Unavaila Alie Henao RN Unavailable Unavailable Kalyani Muller Unavailable Unavailable Encounter Details Date Type Department Care Team (Late st Contact Info) Description 01/15/2024 Telephone [facility] Cardiology [address] [facility] Advanced Medicine 8th [place] [address] [place] [address] Benji Esparza MD [address] [facility] [address] [place] [address] Social History Tobacco Use Types Packs/Day Years Used Date Smoking Tobacco: Former Cigarettes [facility] Utilities Answer Date Recorded In the past 12 months has [employer] electric, gas, oil, or water company threatened [...] week 11/02/2023 How often do you attend [facility] or church services? Never 11/02/2023 Do you belong to any clubs o r organizations such as baptist groups, unions, fraternal or athletic groups, or [...] on file Legal Sex Male 5:49 AM GENDER STUDIES PROFESSOR Gender Identity Male 03/25/2023 11:15 AM CDT Sexual Orientation Not on file documented as of this encounter Plan of Treatment Not on file documented as of this encounter Visit Diagnoses Not on filedocumented in this encounter Care Teams Die Repair Relationship Specialty Start Date End Date Lio Reveles MD PCP - General Internal Medicine 10/24/23 Vahe Rouse MD [address] [facility] [address] [place] [address] Referring Physician Neurology 01/04/24 Emily Staples, cash sales audit clerk Failure Coordinator Transplant 05/03/24 Gisselle Morgan, cash sales audit clerk Failure Coordinator 05/03/24 Alie Joyner, replenishment analystChild Psychiatrist 10/31/24 Kalyani Muller Primary Pickling Operator Transplant 10/31/24 documented as of this encounter
--- OUTSIDE RECORDS SUMMARY | 2024-12-01 14:59 | XMS_ITS | Referral Summary ---
Author Organization [facility] Physician Office Building [address] [place] [address] Care Team Providers Care Consulting Systems Engineer Name Role Phone Lio Reveles MD Primary Care Provider + [phone] Vahe Rouse MD Unavailable [phone] Emily Staples RN Unavailable Unavailable Gisselle Morgan RN Unavailable Unavaila Alie Henao RN Unavailable Unavailable Kalyani Muller Unavailable Unavailable Encounters Date Type Department Care Team Description 11/01/2024 Telephone [facility] Cardiology [facility] Advanced Medicine 8th [place] [address] [place] [address] Yeison Tom MD 11/01/2024 Telephone [facility] Transplant Heart [address] [facility] [address] [phone] [place] [address] Avinash Cleaning 10/31/2024 Telephone [facility] Transplant Heart [address] [facility] [id number] [place] [address] Karina Amador 10/19/2024 Documentation Orthopaedic Surgery Fer Pizano BS 10/17/2024 Orders Only [facility] Cardiology [address] [place] [address] Advanced Medicine 8th [place] [address] [place] [address] Yeison Tom MD 09/14/2024 10:00 AM AMORTIZATION CLERK Office Visit [facility] Cardiology [address] [place] [address] Advanced Medicine 8th [place] [address] [place] [address] Pratibha Jennings NP Presence of automatic (implantable) cardiac defibrillator (Primary Dx); Ischemic cardiomyopathy from Last 3 Months Allergies No known [...] x 5/32 needle USE FOUR TIMES DAILY 4 Active metoprolol XL (TOPROL-XL) 50 mg extended release tabletIndications :chronic heart failure,hypertens ion Take 1 tablet (50 mg total) by mouth daily before breakfast 90 tablet 2 5 Active donepeziL (ARICEPT) 5 mg tablet Take 1 tablet (5 mg total) by mouth nightly 30 tablet 5 5 04/03/20 Active Active Problems Problem Noted Date Diagnosed [...] 11/06/2023 Assessment & Plan (09/14/2024 11:48 AM AMORTIZATION CLERK): Denies therapies. 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 Denies angina. [...] to 1.5 L - Trend BMP - 4/15: Na 127 (133) - 10/26: Na 133 [...] Tobacco: Never Tobacco Cessation:Counseling Given: Not Answered [place] [employer] Answer Date Recorded In the past 12 months has [employer], gas, oil, or water [employer] threatened to shut off services in your [...] week 11/02/2023 How often do you attend [facility] or pentecostalism services? Never 11/02/2023 Do you belong to any clubs o r organizations such as nondenominational groups, unions, fraternal or athletic groups, or [...] place to sleep or slept in a assisted (including now)? No 11/02/2023 Personal Safety Answer Date Recorded Have you ever been in or are you currently in a harmful physical or emotional relationship or is someone making you feel afraid or unsafe? Denies 03/03/2024 Sex and Gender Information Value Date Recorded Sex Assigned at Not on file Legal Sex Male 5:49 AM AMORTIZATION CLERK Gender Identity Male 03/25/2023 11:15 AM CDT Sexual Orientation Not on file Last Filed Vital Signs Vital Sign Reading Time Taken Comments Blood Pressure 126/75 09/14/2024 10:13 AM AMORTIZATION CLERK Pulse 92 09/14/2024 10:13 AM AMORTIZATION CLERK Temperature 36.6 C (97.8 F) 06/27/2024 10:39 AM AMORTIZATION CLERK Respiratory Rate 25 03/03/2024 2:20 PM CDT Oxygen Saturation 96% 09/14/2024 10:13 AM AMORTIZATION CLERK Inhaled Oxygen Concentration - - Weight 77.8 kg (171 lb 9.6 oz) 09/14/2024 10:13 AM AMORTIZATION CLERK Height 171.5 cm (5' 7.5 ) 09/14/2024 10:13 AM CS T Body Mass Index 26.48 09/14/2024 10:13 AM AMORTIZATION CLERK Plan of Treatment Not on file Medical Devices Implanted Type Area Hose Tester Device Identifier Shelf Expiration Date Model / Serial / Lot [employer] Kandice Angio-Seal Vip 6fr Closere Device [id number] - [id number] - [id number] Implanted:Qty: 1 on 11/05/2023 by Héctor Richards MD at [facility] Collagen Right: Groin [employer] Kandice 06/15/2024 [id number] / [id number] / [id number] [employer] Kandice Defibrillator Single Chamber Vigilant 0.99x5.37x7.36cm D232 - [id number] - [id number] Implanted:Qty: 1 on 03/03/2024 by Yeison Tom MD at [facility] ICD Left: Chest Wall [employer] Kandice 06/16/2025 D232 / [id number] / [id number] [employer] Kandice Lead Cardioverter Defibrillator Bipolar Active Fixation Endocardium Steroid Eluting [place] 4 Front [id number] 0672 - [id number] - [id number] Implanted:Qty: 1 on 03/03/2024 by Yeison Tom MD at [facility] Lead Right: Ventricle [employer] Kandice 09/24/2025 0672 / [id number] / [id number] Allosource Crushed Fresh Frozen Cancellous 1-4mm Graft 15ml Bone [id number] - [id number] Implanted:Qty: 1 on 10/28/2023 by Clyde Dotson MD at [facility] N/A: Spine Cervical [employer]ource 12/15/2027 [id number] / / [id number] Nuvasive Inc Screw Spine Reline C Lock Open Non-Sterile Latex Free [id number] - [id number] Implanted:Qty: 10 on 10/28/2023 by Clyde Dotson MD at [facility] N/A: Spine Cervical [employer] [id number] / / [employer] Screw Spinal Posterior Cervical Solid Reline C 3.5x14mm [id number] - [id number] Implanted:Qty: 6 on 10/28/2023 by Clyde Dotson MD at [facility] N/A: Spine Cervical [employer] Inc [id number] / / Nuv[employer] Inc Reline C Screw 3.5x20mm Ma [id number] - [id number] Implanted:Qty: 2 on 10/28/2023 by Clyde Dotson MD at [facility] N/A: Spine Cervical [employer] Inc [id number] / / [employer] Screw Spinal Thoracic Solid Reline 4.0x24mm Titanium [id number] - [id number] Implanted:Qty: 2 on 10/28/2023 by Clyde Dotson MD at [facility] N/A: Spine Cervical Nuv[employer] Inc [id number] / / Nuvasive Inc Melvin Spinal Posterior Cervical Prebent Reline 4.0x80mm Titanium [id number] - [id number] Implanted:Qty: 2 on 10/28/2023 by Clyde Dotson MD at [facility] N/A: Spine Cervical Nuv[employer] Inc [id number] / / Procedures Procedure Name Priority Date/Time Associated Diagnosis Comments DEVICE CHECK - REMOTE Routine 10/17/2024 6:10 AM CDT BASIC METABOLIC PANEL Routine 06/21/2024 1:50 PM AMORTIZATION CLERK Ischemic cardiomyopathy LIPID PANEL Routine 01/06/2024 11:37 [...] estimate based on prior usage) Presenting Rhythm (MO) Ventricular Sensing (VS) --- rate 55 Arrhythmic events (AE) No new arrhythmic events in monitoring period Transmission Information (TI) Device Summary Report Procedure Note Yeison Tom MD - 10/20/2024 Interpretation Summary: Battery and Leads (BL) Normal parameters noted on battery and lead(s) --- 15 years remaining(this is an estimate based on prior usage) Presenting Rhythm (MO) Ventricular Sensing (VS) --- rate 55 Arrhythmic events (AE) No new arrhythmic events in monitoring period Transmission Information (TI) Device Summary Report Yeison Tom MD [facility] PROCEDURES Final Result * (ABNORMAL) Basic metabolic panel (06/21/2024 1:50 PM AMORTIZATION CLERK) [facility] Glucose 133(H) 70 - 99 mg/dL [facility] [...] [facility] - 01 Blood 06/21/2024 1:50 PM AMORTIZATION CLERK 06/21/2024 Narrative [facility] - 06/22/2024 7:10 AM AMORTIZATION CLERK Performed at: [address] [place] [id number] Outpatient Services Director: Carlitos Jung PhD, Phone: [phone] us Vickey Marinelli MD PhD LAB BLOOD [...] revised on 2018. Triglycerides 368(H) <=149 mg/dL [facility] Comment: Interpretive Data Ages < or [...] revised on 2018. HDL 31(L) >=40 mg/dL [facility] Comment: Interpretive Data Ages < or [...] 2018. LDL, calculated 138(H) <=129 mg/dL [facility] Comment: Interpretive Data Ages < or [...] on 2018. Non-HDL Cholesterol 212 mg/dL [facility] Comment: Interpretive Data Ages < or [...] revised on 2018. Chol/HDL ratio 8 [facility] Blood 01/06/2024 11:3 7 AM CDT 01/06/2024 2:09 PM CDT us Benji Esparza MD LAB BLOOD ORDERABLES Final Result [facility] Department [place] [address] * CT Chest Abdomen Pelvis W Contrast [...] % Estimated Average Glucose 134 mg/dL [facility] Comment: The ADA recommends reporting an [...] MD LAB BLOOD ORDERABLES Final Res ult [facility] Department [place] [address] from Last 3 Months or Most Recently Relevant to Health Maintenance Insurance MEDICARE [facility] [place] MEDICARE [employer] [facility] [place] Advance Directives For more information, please contact: [phone] * Full Code (Latest Code Status on [...] 11:18 AM 10/27/2023 9:08 PM Care Teams Consulting Systems Engineer Relationship Specialty Start Date End Date Lio Reveles MD PCP - General Internal Medicine 10/24/23 Vahe Rouse MD [address] [facility] [address] [place] [address] Referring Physician Neurology 01/04/24 Emily Staples, bridge gang worker Failure Coordinator Transplant 05/03/24 Gisselle Morgan, bridge gang worker Failure Coordinator 05/03/24 Alie Joyner RN Help Desk Internship 10/31/24 Kalyani Muller Primary Manager Drug Transplant 10/31/24
== END 2024-12-01 14:54 | disposition home or self-care (01) ==
PROVIDERS: PCP Internal Medicine; Visit Provider Internal Medicine
DX: J98.8 Other specified respiratory disorders (principal); R06.2 Wheezing
CPT/HCPCS: 71046

== ENCOUNTER 2024-12-12 10:44 | Emergency (ER) | payer MEDICARE, SELFPAY ==
[2024-12-12] VITALS (9 sets, daily range): BP systolic 116–166; BP diastolic 67–100; PULSE 61–87; RESP 14–18; TEMP 36.3; O2SAT 98–100
--- NOTE | ~2024-12-12 | XR_ITS ---
EXAMINATION: XR chest 2V 12/12/2024 13:01 INDICATION: Cough and dyspnea PROCEDURE: PA and lateral views the chest COMPARISON: Comparison to multiple prior studies sequentially, with oldest reviewed study dated 04/13. FINDINGS: . There is basilar atelectasis. No focal pneumonia, edema, effusion or pneumothorax. The ca rdiomediastinal silhouette is within normal limits. There are no pleural effusions. There is no pne umothorax suspected. Pacemaker lead position unchanged. IMPRESSION: 1: Basilar atelectasis. Reviewed, dictated and finalized at location A. IMPRESSION: 1: Basilar atelectasis.
--- OUTSIDE RECORDS SUMMARY | 2024-12-12 11:17 | XMS_ITS | Encounter Summary ---
Author Organization [facility] Healthcare Address [address] [place] [address] Care Team Providers Care Ecological Technical Officer Name Role Phone Lio Reveles MD Primary Care Provider + [phone] Vahe Rouse MD Unavailable [phone] Emily Staples RN Unavailable Unavailable Gisselle Morgan RN Unavailable Unavaila Alie Henao RN Unavailable Unavailable Kalyani Muller Unavailable Unavailable Encounter Details Date Type Department Care Team (Late st Contact Info) Description 10/19/2024 Documentation Orthopaedic Surgery Fer Pizano BS Social History Tobacco Use Types Packs/Day Years Used Date Smoking Tobacco: Former Cigarettes Q uit: 2000 Passive Smoke Exposure: Never Smokeless Tobacco: Never [facility] Utilities Answer Date Recorded In the past 12 months has [employer] electric, gas, oil, or water company threatened [...] often do you attend chur ch or gnosticism services? Never 11/02/2023 Do you belong to any clubs o r organizations such as zoroastrian groups, unions, fraternal or athletic groups, or [...] on file Legal Sex Male 5:49 AM MEDICAL RECORDS RECEPTIONIST Gender Identity Male 03/25/2023 11:15 AM CDT Sexual Orientation Not on file documented as of this encounter Plan of Treatment Not on file documented as of this encounter Visit Diagnoses Not on filedocumented in this encounter Care Teams Ecological Technical Officer Relationship Specialty Start Date End Date Lio Reveles MD PCP - General Internal Medicine 10/24/23 Vahe Rouse MD [address] [facility] [address] [place] [address] Referring Physician Neurology 01/04/24 Emily Staples, watershed engineer Failure Coordinator Transplant 05/03/24 Gisselle Morgan, watershed engineer Failure Coordinator 05/03/24 Alie Joyner, peat shredder tenderBulk Tank Car Unloader 10/31/24 Kalyani Muller Primary Forms Analyst Transplant 10/31/24 documented as of this encounter
--- OUTSIDE RECORDS SUMMARY | 2024-12-12 11:18 | XMS_ITS | Encounter Summary ---
Author Organization [facility] Address [address] [place] [address] Care Team Providers Care Last Remodeler Repairer Name Role Phone Nikky Mathews MD Primary Care Provider [phone] Encounter Details Date Type Department Care Team (Late st Contact Info) Description 05/21/2023 Lab Requisition [facility] - DermPath Lab [address] [facility], [place] [address] Eldon Morfin MD [address] [place], [place] [id number] Social History Tobacco Use Types Packs/Day Years Used Date Smoking Tobacco: Former Cigarettes Q uit: 08/01/1998 Smokeless Tobacco: Never Comments:OCCASIONAL CIGAR Alcohol Use Standard Drinks/Week Comments No 0 (1 standard drink = 0.6 oz pur e alcohol) Sex and Gender Information Value Date Recorded Sex Assigned at Not on file Legal Sex Male 1:09 PM AIR TURNING MACHINE FEEDER Gender Identity Male 11/11/2024 4:55 PM CDT Sexual Orientation Straight 11/11/2024 4: 55 PM CDT documented as of this encounter Plan of Treatment Upcoming Encounters Date Type Department Care Team (Latest Contact Info) Description 12/21/2024 9:50 AM CDT Hospital Encounter [facility] ENDOSCOPY [address] [place] [address] Karthik Anderson MD [address] [place] [address] Surgery General 12/21/2024 9:50 AM CDT - 12/21/2024 11:50 AM CDT Surgery [facility] ENDOSCOPY [address] [place] [phone] Karthik Anderson MD [address] [place] [phone] Egd+ESD Scheduled Procedures Name Priority Associated Diagnoses Date/Ti ok ESOPHAGOGASTRODUODENOSCOPY ( EGD) DIAGNOSTIC Congenital malformation of stomach 12/21/2024 9:50 AM CDT documented as of this encounter Procedures Procedure Name Priority Date/Time Associated Diagnosis Comments DERMATOPATHOLOGY Routine 05/20/2023 12:0 0 AM AIR TURNING MACHINE FEEDER documented in this encounter Results * DERMATOPATHOLOGY (05/20/2023 12:00 AM AIR TURNING MACHINE FEEDER) Case Report Dermatopathology Report Case: [id number] Authorizing Provider: Eldon Morfin MD Collected: 05/20/2023 12:00 AM Ordering Location: [facility] DermPath Lab Received: 05/21/2023 07:40 AM Pathologist: Miranda Yañez MD Specimen: Skin, right ant neck 3 2:27 PM [facility] DERMATOPATHOLOGY [facility]ORATORY Final Diagnosis Specimen A. SKIN, right ant neck: BENIGN VERRUCOUS KERATOSIS, INFLAMED (L82.1) (see microscopic description) 3 2:27 PM [facility] DERMATOPATHOLOGY LABORAT[facility] at [address]27 AIR TURNING MACHINE FEEDER Clinical History Nevus vs BCC 3 2:27 PM [facility] DERMATOPATHOLOGY [facility]ORAT[facility] Gross Description Specimen A: Received is one formalin filled container labeled with the patient's name and designated right ant neck. The specimen consists of a(2) pieces shave biopsy measuring 5x3x1, 5x4x1 mm. Jar 0. 3 2:27 PM [facility] DERMATOPATHOLOGY [facility]OR[facility] Microscopic Description Specimen A. SKIN, right ant neck: Sections show hyperkeratosis, papillomatosis, hypergranulosis, and acanthosis. Inflammatory cells are present within the dermis. These histological findings can be seen in a verruca vulgaris or a seborrheic keratosis. Additional deeper sections were obtained and reviewed. 3 2:27 PM [facility] DERMATOPATHOLOGY [facility]ORAT[facility] Disclaimer An external and internal positive and negative controls are appropriate for the histochemical, immunohistochemical and immunofluorescence stain(s) in this case (if any), except where stated explicitly. The performance characteristics of the stain(s) cited in this report were developed and its performance characteristic determined by the Dermatopathology Laboratory at [facility], directed by Dr. Marito Guerrero. These tests need not be, and therefore are not, approved by the [place] Food and Drug Administration. The tests are used for clinical purposes. Billing Codes Specimen Charges Stain Charges 67616 1 3 2:27 PM [facility] DERMATOPATH[facility]Y [facility]OR[facility] Embedded Images 3 2:27 PM [facility] DERMATOPATH[facility]Y [facility] Pathology/Cytolog y TISSUE SPECIMEN FROM SKIN / Unknown 05/20/2023 05/21/2023 7:40 AM AIR TURNING MACHINE FEEDER Eldon Morfin MD LAB - PATHOLOGY/CYTOLOGY ORDERAB LES Final Result DERMATOPATHOLOGY LABORATORY [facility] - Department of Dermatology [facility] Medicine [address] [place] [address], [address] [phone] documented in this encounter Visit Diagnoses Not on filedocumented in this encounter Care Teams Last Remodeler Repairer Relationship Specialty Start Date End Date Nikky Mathews MD [address] [place] [phone] PCP - General Internal Medicine 09/01/11 documented as of this encounter
--- OUTSIDE RECORDS SUMMARY | 2024-12-12 11:18 | XMS_ITS | Referral Summary ---
Author Organization [facility] Physician Office Building [id number] [place] [phone] Care Team Providers Care Dietary Supervisor Name Role Phone Lio Reveles MD Primary Care Provider [phone] Vahe Rouse MD Unavailable Emily Staples RN Unavailable Unavailable Gisselle Morgan RN Unavailable Unavaila Alie Henao RN Unavailable Unavailable Kalyani Muller Unavailable Unavailable Encounters Date Type Department Care Team Description 11/01/2024 Telephone [facility] Cardiology [facility] Advanced Medicine [address]th [place] [address] [place] [address] Yeison Tom MD 11/01/2024 Telephone [facility] Transplant Heart [address] [facility] [address] [phone] [place] [address] Avinash Cleaning 10/31/2024 Telephone [facility] Transplant Heart [address] [facility] [address] [id number] [place] [address] Karina Amador 10/19/2024 Documentation Orthopaedic Surgery Fer Pizano BS 10/17/2024 Orders Only [facility] Cardiology [address] [place] [address] Advanced Medicine [address]th [place] [address] [place] [address] Yeison Tom MD 09/14/2024 10:00 AM LPN CMA Office Visit [facility] Cardiology [address] [place] [address] Advanced Medicine [address]th [place] [address] [place] [address] Pratibha Jennings NP Presence of automatic (implantable) [...] 11/06/2023 Assessment & Plan (09/14/2024 11:48 AM LPN CMA): Denies therapies. Central cord syndrome at C4 level of cervical sp inal cord 11/06/2023 Central cord syndrome, initial encounter 024 Ischemic cardiomyopathy 10/28/2023 Assessment & Plan (09/14/2024 11:47 AM LPN CMA): ICM: Chronic systolic heart failure. Denies angina. [...] Tobacco: Never Tobacco Cessation:Counseling Given: Not Answered [facility] [employer] Answer Date Recorded In the past 12 months has [employer], gas, oil, or water [employer] threatened to shut off services in your [...] week 11/02/2023 How often do you attend [facility] or druze services? Never 11/02/2023 Do you belong to any clubs o r organizations such as yazidi groups, unions, fraternal or athletic groups, or [...] on file Legal Sex Male 5:49 AM LPN CMA Gender Identity Male 03/25/2023 11:15 AM CDT Sexual Orientation Not on file Last Filed Vital Signs Vital Sign Reading Time Taken Comments Blood Pressure 126/75 09/14/2024 10:13 AM LPN CMA Pulse 92 09/14/2024 10:13 AM LPN CMA Temperature 36.6 C (97.8 F) 06/27/2024 10:39 AM LPN CMA Respiratory Rate 25 03/03/2024 2:20 PM CDT Oxygen Saturation 96% 09/14/2024 10:13 AM LPN CMA Inhaled Oxygen Concentration - - Weight 77.8 kg (171 lb 9.6 oz) 09/14/2024 10:13 AM LPN CMA Height 171.5 cm (5' 7.5) 09/14/2024 10:13 AM CS T Body Mass Index 26.48 09/14/2024 10:13 AM LPN CMA Plan of Treatment Not on file Medical Devices Implanted Type Area Merchandise Appraiser Device Identifier Shelf Expiration Date Model / Serial / Lot TerumQueue-it Kandice Angio-Seal Vip 6fr Closere Device [id number] - [id number] - [id number] Implanted:Qty: 1 on 11/05/2023 by Héctor Richards MD at [facility] Collagen Right: Groin [employer] Kandice 06/15/2024 [id number] / [id number] / [id number] [employer] Kandice Defibrillator Single Chamber Vigilant 0.99x5.37x7.36cm D232 - [id number] - [id number] Implanted:Qty: 1 on 03/03/2024 by Yeison Tom MD at [facility] ICD Left: Chest Wall [employer] Kandice 06/16/2025 D232 / [id number] / [id number] [employer] Kandice Lead Cardioverter Defibrillator Bipolar Active Fixation Endocardium Steroid Eluting [place] 4 Front 7.0mpz40zac28af 0672 - [id number] - [id number] Implanted:Qty: 1 on 03/03/2024 by Yeison Tom MD at [facility] Lead Right: Ventricle [employer] Kandice 09/24/2025 0672 / [id number] / [id number] Allosource Crushed Fresh Frozen Cancellous 1-4mm Graft 15ml Bone [id number] - [id number] Implanted:Qty: 1 on 10/28/2023 by Clyde Dotson MD at [facility] N/A: Spine Cervical [employer]ource 12/15/2027 [id number] / / [id number] [employer]uv[employer] Screw Spine Reline C Lock Open Non-Sterile Latex Free [id number] - [id number] Implanted:Qty: 10 on 10/28/2023 by Clyde Dotson MD at [facility] N/A: Spine Cervical [employer] [id number] / / [employer] Screw Spinal Posterior Cervical Solid Reline C 3.5x14mm [id number] - [id number] Implanted:Qty: 6 on 10/28/2023 by Clyde Dotson MD at [facility] N/A: Spine Cervical [employer] [id number] / / [employer]uv[employer] Reline C Screw 3.5x20mm Ma [id number] - [id number] Implanted:Qty: 2 on 10/28/2023 by Clyde Dotson MD at [facility] N/A: Spine Cervical [employer] [id number] / / [employer] Screw Spinal Thoracic Solid Reline 4.0x24mm Titanium [id number] - [id number] Implanted:Qty: 2 on 10/28/2023 by Clyde Dotson MD at [facility] N/A: Spine Cervical [employer] Inc [id number] / / Nuv[employer] Inc Melvin Spinal Posterior Cervical Prebent Reline 4.0x80mm Titanium [id number] - [id number] Implanted:Qty: 2 on 10/28/2023 by Clyde Dotson MD at [facility] N/A: Spine Cervical [employer] Inc [id number] / / Procedures Procedure Name Priority Date/Time Associated Diagnosis Comments DEVICE CHECK - REMOTE Routine 10/17/2024 6:10 AM CDT BASIC METABOLIC PANEL Routine 06/21/2024 1:50 PM LPN CMA Ischemic cardiomyopathy LIPID PANEL Routine 01/06/2024 11:37 [...] estimate based on prior usage) Presenting Rhythm (MT) Ventricular Sensing (VS) --- rate 55 Arrhythmic events (AE) No new arrhythmic events in monitoring period Transmission Information (TI) Device Summary Report Procedure Note Yeison Tom MD - 10/20/2024 Interpretation Summary: Battery and Leads (BL) Normal parameters noted on battery and lead(s) --- 15 years remaining(this is an estimate based on prior usage) Presenting Rhythm (MT) Ventricular Sensing (VS) --- rate 55 Arrhythmic events (AE) No new arrhythmic events in monitoring period Transmission Information (TI) Device Summary Report Yeison Tom MD [facility] PROCEDURES Final Result * (ABNORMAL) Basic metabolic panel (06/21/2024 1:50 PM LPN CMA) [facility] Glucose 133(H) 70 - 99 mg/dL [...] [facility] - 01 Blood 06/21/2024 1:50 PM LPN CMA 06/21/2024 Narrative [facility] - 06/22/2024 7:10 AM LPN CMA Performed at: [address] [place] [id number] Non Destructive Tester: Carlitos Jung PhD, Phone: [phone] us Vickey Marinelli MD PhD LAB BLOOD [...] on 2018. Triglycerides 368(H) <=149 mg/dL [facility] Comment: Interpretive Data Ages < [...] on 2018. HDL 31(L) >=40 mg/dL [facility] Comment: Interpretive Data Ages < [...] 2018. LDL, calculated 138(H) <=129 mg/dL [facility] Comment: Interpretive Data Ages < [...] revised on 2018. Non-HDL Cholesterol 212 mg/dL [facility] Comment: Interpretive Data Ages < [...] last revised on 2018. Chol/HDL ratio 8 [facility] Blood 01/06/2024 11:3 7 AM CDT 01/06/2024 2:09 PM CDT us Benji Esparza MD LAB BLOOD ORDERABLES Final Result [facility] [place] [address] * CT Chest Abdomen Pelvis W Contrast [...] % Estimated Average Glucose 134 mg/dL [facility] Comment: The ADA recommends reporting an estimated [...] ORDERABLES Final Res ult [facility] Department [place] [address] from Last 3 Months or Most Recently Relevant to Health Maintenance Insurance MEDICARE [facility] [place] MEDICARE We [facility] [place] Advance Directives For more information, please contact: [phone] * Full Code (Latest Code Status on [...] 11:18 AM 10/27/2023 9:08 PM Care Teams Dietary Supervisor Relationship Specialty Start Date End Date Lio Reveles MD PCP - General Internal Medicine 10/24/23 Vahe Rouse MD [address] [facility] [address] [place] [address] Referring Physician Neurology 01/04/24 Emily Staples, refinery operator light ends recovery Failure Coordinator Transplant 05/03/24 Gisselle Morgan, refinery operator light ends recovery Failure Coordinator 05/03/24 Alie Joyner RN Foxer 10/31/24 Kalyani Muller Primary Fleet Sales Associate Transplant 10/31/24
--- OUTSIDE RECORDS SUMMARY | 2024-12-12 11:18 | XMS_ITS | Data Portability ---
Author Organization [facility] [place] Schmid Address [address] [facility] [place] [address] Care Team Providers Care C Engineer Name Role Phone NOAM REVELES Primary Care Provider [phone] Assessment Encounter Date Assessment Date Assessment LastModified by Organization Details LastModified Time 04/04/2024 04/04/2024 he will continue current therapy follow up in 2 months advised to get flu COVID and RSV shots [email or web address] Not available 04/09/2024 13:58:54 05/16/2024 05/16/2024 needs a spacer for his inhaler. Healthy lifestyle care instructions seems to be doing well clinically following up the pneumonia diagnosis he will keep his regular appointment [email or web address] Not available 05/22/2024 16:41:30 06/06/2024 06/06/2024 clinically he has pneumonia has resolved blood pressure looks good no signs of decompensated heart failure follow up with me September 01, 2024 Not available 06/09/2024 14:58:12 09/05/2024 09/05/2024 fall seems to be doing fine diarrhea is getting better order CBC CMP lipid A1c urinary albumin creatinine ratio continue current therapy follow up in 3 months [email or web address] Not available 09/05/2024 20:56:32 11/08/2024 11/08/2024 Augmentin 875 b.i.d. for a week albuterol inhaler he will let me know if he is not improved also opportunity here for healthy lifestyle care instructions [email or web address] Not available 11/08/2024 21:58:15 Plan of Treatment Reminders Order Date Submit Date Provider Last Modified By Organization Details Last Modified Time Details Appointments ANY 15 2024 02:00P Brigitte Reveles MD Not available Not available Not available Lab HbA1c (hemoglob in A1c), blood 2024 025 [facility], [address] [place] [address] 2, [place], [address], 09/07/2024 07:08:15 albumin/c reatinine , mass ratio, urine 2024 025 [facility], [address] [place] [address] 2, [place], [address], 09/07/2024 07:08:12 lipid panel, serum 2024 025 [facility], [address] [place] [address] 2, [place], [address], 09/07/2024 07:08:13 CMP, serum or plasma 2024 025 [facility], [address] [place] [address] 2, [place], [address], 09/07/2024 07:08:14 CBC w/ auto diff 2024 025 [facility], [address] [place] [address] 2, [place], [address], 09/07/2024 07:08:16 Referral None recorded. Procedures None recorded. Surgeries None recorded. Imaging None recorded. Medication Orders amoxicill in 875 mg-potass ium clavulana te 125 mg tablet 2024 025 [id number], [address] [facility] [address], [place], [place], [id number], 12/09/2024 15:59:17 albuterol sulfate HFA 90 mcg/actua tion aerosol inhaler 2024 025 [email or web address] [facility] #81975, [address], [place], [place], [id number], 11/08/2024 17:14:12 albuterol sulfate HFA 90 mcg/actua tion aerosol inhaler 2023 024 [facility] #[id number], [address], [place], [place], [id number], 05/16/2024 17:47:37 Patient TargetsNo targets recorded. Patient Instructions Encounter Date Encounter Id Patient Instructions Last Modified By Organization Details Last Modified Time 04/04/2024 [id number] A healthy lifestyle: care instructions [email or web address] Not available 04/09/2024 14:02:03 05/16/2024 [id number] A healthy lifestyle: care instructions [email or web address] Not available 05/16/2024 17:47:37 09/05/2024 [id number] A healthy lifestyle: care instructions Not available 09/05/2024 11:45:04 11/08/2024 [id number] A healthy lifestyle: care instructions [email or web address] Not available 11/08/2024 17:14:12 Reason for Referral None Reported. Results Created Date Observation Date Name Description Value Unit Range Abnormal Flag Note LastModifiedBy Organization Detail LastModifiedTime 09/06/1909/07/2024 ALBUM IN/CR EATIN INE RATIO ,URIN E creatinine, urine 61.4 mg/dL notest ab. Not Available [facility] ([facility]) [address] [place], [address], 09/07/2024 07:08:12 09/06/1909/07/2024 ALBUM IN/CR EATIN INE RATIO ,URIN E albumin, urine 22.5 ug/mL notest ab. Not Available [facility] ([facility]) [address] [place], [address], 09/07/2024 07:08:12 09/06/1909/07/2024 ALBUM IN/CR EATIN INE RATIO ,URIN E alb/creat ratio 37 mg/g_ creat 0-29 above high normal Tesha l: 0 - 29 Moder ately incre ased: 30 - 300 Sever camila incre ased: >300 Not Available [facility] ([facility]) [address] [place], [address], 09/07/2024 07:08:12 09/06/19 25 09/07/2024 LIPID PANEL cholesterol, total 120 mg/dL 100-19 9 Not Available [facility] ([facility]) [address] [place], [address], 09/07/2024 07:08:13 09/06/19 25 09/07/2024 LIPID PANEL triglyceride s 78 mg/dL 0-149 Not Available [facility] ([facility]) [address] [place], [address], 09/07/2024 07:08:13 09/06/19 25 09/07/2024 LIPID PANEL HDL cholesterol 39 mg/dL >39 below low normal Not Available [facility] ([facility]) [address] [place], [address], 09/07/2024 07:08:13 09/06/19 25 09/07/2024 LIPID PANEL VLDL cholesterol renny 16 mg/dL 5-40 Not Available [facility] ([facility]) [address] [place], [address], 09/07/2024 07:08:13 09/06/19 25 09/07/2024 LIPID PANEL LDL chol calc (rust) 65 mg/dL 0-99 Not Available [facility] ([facility]) [address] [place], [address], 09/07/2024 07:08:13 09/06/19 25 09/07/2024 COMP. METAB OLIC PANEL (14) glucose 49 mg/dL 70-99 below low normal Not Available [facility] ([facility]) [address] [place], [address], 09/07/2024 07:08:14 09/06/19 25 09/07/2024 COMP. METAB OLIC PANEL (14) BUN 20 mg/dL 8-27 Not Available [facility] ([facility]) [address] [facility] [place], [address], 09/07/2024 07:08:14 09/06/19 25 09/07/2024 COMP. METAB OLIC PANEL (14) creatinine 1.18 mg/dL 0.76-1 .27 Not Available [facility] ([facility]) [address] [facility] [place], [address], 09/07/2024 07:08:14 09/06/19 25 09/07/2024 COMP. METAB OLIC PANEL (14) eGFR 66 mL/mi n/1.7 3 >59 Not Available [facility] ([facility]) [address] [facility] [place], [address], 09/07/2024 07:08:14 09/06/19 25 09/07/2024 COMP. METAB OLIC PANEL (14) BUN/creatini ne ratio 17 10-24 Not Available [facility] ([facility]) [address] [facility] [place], [address], 09/07/2024 07:08:14 09/06/19 25 09/07/2024 COMP. METAB OLIC PANEL (14) sodium 143 mmol/ L 134-14 4 Not Available [facility] ([facility]) [address] [facility] [place], [address], 09/07/2024 07:08:14 09/06/19 25 09/07/2024 COMP. METAB OLIC PANEL (14) potassium 4.5 mmol/ L 3.5-5. 2 Not Available [facility] ([facility]) [address] [facility] [place], [address], 09/07/2024 07:08:14 09/06/19 25 09/07/2024 COMP. METAB OLIC PANEL (14) chloride 105 mmol/ L 96-106 Not Available [facility] ([facility]) [address] [place], [address], 09/07/2024 07:08:14 09/06/19 25 09/07/2024 COMP. METAB OLIC PANEL (14) carbon dioxide, total 25 mmol/ L Not Available [facility] ([facility]) [address] [place], [address], 09/07/2024 07:08:14 09/06/1909/07/2024 COMP. METAB OLIC PANEL (14) calcium 9.8 mg/dL 8.6-10 .2 Not Available [facility] ([facility]) [address] [facility] [place], [address], 09/07/2024 07:08:14 09/06/1909/07/2024 COMP. METAB OLIC PANEL (14) protein, total 7.1 g/dL 6.0-8. 5 Not Available [facility] ([facility]) [address] [facility] [place], [address], 09/07/2024 07:08:14 09/06/19 25 09/07/2024 COMP. METAB OLIC PANEL (14) albumin 4.4 g/dL 3.8-4. 8 Not Available [facility] ([facility]) [address] [facility] [place], [address], 09/07/2024 07:08:14 09/06/1909/07/2024 COMP. METAB OLIC PANEL (14) globulin, total 2.7 g/dL 1.5-4. 5 Not Available [facility] ([facility]) [address] [facility] [place], [address], 09/07/2024 07:08:14 09/06/1909/07/2024 COMP. METAB OLIC PANEL (14) bilirubin, total 0.3 mg/dL 0.0-1. 2 Not Available [facility] ([facility]) [address] [place], [address], 09/07/2024 07:08:14 09/06/19 25 09/07/2024 COMP. METAB OLIC PANEL (14) alkaline phosphatase 62 IU/L 44-121 Not Available [facility] ([facility]) [address] [place], [address], 09/07/2024 07:08:14 09/06/19 25 09/07/2024 COMP. METAB OLIC PANEL (14) AST (SGOT) 20 IU/L 0-40 Not Available [facility] ([facility]) [address] [place], [address], 09/07/2024 07:08:14 09/06/19 25 09/07/2024 COMP. METAB OLIC PANEL (14) ALT (SGPT) 13 IU/L 0-44 Not Available [facility] ([facility]) [address] [place], [address], 09/07/2024 07:08:14 09/06/19 25 09/07/2024 HEMOG LOBIN A1C hemoglobin A1C 7.3 % 4.8-5. 6 above high normal Predi abete s: 5.7 - 6.4 Diabe rere: >6.4 Glyce jeannine contr ol for adult s with diabe rere: <7.0 Not Available [facility] ([facility]) [address] [place], [address], 09/07/2024 07:08:15 09/06/19 25 09/06/2024 CBC WITH DIFFE RENTI AL/PL ATELE T WBC 7.6 x10e3 /uL 3.4-10 .8 Not Available [facility] ([facility]) [address] [place], [address], 09/07/2024 07:08:16 09/06/19 25 09/06/2024 CBC WITH DIFFE RENTI AL/PL ATELE T RBC 4.58 x10e6 /uL 4.14-5 .80 Not Available [facility] ([facility]) [address] [facility], [place], [address], 09/07/2024 07:08:16 09/06/1909/06/2024 CBC WITH DIFFE RENTI AL/PL ATELE T hemoglobin 12.1 g/dL 13.0-1 7.7 below low normal Not Available [facility] ([facility]) [address] [place], [address], 09/07/2024 07:08:16 09/06/1909/06/2024 CBC WITH DIFFE RENTI AL/PL ATELE T hematocrit 40.1 % 37.5-5 1.0 Not Available [facility] ([facility]) [address] [facility], [place], [address], 09/07/2024 07:08:16 09/06/1909/06/2024 CBC WITH DIFFE RENTI AL/PL ATELE T MCV 88 fL 79-97 Not Available [facility] ([facility]) [address] [place], [address], 09/07/2024 07:08:16 09/06/1909/06/2024 CBC WITH DIFFE RENTI AL/PL ATELE T MCH 26.4 pg 26.6-3 3.0 below low normal Not Available [facility] ([facility]) [address] [place], [address], 09/07/2024 07:08:16 09/06/1909/06/2024 CBC WITH DIFFE RENTI AL/PL ATELE T MCHC 30.2 g/dL 31.5-3 5.7 below low normal Not Available [facility] ([facility]) [address] [place], [address], 09/07/2024 07:08:16 09/06/19 25 09/06/2024 CBC WITH DIFFE RENTI AL/PL ATELE T RDW 15.2 % 11.6-1 5.4 Not Available [facility] ([facility]) [address] [facility], [place], [address], 09/07/2024 07:08:16 09/06/19 25 09/06/2024 CBC WITH DIFFE RENTI AL/PL ATELE T platelets 320 x10e3 /uL 150-45 0 Not Available [facility] ([facility]) [address] [facility], [place], [address], 09/07/2024 07:08:16 09/06/19 25 09/06/2024 CBC WITH DIFFE RENTI AL/PL ATELE T neutrophils 54 % notest ab. Not Available [facility] ([facility]) [address] [facility], [place], [address], 09/07/2024 07:08:16 09/06/19 25 09/06/2024 CBC WITH DIFFE RENTI AL/PL ATELE T lymphs 23 % notest ab. Not Available [facility] ([facility]) [address] [facility], [place], [address], 09/07/2024 07:08:16 09/06/19 25 09/06/2024 CBC WITH DIFFE RENTI AL/PL ATELE T monocytes 11 % notest ab. Not Available [facility] ([facility]) [address] [facility], [place], [address], 09/07/2024 07:08:16 09/06/19 25 09/06/2024 CBC WITH DIFFE RENTI AL/PL ATELE T eos 10 % notest ab. Not Available [facility] ([facility]) [address] [facility], [place], [address], 09/07/2024 07:08:16 09/06/19 25 09/06/2024 CBC WITH DIFFE RENTI AL/PL ATELE T basos 2 % notest ab. Not Available [facility] ([facility]) [address] [facility], [place], [address], 09/07/2024 07:08:16 09/06/19 25 09/06/2024 CBC WITH DIFFE RENTI AL/PL ATELE T neutrophils (absolute) 4.1 x10e3 /uL 1.4-7. 0 Not Available [facility] ([facility]) [address] [facility], [place], [address], 09/07/2024 07:08:16 09/06/19 25 09/06/2024 CBC WITH DIFFE RENTI AL/PL ATELE T lymphs (absolute) 1.8 x10e3 /uL 0.7-3. 1 Not Available [facility] ([facility]) [address] [place], [address], 09/07/2024 07:08:16 09/06/19 25 09/06/2024 CBC WITH DIFFE RENTI AL/PL ATELE T monocytes(ab solute) 0.8 x10e3 /uL 0.1-0. 9 Not Available [facility] ([facility]) [address] [place], [address], 09/07/2024 07:08:16 09/06/19 25 09/06/2024 CBC WITH DIFFE RENTI AL/PL ATELE T eos (absolute) 0.8 x10e3 /uL 0.0-0. 4 above high normal Not Available [facility] ([facility]) [address] [place], [address], 09/07/2024 07:08:16 09/06/19 25 09/06/2024 CBC WITH DIFFE RENTI AL/PL ATELE T baso (absolute) 0.2 x10e3 /uL 0.0-0. 2 Not Available [facility] ([facility]) [address] [place], [address], 09/07/2024 07:08:16 09/06/19 25 09/06/2024 CBC WITH DIFFE RENTI AL/PL ATELE T immature granulocytes 0 % notest ab. Not Available [facility] ([facility]) [address] [facility], [place], [address], 09/07/2024 07:08:16 09/06/1909/06/2024 CBC WITH DIFFE RENTI AL/PL ATELE T immature grans (abs) 0.0 x10e3 /uL 0.0-0. 1 Not Available [facility] ([facility]) [address] [facility], [place], [address], 09/07/2024 07:08:16 05/06/20 24 05/06/2024 XR, chest No observ ation record ed. [address], [place], [address], 05/09/2024 09:14:40 06/14/20 24 06/13/2024 XR, chest , 2 view No observ ation record ed. [address], [place], [address], 06/18/2024 22:53:25 07/25/19 25 07/25/2024 XR, chest , 2 view No observ ation record ed. [address], [place], [address], 07/27/2024 09:34:35 12/03/19 25 12/01/2024 XR, chest , 2 view No observ ation record ed. [facility] [address] [place] [address] [address], [place], [address], 12/02/2024 17:37:18 12/03/19 25 12/01/2024 XR, chest , 2 view No observ ation record ed. [address], [place], [address], 12/09/2024 15:59:40 Result Notes None recorded. 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 814550824 Active Not Available [facility] 4 05:26:53 Essential hypertension 63242963 Active Not Available [facility] 4 05:26:53 Acute bronchitis 36412313 Active Not Available [facility] 4 05:26:53 Ischemic congestive cardiomyopath y 035824505 Active 2023 Noam Reveles MD Attn: Accounting ,[address] [place], [address] , [facility] 4 21:59:48 Central cord syndrome 398792089 Active 2023 Noam Reveles MD Attn: Accounting ,[address] [place], [address] , [facility] 4 21:59:49 Secondary erectile dysfunction 609647618 Active Not Available [facility] 4 05:26:53 Osteoarthriti s of joint of hand 46591617 Active Not Available [facility] 4 05:26:53 Problem Notes None recorded. Procedures Surgical History Date Name Laterality Status Provider Name and Address Organization Details Recorded Time Hernia Repair completed Martina Walsh MA [facility] 10/12/2023 14:30:07 simple cystectomy completed Martina Walsh MA [facility] 10/12/2023 14:30:15 Vasectomy completed Martina Walsh MA [facility] 10/12/2023 14:30:27 Imaging Results None recorded. Procedure Notes None recorded. Medical Equipment None Reported. Allergies Allergen ID Allergen Name Allergen Category Reaction Reaction Severity Criticality Documentation Date Start Date Code Code System Note Provider Name and Address Organization Details Recorded Time 824190 prednison e medicatio n other moderate high 09/05/2024 8640 RxNorm jitte rness & diffi culty sleep ing PAGE Rodriguez, [place] - [facility] 5 14:19:38 Medications Name Sig Start Date Stop [...] 1 CAPSULE BY MOUTH THREE TIMES DAILY 12/09 completed Not Available Not Available Not Available doxycycli ne hyclate 100 mg capsule TAKE 1 CAPSULE BY MOUTH TWICE DAILY FOR 10 DAYS 12/09 completed Not Available Not Available Not Available [...] completed Not Available Not Available Not Available ofloxacin 0.3 % eye drops ADMINIST ER 1 DROP IN SURGICAL EYE THREE TIMES DAILY STARTING 2 DAYS BEFORE AND CONTINUI NG FOR 1 WEEK AFTER SURGERY. active Not Available Not Available No t Available benzonata te 200 mg capsule TAKE [...] 1 box of viagra 50 mg. LOT.[id number] [id number]. 1 box sample of viagra 5omg, lot. [id number] 0. exp. 12/11/19 19. with package insert. [...] completed Not Available Not Available Not Available ofloxacin 0.3 % ear drops INSTILL 4 DROPS INTO BOTH EARS EVERY 12 HOURS FOR 7 DAYS active Not Available Not Available No t Available prednisol one acetate 1 % eye drops,sherice pension ADMINIST ER 1 DROP IN SURGICAL EYE THREE TIMES DAILY CONTINUI NG FOR 3 WEEKS AFTER SURGERY active Not Available Not Available No t Available tamsulosi n 0.4 mg capsule TAKE [...] a dose pack FOLLOW PACKAGE DIRECTIO NS 12/09 completed Not Available Not Available Not Available [...] BY MOUTH TWICE DAILY FOR 7 DAYS 12/09 completed Not Available Not Available Not Available [...] completed Not Available Not Available Not Available Jo-Ann Pruitt U-100 Insulin 100 unit/mL (3 mL) subcutane [...] 4 Units tid active Per Emily & FRANK endo put pt on Not Available Not [...] Available Not Available Not Available 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 active Not Available Not Available No [...] Updated DateTime 5 170.18 cm 26.6 kg/m2 79047.6 3 g 56 /min 96 % 96 % 120 mm[Hg] 62 mm[Hg] Joanne Mc MA [facility] - [facility] 5 11:05:56 Date Recorded Body height Body mass index (BMI) Body weight Heart rate Oxygen saturation Oxygen saturation in Arterial blood by Pulse oximetry Systolic blood pressure Diastolic blood pressure Provider Name and Address Organization Details Last Updated DateTime 5 170.18 cm 25.6 kg/m2 34563.9 9 g 76 /min 98 % 98 % 120 mm[Hg] 66 mm[Hg] Maria Ines Hammer MA [facility] 5 16:06:54 Date Recorded Body height Provider Name an d Address Organization Details Last Updated DateTime 04/04/2024 170.18 cm Maria Ines Hammer MA [facility] 4 11:14:34 Date Recorded Body mass index (BMI) Body weight Heart rate Oxygen saturation Oxygen saturation in Arterial blood by Pulse oximetry Systolic blood pressure Diastolic blood pressure Provider Name and Address Organization Details Last Updated DateTime 4 24.1 kg/m2 94765.2 2 g 77 /min 97 % 97 % 130 mm[Hg] 78 mm[Hg] Joanne Mc MA [facility] 4 11:21:03 Date Recorded Body height Body mass index (BMI) Body weight Heart rate Oxygen saturation Oxygen saturation in Arterial blood by Pulse oximetry Systolic blood pressure Diastolic blood pressure Provider Name and Address Organization Details Last Updated DateTime 4 170.18 cm 24.3 kg/m2 42454.1 8 g 66 /min 93 % 93 % 126 mm[Hg] 62 mm[Hg] Maria Ines Hammer MA [facility] 4 14:26:47 Date Recorded Body height Body mass index (BMI) Body weight Heart rate Oxygen saturation Oxygen saturation in Arterial blood by Pulse oximetry Systolic blood pressure Diastolic blood pressure Provider Name and Address Organization Details Last Updated DateTime 4 170.18 cm 25.6 kg/m2 81157.3 5 g 55 /min 98 % 98 % 136 mm[Hg] 70 mm[Hg] Maria Ines Hammer MA PA - [facility] 14:23:25 Social History Question Answer Notes LastModified by Organizat ion Details LastModified Time Tobacco Smoking Status Former Smoker quit 1999 Chata arias [place] - [facility] 02/29/2024 12:31:51 Do You Have An Advance [...] Or The Highest Degree You Have Received? [id number] Information not available 02/29/2024 Are There Any Guns Present In Your Home? No Information not available 11/19/2023 In The Past 7 Days, How Many Days Did You Exercise? -1 Information not available 02/29/2024 In The Past 7 Days, How Much Pain Have You [place]? None Information not available 02/29/2024 In General, [...] Past 7 Days, How Often Have You [place] Sleepy In The Daytime? Sometimes Information not [...] anxious, or unable to sleep at night)? [id number] Information not available 10/12/2023 Family History Relationship [...] Skin Problems N Anemia N Heart Attack ([place]) N Anxiety Disorder N Diabetes Y Muscle, [...] mRNA, LNP-S, PF, 30 mcg/0.3 mL dose completed Not Available [facility] 08/05/2023 05:26:53 COVID-19, mRNA, LNP-S, PF, 30 mcg/0.3 mL dose 1 completed Not Available [facility] 08/05/2023 05:26:53 influenza, unspecified formulation 2 completed Joanne Mc, [place] null, [place] - [facility] 09/05/2024 09:46:47 Influenza, split virus, quadrivalent, preservative 9 completed Not Available [facility] 08/05/2023 05:26:53 pneumococcal polysaccharide PPV23 1 [...] mcg/0.3 mL dose, darleen-sucrose 2 completed Joanne Mc, [place], [place] - [facility] 09/05/2024 09:46:47 COVID-19, mRNA, LNP-S, bivalent, PF, 30 mcg/0.3 mL dose 2 completed Jonane Mc [place], [place] - [facility] 09/05/2024 09:46:47 zoster recombinant 3 completed Joanne Mc [place], [place] - [facility] 09/05/2024 10:54:09 Influenza, split virus, quadrivalent, preservative 11/22/201 7 completed Not Available [facility] 07/30/2019 02:49:48 Influenza, split virus, quadrivalent, preservative 1 completed Curtis Fox MA null, [place] - [facility] 04/08/2021 13:12:07 Tdap 3 completed Stephy Guevara MA null, [place] - [facility] 09/04/2022 12:19:54 Influenza, high-dose, trivalent, PF 5 completed Noam Reveles MD Attn: Accounting[address] [place], [address], [facility] 09/05/2024 20:53:10 Past Encounters Encounter ID Performer Location Encounter Start Date Encounter Closed Date Diagnosis/Indication Diagnosis SNOMED-CT Code Diagnosis ICD10 Code Diagnosis Note [id number] Nikky Mathews MD [facility] (Adult Med) [address] [place] [id number] 09/13/2014 16:14:24 09/14/2014 11:03:15 Diabetes mellitus 99711500 Hyperlipidemia 86547786 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 531576077 Essential hypertension 71312651 Acute bronchitis 08915845 [id number] Nikky Mathews MD [facility] ([facility]ult [facility]) [address] [place] [address] [id number] 04/09/2015 13:36:28 04/09/2015 17:58:50 Diabetes mellitus 86035493 Essential hypertension 35467514 Hyperlipidemia 15002112 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 684912551 [id number] Nikky Mathews MD [facility] ([facility]ult [facility]) [address] [place] [address] [id number] 09/13/2015 09:48:53 09/13/2015 11:14:18 Diabetes mellitus 05985656 E13.65 Essential hypertension 07445673 I10 Hyperlipidemia 31420327 E78.5 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 567475626 E11.21 Secondary erectile dysfunction 917957506 N52.8 [id number] Nikky Mathews MD [facility] ([facility]) [address] [place] [id number] 10/29/2015 11:50:40 10/29/2015 14:48:10 Diabetes mellitus 00321431 E11.9 Secondary erectile dysfunction 522075408 N52.8 Osteoarthr itis of joint of hand 92332067 M19.041 M19.042 [id number] MD Emma King (Adult Med) [address] [place] [address] [phone] 0 04/04/2016 16:28:18 04/04/2016 17:40:02 Diabetes mellitus 00934533 E11.9 Osteoarthr itis of joint of hand 93808206 M19.041 M19.042 Hyperlipidemia 68908278 E78.5 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 Hyperlipidemia 76469395 E78.5 Low saturated fat diet. Essential hypertension 99101117 I10 Covered by quinapril as well. Diabetes mellitus 023812 09 E11.9 Diabetic diet, exercise, keep the weight down. Annual eye check. [id number] MD Emma King (Adult Med) [address] [place] [address] [phone] 0 06/03/2017 09:47:08 06/03/2017 11:09:41 Type 2 diabetes mellitus 32910872 E11.65 diabetic diet, exercise, will adjust his medication s. He will change his eating habit. Essential hypertension 32623167 I10 Covered by quinapril as well. Low salt diet. will add amlodipine to bring down the BP to the more safe level. 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 Annual eye check. Type 2 kirsten betes mellitus 66734606 E11.65 diabetic diet, exercise, will adjust his medication s. He will change his eating habit. Essential hypertension 69676804 I10 Covered by quinapril as well. Low salt diet. will add amlodipine to bring down the BP to the more safe level. 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 Annual eye check. Patient agreed the metformin ER 1,00 mg twice /day to achieve the better control of his rachell 2 DM. [id number] Nikky Mathews MD [facility] (Adult Med) [address] [place] [address] [phone] 0 01/26/2018 12:20:07 01/26/2018 13:41:59 Essential hypertension 10293001 I10 Covered by quinapril as well. Low salt diet. will add amlodipine to bring down the BP to the more safe level.Will increase amlodipine to 10 mg/day. Type 2 kirsten betes mellitus without complication 740076912 E11.9 Diabetic diet, exercise, keep the weight down. OTC aspirin /day. Diabetes mellitus 825903 09 E11.9 Diabetic diet, exercise, keep the weight down. Annual eye check. Patient agreed the metformin ER 500 mg twice /day to achieve the better control of his rachell 2 DM. Dyslipidemia 836442053 E 78.5 Low saturated fat diet, exercise and keep the weight down Type 2 kirsten betes mellitus 06223573 E11.65 diabetic diet, exercise, will adjust his medication s. He will change his eating habit. [id number] Nikky Mathews MD [facility] (Ad[facility]) [address] [place] [address] 0 03/30/2018 10:04:31 03/30/2018 11:07:33 Furuncle 576210741 L02.92 Type 2 kirsten betes mellitus without complication 019145150 E11.9 Diabetic diet, exercise, keep the weight down. OTC aspirin /day. Has enough medication s. [id number] [facility] [address] [place] [address] [phone] 0 04/01/2018 16:18:44 04/08/2018 16:12:51 Furuncle [id number] L02.92 Right buttock resolving, advised to continue clindamyci n. Discussed with patient and he understood and agreed. [id number] [facility] [address] [place] [address] [phone] 0 04/06/2018 15:56:11 04/07/2018 12:14:40 Furuncle 653589289 L02.92 Right buttock resolving, advised to continue clindamyci n. Discussed with patient and he understood and agreed. [id number] MD Emma King (Adult Med) [address] [place] [address] [phone] 08/27/2018 10:09:37 08/30/2018 09:32:56 Diabetes mellitus 56865738 E11.9 Diabetic diet, exercise, keep the weight down. Annual eye check. Patient agreed the metformin ER 500 mg twice /day to achieve the better control of his rachell 2 DM. Discussed with patient, he agreed with add on pioglitazo ne. Retinopath y due to diabetes mellitus 1913848 E13.3593 Under the care of his ophthalmol ogist. Essential hypertension 79479815 I10 Covered by quinapril as well. Low salt diet. will add amlodipine to bring down the BP to the more safe level.Will increase amlodipine to 10 mg/day. Blood sugar is 261 mg%, patient informed 08-27-2018 . Hyperlipidemia 37802817 E78.5 Low saturated fat diet. Type 2 kirsten betes mellitus without complication 427104198 E11.9 Diabetic diet, exercise, keep the weight down. OTC aspirin /day. Has enough medication s. Dyslipidemia 305261925 E 78.5 Low saturated fat diet, exercise and keep the weight down Type 2 kirsten betes mellitus 69192515 E11.65 diabetic diet, exercise, will adjust his medication s. He will change his eating habit. [id number] [facility] [address] [place] [address] [phone] 0 10/25/2018 15:53:18 10/26/2018 09:24:31 Uncontrolled type 2 diabetes mellitus 763008124 E11.65 Will check HgA1C. Retinopath y due to diabetes mellitus 0799987 E13.3593 Under the care of his ophthalmol ogist. 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 Osteoarthr itis of joint of hand 44757488 M19.041 M19.042 Stable, able to ambulate by himself without assitance. Hyperlipidemia 99774509 E78.5 Low saturated fat diet. Essential hypertension 20615517 I10 Covered by quinapril as well. Low salt diet. will add amlodipine to bring down the BP to the more safe level.Will increase amlodipine to 10 mg/day. Blood sugar is 261 mg%, patient informed 08-27-2018 . [id number] Nik[facility] ([facility]) [address] [place] [address] [phone] 0 12/17/2018 16:46:47 12/20/2018 09:42:49 Type 2 diabetes mellitus without complication 124391586 E11.9 Diabetic diet, exercise, keep the weight down. OTC aspirin /day. Has enough medication s. Dyslipidem ia due to type 2 diabetes mellitus 6411797287 02 E78.5 On low saturated fat diet. and atorvastat in 90 dys supply with 3 more refills. Essential hypertension 06281046 I10 Covered by quinapril as well. Low salt diet. will add amlodipine to bring down the BP to the more safe level.Will increase amlodipine to 10 mg/day. Blood sugar is 261 mg%, patient informed 08-27-2018 . Dyslipidemia 096798862 E 78.5 Low saturated fat diet, exercise and keep the weight down Type 2 kirsten betes mellitus 12668702 E11.65 diabetic diet, exercise, will adjust his medication s. He will change his eating habit. [id number] [facility] [address] [place] [address] [phone] 0 02/24/2019 16:42:14 02/24/2019 17:27:56 Diabetes mellitus 84065944 E11.9 Diabetic diet, exercise, keep the weight down. Annual eye check. Patient agreed the metformin ER 500 mg twice /day to achieve the better control of his rachell 2 DM. Discussed with patient, he agreed with add on pioglitazo ne. [id number] MD Emma King (Adult Med) [address] [place] [address] [phone] 0 06/17/2019 10:32:26 06/20/2019 10:09:21 Osteoarthritis of joint of hand 92659642 M19.041 M19.042 Stable, able to ambulate by himself without assitance. Diabetes mellitus 132632 09 E11.9 Diabetic diet, exercise, keep the weight down. Annual eye check. Patient agreed the metformin ER 500 mg twice /day to achieve the better control of his rachell 2 DM. Discussed with patient, he agreed with add on pioglitazo ne. Essential hypertension 23677117 I10 Covered by quinapril as well. Low salt diet. will add amlodipine to bring down the BP to the more safe level.Will increase amlodipine to 10 mg/day. Blood sugar is 261 mg%, patient informed 08-27-2018 . Hyperlipidemia 47872284 E78.5 Low saturated fat diet. 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 On quinapril. Secondary erectile dysfunction 132045187 N52.8 Stable, not on viagra. Dyslipidemia 064199766 E 78.5 Low saturated fat diet, exercise and keep the weight down Type 2 kirsten betes mellitus without complication 528135114 E11.9 Diabetic diet, exercise, keep the weight down. OTC aspirin /day. Has enough medication s. Type 2 kirsten betes mellitus 85425025 E11.65 diabetic diet, exercise, will adjust his medication s. He will change his eating habit. [id number] MD Emma King (Adult Med) [address] [place] [address] [phone] 0 07/01/2019 12:23:14 07/04/2019 14:10:16 Acute bronchitis 77238039 J20.9 Discussed with patient, D/C smiley. [id number] Nikky Mathews MD [facility] (Adult Med) [address] [place] [address] [phone] 0 08/25/2019 15:29:19 08/26/2019 08:58:09 Diabetes mellitus 71827139 E11.9 Diabetic diet, exercise, keep the weight down. Annual eye check. Patient agreed the metformin ER 500 mg twice /day to achieve the better control of his rachell 2 DM. Discussed with patient, he agreed with add on pioglitazo ne. Osteoarthr itis of joint of hand 40539334 M19.041 M19.042 Stable, able to ambulate by himself without assitance. Essential hypertension 19978274 I10 Covered by quinapril as well. Low salt diet. will add amlodipine to bring down the BP to the more safe level.Will increase amlodipine to 10 mg/day. Blood sugar is 261 mg%, patient informed 08-27-2018 . Hyperlipidemia 92148413 E78.5 Low saturated fat diet. 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 On quinapril. Type 2 kirsten betes mellitus 28460189 E11.65 diabetic diet, exercise, will adjust his medication s. He will change his eating habit. Type 2 kirsten betes mellitus without complication 579777339 E11.9 Diabetic diet, exercise, keep the weight down. OTC aspirin /day. Has enough medication s. Dyslipidemia 282558386 E 78.5 Low saturated fat diet, exercise and keep the weight down [id number] Nikky Mathews MD [facility] (Adult Med) [address] [place] [address] [phone] 12/22/2019 08:14:26 12/23/2019 06:57:50 Type 2 diabetes mellitus 70561437 E11.65 diabetic diet, exercise, will adjust his medication s. He will change his eating habit. Bilateral shoulder joint pain [id number] 4554486 M25.511 M25.512 Under the care of his product distribution specialist . [id number] MD Emma King (Adult Med) [address] [place] [address] [phone] 05/22/2020 08:32:52 05/23/2020 10:59:28 Acute bronchitis 55401475 J20.9 Discussed with patient, D/C smiley. Osteoarthr itis of joint of hand 65572269 M19.041 M19.042 Stable, able to ambulate by himself without assitance. Diabetes mellitus 780002 09 E11.9 Diabetic diet, exercise, keep the weight down. Annual eye check. Patient agreed the metformin ER 500 mg twice /day to achieve the better control of his rachell 2 DM. Discussed with patient, he agreed with add on pioglitazo ne. Essential hypertension 53720326 I10 Covered by quinapril as well. Low salt diet. will add amlodipine to bring down the BP to the more safe level.Will increase amlodipine to 10 mg/day. Blood sugar is 261 mg%, patient informed 08-27-2018 . Will continue to monitor Blood pressure., once porter virus pandemic is over. Hyperlipidemia 60088484 E78.5 Low saturated fat diet. Low animal fat diet. 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 On quinapril. Secondary erectile dysfunction 022340950 N52.8 Stable, not on viagra. Dyslipidemia 475173567 E 78.5 Low saturated fat diet, exercise and keep the weight down Type 2 kirsten betes mellitus without complication 411372967 E11.9 Diabetic diet, exercise, keep the weight down. OTC aspirin /day. Has enough medication s. Type 2 kirsten betes mellitus 59023832 E11.65 diabetic diet, exercise, will adjust his medication s. He will change his eating habit. [id number] MD Emma King (Adult Med) [address] [place] [address] [phone] 08/13/2020 08:20:45 08/14/2020 08:43:41 Diabetes mellitus 85283072 E11.9 Diabetic diet, exercise, keep the weight down. Annual eye check. Patient agreed the metformin ER 500 mg twice /day to achieve the better control of his rachell 2 DM. Discussed with patient, he agreed with add on pioglitazo ne. Essential hypertension 98257958 I10 Covered by quinapril as well. Low salt diet. will add amlodipine to bring down the BP to the more safe level.Will increase amlodipine to 10 mg/day. Blood sugar is 261 mg%, patient informed 08-27-2018 . Will continue to monitor Blood pressure., once porter virus pandemic is over. Osteoarthr itis of joint of hand 71876118 M19.041 M19.042 Stable, able to ambulate by himself without assitance. [id number] Nikky Mathews MD [facility] ([facility]) [address] [place] [address] [phone] 01/01/2021 11:35:21 01/01/2021 12:15:57 Diabetes mellitus 37068582 E11.9 Diabetic diet, exercise, keep the weight down. Annual eye check. Patient agreed the metformin ER 500 mg twice /day to achieve the better control of his rachell 2 DM. Discussed with patient, he agreed with add on pioglitazo ne. Osteoarthr itis of joint of hand 34204344 M19.041 M19.042 Stable, able to ambulate by himself without assitance. Essential hypertension 84571438 I10 Covered by quinapril as well. Low [...] with current medication s. 01-01-2021 . Hyperlipidemia 97280824 E78.5 Low saturated fat diet. Low animal fat diet. 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 On quinapril. Secondary erectile dysfunction 791468622 N52.8 Stable, not on viagra. [id number] MD Emma King (Adult Med) [address] [place] [address] [phone] 0 04/08/2021 11:48:12 04/10/2021 16:10:15 Diabetes mellitus 82461748 E11.9 Diabetic diet, exercise, keep the weight down. Annual eye check. Patient agreed the metformin ER 500 mg twice /day to achieve the better control of his rachell 2 DM. Discussed with patient, he agreed with add on pioglitazo ne. Osteoarthr itis of joint of hand 24477166 M19.041 M19.042 Stable, able to ambulate by himself without assitance. Essential hypertension 52744009 I10 Covered by quinapril as well. Low [...] He is on quinapril. 04-08-2021 . Hyperlipidemia 42057688 E78.5 Low saturated fat diet. Low animal fat diet. 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 On quinapril. Secondary erectile dysfunction 454888944 N52.8 Stable, not on viagra. Administra tion of influenza vaccine 99561821 Z23 Will get annual flu shot. Dyslipidemia 892194482 E 78.5 Low saturated fat diet, exercise and keep the weight down Type 2 kirsten betes mellitus without complication 469114509 E11.9 Diabetic diet, exercise, keep the weight down. OTC aspirin /day. Has enough medication s. Type 2 kirsten betes mellitus 30087590 E11.65 diabetic diet, exercise, will adjust his medication s. He will change his eating habit. [id number] [facility] [address] [place] [address] [phone] 05/21/2021 10:20:28 05/24/2021 12:24:20 Hyperlipidemia 44259857 E78.5 Low saturated fat diet. Low animal fat diet. Secondary erectile dysfunction 781653881 N52.8 Stable, not on viagra. Essential hypertension 32050951 I10 Covered by quinapril as well. Low [...] is on quinapril. 04-08-2021 . Diabetes mellitus 912913 09 E11.9 Diabetic diet, exercise, keep the weight down. Annual eye check. Patient agreed the metformin ER 500 mg twice /day to achieve the better control of his rachell 2 DM. Discussed with patient, he agreed with add on pioglitazo ne. Osteoarthr itis of joint of hand 23373779 M19.041 M19.042 Stable, able to ambulate by himself without assitance. Microalbum inuric diabetic nephropathy 783547295 E11.21 Normal renal functions, normal BUN, creatinine and GFR on 04-15-2021 , on 05-02-2021 elevated albumin/cr eatine ratio could be hypertensi ve and diabetic nephropath y, will increase quinapril to 20 mg /day . Copies of lab. explained and provided to patient today, 05-21-2021 . [id number] MD Emma King (Adult Med) [address] [place] [address] [phone] 08/05/2021 09:33:33 08/06/2021 10:04:23 Type 2 diabetes mellitus 45942842 E11.65 diabetic diet, exercise, will adjust his medication s. He will change his eating habit. Persistent cough 5907962 02 R05.3 Will try benzontate for the mean time. [id number] MD Emma King (Adult Med) [address] [place] [address] [phone] 0 08/30/2021 15:36:26 09/02/2021 12:30:09 Type 2 diabetes mellitus 52176184 E11.65 diabetic diet, exercise, will adjust his medication s. He will change his eating habit. Has lost some weight, also has gone to endocrinol ogist , januvia was D/C, and farxiga was put in , starting 5 mg/day , now is on 10 mg/day, stil on ozempic shot. he had seen his blood sugar has come down. 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 On quinapril. Repeat test of urine albumin reported to be normal from his endocrinol ogist office. 11-19-2021 . Screening for malignant neoplasm of prostate 700243848 Z12.5 He went to his urologist Dr. Saldana, and was suggested to have PSA screening. Type 2 kirsten betes mellitus 71363378 E11.65 diabetic diet, exercise, will adjust his [...] care of his endocrinol ogist.., 11-19-2021 . [id number] MD Emma King (Adult Med) [address] [place] [address] [phone] 0 02/18/2022 10:15:10 02/19/2022 11:59:28 Type 2 diabetes mellitus 08984880 E11.65 diabetic diet, exercise, will adjust his [...] ia due to type 2 diabetes mellitus 8231768426 02 E78.5 On low saturated fat diet. and atorvastat in 90 dys supply with 3 more refills.As 02-18-2022 his LDL is 44 mg%. HDL is 35 mg% from out side lab. Open wound, heel 3648696 09 S91.301A Discussed with patient, will try ABS as ordered. Essential hypertension 54344531 I10 Covered by quinapril as well. Low [...] As 02-18-2022 blood pressure is 120/66 today. [id number] Nikky Mathews MD [facility] (Adult Med) [facility] [place] [address] 07/11/2022 10:31:47 07/15/2022 14:49:24 Overweight 495511124 E66.3 BMI is 26.3, he has been advised to watch his diabetic diet, exercise and keep the weight down. Smoker 18215593 F17.200 Advised to quit smoking if he still smokes. Acute bronchitis 4887223 2 J20.9 Discussed with patient, D/C smiley. Type 2 kirsten betes mellitus 33504834 E11.65 diabetic diet, exercise, will adjust his [...] care of his endocrinol ogist.., 11-19-2021 . [id number] Nikky Mathews MD [facility] (Adult Med) [address] [place] [address] [phone] 0 09/04/2022 10:18:01 09/08/2022 15:20:39 Administration of diphtheria, pertussis, and tetanus vaccine 762086641 Z23 He tolerated shot well. Type 2 kirsten betes mellitus 58884754 E11.65 diabetic diet, exercise, will adjust his [...] 09-04-22, wants to refill test strip at [facility].. Chronic cough 24938000 R 05.3 smokes once a while, benzonatat e only temporally relieve the cough, will x ray and try promethazi ne with codeine,.o r similar product. He agreed. Diabetic p eripheral neuropathy 932922672 E11.40 Pain of feet, on OTC cream, was told to have diabetic neuropathy , asking some med for relief. [id number] Nikky Mathews MD [facility] (Adult Med) [address] [place] [address] [phone] 12/11/2022 11:51:32 12/15/2022 16:10:44 Dementia 71461614 F03.90 wants him to be evaluated by neurologis t. She has no written consent, from patient, [facility] her, nor the latter has no signature or date on it, will keep copy in file, patient agreed for the referral. Type 2 kirsten betes mellitus 03144835 E11.65 diabetic diet, exercise, will adjust his [...] 09-04-22, [facility] Administra tion of pneumococcal vaccine 70323669 Z23 He declined today 12-11-22. [id number] MD Emma King (Adult Med) [address] [place] [address] [phone] 0 01/29/2023 15:37:23 01/30/2023 14:36:48 Type 2 diabetes mellitus 78608760 E11.65 diabetic diet, exercise, will adjust his [...] 09-04-22, wants to refill test strip at [facility].. Diabetic p eripheral neuropathy 411208625 E11.40 Pain of feet, on OTC cream, was told to have diabetic neuropathy , asking some med for relief. Wants 100 mg instead of 300 mg of gabapentin from which he took and made him sleep for 2 days. Urinary tr act infectious disease 51623824 N39.0 Will send urine to Lab for U/A and culture , ABS also been ordered in case, he agreed. 01-29-23. [id number] MD Emma King (Adult Med) [address] [place] [address] [phone] 03/30/2023 16:12:13 03/30/2023 17:01:55 Alzheimer's disease 40936589 G30.9 saw neurologis t, had spinal CSG analysis tau elevated. , he has been informed the diagnosis, might be referred to [facility] for ne treatment. Type 2 kirsten betes mellitus 51493737 E11.65 diabetic diet, exercise, will adjust his medication s. He will change his eating habit. Has lost some weight, also has gone to endocrinol ogist , ezequielshukri was D/C, and radu was put in , starting 5 mg/day , now is on 10 mg/day, stil on ozempic shot. he had seen his blood sugar has come down.Heavenly nguyen he is under the care of his endocrinol ogist.., 11-19-2021 . as 09-04-22, [facility] Acid reflux 722882141 K2 1.9 Med refills. Diabetic p eripheral neuropathy 682860589 E11.40 Pain of feet, on OTC cream, was told to have diabetic neuropathy , asking some med for relief. Wants 100 mg instead of 300 mg of gabapentin from which he took and made him sleep for 2 days. Essential hypertension 93245005 I10 Covered by quinapril as well. Low [...] he agreed, -03-30-23. SARS-CoV-2 mRNA vaccine declined 7942231415 Z28.21 He declined 03-30-23. [id number] MD Emma King (Adult Med) [address] [place] [address] 06/26/2023 09:48:36 06/29/2023 14:43:57 Type 2 diabetes mellitus 78972811 E11.65 Diabetic diet, exercise and keep the weight down. Med refills. Alzheimer's disease 7618 9004 G30.9 saw neurologis t, had spinal CSG analysis tau elevated. , he has been informed the diagnosis, might be referred to [facility] for the treatment. Essential hypertension 82117444 I10 Covered by quinapril as well. Low [...] ia due to type 2 diabetes mellitus 6704168061 02 E78.5 On low saturated fat diet. and atorvastat in 90 dys supply with 3 more refills.As 02-18-2022 his LDL is 44 mg%. HDL is 35 mg% from out side lab. Diabetic p eripheral neuropathy 797133127 E11.40 Pain of feet, on OTC cream, was told to have diabetic neuropathy , asking some med for relief. Wants 100 mg instead of 300 mg of gabapentin from which he took and made him sleep for 2 days. Acid reflux 464820520 K2 1.9 Med refills. Acute bronchitis [id number] 2 J20.9 Discussed with patient, D/C smiley. [id number] Noam Reveles MD [facility] [place] [address] [place] [address] 10/12/2023 14:13:47 10/12/2023 15:24:53 Diabetes mellitus 91461002 E11.9 Essential hypertension 13988430 I10 Screening for malignant neoplasm of prostate 578143164 Z12.5 Hyperlipidemia 36689761 E78.5 [id number] [facility] [place] [address] [place] [address] 11/19/2023 13:49:54 11/19/2023 14:48:10 Diabetes mellitus 04375249 E11.9 Essential hypertension 86197340 I10 Hyperlipidemia 90896704 E78.5 Ischemic c ongestive cardiomyopathy 426878593 I25.5 Central cord syndrome 28 1862452 S14.129D [id number] Noam Reveles MD [facility] [place] [address] [place] [address] 01/04/2024 10:55:41 01/04/2024 12:03:07 Essential hypertension 86747072 I10 Diabetes mellitus 764124 09 E11.9 Central cord syndrome 28 9897228 S14.129D Ischemic c ongestive cardiomyopathy 371521235 I25.5 [id number] Noam Reveles MD [facility] [place] [address] [place] [address] 02/29/2024 11:28:44 02/29/2024 13:10:10 Adult health examination 348958880 Z00.00 Health Risk Assessment collected and reviewed [id number] Noam Reveles MD [facility] [place] [address] [place] [address] 04/04/2024 10:38:30 04/04/2024 12:08:46 Overweight 745997327 E66.3 Essential hypertension 21548404 I10 Hyperlipidemia 84918445 E78.5 Diabetes mellitus 854567 09 E11.9 Ischemic c ongestive cardiomyopathy 108423089 I25.5 [id number] Noam Reveles MD [facility] [place] [address] [place] [address] 05/16/2024 13:56:02 05/16/2024 15:19:59 Body mass index 20-24 - normal 552002405 Z68.24 Pneumonia 611613228 J18. 9 Essential hypertension 37396467 I10 Diabetes mellitus 390819 09 E11.9 Hyperlipidemia 49190089 E78.5 [id number] Noam Reveles MD [facility] [place] [address] [place] [address] 06/06/2024 14:12:33 06/06/2024 15:10:12 Pneumonia 745721926 J18.9 Ischemic c ongestive cardiomyopathy 218033162 I25.5 Essential hypertension 92662408 I10 [id number] Noam Reveles MD [facility] [place] [address] [place] [address] 09/05/2024 10:55:19 09/05/2024 11:41:03 Body mass index 25-29 - overweight 239350112 Z68.26 Overweight 380797695 E66 .3 Administra tion of influenza vaccine 79692865 Z23 Essential hypertension 00546345 I10 Diabetes mellitus 757812 09 E11.9 Hyperlipidemia 02013090 E78.5 [id number] Noam Reveles MD [facility] (Adult Med[facility] [address] [place] [address] 11/08/2024 15:50:43 11/08/2024 16:27:18 Overweight in adulthood with body mass index of 25 or more but less than 30 669384789 E66.3 Z68.25 Overweight 173307640 E66 .3 Bronchitis 54953391 J40 Health Concerns Section Related Observation LastModified by Organization Detai ls LastModified Time None Recorded Concern Status LastModified by Organization Details LastModified Time None Recorded Advance Directives Directive N: Payers Encounter Date Sequence Insurance Name Policy Number Policy Dang Covered Member ID Dang Member ID Guarantor Name 04/04/2024 1 [place] Tolu Kirkpatrick Delfina [id number] [facility] 04/04/2024 2 AETNA (MEDICARE SUPPLEMENT) Tolu [facility] [id number] [employer] [facility] 05/16/2024 1 [place] Tolu Kirkpatrick Delfina [id number] [employer] [facility] 05/16/2024 2 AETNA (MEDICARE SUPPLEMENT) Tolu [facility] [id number] Tol[employer] [facility] 06/06/2024 1 [place] Tolu Kirkpatrick Delfina [id number] Tolu [employer] 06/06/2024 2 AETNA (MEDICARE SUPPLEMENT) Tolu Mathis [id number] Tolu [employer] 09/05/2024 1 [place] Tolu Mathis [id number] Tolu [employer]is 09/05/2024 2 AETNA (MEDICARE SUPPLEMENT) Tolu Mathis [id number] Tolu [employer] 11/08/2024 1 [place] Tolu Mathis [id number] Tolu [employer] 11/08/2024 2 AETNA (MEDICARE SUPPLEMENT) Tolu Mathis [id number] Tolu Mathis Notes Date Note Type Note Provider Name and Address Organization Details Recorded Time 04/04/2024 text/html he has had no hypoglycemic spells did see endocrinology. Ischemic cardiomyopathy no signs or symptoms of heart failure. Central cord syndrome status post surgical intervention doing fine Noam Reveles MD Attn: [facility]ing,[address] [facility], [place], [address], [facility] 04/09/2024 14:02:07 05/16/2024 text/html hospitalize [...] symptomatology Noam Reveles MD Attn: Accounting,[address] [facility], [place], [address], [facility] 05/22/2024 16:42:04 06/06/2024 text/html appears to be do ing fine with no interval developments or complaints getting over the pneumonia nicely Noam Reveles MD Attn: Accounting,[address] [facility], [place], [address], [facility] 06/09/2024 14:58:51 09/05/2024 text/html hypertension [...] to with GI Noam Reveles MD Attn: Accounting, [address] [facility], [place], [address], [facility] 09/05/2024 20:56:53 11/08/2024 text/html Acute appointmen t 7-10 days of cough congestion now with some off yellow to yellowish sputum no hemoptysis granddaughter was sick last week no specific diagnosis such as COVID or flu or strep throat he is not short of breath but he feels a little tired Noam Reveles MD Attn: Accounting, [address] [facility], [place], [address], [facility] 11/08/2024 21:58:35
--- OUTSIDE RECORDS SUMMARY | 2024-12-12 11:18 | XMS_ITS | Clinical Summary ---
Author Organization [facility] Address [address] [place] [address] Care Team Providers Care Piece Goods Packer Name Role Phone Nikky Mathews MD Primary Care Provider [phone] Source Comments [facility],non-owned Affiliates and Associated Physician Practices is amultiple site organization consisting of ambulatory clinics and hospital sitesin [place], [place], [place] and [place]. This disclosure is being madepursuant to the Care Everywhere program and may not contain all information available regarding this patient. Last updated 18.[facility] Allergies No known active allergies Medications * [...] Type Department Care Team Description 11/10/2024 Telephone [facility] [address] [place] [address] Rekha Gray Procedure (External Referral, Egd+ESD, Dr. Eid ) 11/09/2024 Telephone [facility] [address] [place] [address] Rekha Gray Follow-up from Last 3 Months [...] on file Legal Sex Male 1:09 PM COMPLAINT SPECIALIST Gender Identity Male 11/11/2024 4:55 PM CDT Sexual Orientation Straight 11/11/2024 4: 55 PM CDT Last Filed Vital Signs Vital Sign Reading Time Taken Comments Blood Pressure 193/90 09/01/2011 1:15 PM COMPLAINT SPECIALIST Pulse 88 09/01/2011 1:15 PM COMPLAINT SPECIALIST Temperature 36.6 C (97.9 F) 09/01/2011 1:15 PM COMPLAINT SPECIALIST Respiratory Rate 18 09/01/2011 1:15 PM COMPLAINT SPECIALIST Oxygen Saturation - - Inhaled Oxygen Concentration - - Weight 79.4 kg (175 lb) 09/01/2011 1:15 PM COMPLAINT SPECIALIST Height 174 cm (5' 8.5) 09/01/2011 1:15 PM COMPLAINT SPECIALIST Body Mass Index 26.22 09/01/2011 1:15 PM COMPLAINT SPECIALIST Plan of Treatment Upcoming Encounters Date Type Department Care Team (Latest Contact Info) Description 12/21/2024 9:50 AM CDT Hospital Encounter [facility] [address] [place] [address] Karthik Anderson MD [facility] [place] [address] Surgery General 12/21/2024 9:50 AM CDT - 12/21/2024 11:50 AM CDT Surgery [facility] [address] [place] [address] Karthik Anderson MD [facility] [place] [address] Egd+ESD Scheduled Procedures Name Priority Associated Diagnoses [...] patient's age to complete this topic Insurance [facility] MEDICARE AETNA SELF PAY NO INSURANCE Member Subscriber Plan / Payer (Ef fective for All Dates) Name:Tolu Jha Member ID:Not on file Relation to Subscriber:Not on file Name:TOLU JHA Subscriber ID:Not on file (Home) Address: [address] [place] [address] Payer ID:Not on file Group ID:Not on file Type:Self Pay Address: [place], [place] Care Teams Piece Goods Packer Relationship Specialty Start Date End Date Nikky Mathews MD [address] [place] [address] PCP - General Internal Medicine 09/01/11
--- OUTSIDE RECORDS SUMMARY | 2024-12-12 11:18 | XMS_ITS | Encounter Summary ---
Author Organization [facility] Address [address] [place] [address] Phone Care Team Providers Care Flatbed Press Operator Name Role Phone Lio Reveles MD Primary Care Provider + [phone] Vahe Rouse MD Unavailable [phone] Emily Staples RN Unavailable Unavailable Gisselle Morgan RN Unavailable Unavaila Alie Henao RN Unavailable Unavailable Kalyani Muller Unavailable Unavailable Encounter Details Date Type Department Care Team (Late st Contact Info) Description 01/15/2024 Telephone [facility] [address] [facility] Advanced Medicine 8th [place] [address] [place] [address] Benji Esparza MD [address] [facility] [address] [place] [address] Social History Tobacco Use Types Packs/Day Years Used Date Smoking Tobacco: Former Cigarettes [facility] Utilities Answer Date Recorded In the past 12 months has [employer] electric, gas, oil, or water company [...] week 11/02/2023 How often do you attend [facility] or [facility] services? Never 11/02/2023 Do you belong to any clubs o r organizations such as worship groups, unions, fraternal or athletic groups, or [...] place to sleep or slept in a intermediate (including now)? No 11/02/2023 Personal Safety Answer Date Recorded Have you ever been in or are you currently in a harmful physical or emotional relationship or is someone making you feel afraid or unsafe? Denies 11/05/2023 Sex and Gender Information Value Date Recorded Sex Assigned at Not on file Legal Sex Male 5:49 AM SEWAGE TREATMENT PLANT OPERATOR Gender Identity Male 03/25/2023 11:15 AM CDT Sexual Orientation Not on file documented as of this encounter Plan of Treatment Not on file documented as of this encounter Visit Diagnoses Not on filedocumented in this encounter Care Teams Flatbed Press Operator Relationship Specialty Start Date End Date Lio Reveles MD PCP - General Internal Medicine 10/24/23 Vahe Rouse MD [address] [facility] [address] [place] [address] Referring Physician Neurology 01/04/24 Emily Staples, cia agent Failure Coordinator Transplant 05/03/24 Gisselle Morgan, cia agent Failure Coordinator 05/03/24 Alie Joyner, construction management assistantFlour Inspector 10/31/24 Kalyani Muller Primary Director Epidemiology Transplant 10/31/24 documented as of this encounter
--- OUTSIDE RECORDS SUMMARY | 2024-12-12 11:19 | XMS_ITS | Clinical Summary ---
Author Organization [facility] Physician Office Building [address] [place] [address] Care Team Providers Care Spray Technician Name Role Phone Lio Reveles MD Primary Care Provider + [phone] Vahe Rouse MD Unavailable [phone] Emily Staples RN Unavailable Unavailable Gisselle Morgan [...] 11/06/2023 Assessment & Plan (09/14/2024 11:48 AM EXTRACTOR AND WRINGER OPERATOR): Denies therapies. Central cord syndrome at C4 level of cervical sp inal cord 11/06/2023 Central cord syndrome, initial encounter 024 Ischemic cardiomyopathy 10/28/2023 Assessment & Plan (09/14/2024 11:47 AM EXTRACTOR AND WRINGER OPERATOR): ICM: Chronic systolic heart failure. Denies [...] Type Department Care Team Description 11/01/2024 Telephone [facility] [address] [facility] Advanced Medicine 8th [place] [address] [place] [address] Yeison Tom MD 11/01/2024 Telephone [facility] [place] [facility] Transplant Heart [address] [facility] [phone] [place] [address] Avinash Cleaning 10/31/2024 Telephone [facility] [place] [facility] Heart [address] [facility] [address] [place] [address] Karina Amador 10/19/2024 Documentation Orthopaedic Surgery Fer Pizano BS 10/17/2024 Orders Only [facility] [address] [facility] Advanced Medicine 8th [place] [address] [place] [address] Yeison Tom MD 09/14/2024 10:00 AM EXTRACTOR AND WRINGER OPERATOR Office Visit [facility] [address] [facility] 8th [place] [address] [place] [address] Pratibha Jennings NP Presence of automatic (implantable) [...] Tobacco: Never Tobacco Cessation:Counseling Given: Not Answered [facility] Utilities Answer Date Recorded In the past 12 months has [employer] gas, oil, or water [employer] threatened to shut off services in your [...] 11/02/2023 How often do you attend [facility] or buddhism services? Never 11/02/2023 Do you belong to any clubs o r organizations such as presybeterian groups, unions, fraternal or athletic groups, or [...] place to sleep or slept in a correction (including now)? No 11/02/2023 Personal Safety Answer Date Recorded Have you ever been in or are you currently in a harmful physical or emotional relationship or is someone making you feel afraid or unsafe? Denies 03/03/2024 Sex and Gender Information Value Date Recorded Sex Assigned at Not on file Legal Sex Male 5:49 AM EXTRACTOR AND WRINGER OPERATOR Gender Identity Male 03/25/2023 11:15 AM CDT Sexual Orientation Not on file Obstetrics History Last Filed Vital Signs Vital Sign Reading Time Taken Comments Blood Pressure 126/75 09/14/2024 10:13 AM EXTRACTOR AND WRINGER OPERATOR Pulse 92 09/14/2024 10:13 AM EXTRACTOR AND WRINGER OPERATOR Temperature 36.6 C (97.8 F) 06/27/2024 10:39 AM EXTRACTOR AND WRINGER OPERATOR Respiratory Rate 25 03/03/2024 2:20 PM CDT Oxygen Saturation 96% 09/14/2024 10:13 AM EXTRACTOR AND WRINGER OPERATOR Inhaled Oxygen Concentration - - Weight 77.8 kg (171 lb 9.6 oz) 09/14/2024 10:13 AM EXTRACTOR AND WRINGER OPERATOR Height 171.5 cm (5' 7.5) 09/14/2024 10:13 AM CS T Body Mass Index 26.48 09/14/2024 10:13 AM EXTRACTOR AND WRINGER OPERATOR Plan of Treatment Health Maintenance Due [...] Completed 10/22/2023 Medical Devices Implanted Type Area Workers Compensation Paralegal Device Identifier Shelf Expiration Date Model / Serial / Lot [employer]ice Angio-Seal Vip 6fr Closere Device [id number] - [id number] - [id number] Implanted:Qty: 1 on 11/05/2023 by Héctor Richards MD at [facility] Collagen Right: Groin [employer] 06/15/2024 [id number] / [id number] / [id number] [employer] Kandice Defibrillator Single Chamber Vigilant 0.99x5.37x7.36cm D232 - [id number] - [id number] Implanted:Qty: 1 on 03/03/2024 by Yeison Tom MD at [facility] ICD Left: Chest Wall [employer] K[employer] 06/16/2025 D232 / [id number] / [id number] [employer] K[employer] Lead Cardioverter Defibrillator Bipolar Active Fixation Endocardium Steroid Eluting Radiant 4 Front 7.4exu22jpj08kf 0672 - [id number] - [id number] Implanted:Qty: 1 on 03/03/2024 by Yeison Tom MD at [facility] Lead Right: Ventricle [employer] K[employer] 09/24/2025 0672 / [id number] / [id number] Allosource Crushed Fresh Frozen Cancellous 1-4mm Graft 15ml Bone [id number] - [id number] Implanted:Qty: 1 on 10/28/2023 by Clyde Dotson MD at [facility] N/A: Spine Cervical [employer] 12/15/2027 [id number] / / [id number] [employer] Inc Screw Spine Reline C Lock Open Non-Sterile Latex Free [id number] - [id number] Implanted:Qty: 10 on 10/28/2023 by Clyde Dotson MD at [facility] N/A: Spine Cervical [employer] [id number] / / [employer] Screw Spinal Posterior Cervical Solid Reline C 3.5x14mm [id number] - [id number] Implanted:Qty: 6 on 10/28/2023 by Clyde Dotson MD at [facility] N/A: Spine Cervical [employer] [id number] / / Nuv[employer] Inc Reline C Screw 3.5x20mm Ma [id number] - [id number] Implanted:Qty: 2 on 10/28/2023 by Clyde Dotson MD at [facility] N/A: Spine Cervical [employer] Inc [id number] / / Nuv[employer] Screw Spinal Thoracic Solid Reline 4.0x24mm Titanium [id number] - [id number] Implanted:Qty: 2 on 10/28/2023 by Clyde Dotson MD at [facility] N/A: Spine Cervical Nuv[employer] Inc [id number] / / Nuvasive Inc Melvin Spinal Posterior Cervical Prebent Reline 4.0x80mm Titanium [id number] - [id number] Implanted:Qty: 2 on 10/28/2023 by Clyde Dotson MD at [facility] N/A: Spine Cervical [employer] Inc [id number] / / Procedures Procedure Name Priority Date/Time Associated Diagnosis Comments DEVICE CHECK - REMOTE Routine 10/17/2024 6:10 AM CDT BASIC METABOLIC PANEL Routine 06/21/2024 1:50 PM EXTRACTOR AND WRINGER OPERATOR Ischemic cardiomyopathy LIPID PANEL Routine 01/06/2024 [...] estimate based on prior usage) Presenting Rhythm (AL) Ventricular Sensing (VS) --- rate 55 Arrhythmic events (AE) No new arrhythmic events in monitoring period Transmission Information (TI) Device Summary Report Procedure Note Yeison Tom MD - 10/20/2024 Interpretation Summary: Battery and Leads (BL) Normal parameters noted on battery and lead(s) --- 15 years remaining(this is an estimate based on prior usage) Presenting Rhythm (AL) Ventricular Sensing (VS) --- rate 55 Arrhythmic events (AE) No new arrhythmic events in monitoring period Transmission Information (TI) Device Summary Report us Yeison Tom MD [facility] PROCEDURES Final Result * (ABNORMAL) Basic metabolic panel (06/21/2024 1:50 PM EXTRACTOR AND WRINGER OPERATOR) Pathologist [facility] Glucose 133(H) 70 - 99 mg/dL [facility] [...] [facility] - 01 Blood 06/21/2024 1:50 PM EXTRACTOR AND WRINGER OPERATOR 06/21/2024 Narrative [facility] - 06/22/2024 7:10 AM EXTRACTOR AND WRINGER OPERATOR Performed at: 01 - [address] [id number] Stress Engineer: Carlitos Jung PhD, Phone: [phone] us Vickey Marinelli MD PhD LAB BLOOD [...] revised on 2018. Triglycerides 368(H) <=149 mg/dL [facility] Comment: Interpretive Data Ages < or [...] revised on 2018. HDL 31(L) >=40 mg/dL [facility] Comment: Interpretive Data Ages < or [...] 2018. LDL, calculated 138(H) <=129 mg/dL [facility] Comment: Interpretive Data Ages < or [...] revised on 2018. Non-HDL Cholesterol 212 mg/dL [facility] Comment: Interpretive Data Ages < or [...] last revised on 2018. Chol/HDL ratio 8 [facility] Blood 01/06/2024 11:3 7 AM CDT 01/06/2024 2:09 PM CDT Benji Esparza MD LAB BLOOD ORDERABLES Final Result [facility] Department [place] [address] * CT Chest Abdomen Pelvis W Contrast [...] Estimated Average Glucose 134 mg/dL [facility] Comment: The ADA recommends reporting [...] ORDERABLES Final Res ult [facility] Department [place] [address] from Last 3 Months or Most Recently Relevant to Health Maintenance Insurance MEDICARE [employer] [place] MEDICARE [employer] [place] Advance Directives For more information, please contact: [phone] * Full Code (Latest Code Status on [...] 11:18 AM 10/27/2023 9:08 PM Care Teams Spray Technician Relationship Specialty Start Date End Date Lio Reveles MD PCP - General Internal Medicine 10/24/23 Vahe Rouse MD [address] [place] [address] Referring Physician Neurology 01/04/24 Emily Staples, tinsel machine operator Failure Coordinator Transplant 05/03/24 Gisselle Morgan, tinsel machine operator Failure Coordinator 05/03/24 Alie Joyner, lapel basterSewage Disposal Worker 10/31/24 Kalyani Muller Primary Director Of Radio Services Transplant 10/31/24
--- NOTE | 2024-12-12 11:25 | ECG_ITS ---
Test Date: 2024-12-12 11:31:58 Measurements Intervals [place] Rate: 74 P: 73 TX: 197 QRS: 11 QRSD: 134 T: -4 QT: 379 QTc: 422 Interpretive Statements SINUS RHYTHM INCOMPLETE LEFT BUNDLE BRANCH BLOCK DELAYED PRECORDIAL R/S TRANSITION CONSIDER INFERIOR INFARCT, AGE INDETERMINATE ABNORMAL ECG Compared to ECG 05/06/2024 13:05:08 NO SIGNIFICANT CHANGE Electronically Signed On 12-12-2024 11:50:18 CDT by Torito Aj D.O.
[2024-12-12 11:50] LABS: Basophils Absolute Auto 0.1 K/mm3 (0.0-0.1); Basophils Percent Auto 1.2 % (0.2-1.2); Eosinophils Absolute Auto 0.1 K/mm3 (0-0.3); Hematocrit 39.3 % (42.0-52.0); Hemoglobin 12.7 g/dL (14.0-18.0); Immature Granulocyte Absolute 0.05 K/mm3 (0.00-0.031); Immature Granulocyte Percent A 0.5 % (0-0.5); Lymphocytes Absolute Auto 2.16 K/mm3 (0.9-3.2); Mean Corpuscular HGB Conc 32.3 g/dl (32-36); Mean Corpuscular Hemoglobin 27.9 pg (26-34); Mean Corpuscular Volume 86.2 fl (80-100); Mean Platelet Volume 9.5 fl (7.4-10.4); Monocytes Absolute Auto 0.9 K/mm3 (0.1-0.6); Monocytes Percent Auto 9.6 % (2.6-8.5); Neutrophils Absolute Auto 6.4 K/mm3 (1.3-6.7); Neutrophils Percent Auto 65.7 % (45.5-73.1); Platelet Count Result 405 k/mm3 (150-375); Red Blood Count 4.56 M/mm3 (4.6-6.20); Red Cell Distribution Width 15.2 % (11.5-14.5); White Blood Count 9.8 K/mm3 (4.5-10.0)
[2024-12-12 12:07] LABS: Alanine Aminotransferase 14 U/L (6-50); Albumin Level 4.2 g/dL (3.5-5.1); Alkaline Phosphatase 62 U/L (38-126); Anion Gap 11 mmol/L (4-12); Aspartate Amino Transferase 23 U/L (17-59); Bilirubin,Total 0.6 mg/dL (0.2-1.3); Blood Urea Nitrogen 15 mg/dL (9-20); Calcium 9.4 mg/dL (8.4-10.2); Carbon Dioxide 25 mmol/L (22-30); Chloride 100 mmol/L (98-107); Estimated Glomerular Filt Rate > 60; Glucose 115 mg/dL (65-110); Potassium 3.6 mmol/L (3.4-5.0); Sodium 136 mmol/L (137-145)
[2024-12-12] MEDS: IPRATROPIUM 0.5 MG/ALBUTEROL SULFATE 2.5 MG AMPUL.NEB 3 ML INHALATION (12:42)
[2024-12-12 12:43] LABS: Influenza A QL RT-PCR Negative (Negative); Influenza B QL RT-PCR Negative (Negative); RSV RNA, RT-PCR Negative (Negative); SARS-CoV-2 RNA PCR Negative (Negative)
--- OUTSIDE RECORDS SUMMARY | 2024-12-12 12:46 | XMS_ITS | Encounter Summary ---
Author Organization [facility] Healthcare Address [address] [place] [address] Care Team Providers Care Cafe Helper Name Role Phone Lio Reveles MD Primary Care Provider + [phone] Vahe Rouse MD Unavailable [phone] Emily Staples RN Unavailable Unavailable Gisselle Morgan RN Unavailable Unavaila Alie Henao RN Unavailable Unavailable Kalyani Muller Unavailable Unavailable Encounter Details Date Type Department Care Team (Late st Contact Info) Description 10/19/2024 Documentation Orthopaedic Surgery Fer Pizano BS Social History Tobacco Use Types Packs/Day Years Used Date Smoking Tobacco: Former Cigarettes Q uit: 2000 Passive Smoke Exposure: Never Smokeless Tobacco: Never [facility] Utilities Answer Date Recorded In the past 12 months has [employer] electric, gas, oil, or water company threatened [...] often do you attend chur ch or pentecostal services? Never 11/02/2023 Do you belong to [...] place to sleep or slept in a [place] [facility] facility (including now)? No 11/02/2023 Personal Safety Answer Date Recorded Have you ever been in or are you currently in a harmful physical or emotional relationship or is someone making you feel afraid or unsafe? Denies 03/03/2024 Sex and Gender Information Value Date Recorded Sex Assigned at Not on file Legal Sex Male 5:49 AM INSURANCE EXAMINER Gender Identity Male 03/25/2023 11:15 AM CDT Sexual Orientation Not on file documented as of this encounter Plan of Treatment Not on file documented as of this encounter Visit Diagnoses Not on filedocumented in this encounter Care Teams Cafe Helper Relationship Specialty Start Date End Date Lio Reveles MD PCP - General Internal Medicine 10/24/23 Vahe Rouse MD [address] [facility] [address] [place] [address] Referring Physician Neurology 01/04/24 Emily Staples, gasoline service attendant Failure Coordinator Transplant 05/03/24 Gisselle Morgan, gasoline service attendant Failure Coordinator 05/03/24 Alie Joyner, personal development coachNurse Chemical Dependency 10/31/24 Kalyani Muller Primary Auctioneer Tobacco Transplant 10/31/24 documented as of this encounter
--- OUTSIDE RECORDS SUMMARY | 2024-12-12 12:47 | XMS_ITS | Encounter Summary ---
Author Organization [facility] Address [address] [place] [address] Care Team Providers Care Interventional Tech Name Role Phone Nikky Mathews MD Primary Care Provider [phone] Encounter Details Date Type Department Care Team (Late st Contact Info) Description 05/21/2023 Lab Requisition [facility] D[facility] Lab [address] [facility], [place] [address] Eldon Morfin MD [address] [place], [place] [id number] Social History Tobacco Use Types Packs/Day Years Used Date Smoking Tobacco: Former Cigarettes Q uit: 08/01/1998 Smokeless Tobacco: Never Comments:OCCASIONAL CIGAR Alcohol Use Standard Drinks/Week Comments No 0 (1 standard drink = 0.6 oz pur e alcohol) Sex and Gender Information Value Date Recorded Sex Assigned at Not on file Legal Sex Male 1:09 PM TUG MASTER Gender Identity Male 11/11/2024 4:55 PM CDT Sexual Orientation Straight 11/11/2024 4: 55 PM CDT documented as of this encounter Plan of Treatment Upcoming Encounters Date Type Department Care Team (Latest Contact Info) Description 12/21/2024 9:50 AM CDT Hospital Encounter [facility] ENDOSCOPY [address] [place] [address] Karthik Anderson MD [address] [place] [address] Surgery General 12/21/2024 9:50 AM CDT - 12/21/2024 11:50 AM CDT Surgery [facility] ENDOSCOPY [address] [place] [phone] Karthik Anderson MD [address] [place] [address] Egd+ESD Scheduled Procedures Name Priority Associated Diagnoses Date/Ti va ESOPHAGOGASTRODUODENOSCOPY ( EGD) DIAGNOSTIC Congenital malformation of stomach 12/21/2024 9:50 AM CDT documented as of this encounter Procedures Procedure Name Priority Date/Time Associated Diagnosis Comments DERMATOPATHOLOGY Routine 05/20/2023 12:0 0 AM TUG MASTER documented in this encounter Results * DERMATOPATHOLOGY (05/20/2023 12:00 AM TUG MASTER) Case Report Dermatopathology Report Case: [id number] Authorizing Provider: Eldon Morfin MD Collected: 05/20/2023 12:00 AM Ordering Location: [facility] DermPath Lab Received: 05/21/2023 07:40 AM Pathologist: Miranda Yañez MD Specimen: Skin, right ant neck 3 2:27 PM [facility] DERMATOPATHOLOGY LABORATORY Final Diagnosis Specimen A. SKIN, right ant neck: BENIGN VERRUCOUS KERATOSIS, INFLAMED (L82.1) (see microscopic description) 3 2:27 PM [facility] DERMATOPATHOLOGY LABORATORY at [address]27 TUG MASTER Clinical History Nevus vs BCC 3 2:27 PM [facility] DERMATOPATHOLOGY LABORATORY Gross Description Specimen A: Received is one formalin filled container labeled with the patient's name and designated right ant neck. The specimen consists of a(2) pieces shave biopsy measuring 5x3x1, 5x4x1 mm. Jar 0. 3 2:27 PM [facility] DERMATOPATHOLOGY LABORATORY Microscopic Description Specimen A. SKIN, right ant neck: Sections show hyperkeratosis, papillomatosis, hypergranulosis, and acanthosis. Inflammatory cells are present within the dermis. These histological findings can be seen in a verruca vulgaris or a seborrheic keratosis. Additional deeper sections were obtained and reviewed. 3 2:27 PM [facility] DERMATOPATHOLOGY LABORATORY Disclaimer An external and internal positive and negative controls are appropriate for the histochemical, immunohistochemical and immunofluorescence stain(s) in this case (if any), except where stated explicitly. The performance characteristics of the stain(s) cited in this report were developed and its performance characteristic determined by the Dermatopathology Laboratory at [facility], directed by Dr. Marito Guerrero. These tests need not be, and therefore are not, approved by the [place] Food and Drug Administration. The tests are used for clinical purposes. Billing Codes Specimen Charges Stain Charges 99514 1 3 2:27 PM [facility] DERMATOPATHOLOGY LABORATORY Embedded Images 3 2:27 PM [facility] DERMATOPATHOLOGY LABORATORY Pathology/Cytolog y TISSUE SPECIMEN FROM SKIN / Unknown 05/20/2023 05/21/2023 7:40 AM TUG MASTER Eldon Morfin MD LAB - PATHOLOGY/CYTOLOGY ORDERAB LES Final Result DERMATOPATHOLOGY LABORATORY [facility] - Department of Dermatology [facility] Medicine [address] [place] [address], [address] [phone] documented in this encounter Visit Diagnoses Not on filedocumented in this encounter Care Teams Interventional Tech Relationship Specialty Start Date End Date Nikky Mathews MD [address] [place] [phone] PCP - General Internal Medicine 09/01/11 documented as of this encounter
--- OUTSIDE RECORDS SUMMARY | 2024-12-12 12:47 | XMS_ITS | Encounter Summary ---
Author Organization [facility] Address [address] [place] [address] Phone Care Team Providers Care Vegetable Handler Name Role Phone Lio Reveles MD Primary Care Provider + [phone] Vahe Rouse MD Unavailable [phone] Emily Staples RN Unavailable Unavailable Gisselle Morgan RN Unavailable Unavaila Alie Henao RN Unavailable Unavailable Kalyani Muller Unavailable Unavailable Encounter Details Date Type Department Care Team (Late st Contact Info) Description 01/15/2024 Telephone [facility] Cardiology [address] [facility] Advanced Medicine 8th [place] [address] [place] [address] Benji Esparza MD [address] [facility] [address] [place] [address] Social History Tobacco Use Types Packs/Day Years Used Date Smoking Tobacco: Former Cigarettes [facility] Utilities Answer Date Recorded In the past 12 months has [email or web address] electric, gas, oil, or water company threatened [...] week 11/02/2023 How often do you attend [facility] or [facility] services? Never 11/02/2023 Do you belong to any clubs o r organizations such as sabianist groups, unions, fraternal or athletic groups, or [...] place to sleep or slept in a chcf (including now)? No 11/02/2023 Personal Safety Answer Date Recorded Have you ever been in or are you currently in a harmful physical or emotional relationship or is someone making you feel afraid or unsafe? Denies 11/05/2023 Sex and Gender Information Value Date Recorded Sex Assigned at Not on file Legal Sex Male 5:49 AM INDIAN TRADER Gender Identity Male 03/25/2023 11:15 AM CDT Sexual Orientation Not on file documented as of this encounter Plan of Treatment Not on file documented as of this encounter Visit Diagnoses Not on filedocumented in this encounter Care Teams Vegetable Handler Relationship Specialty Start Date End Date Lio Reveles MD PCP - General Internal Medicine 10/24/23 Vahe Rouse MD [address] [facility] [facility] [address] [place] [address] Referring Physician Neurology 01/04/24 Emily Staples, blender machine operator Failure Coordinator Transplant 05/03/24 Gisselle Morgan, blender machine operator Failure Coordinator 05/03/24 Alie Joyner, safety net makerProject Systems Engineer 10/31/24 Kalyani Muller Primary Mold Making Supervisor Transplant 10/31/24 documented as of this encounter
--- OUTSIDE RECORDS SUMMARY | 2024-12-12 12:47 | XMS_ITS | Clinical Summary ---
Author Organization [facility] [address] [place] [address] Care Team Providers Care Answering Service Telephone Operator Name Role Phone Lio Reveles MD Primary Care Provider + [phone] Vahe Rouse MD Unavailable [phone] Emily Staples RN Unavailable Unavailable Gisselle Morgan [...] 11/06/2023 Assessment & Plan (09/14/2024 11:48 AM SPORTS JOURNALIST): Denies therapies. Central cord syndrome at C4 level of cervical sp inal cord 11/06/2023 Central cord syndrome, initial encounter 024 Ischemic cardiomyopathy 10/28/2023 Assessment & Plan (09/14/2024 11:47 AM SPORTS JOURNALIST): ICM: Chronic systolic heart failure. Denies angina. [...] Type Department Care Team Description 11/01/2024 Telephone [facility] Cardiology [address] [facility] Advanced Medicine 8th [place] [address] [place] [address] Yeison Tom MD 11/01/2024 Telephone [facility] Transplant Heart [address] [facility] [phone] [place] [address] Avinash Cleaning 10/31/2024 Telephone [facility] Transplant Heart [address] [facility] [phone] [place] [address] Karina Amador 10/19/2024 Documentation Orthopaedic Surgery Fer Pizano BS 10/17/2024 Orders Only [facility] Cardiology [address] [facility] Advanced Medicine 8th [place] [address] [place] [address] Yeison Tom MD 09/14/2024 10:00 AM SPORTS JOURNALIST Office Visit [facility] Cardiology [address] [facility] 8[address] [place] [address] [place] [phone] Pratibha Jennings NP Presence of automatic (implantable) [...] Tobacco Cessation:Counseling Given: Not Answered [facility] Utilities Answer Date Recorded In the past 12 months has [employer] gas, oil, or water [employer] threatened to shut off services in your [...] week 11/02/2023 How often do you attend [facility] or uatsdin services? Never 11/02/2023 Do you belong to [...] place to sleep or slept in a half-way (including now)? No 11/02/2023 Personal Safety Answer Date Recorded Have you ever been in or are you currently in a harmful physical or emotional relationship or is someone making you feel afraid or unsafe? Denies 03/03/2024 Sex and Gender Information Value Date Recorded Sex Assigned at Not on file Legal Sex Male 5:49 AM SPORTS JOURNALIST Gender Identity Male 03/25/2023 11:15 AM CDT Sexual Orientation Not on file Obstetrics History Last Filed Vital Signs Vital Sign Reading Time Taken Comments Blood Pressure 126/75 09/14/2024 10:13 AM SPORTS JOURNALIST Pulse 92 09/14/2024 10:13 AM SPORTS JOURNALIST Temperature 36.6 C (97.8 F) 06/27/2024 10:39 AM SPORTS JOURNALIST Respiratory Rate 25 03/03/2024 2:20 PM CDT Oxygen Saturation 96% 09/14/2024 10:13 AM SPORTS JOURNALIST Inhaled Oxygen Concentration - - Weight 77.8 kg (171 lb 9.6 oz) 09/14/2024 10:13 AM SPORTS JOURNALIST Height 171.5 cm (5' 7.5) 09/14/2024 10:13 AM CS T Body Mass Index 26.48 09/14/2024 10:13 AM SPORTS JOURNALIST Plan of Treatment Health Maintenance Due Date [...] Completed 10/22/2023 Medical Devices Implanted Type Area Commercial Fishing Vessel Operator Device Identifier Shelf Expiration Date Model / Serial / Lot [employer] Kandice Angio-Seal Vip 6fr Closere Device [id number] - [id number] - [id number] Implanted:Qty: 1 on 11/05/2023 by Héctor Richards MD at [facility] Collagen Right: Groin [employer] Kandice 06/15/2024 [id number] / [id number] / [id number] [employer] Kandice Defibrillator Single Chamber Vigilant 0.99x5.37x7.36cm D232 - [id number] - [id number] Implanted:Qty: 1 on 03/03/2024 by Yeison Tom MD at [facility] ICD Left: Chest Wall [employer] K[employer]ice 06/16/2025 D232 / [id number] / [id number] [employer] K[employer] Lead Cardioverter Defibrillator Bipolar Active Fixation Endocardium Steroid Eluting [place] 4 Front 7.6ssp13saj33tl 0672 - [id number] - [id number] Implanted:Qty: 1 on 03/03/2024 by Yeison Tom MD at [facility] Lead Right: Ventricle [employer] K[employer] 09/24/2025 0672 / [id number] / [id number] Allosource Crushed Fresh Frozen Cancellous 1-4mm Graft 15ml Bone [id number] - [id number] Implanted:Qty: 1 on 10/28/2023 by Clyde Dotson MD at [facility] N/A: Spine Cervical [employer]ource 12/15/2027 [id number] / / [id number] Nuv[employer] Inc Screw Spine Reline C Lock Open Non-Sterile Latex Free [id number] - [id number] Implanted:Qty: 10 on 10/28/2023 by Clyde Dotson MD at [facility] N/A: Spine Cervical [employer] Inc [id number] / / [employer] Screw Spinal Posterior Cervical Solid Reline C 3.5x14mm [id number] - [id number] Implanted:Qty: 6 on 10/28/2023 by Clyde Dotson MD at [facility] N/A: Spine Cervical [employer] Inc [id number] / / Nuv[employer] Inc Reline C Screw 3.5x20mm Ma [id number] - [id number] Implanted:Qty: 2 on 10/28/2023 by Clyde Dotson MD at [facility] N/A: Spine Cervical [employer] Inc [id number] / / [employer] Screw Spinal Thoracic Solid Reline 4.0x24mm Titanium [id number] - [id number] Implanted:Qty: 2 on 10/28/2023 by Clyde Dotson MD at [facility] N/A: Spine Cervical Nuv[employer] Inc [id number] / / Nuvasive Inc Melvin Spinal Posterior Cervical Prebent Reline 4.0x80mm Titanium [id number] - [id number] Implanted:Qty: 2 on 10/28/2023 by Clyde Dotson MD at [facility] N/A: Spine Cervical [employer] Inc [id number] / / Procedures Procedure Name Priority Date/Time Associated Diagnosis Comments DEVICE CHECK - REMOTE Routine 10/17/2024 6:10 AM CDT BASIC METABOLIC PANEL Routine 06/21/2024 1:50 PM SPORTS JOURNALIST Ischemic cardiomyopathy LIPID PANEL Routine 01/06/2024 11:37 [...] (ABNORMAL) Basic metabolic panel (06/21/2024 1:50 PM SPORTS JOURNALIST) Pathologist [facility] Glucose 133(H) 70 - 99 mg/dL [facility] [...] [facility] - 01 Blood 06/21/2024 1:50 PM SPORTS JOURNALIST 06/21/2024 Narrative [facility] - 06/22/2024 7:10 AM SPORTS JOURNALIST Performed at: 01 - [address] [id number] Tray Casting Machine Operator: Carlitos Jung PhD, Phone: [phone] us Vickey Marinelli MD PhD LAB BLOOD [...] revised on 2018. Triglycerides 368(H) <=149 mg/dL [facility] Comment: Interpretive Data Ages < or = [...] revised on 2018. HDL 31(L) >=40 mg/dL [facility] Comment: Interpretive Data Ages < or = [...] on 2018. LDL, calculated 138(H) <=129 mg/dL [facility] Comment: Interpretive Data Ages < or = [...] revised on 2018. Non-HDL Cholesterol 212 mg/dL [facility] Comment: Interpretive Data Ages < or = [...] last revised on 2018. Chol/HDL ratio 8 [facility] Blood 01/06/2024 11:3 7 AM CDT 01/06/2024 2:09 PM CDT Benji Esparza MD LAB BLOOD ORDERABLES Final Result [facility] [place] [address] * CT Chest Abdomen Pelvis W Contrast [...] the chest, abdomen, or pelvis. Dictated by: Satyha Piper M.D. The radiology attending physician has personally reviewed this study, and had reviewed and/or edited this written report and agrees with it. Electronically signed by: Kathe Jason M.D. Samantha Tucker MD IMG CT PROCEDURES Final Result * (ABNORMAL) Hemoglobin A1c (10/22/2023 5:22 PM CDT) Hgb A1C 6.3(H) 4.0 - 5.6 % Estimated Average Glucose 134 mg/dL [facility] Comment: The ADA recommends reporting an [...] ORDERABLES Final Res ult [facility] [place] [address] from Last 3 Months or Most Recently Relevant to Health Maintenance Insurance MEDICARE [email or web address] [place] [employer] [place] Advance Directives For more information, please contact: [phone] * Full Code (Latest Code Status on [...] 11:18 AM 10/27/2023 9:08 PM Care Teams Answering Service Telephone Operator Relationship Specialty Start Date End Date Lio Reveles MD PCP - General Internal Medicine 10/24/23 Vahe Rouse MD [address] [place] [address] Referring Physician Neurology 01/04/24 Emily Staples, health science instructor Failure Coordinator Transplant 05/03/24 Gisselle Morgan, health science instructor Failure Coordinator 05/03/24 Alie Joyner, show host/hostessApartment Maintenance Technician 10/31/24 Kalyani Muller Primary Web User Experience Strategist Transplant 10/31/24
--- OUTSIDE RECORDS SUMMARY | 2024-12-12 12:47 | XMS_ITS | Clinical Summary ---
Author Organization [facility] [employer] Address [address] [facility] [place] [address] Care Team Providers Care Auto Detailer Name Role Phone Nikky Mathews MD Primary Care Provider [phone] Source Comments [facility] [employer],non-owned Affiliates and Associated Physician Practices is amultiple site organization consisting of ambulatory clinics and hospital sitesin [place], [place], [place] and [place]. This disclosure is being madepursuant to the Care Everywhere program and may not contain all information available regarding this patient. Last updated 18.[facility] [employer] Allergies No known active allergies Medications * [...] Type Department Care Team Description 11/10/2024 Telephone [facility] ENDOSCOPY [address] [place] [address] Rekha Gray Procedure (External Referral, Egd+ESD, Dr. Eid ) 11/09/2024 Telephone [facility] [address] [place] [address] Rekha Gray Follow-up from Last 3 Months [...] on file Legal Sex Male 1:09 PM BEAD WRAPPER Gender Identity Male 11/11/2024 4:55 PM CDT Sexual Orientation Straight 11/11/2024 4: 55 PM CDT Last Filed Vital Signs Vital Sign Reading Time Taken Comments Blood Pressure 193/90 09/01/2011 1:15 PM BEAD WRAPPER Pulse 88 09/01/2011 1:15 PM BEAD WRAPPER Temperature 36.6 C (97.9 F) 09/01/2011 1:15 PM BEAD WRAPPER Respiratory Rate 18 09/01/2011 1:15 PM BEAD WRAPPER Oxygen Saturation - - Inhaled Oxygen Concentration - - Weight 79.4 kg (175 lb) 09/01/2011 1:15 PM BEAD WRAPPER Height 174 cm (5' 8.5) 09/01/2011 1:15 PM BEAD WRAPPER Body Mass Index 26.22 09/01/2011 1:15 PM BEAD WRAPPER Plan of Treatment Upcoming Encounters Date Type Department Care Team (Latest Contact Info) Description 12/21/2024 9:50 AM CDT Hospital Encounter [facility]OS[facility] [address] [place] [address] Karthik Anderson MD [facility] [place] [address] Surgery General 12/21/2024 9:50 AM CDT - 12/21/2024 11:50 AM CDT Surgery [facility] [address] [place] [address] Karthik Anderson MD [facility] [place] [phone] Egd+ESD Scheduled Procedures Name Priority Associated Diagnoses [...] patient's age to complete this topic Insurance [facility] MEDICARE [employer] SELF PAY NO INSURANCE Member Subscriber Plan / Payer (Ef fective for All Dates) Name:Tolu Jha Member ID:Not on file Relation to Subscriber:Not on file Name:TOLU JHA Subscriber ID:Not on file (Home) Address: [address] [place] [id number] Payer ID:Not on file Group ID:Not on file Type:Self Pay Address: [place], [place] Care Teams Auto Detailer Relationship Specialty Start Date End Date Nikky Mathews MD [address] [place] [address] PCP - General Internal Medicine 09/01/11
--- OUTSIDE RECORDS SUMMARY | 2024-12-12 12:47 | XMS_ITS | Referral Summary ---
Author Organization [facility] [address] [place] [address] Care Team Providers Care Field Contractor Name Role Phone Lio Reveles MD Primary Care Provider + [phone] Vahe Rouse MD Unavailable [phone] Emily Staples RN Unavailable Unavailable Gisselle Morgan RN Unavailable Unavaila Alie Henao RN Unavailable Unavailable Kalyani Muller Unavailable Unavailable Encounters Date Type Department Care Team Description 11/01/2024 Telephone [facility] Cardiology Formerly [facility], [facility] Advanced Medicine 8th [place] [address] [place] [address] Yeison Tom MD 11/01/2024 Telephone [facility] Transplant Heart [address] [facility] [address] Mailstop [phone] [place] [address] Avinash Cleaning 10/31/2024 Telephone [facility] Transplant Heart [address] [facility] [address] [id number] [place] [address] Karina Amador 10/19/2024 Documentation Orthopaedic Surgery Fer Pizano BS 10/17/2024 Orders Only [facility] Cardiology [address] [place] [address] Advanced Medicine 8th [place] [address] [place] [address] Yeison Tom MD 09/14/2024 10:00 AM SPORTS PHYSICAL THERAPIST Office Visit [facility] Cardiology [address] [place] [address] Advanced Medicine 8th [place] [address] [place] [address] Pratibha Jennings NP Presence of automatic (implantable) [...] Assessment & Plan (09/14/2024 11:48 AM SPORTS PHYSICAL THERAPIST): Denies therapies. Central cord syndrome at C4 level of cervical sp inal cord 11/06/2023 Central cord syndrome, initial encounter 024 Ischemic cardiomyopathy 10/28/2023 Assessment & Plan (09/14/2024 11:47 AM SPORTS PHYSICAL THERAPIST): ICM: Chronic systolic heart failure. Denies angina. [...] Tobacco: Never Tobacco Cessation:Counseling Given: Not Answered [facility] [employer] Answer Date Recorded In the past 12 months has [employer], gas, oil, or water [employer] threatened to shut off services in your [...] 11/02/2023 How often do you attend [facility] or temple services? Never 11/02/2023 Do you belong to any clubs o r organizations such as voodoo groups, unions, fraternal or athletic groups, or [...] file Legal Sex Male 5:49 AM SPORTS PHYSICAL THERAPIST Gender Identity Male 03/25/2023 11:15 AM CDT Sexual Orientation Not on file Last Filed Vital Signs Vital Sign Reading Time Taken Comments Blood Pressure 126/75 09/14/2024 10:13 AM SPORTS PHYSICAL THERAPIST Pulse 92 09/14/2024 10:13 AM SPORTS PHYSICAL THERAPIST Temperature 36.6 C (97.8 F) 06/27/2024 10:39 AM SPORTS PHYSICAL THERAPIST Respiratory Rate 25 03/03/2024 2:20 PM CDT Oxygen Saturation 96% 09/14/2024 10:13 AM SPORTS PHYSICAL THERAPIST Inhaled Oxygen Concentration - - Weight 77.8 kg (171 lb 9.6 oz) 09/14/2024 10:13 AM SPORTS PHYSICAL THERAPIST Height 171.5 cm (5' 7.5) 09/14/2024 10:13 AM CS T Body Mass Index 26.48 09/14/2024 10:13 AM SPORTS PHYSICAL THERAPIST Plan of Treatment Not on file Medical Devices Implanted Type Area Stock Pitcher Device Identifier Shelf Expiration Date Model / Serial / Lot TerumLawdingo Kandice Angio-Seal Vip 6fr Closere Device [id number] - [id number] - [id number] Implanted:Qty: 1 on 11/05/2023 by Héctor Richards MD at [facility] Collagen Right: Groin [employer] Kandice 06/15/2024 [id number] / [id number] / [id number] [employer] Kandice Defibrillator Single Chamber Vigilant 0.99x5.37x7.36cm D232 - [id number] - [id number] Implanted:Qty: 1 on 03/03/2024 by Yeison Tom MD at [facility] ICD Left: Chest Wall [employer] Kandice 06/16/2025 D232 / [id number] / [id number] [employer] Kandice Lead Cardioverter Defibrillator Bipolar Active Fixation Endocardium Steroid Eluting [place] 4 Front [id number] 0672 - [id number] - [id number] Implanted:Qty: 1 on 03/03/2024 by Yeison Tom MD at [facility] Lead Right: Ventricle [employer] Kandice 09/24/2025 0672 / [id number] / [id number] Allosource Crushed Fresh Frozen Cancellous 1-4mm Graft 15ml Bone [id number] - [id number] Implanted:Qty: 1 on 10/28/2023 by Clyde Dotson MD at [facility] N/A: Spine Cervical Allosource 12/15/2027 [id number] / / [id number] Nuvasive Inc Screw Spine Reline C Lock Open Non-Sterile Latex Free [id number] - [id number] Implanted:Qty: 10 on 10/28/2023 by Clyde Dotson MD at [facility] N/A: Spine Cervical Nuvasive Inc [id number] / / Nuvasive Inc Screw Spinal Posterior Cervical Solid Reline C 3.5x14mm [id number] - [id number] Implanted:Qty: 6 on 10/28/2023 by Clyde Dotson MD at [facility] N/A: Spine Cervical Nuv[employer] Inc [id number] / / Nuvasive Inc Reline C Screw 3.5x20mm Ma [id number] - [id number] Implanted:Qty: 2 on 10/28/2023 by Clyde Dotson MD at [facility] N/A: Spine Cervical Nuvasive Inc [id number] / / Nuvasive Inc Screw Spinal Thoracic Solid Reline 4.0x24mm Titanium [id number] - [id number] Implanted:Qty: 2 on 10/28/2023 by Clyde Dotson MD at [facility] N/A: Spine Cervical Nuvasive Inc [id number] / / Nuvasive Inc Melvin Spinal Posterior Cervical Prebent Reline 4.0x80mm Titanium [id number] - [id number] Implanted:Qty: 2 on 10/28/2023 by Clyde Dotson MD at [facility] N/A: Spine Cervical Nuvasive Inc [id number] / / Procedures Procedure Name Priority Date/Time Associated Diagnosis Comments DEVICE CHECK - REMOTE Routine 10/17/2024 6:10 AM CDT BASIC METABOLIC PANEL Routine 06/21/2024 1:50 PM SPORTS PHYSICAL THERAPIST Ischemic cardiomyopathy LIPID PANEL Routine 01/06/2024 11:37 [...] estimate based on prior usage) Presenting Rhythm (SD) Ventricular Sensing (VS) --- rate 55 Arrhythmic events (AE) No new arrhythmic events in monitoring period Transmission Information (TI) Device Summary Report Procedure Note Yeison Tom MD - 10/20/2024 Interpretation Summary: Battery and Leads (BL) Normal parameters noted on battery and lead(s) --- 15 years remaining(this is an estimate based on prior usage) Presenting Rhythm (SD) Ventricular Sensing (VS) --- rate 55 Arrhythmic events (AE) No new arrhythmic events in monitoring period Transmission Information (TI) Device Summary Report Yeison Tom MD [facility] PROCEDURES Final Result * (ABNORMAL) Basic metabolic panel (06/21/2024 1:50 PM SPORTS PHYSICAL THERAPIST) [facility] Glucose 133(H) 70 - 99 mg/dL [...] - 01 Blood 06/21/2024 1:50 PM SPORTS PHYSICAL THERAPIST 06/21/2024 Narrative [facility] - 06/22/2024 7:10 AM SPORTS PHYSICAL THERAPIST Performed at: [address] [place] [id number] Skein Bleacher: Carlitos Jung PhD, Phone: [phone] us Vickey Marinelli MD PhD LAB BLOOD [...] on 2018. Triglycerides 368(H) <=149 mg/dL [facility] Comment: Interpretive Data Ages < or = [...] on 2018. HDL 31(L) >=40 mg/dL [facility] Comment: Interpretive Data Ages < or = [...] 2018. LDL, calculated 138(H) <=129 mg/dL [facility] Comment: Interpretive Data Ages < or = [...] revised on 2018. Non-HDL Cholesterol 212 mg/dL [facility] Comment: Interpretive Data Ages < or = [...] last revised on 2018. Chol/HDL ratio 8 [facility] Blood 01/06/2024 11:3 7 AM CDT 01/06/2024 2:09 PM CDT us Benji Esparza MD LAB BLOOD ORDERABLES Final Result [facility] Department [place] [address] * CT Chest Abdomen Pelvis W Contrast [...] % Estimated Average Glucose 134 mg/dL [facility] Comment: The ADA recommends reporting an estimated [...] ORDERABLES Final Res ult [facility] Department [place] [address] from Last 3 Months or Most Recently Relevant to Health Maintenance Insurance MEDICARE [facility] MEDICARE [employer] [facility] [place] Advance Directives For more information, please contact: [phone] * Full Code (Latest Code Status on [...] 11:18 AM 10/27/2023 9:08 PM Care Teams Field Contractor Relationship Specialty Start Date End Date Lio Reveles MD PCP - General Internal Medicine 10/24/23 Vahe Rouse MD [address] [facility] [address] [place] [address] Referring Physician Neurology 01/04/24 Emily Staples, postal carrier Failure Coordinator Transplant 05/03/24 Gisselle Morgan, postal carrier Failure Coordinator 05/03/24 Alie Joyner RN Mother Baby Rn 10/31/24 Kalyani Muller Primary Associate Consulting Engineer Transplant 10/31/24
--- NOTE | 2024-12-12 13:28 | ED.GENADULT ---
HPI - General Adult General Chief complaint: Weakness Stated complaint: weak Time Seen by Provider: 12/12/24 12:04 History of Present Illness HPI narrative: Patient is a 74-year-old male who presents ER with fatigue and weakness. History of ALS. Recently started on doxycycline for a chest x-ray that showed peribronchial thickening. He has had some sinus congestion sore throat and cough. No fevers or chills. Had some lightheadedness today and was told to come in to be evaluated. No syncope. No new focal weakness. Related Data Home Medications ?Medication ?Instructions ?Recorded ?Confirmed ?Last Taken ?Type sacubitril 49 mg-valsartan 51 mg 1 tablet PO BID 01/12/24 12/06/24 11/01/24 History tablet (Entresto) dapagliflozin propanediol 5 mg 10 mg PO DAILY 05/06/24 12/06/24 11/01/24 History tablet (Farxiga) escitalopram oxalate 10 mg tablet 10 mg PO 1700 05/06/24 12/06/24 11/01/24 History metformin 500 mg tablet,extended 1,000 mg PO BID 05/06/24 12/06/24 11/01/24 History release 24 hr gabapentin 300 mg capsule See Rx Instructions PO .COMPLEX 12/06/24 12/06/24 Unknown History Allergies Allergy/AdvReac Type Severity Reaction Status Date / Time prednisone AdvReac Unknown DOES NOT Verified 12/12/24 10:52 LIKE TO TAKE IT Review of Systems Review of Systems: All systems reviewed & are unremarkable except as noted in HPI and below Constitutional: Constitutional: Reports no additional constitutional complaints ENT: Reports system reviewed and no additional complaints, except as documented Cardiovascular: Cardiovascular: Reports no additional cardiovascular complaints Respiratory: Respiratory: Reports no additional respiratory complaints Gastrointestinal: Gastrointestinal: Reports no additional gastrointestinal complaints [facility] Past Medical History Medical History Nocturnal diarrhea Change in stool caliber Change in bowel habits Elevated fecal calprotectin Cardiomyopathy ICD (implantable cardioverter-defibrillator) in place Alzheimer's dementia Anemia Black stools Diarrhea Diabetic neuropathy Central cord syndrome Hyperlipidemia Hypertension Diabetes mellitus Surgical History Surgical History H/O hernia repair AICD (automatic cardioverter/defibrillator) present History of colonoscopy Social History Social History Smoking packs per day: 2 Smoking cigarettes per day: 40.0 Years smoked: 30 Smoking pack-years: 60.00 Smoking status: Former smoker Tobacco type: cigarettes Alcohol intake: former Substance use: never Substance use type: does not use Other substance usage details: OCC. GUMMY Do You Feel Safe in your Home?: Yes Lack of Transportation: No Lack of Food: Never True Current Housing: I Have Housing Concerned About Future Housing: No Difficulty Paying Gas/Electric Bills: No Difficulty Paying for Meds: No Currently Unemployed: No Education: High School Diploma/GED Difficulty w/ Childcare or Family Care: No Living arrangements: with family Spiritual care concerns: No Exam Narrative: GENERAL: Frail-appearing, well-nourished, and in no acute distress. HEAD: Normocephalic, atraumatic. ENT: Mucous membranes moist. CHEST: Coarse lung sounds that clear with coughing bibasilarly. No respiratory distress. HEART: Regular rate and rhythm. Normal peripheral pulses. ABDOMEN: Soft, nontender, nondistended. EXTREMITIES: Normal range of motion. No edema. SKIN: Warm, dry, no rash. NEURO: Alert and oriented x3. PSYCH: Normal mood and affect. Course Course Emergency Course: Feels improved after nebulizer. No pneumonia. Labs unremarkable. Orthostatic. 1 L fluid given. Vital Signs Vital signs: Vital Signs Temperature 97.3 F L 12/12/24 10:47 Pulse Rate 87 12/12/24 10:47 Respiratory Rate 18 12/12/24 10:47 Blood Pressure 129/100 H 12/12/24 10:47 Pulse Oximetry 100 12/12/24 10:47 Oxygen Delivery Room Air 12/12/24 10:47 Temperature 97.3 F L 12/12/24 10:47 Pulse Rate 76 12/12/24 13:59 Respiratory Rate 14 12/12/24 13:59 Blood Pressure 140/74 12/12/24 13:59 Pulse Oximetry 98 12/12/24 13:59 Oxygen Delivery Room Air 12/12/24 12:48 Fraction of Inspired Oxygen 21 12/12/24 12:48 Medical Decision Making Vital Signs Vital Signs: Vital Signs Temperature 97.3 F L 12/12/24 10:47 Pulse Rate 87 12/12/24 10:47 Respiratory Rate 18 12/12/24 10:47 Blood Pressure 129/100 H 12/12/24 10:47 Pulse Oximetry 100 12/12/24 10:47 Oxygen Delivery Room Air 12/12/24 10:47 Temperature 97.3 F L 12/12/24 10:47 Pulse Rate 76 12/12/24 13:59 Respiratory Rate 14 12/12/24 13:59 Blood Pressure 140/74 12/12/24 13:59 Pulse Oximetry 98 12/12/24 13:59 Oxygen Delivery Room Air 12/12/24 12:48 Fraction of Inspired Oxygen 21 12/12/24 12:48 Lab Data 12/12/24 11:39 12/12/24 11:39 Labs: Lab Results 12/12/24 12/12/24 12/12/24 Range/Units 11:39 12:01 13:19 WBC 9.8 (4.5-10.0) K/mm3 RBC 4.56 L (4.6-6.20) M/mm3 Hgb 12.7 L (14.0-18.0) g/dL Hct 39.3 L (42.0-52.0) % MCV 86.2 (80-100) fl MCH 27.9 (26-34) pg MCHC 32.3 (32-36) g/dl RDW 15.2 H (11.5-14.5) % Plt Count 405 H (150-375) k/mm3 MPV 9.5 (7.4-10.4) fl Immature Gran % (Auto) 0.5 (0-0.5) % Neut % (Auto) 65.7 (45.5-73.1) % Lymph % (Auto) 22.0 (18.3-44.2) % [place] % (Auto) 9.6 H (2.6-8.5) % Eos % (Auto) 1.0 (0-4.4) % Baso % (Auto) 1.2 (0.2-1.2) % Lymph # (Auto) 2.16 (0.9-3.2) K/mm3 [place] # (Auto) 0.9 H (0.1-0.6) K/mm3 Eos # (Auto) 0.1 (0-0.3) K/mm3 Baso # (Auto) 0.1 (0.0-0.1) K/mm3 Abs Immat Gran (auto) 0.05 H (0.00-0.031) K/mm3 Absolute Neuts (auto) 6.4 (1.3-6.7) K/mm3 Absolute Nucleated RBC 0.000 (0.0-0.012) K/mm3 Nucleated RBC % 0.0 (0.0-0.2) % Sodium 136 L (137-145) mmol/L Potassium 3.6 (3.4-5.0) mmol/L Chloride 100 (98-107) mmol/L Carbon Dioxide 25 (22-30) mmol/L Anion Gap 11 (4-12) mmol/L BUN 15 D (9-20) mg/dL Creatinine 0.74 (0.7-1.3) mg/dL Estim Creat Clear Calc Not Reportable Estimated GFR > 60 (59 - ) Glucose 115 H (65-110) mg/dL Calcium 9.4 (8.4-10.2) mg/dL Total Bilirubin 0.6 (0.2-1.3) mg/dL AST 23 (17-59) U/L ALT 14 (6-50) U/L Alkaline Phosphatase 62 (38-126) U/L Total Protein 7.0 (6.3-8.2) g/dL Albumin 4.2 (3.5-5.1) g/dL Urine Color Yellow (Yellow) Urine Appearance Clear (Clear) Urine pH 7.0 (5.0-9.0) Ur Specific [place] 1.026 (1.001-1.035) Urine Protein 1+ H (Negative) mg/dL Urine Glucose (UA) 3+ H (Negative) mg/dL Urine Ketones Trace H (Negative) mg/dL Ur Blood (Man) Negative (Negative) Urine Nitrate Negative (Negative) Urine Bilirubin Negative (Negative) Urine Urobilinogen 1.0 (<2.0) mg/dL Leukocyte Esterase Rfl Negative (Negative) [place]/UL Urine RBC 0-2 (0-2) /hpf Urine WBC 0-5 (0-3) /hpf Ur Squamous Epith Cells None seen (Few) /hpf Urine Bacteria None seen /hpf Urine Casts 0-2 Influenza A (RT-PCR) Negative (Negative) Influenza B (RT-PCR) Negative (Negative) RSV (RT-PCR) Negative (Negative) SARS-CoV-2 RNA (RT-PCR) Negative (Negative) Discharge Plan Discharge Clinical Impression: Dehydration, Acute viral syndrome Patient Disposition: Home Condition: Stable Instructions: Dehydration (ED), Viral Syndrome (ED) Additional Instructions: As discussed you have a viral illness. Unfortunately there are no specific medications we can give you to make the illness end faster. Antibiotics do not work for viral illnesses. However, you can take Acetaminophen or Ibuprofen to help with fevers and pain. Stay well hydrated and rested. Return to the emergency department if your fevers and chills continue to worse after 5 days, if you develop worsening cough with thick sputum, or are unable to stay hydrated. Contact your primary care provider in the next few days for a re-evaluation and to make sure your symptoms are improving. Patient Language: Belarusian Prescriptions: No Action Entresto 49-51 mg tablet 1 tablet PO BID gabapentin 300 mg capsule See Rx Instructions PO .COMPLEX Rx Instructions: 900 mg in the morning and 600 mg in the evening orally; metformin 500 mg tablet extended release 24 hr 1,000 mg PO BID dapagliflozin propanediol [Farxiga] 5 mg tablet 10 mg PO DAILY escitalopram oxalate 10 mg tablet 10 mg PO 1700 albuterol sulfate 90 mcg/actuation HFA aerosol inhaler 2 puff inhalation QID PRN (Reason: shortness of breath or wheezing) Qty: 6.7 0RF (DME) pen needle, diabetic [BD Ultra-Fine Ai Pen Needle] 32 gauge x 5/32 needle See Rx Instructions .ROUTE .MEDSUPPLY Qty: 400 1RF Rx Instructions: use four times daily rosuvastatin 5 mg tablet 5 mg PO DAILY Qty: 90 1RF (DME) Dexcom G7 Sensor Device See Rx Instructions .ROUTE .MEDSUPPLY Qty: 9 3RF Rx Instructions: As directed semaglutide 1 mg/dose (4 mg/3 mL) pen injector 1 mg subcut WEEKLY Qty: 9 2RF donepezil 5 mg tablet 5 mg PO HS Qty: 30 0RF metoprolol succinate 25 mg Tablet Extended Release 24 Hr 25 mg PO DAILY Qty: 30 0RF Follow-up/Referrals: Abdirizak,MD Lio [Primary Care Provider] - 1 Week
[2024-12-12 13:34] LABS: Add Urine Microscopic? YES; Appearance Urine Clear (Clear); Bacteria Urine None Seen /hpf; Bilirubin Urine Negative (Negative); Blood Urine Negative (Negative); Color Urine Yellow (Yellow); Glucose Urine UA 3+ mg/dL (Negative); Ketones Urine Trace mg/dL (Negative); Leukocyte Esterase Ur Negative LEU/UL (Negative); Nitrate Urine Negative (Negative); Non Pathogenic Casts 0-2; Protein Urine 1+ mg/dL (Negative); RBC Urine 0-2 /hpf (0-2); Specific Grav Ur 1.026 (1.001-1.035); Squamous Epithelial Cell Urine None Seen /hpf (Few); WBC Urine 0-5 /hpf (0-3)
--- NOTE | 2024-12-12 14:29 | PC.NURSE ---
pt refused offer of liter NS Stated i'll drink water at home
== END 2024-12-12 14:30 | disposition home or self-care (01) ==
PROVIDERS: Family Medicine; Emergency Provider Emergency Medicine; PCP Internal Medicine
DX: E86.0 Dehydration (principal); B34.9 Viral infection, unspecified; Z20.822 Contact with and (suspected) exposure to COVID-19; G30.9 Alzheimer's disease, unspecified; F02.80 Dementia in other diseases classified elsewhere, unspecified severity, without behavioral disturbance, psychotic disturbance, mood disturbance, and anxiety; D64.9 Anemia, unspecified; I10 Essential (primary) hypertension; E11.9 Type 2 diabetes mellitus without complications; Z79.84 Long term (current) use of oral hypoglycemic drugs
CPT/HCPCS: 36415; 71046; 80053; 81001; 85025; 87637; 93005; 94640; 99284; J7030

== ENCOUNTER 2025-01-31 00:36 | Day surgery (SDC) | payer MEDICARE, SELFPAY ==
[2025-01-18 15:25] VITALS: BMI 23.8
--- OUTSIDE RECORDS SUMMARY | 2025-01-31 00:39 | XMS_ITS | Clinical Summary ---
Author Organization [facility] Address [address] [place] [address] Care Team Providers Care Computerized Table Cutter Name Role Phone Nikky Mathews MD Primary Care Provider [phone] Social History Tobacco Use Types Packs/Day Years [...] - 2023-2 5 season) 2024 PHQ-2 (Physician [place]) 07/13/2024 RSV Immunization or 60+ Years (1 [...] complete this topic Insurance MEDICARE Care Teams Computerized Table Cutter Relationship Specialty Start Date End Date Nikky Mathews MD [address] [place] [address] PCP - General INTERNAL MEDICINE 01/09/20
--- OUTSIDE RECORDS SUMMARY | 2025-01-31 00:39 | XMS_ITS | Encounter Summary ---
Author Organization [facility] Healthcare Address [address] [place] [address] Care Team Providers Care Risk Compliance Analyst Name Role Phone Lio Reveles MD Primary Care Provider + [phone] Vahe Rouse MD Unavailable [phone] Emily Staples RN Unavailable Unavailable Gisselle Morgan RN Unavailable Unavaila Alie Henao RN Unavailable Unavailable Kalyani Muller Unavailable Unavailable Encounter Details Date Type Department Care Team (Late st Contact Info) Description 10/19/2024 Documentation Orthopaedic Surgery Fer Pizano BS Social History Tobacco Use Types Packs/Day Years Used Date Smoking Tobacco: Former Cigarettes Q uit: 2000 Passive Smoke Exposure: Never Smokeless Tobacco: Never [facility] Utilities Answer Date Recorded In the past 12 months has [employer], gas, oil, or water company threatened [...] often do you attend chur ch or voodoo services? 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 Gender Identity Male 03/25/2023 11:15 AM CDT Sexual Orientation Not on file documented as of this encounter Plan of Treatment Not on file documented as of this encounter Visit Diagnoses Not on filedocumented in this encounter Care Teams Risk Compliance Analyst Relationship Specialty Start Date End Date Lio Reveles MD PCP - General Internal Medicine 10/24/23 Vahe Rouse MD [address] [facility] [address] [place] [address] Referring Physician Neurology 01/04/24 Emily Staples, streetsweeper operator Failure Coordinator Transplant 05/03/24 Gisselle Morgan, streetsweeper operator Failure Coordinator 05/03/24 Alie Joyner, deputy sheriff chiefEncapsulator 10/31/24 Kalyani Muller Primary Quality Head Transplant 10/31/24 documented as of this encounter
--- OUTSIDE RECORDS SUMMARY | 2025-01-31 00:39 | XMS_ITS | Encounter Summary ---
Author Organization [facility] Address [address] [place] [address] Phone Care Team Providers Care High Frequency Mill Operator Name Role Phone Lio Reveles MD Primary Care Provider + [phone] Vahe Rouse MD Unavailable [phone] Emily Staples RN Unavailable Unavailable Gisselle Morgan RN Unavailable Unavaila Alie Henao RN Unavailable Unavailable Kalyani Muller Unavailable Unavailable Encounter Details Date Type Department Care Team (Late st Contact Info) Description 01/30/2025 Telephone [facility] Cardiology [address] [facility] [address] [place] [address] [place] [address] Cristine De Jesus Social History Tobacco Use Types Packs/Day Years Used Date Smoking Tobacco: Former Cigarettes Q uit: 2000 Passive Smoke Exposure: Never Smokeless Tobacco: Never [facility] Utilities Answer Date Recorded In the past 12 months has [employer], gas, oil, or water [employer] threatened to shut off services in your [...] do you attend [facility] or amish services? 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 Fax confirmation received 01/30/25 at 12:35 PM. 01/30/25 [facility] documented in this encounter Plan of Treatment Not on file documented as of this encounter Visit Diagnoses Not on filedocumented in this encounter Care Teams High Frequency Mill Operator Relationship Specialty Start Date End Date Lio Reveles MD PCP - General Internal Medicine 10/24/23 Vahe Rouse MD [address] [place] [address] Referring Physician Neurology 01/04/24 Emily Staples, space physicist Failure Coordinator Transplant 05/03/24 Gisselle Morgan, space physicist Failure Coordinator 05/03/24 Alie Joyner, vision rehabilitation therapistSpine Nurse 10/31/24 Kalyani Muller Primary Pipeline Welder Transplant 10/31/24 documented as of this encounter
--- OUTSIDE RECORDS SUMMARY | 2025-01-31 00:40 | XMS_ITS | Referral Summary ---
Author Organization [facility] Physician Office Building [address] [place] [address] Care Team Providers Care Corn Lab Technician Name Role Phone Lio Reveles MD Primary Care Provider + [phone] Vahe Rouse MD Unavailable [phone] Emily Staples RN Unavailable Unavailable Gisselle Morgan RN Unavailable Unavaila Alie Henao RN Unavailable Unavailable Kalyani Muller Unavailable Unavailable Encounters Date Type Department Care Team Description 01/30/2025 Telephone [facility] Cardiology [address] [facility] [address] 8th [place] [address] [place] [phone] Cristine De Jesus 01/27/2025 Telephone [facility] Transplant Heart [address] Mailstop 30-21-860 [place] [address] Karina Amador 01/11/2025 11:15 AM CDT Office Visit [facility] [address] [facility] [facility] [address] 6th [address] [place] [address] Sara James NP Alzheimer's disease with late onset (HCC) (Primary Dx) 12/22/2024 Telephone [facility] Transplant Heart [address] [facility] [address] Mailstop 06-54-434 [place] [address] Kalyani Muller 12/14/2024 11:45 AM CDT Lab [facility] [address] [place] [address] Chronic systolic heart failure (HCC) 12/14/2024 11:15 AM CDT Office Visit [facility] Cardiology [address] [facility] [address] 8th [address] [place] [phone] Vickey Marinelli MD PhD Chronic systolic heart failure (HCC) (Primary Dx); Coronary artery disease involving [place] coronary artery of [place] heart without angina pectoris; VT (ventricular tachycardia) (HCC) 11/01/2024 Telephone [facility] Cardiology [address] [place] [address] 8th [place] [address] [place] [phone] Yeison Tom MD 11/01/2024 Telephone [facility] Transplant Heart [address] [facility] [address] Mailstop [phone] [place] [address] Avinash Cleaning from Last 3 Months Allergies No known [...] 30 tablet 5 5 04/03/20 25 Active semaglutide (Ozempic) 0.25 mg or 0.5 mg (2 mg/3 mL) pen injector injection Inject 2 mg under the skin once a week 3 Active albuterol HFA (PROVENTIL HFA,VENTOLIN HFA,PROAIR HFA) 90 mcg/actuation inhaler Take 2 puffs by mouth every 4 (four) hours 5 Active ketorolac (ACULAR) 0.5 % ophthalmic solution 5 Active ofloxacin (OCUFLOX) 0.3 % ophthalmic solution ADMINISTER 1 DROP IN SURGICAL EYE THREE TIMES DAILY STARTING 2 DAYS BEFORE AND CONTINUING FOR 1 WEEK AFTER SURGERY. 5 Active ofloxacin (FLOXIN) 0.3 % otic solution INSTILL 4 DROPS INTO BOTH EARS EVERY 12 HOURS FOR 7 DAYS 5 Active prednisoLONE acetate (PRED FORTE) 1 % ophthalmic suspension ADMINISTER 1 DROP IN SURGICAL EYE THREE TIMES DAILY CONTINUING FOR 3 WEEKS AFTER SURGERY Active Active Problems Problem Noted Date Diagnosed [...] 11/06/2023 Assessment & Plan (09/14/2024 11:48 AM CONCERT SINGER): Denies therapies. Central cord syndrome at C4 level of cervical sp inal cord 11/06/2023 Central cord syndrome, initial encounter 024 Ischemic cardiomyopathy 10/28/2023 Assessment & Plan (09/14/2024 11:47 AM CONCERT SINGER): ICM: Chronic systolic heart failure. Denies angina. [...] Tobacco: Never Tobacco Cessation:Counseling Given: Not Answered [facility] Utilities Answer Date Recorded In the past 12 months has [employer], gas, oil, or water company threatened to [...] often do you attend chur ch or islam services? Never 11/02/2023 Do you belong to [...] place to sleep or slept in a penitentiary (including now)? No 11/02/2023 Personal Safety Answer Date Recorded Have you ever been in or are you currently in a harmful physical or emotional relationship or is someone making you feel afraid or unsafe? Denies 03/03/2024 Sex and Gender Information Value Date Recorded Sex Assigned at Not on file Legal Sex Male 5:49 AM CONCERT SINGER Gender Identity Male 03/25/2023 11:15 AM CDT Sexual Orientation Not on file Last Filed Vital Signs Vital Sign Reading Time Taken Comments Blood Pressure 125/77 01/11/2025 10:58 AM CDT Pulse 65 01/11/2025 10:58 AM CDT Temperature 36.4 C (97.5 F) 01/11/2025 10:58 AM CDT Respiratory Rate 25 03/03/2024 2:20 PM CDT Oxygen Saturation 95% 01/11/2025 10:58 AM CDT Inhaled Oxygen Concentration - - Weight 71 kg (156 lb 8 oz) 01/11/2025 10:58 AM C DT Height 171.5 cm (5' 7.5) 01/11/2025 10:58 AM CD T Body Mass Index 24.15 01/11/2025 10:58 AM CDT Plan of Treatment Not on file Medical Devices Implanted Type Area Plating And Point Assembly Supervisor Device Identifier Shelf Expiration Date Model / Serial / Lot Terum[employer] Kandice Angio-Seal Vip 6fr Closere Device [id number] - [id number] - [id number] Implanted:Qty: 1 on 11/05/2023 by Héctor Richards MD at [facility] Collagen Right: Groin [employer] Kandice 06/15/2024 [id number] / [id number] / [id number] [employer] Kandice Defibrillator Single Chamber Vigilant 0.99x5.37x7.36cm D232 - [id number] - [id number] Implanted:Qty: 1 on 03/03/2024 by Yeison Tom MD at [facility] ICD Left: Chest Wall [employer] Kandice 06/16/2025 D232 / [id number] / [id number] [employer] Kandice Lead Cardioverter Defibrillator Bipolar Active Fixation Endocardium Steroid Eluting Leblanc 4 Front 7.0cmx99txa09ys 0672 - [id number] - [id number] Implanted:Qty: 1 on 03/03/2024 by Yeison Tom MD at [facility] Lead Right: Ventricle [employer] Kandice 09/24/2025 0672 / [id number] / [id number] Allosource Crushed Fresh Frozen Cancellous 1-4mm Graft 15ml Bone [id number] - [id number] Implanted:Qty: 1 on 10/28/2023 by Clyde Dotson MD at [facility] N/A: Spine Cervical [employer]osource 12/15/2027 [id number] / / [id number] Nuv[employer] Inc Screw Spine Reline C Lock Open Non-Sterile Latex Free [id number] - [id number] Implanted:Qty: 10 on 10/28/2023 by Clyde Dotson MD at [facility] N/A: Spine Cervical [employer]uv[employer] Inc [id number] / / [employer]uv[employer] Screw Spinal Posterior Cervical Solid Reline C 3.5x14mm [id number] - [id number] Implanted:Qty: 6 on 10/28/2023 by Clyde Dotson MD at [facility] N/A: Spine Cervical [employer]uv[employer] Inc [id number] / / Nuv[employer] Inc Reline C Screw 3.5x20mm Ma [id number] - [id number] Implanted:Qty: 2 on 10/28/2023 by Clyde Dotson MD at [facility] N/A: Spine Cervical [employer]uv[employer] Inc [id number] / / [employer]uv[employer] Screw Spinal Thoracic Solid Reline 4.0x24mm Titanium [id number] - [id number] Implanted:Qty: 2 on 10/28/2023 by Clyde Dotson MD at [facility] N/A: Spine Cervical Nuv[employer] Inc [id number] / / Nuvasive Inc Melvin Spinal Posterior Cervical Prebent Reline 4.0x80mm Titanium [id number] - [id number] Implanted:Qty: 2 on 10/28/2023 by Clyde Dotson MD at [facility] N/A: Spine Cervical [employer]uv[employer] Inc [id number] / / Procedures Procedure Name Priority Date/Time Associated Diagnosis Comments PRO B-TYPE NATRIURETIC PEPTIDE Routine 12/14/2024 11:50 AM CDT Chronic systolic heart failure (HCC) BASIC METABOLIC PANEL Routine 06/21/2024 1:50 PM CONCERT SINGER Ischemic cardiomyopathy LIPID PANEL Routine 01/06/2024 11:37 AM CDT Ischemic cardiomyopathy Hyperlipidemia Syncope, unspecified syncope type CT CHEST ABDOMEN PELVIS W CONTRAST ED 10/22/2023 7:10 PM CDT HEMOGLOBIN A1C STAT 10/22/2023 5:22 PM CDT from Last 3 Months or Most Recently Relevant to Health Maintenance Results * (ABNORMAL) Pro B-type natriuretic peptide (12/14/2024 11:50 AM CDT) NT-proBNP 564(H) <=300 pg/mL Comment: Interpretive Comments: A. Dyspnea in Acute Care Setting All Ages: < 300 pg/ml, acute heart failure unlikely. < 50 yrs: 300 - 450 pg/ml, further investigation warranted. > 450 pg/ml, acute heart failure likely. 50 - 74 yrs: 300 - 900 pg/ml, further investigation warranted. > 900 pg/ml, acute heart failure likely . > or = 75 yrs: 450 - 1800 pg/ml, further investigation warranted. > 1800 pg/ml, acute heart failure likely. B. Non-acute Setting < 75 yrs < 125 pg/ml, rules out heart failure. > or = 125 pg/ml, further investigation warranted. > or = 75 yrs < 450 pg/ml, rules out heart failure. > or = 450 pg/ml, further investigation warranted. - Knowledge of each individual patient's NT-proBNP range may be more useful than using similar cut-points for every patient. Please note that marked elevations in NT-proBNP levels may be observed in state other than Left Ventricular Congestive Failure, including: acute coronary syndromes, right heart strain/failure (including pulmonary embolism and cor pulmonale), critical illness, renal failure, as well as advanced age. - References: 1. Mili LOVE et.al. Eur Heart J. 2006:27:330-337. 2. Salvatore BEJARANO, Edwina WONG. J. AM Cait Cardiol: Cardiovasc Imag. 2009;2: 216- 225. Interpretive Data Last Revised Date: 2018. Blood 12/14/2024 11:5 0 AM CDT 12/14/2024 12:06 PM CDT us Vickey Marinelli MD PhD LAB BLOOD ORDERABL ES Final Result [facility] Department [place] [address] * (ABNORMAL) Basic metabolic panel (06/21/2024 1:50 PM CONCERT SINGER) Glucose 133(H) 70 - 99 mg/dL [facility] [...] [facility] - 01 Blood 06/21/2024 1:50 PM CONCERT SINGER 06/21/2024 Narrative [facility] - 06/22/2024 7:10 AM CONCERT SINGER Performed at: 01 - [address] [id number] Stack Clerk: Carlitos Jung PhD, Phone: [phone] us Vickey Marinelli MD PhD LAB BLOOD ORDERABL ES Final [facility] - * (ABNORMAL) Lipid panel (01/06/2024 [...] on 2018. Triglycerides 368(H) <=149 mg/dL [facility] Comment: Interpretive Data Ages < or [...] revised on 2018. HDL 31(L) >=40 mg/dL [facility] Comment: Interpretive Data Ages < or [...] on 2018. LDL, calculated 138(H) <=129 mg/dL [facility] Comment: Interpretive Data Ages < or [...] revised on 2018. Non-HDL Cholesterol 212 mg/dL [facility] Comment: Interpretive Data Ages < or [...] last revised on 2018. Chol/HDL ratio 8 [facility] Blood 01/06/2024 11:3 7 AM CDT 01/06/2024 2:09 PM CDT Benji Esparza MD LAB BLOOD ORDERABLES Final Result [facility] [place] [address] * CT Chest Abdomen Pelvis W Contrast [...] % Estimated Average Glucose 134 mg/dL [facility] Comment: The ADA recommends reporting an estimated [...] LAB BLOOD ORDERABLES Final Res ult [facility] [place] [address] from Last 3 Months or Most Recently Relevant to Health Maintenance Insurance MEDICARE [email or web address] [place] MEDICARE [facility] [place] Advance Directives For more information, please contact: [phone] * Full Code (Latest Code Status on [...] 11:18 AM 10/27/2023 9:08 PM Care Teams Corn Lab Technician Relationship Specialty Start Date End Date Lio Reveles MD PCP - General Internal Medicine 10/24/23 Vahe Rouse MD [address] [place] [address] Referring Physician Neurology 01/04/24 Emily Staples, medical physics researcher Failure Coordinator Transplant 05/03/24 Gisselle Morgan, medical physics researcher Failure Coordinator 05/03/24 Alie Joyner, pulp machine operatorMusic Therapy Specialist 10/31/24 Kalyani Muller Primary Zipper Ironer Transplant 10/31/24
--- OUTSIDE RECORDS SUMMARY | 2025-01-31 00:40 | XMS_ITS | Encounter Summary ---
Author Organization [facility] Address [address] [place] [address] Care Team Providers Care Credentials Specialist Name Role Phone Nikky Mathews MD Primary Care Provider [phone] Encounter Details Date Type Department Care Team (Late st Contact Info) Description 05/21/2023 Lab Requisition [facility] D[facility] Lab [address] [facility], [place] [address] Eldon Morfni MD [address] [place], [place] [phone] Social History Tobacco Use Types Packs/Day Years Used Date Smoking Tobacco: Former Cigarettes Q uit: 08/01/1998 Smokeless Tobacco: Never Comments:OCCASIONAL CIGAR Alcohol Use Standard Drinks/Week Comments No 0 (1 standard drink = 0.6 oz pur e alcohol) Sex and Gender Information Value Date Recorded Sex Assigned at Not on file Legal Sex Male 1:09 PM MAT TESTER Gender Identity Male 11/11/2024 4:55 PM CDT Sexual Orientation Straight 11/11/2024 4: 55 PM CDT documented as of this encounter Plan of Treatment Upcoming Encounters Date Type Department Care Team (Latest Contact Info) Description 06/21/2025 11:35 AM MAT TESTER Hospital Encounter [facility] ENDOSCOPY [address] [place] [phone] Karthik Anderson MD [address] [place] [address] Surgery General 06/21/2025 11:35 AM MAT TESTER - 06/21/2025 12:05 PM MAT TESTER Surgery [facility] ENDOSCOPY [address] [place] [address] Karthik Anderson MD [address] [place] [phone] ESOPHAGOGASTRODUODENOSCOPY (EGD) DIAGNOSTIC Scheduled Procedures Name Priority Associated Diagnoses Date/Ti me ESOPHAGOGASTRODUODENOSCOPY ( EGD) DIAGNOSTIC Gastric ulcer without hemorrhage or perforation, unspecified chronicity 06/21/2025 11:35 AM MAT TESTER documented as of this encounter Procedures Procedure Name Priority Date/Time Associated Diagnosis Comments DERMATOPATHOLOGY Routine 05/20/2023 12:0 0 AM MAT TESTER documented in this encounter Results * DERMATOPATHOLOGY (05/20/2023 12:00 AM MAT TESTER) Case Report Dermatopathology Report Case: [id number] Authorizing Provider: Eldon Morfin MD Collected: 05/20/2023 12:00 AM Ordering Location: [facility] DermPath Lab Received: 05/21/2023 07:40 AM Pathologist: Miranda Yañez MD Specimen: Skin, right ant neck 3 2:27 PM [facility] DERMATOP[facility]Y [facility] Final Diagnosis Specimen A. SKIN, right ant neck: BENIGN VERRUCOUS KERATOSIS, INFLAMED (L82.1) (see microscopic description) 3 2:27 PM [facility] DERMATOPATHOLOGY [facility]ORAT[facility] at [address]27 MAT TESTER Clinical History Nevus vs BCC 3 2:27 PM [facility] DERMATOPATH[facility]Y [facility] Gross Description Specimen A: Received is one formalin filled container labeled with the patient's name and designated right ant neck. The specimen consists of a(2) pieces shave biopsy measuring 5x3x1, 5x4x1 mm. Jar 0. 3 2:27 PM [facility] DERMATOPATH[facility]Y [facility]OR[facility] Microscopic Description Specimen A. SKIN, right ant neck: Sections show hyperkeratosis, papillomatosis, hypergranulosis, and acanthosis. Inflammatory cells are present within the dermis. These histological findings can be seen in a verruca vulgaris or a seborrheic keratosis. Additional deeper sections were obtained and reviewed. 3 2:27 PM [facility] DERMATOPATH[facility]Y [facility] Disclaimer An external and internal positive and negative controls are appropriate for the histochemical, immunohistochemical and immunofluorescence stain(s) in this case (if any), except where stated explicitly. The performance characteristics of the stain(s) cited in this report were developed and its performance characteristic determined by the Dermatopathology Laboratory at [facility], directed by Dr. Marito Guerrero. These tests need not be, and therefore are not, approved by the [place] Food and Drug Administration. The tests are used for clinical purposes. Billing Codes Specimen Charges Stain Charges 36502 1 3 2:27 PM [facility] DERMAT[facility] Embedded Images 3 2:27 PM [facility] Pathology/Cytolog y TISSUE SPECIMEN FROM SKIN / Unknown 05/20/2023 05/21/2023 7:40 AM MAT TESTER Eldon Morfin MD LAB - PATHOLOGY/CYTOLOGY ORDERAB LES Final Result DERMATOPATHOLOGY LABORATORY [facility] - Department of Dermatology [facility] Medicine [address] [place] [address], [address] [phone] documented in this encounter Visit Diagnoses Not on filedocumented in this encounter Care Teams Credentials Specialist Relationship Specialty Start Date End Date Nikky Mathews MD [address] [place] [address] PCP - General Internal Medicine 09/01/11 documented as of this encounter
--- OUTSIDE RECORDS SUMMARY | 2025-01-31 00:40 | XMS_ITS | Encounter Summary ---
Author Organization [facility] Address [address] [place] [address] Phone Care Team Providers Care Tricot Knitter Name Role Phone Lio Reveles MD Primary Care Provider [phone] Vahe Rouse MD Unavailable [phone] Emily Staples RN Unavailable Unavailable Gisselle Morgan RN Unavailable Unavaila Alie Henao RN Unavailable Unavailable Kalyani Muller Unavailable Unavailable Encounter Details Date Type Department Care Team (Late st Contact Info) Description 01/15/2024 Telephone [facility] Cardiology [address] [facility] Advanced Medicine 8th [place] [address] [place] [address] Benji Esparza MD [address] [facility] [address] [place] [address] Social History Tobacco Use Types Packs/Day Years Used Date Smoking Tobacco: Former Cigarettes [facility] Utilities Answer Date Recorded In the past 12 months has [employer], gas, oil, or water company threatened [...] week 11/02/2023 How often do you attend [facility] or moravian services? Never 11/02/2023 Do you belong to [...] place to sleep or slept in a longterm (including now)? No 11/02/2023 Personal Safety Answer Date Recorded Have you ever been in or are you currently in a harmful physical or emotional relationship or is someone making you feel afraid or unsafe? Denies 11/05/2023 Sex and Gender Information Value Date Recorded Sex Assigned at Not on file Legal Sex Male 5:49 AM CUSTOM SEAMSTRESS Gender Identity Male 03/25/2023 11:15 AM CDT Sexual Orientation Not on file documented as of this encounter Plan of Treatment Not on file documented as of this encounter Visit Diagnoses Not on filedocumented in this encounter Care Teams Tricot Knitter Relationship Specialty Start Date End Date Lio Reveles MD PCP - General Internal Medicine 10/24/23 Vahe Rouse MD [address] [facility] [address] [place] [address] Referring Physician Neurology 01/04/24 Emily Staples, carpet binder Failure Coordinator Transplant 05/03/24 Gisselle Morgan, carpet binder Failure Coordinator 05/03/24 Alie Joyner, leadlighterWeld Technician 10/31/24 Kalyani Muller Primary Wheelage Clerk Transplant 10/31/24 documented as of this encounter
--- OUTSIDE RECORDS SUMMARY | 2025-01-31 00:40 | XMS_ITS | Data Portability ---
Author Organization [facility] Schmid Address [address] [place] [address] Care Team Providers Care Salt Refiner Name Role Phone NOAM REVELES Primary Care Provider [phone] Assessment Encounter Date Assessment Date Assessment LastModified by Organization Details LastModified Time 05/16/2024 05/16/2024 needs a spacer for his inhaler. Healthy lifestyle care instructions seems to be doing well clinically following up the pneumonia diagnosis he will keep his regular appointment [email or web address] Not available 05/22/2024 16:41:30 06/06/2024 06/06/2024 clinically he has pneumonia has resolved blood pressure looks good no signs of decompensated heart failure follow up with me September 01, 2024 [email or web address] Not available 06/09/2024 14:58:12 09/05/2024 09/05/2024 fall seems to be doing fine diarrhea is getting better order CBC CMP lipid A1c urinary albumin creatinine ratio continue current therapy follow up in 3 months [email or web address] Not available 09/05/2024 20:56:32 11/08/2024 11/08/2024 Augmentin 875 b.i.d. for a week albuterol inhaler he will let me know if he is not improved also opportunity here for healthy lifestyle care instructions [email or web address] Not available 11/08/2024 21:58:15 12/26/2024 12/26/2024 EKG sinus rhythm with old inferior NM last blood work reviewed notes from Cardiology reviewed from my standpoint he is stable to undergo cataract surgery it was explained to the patient that he will have to get separate cardiology clearance from his machine sizer last A1c 7.3 [email or web address] Not available 12/26/2024 22:40:43 Plan of Treatment Reminders Order Date Submit Date Provider Last Modified By Organization Details Last Modified Time Details Appointments ANY 15 2024 10:15A Brigitte Reveles MD Not available Not available Not available Lab HbA1c (hemoglob in A1c), blood 2024 025 [facility], [address] [facility], [place], [address], 09/07/2024 07:08:15 albumin/c reatinine , mass ratio, urine 2024 025 [facility], [address] [facility], [address], [place], [address], 09/07/2024 07:08:12 lipid panel, serum 2024 025 [facility], [address] [facility], [address], [place], [address], 09/07/2024 07:08:13 CMP, serum or plasma 2024 025 [facility], [address] [facility], [address], [place], [address], 09/07/2024 07:08:14 CBC w/ auto diff 2024 025 [facility], [address] [facility], [address], [place], [address], 09/07/2024 07:08:16 Referral None recorded. Procedures None recorded. Surgeries None recorded. Imaging electroca rdiogram 2024 025 [email or web address] In-Office Order, Internal Use Only DO Not Attach Compendium DO Not Attach Compendium, Do Not Delete/merge, [id number] 12/26/2024 18:06:12 Medication Orders amoxicill in 875 mg-potass ium clavulana te 125 mg tablet 2024 025 [id number], [address], [place], [place], [id number], 12/09/2024 15:59:17 albuterol sulfate HFA 90 mcg/actua tion aerosol inhaler 2024 025 [email or web address] [id number], [address], [place], [id number], 11/08/2024 17:14:12 albuterol sulfate HFA 90 mcg/actua tion aerosol inhaler 2023 024 [email or web address] [id number], [address], [place], [place], [id number], 05/16/2024 17:47:37 Patient TargetsNo targets recorded. Patient Instructions Encounter Date Encounter Id Patient Instructions Last Modified By Organization Details Last Modified Time 05/16/2024 [id number] A healthy lifestyle: care instructions [email or web address] Not available 05/16/2024 17:47:37 09/05/2024 [id number] A healthy lifestyle: care instructions Not available 09/05/2024 11:45:04 11/08/2024 [id number] A healthy lifestyle: care instructions [email or web address] Not available 11/08/2024 17:14:12 12/26/2024 [id number] A healthy lifestyle: care instructions Not available 12/26/2024 15:13:49 Reason for Referral None Reported. Results Created Date Observation Date Name Description Value Unit Range Abnormal Flag Note LastModifiedBy Organization Detail LastModifiedTime 09/06/1909/07/2024 ALBUM IN/CR EATIN INE RATIO ,URIN E creatinine, urine 61.4 mg/dL notest ab. Not Available [facility] ([facility]) [address] [place], [address], 09/07/2024 07:08:12 09/06/1909/07/2024 ALBUM IN/CR EATIN INE RATIO ,URIN E albumin, urine 22.5 ug/mL notest ab. Not Available [facility] ([facility]) [address] [place], [address], 09/07/2024 07:08:12 09/06/19 25 09/07/2024 ALBUM IN/CR EATIN INE RATIO ,URIN E alb/creat ratio 37 mg/g_ creat 0-29 above high normal Tesha l: 0 - 29 Moder ately incre ased: 30 - 300 Sever camila incre ased: >300 Not Available [facility] ([facility]) [address] [place], [address], 09/07/2024 07:08:12 09/06/19 25 09/07/2024 LIPID PANEL cholesterol, total 120 mg/dL 100-19 9 Not Available [facility] ([facility]) [address] [place], [address], 09/07/2024 07:08:13 09/06/19 25 09/07/2024 LIPID PANEL triglyceride s 78 mg/dL 0-149 Not Available [facility] ([facility]) [address] [place], [address], 09/07/2024 07:08:13 09/06/19 25 09/07/2024 LIPID PANEL HDL cholesterol 39 mg/dL >39 below low normal Not Available [facility] ([facility]) [address] [place], [address], 09/07/2024 07:08:13 09/06/19 25 09/07/2024 LIPID PANEL VLDL cholesterol renny 16 mg/dL 5-40 Not Available [facility] ([facility]) [address] [place], [address], 09/07/2024 07:08:13 09/06/19 25 09/07/2024 LIPID PANEL LDL chol calc ([facility]) 65 mg/dL 0-99 Not Available [facility]) [address] [place], [address], 09/07/2024 07:08:13 09/06/19 25 09/07/2024 COMP. METAB OLIC PANEL (14) glucose 49 mg/dL 70-99 below low normal Not Available [facility] ([facility]) [address] [place], [address], 09/07/2024 07:08:14 09/06/19 25 09/07/2024 COMP. METAB OLIC PANEL (14) BUN 20 mg/dL 8-27 Not Available [facility] ([facility]) [address] [place], [address], 09/07/2024 07:08:14 09/06/19 25 09/07/2024 COMP. METAB OLIC PANEL (14) creatinine 1.18 mg/dL 0.76-1 .27 Not Available [facility] ([facility]) [address] [place], [address], 09/07/2024 07:08:14 09/06/19 25 09/07/2024 COMP. METAB OLIC PANEL (14) eGFR 66 mL/mi n/1.7 3 >59 Not Available [facility] ([facility]) [address] [place], [address], 09/07/2024 07:08:14 09/06/19 25 09/07/2024 COMP. METAB OLIC PANEL (14) BUN/creatini ne ratio 17 10-24 Not Available [facility] ([facility]) [address] [place], [address], 09/07/2024 07:08:14 09/06/19 25 09/07/2024 COMP. METAB OLIC PANEL (14) sodium 143 mmol/ L 134-14 4 Not Available [facility] ([facility]) [address] [place], [address], 09/07/2024 07:08:14 09/06/19 25 09/07/2024 COMP. METAB OLIC PANEL (14) potassium 4.5 mmol/ L 3.5-5. 2 Not Available [facility] ([facility]) [address] [place] [place], [address], 09/07/2024 07:08:14 09/06/19 25 09/07/2024 COMP. METAB OLIC PANEL (14) chloride 105 mmol/ L 96-106 Not Available [facility] ([facility]) [address] [place], [address], 09/07/2024 07:08:14 09/06/19 25 09/07/2024 COMP. METAB OLIC PANEL (14) carbon dioxide, total 25 mmol/ L 20-29 Not Available [facility] ([facility]) [address] [place], [address], 09/07/2024 07:08:14 09/06/19 25 09/07/2024 COMP. METAB OLIC PANEL (14) calcium 9.8 mg/dL 8.6-10 .2 Not Available [facility] ([facility]) [address] [place] [place], [address], 09/07/2024 07:08:14 09/06/19 25 09/07/2024 COMP. METAB OLIC PANEL (14) protein, total 7.1 g/dL 6.0-8. 5 Not Available [facility] ([facility]) [address] [facility] [place], [address], 09/07/2024 07:08:14 09/06/19 25 09/07/2024 COMP. METAB OLIC PANEL (14) albumin 4.4 g/dL 3.8-4. 8 Not Available [facility] ([facility]) [address] [place], [address], 09/07/2024 07:08:14 09/06/19 25 09/07/2024 COMP. METAB OLIC PANEL (14) globulin, total 2.7 g/dL 1.5-4. 5 Not Available [facility] ([facility]) [address] [facility], [place], [address], 09/07/2024 07:08:14 09/06/19 25 09/07/2024 COMP. METAB OLIC PANEL (14) bilirubin, total 0.3 mg/dL 0.0-1. 2 Not Available [facility] ([facility]) [address] [facility], [place], [address], 09/07/2024 07:08:14 09/06/19 25 09/07/2024 COMP. METAB OLIC PANEL (14) alkaline phosphatase 62 IU/L 44-121 Not Available [facility]) [address] [facility] [place], [address], 09/07/2024 07:08:14 09/06/19 25 09/07/2024 COMP. METAB OLIC PANEL (14) AST (SGOT) 20 IU/L 0-40 Not Available [facility] ([facility]) [address] [facility], [place], [address], 09/07/2024 07:08:14 09/06/19 25 09/07/2024 COMP. METAB OLIC PANEL (14) ALT (SGPT) 13 IU/L 0-44 Not Available [facility] ([facility]) [address] [facility], [place], [address], 09/07/2024 07:08:14 09/06/19 25 09/07/2024 HEMOG LOBIN A1C hemoglobin A1C 7.3 % 4.8-5. 6 above high normal Predi abete s: 5.7 - 6.4 Diabe rere: >6.4 Glyce jeannine contr ol for adult s with diabe rere: <7.0 Not Available [facility] ([facility]) [address] [place], [address], 09/07/2024 07:08:15 09/06/19 25 09/06/2024 CBC WITH DIFFE RENTI AL/PL ATELE T WBC 7.6 x10e3 /uL 3.4-10 .8 Not Available [facility] ([facility]) [address] [place], [address], 09/07/2024 07:08:16 09/06/1909/06/2024 CBC WITH DIFFE RENTI AL/PL ATELE T RBC 4.58 x10e6 /uL 4.14-5 .80 Not Available [facility] ([facility]) [address] [place], [address], 09/07/2024 07:08:16 09/06/1909/06/2024 CBC WITH DIFFE RENTI AL/PL ATELE T hemoglobin 12.1 g/dL 13.0-1 7.7 below low normal Not Available [facility] ([facility]) [address] [place], [address], 09/07/2024 07:08:16 09/06/1909/06/2024 CBC WITH DIFFE RENTI AL/PL ATELE T hematocrit 40.1 % 37.5-5 1.0 Not Available [facility] ([facility]) [address] [place], [address], 09/07/2024 07:08:16 09/06/1909/06/2024 CBC WITH DIFFE RENTI AL/PL ATELE T MCV 88 fL 79-97 Not Available [facility] ([facility]) [address] [place], [address], 09/07/2024 07:08:16 09/06/1909/06/2024 CBC WITH DIFFE RENTI AL/PL ATELE T MCH 26.4 pg 26.6-3 3.0 below low normal Not Available [facility] ([facility]) [address] [place], [address], 09/07/2024 07:08:16 09/06/1909/06/2024 CBC WITH DIFFE RENTI AL/PL ATELE T MCHC 30.2 g/dL 31.5-3 5.7 below low normal Not Available [facility] ([facility]) [address] [facility], [place], [address], 09/07/2024 07:08:16 09/06/19 25 09/06/2024 CBC WITH DIFFE RENTI AL/PL ATELE T RDW 15.2 % 11.6-1 5.4 Not Available [facility] ([facility]) [address] [facility], [place], [address], 09/07/2024 07:08:16 09/06/19 25 09/06/2024 CBC WITH DIFFE RENTI AL/PL ATELE T platelets 320 x10e3 /uL 150-45 0 Not Available [facility] ([facility]) [address] [place], [address], 09/07/2024 07:08:16 09/06/19 25 09/06/2024 CBC WITH DIFFE RENTI AL/PL ATELE T neutrophils 54 % notest ab. Not Available [facility] ([facility]) [address] [place], [address], 09/07/2024 07:08:16 09/06/19 25 09/06/2024 CBC WITH DIFFE RENTI AL/PL ATELE T lymphs 23 % notest ab. Not Available [facility] ([facility]) [address] [place], [address], 09/07/2024 07:08:16 09/06/1909/06/2024 CBC WITH DIFFE RENTI AL/PL ATELE T monocytes 11 % notest ab. Not Available [facility] ([facility]) [address] [place], [address], 09/07/2024 07:08:16 09/06/19 25 09/06/2024 CBC WITH DIFFE RENTI AL/PL ATELE T eos 10 % notest ab. Not Available [facility] ([facility]) [address] [place], [address], 09/07/2024 07:08:16 09/06/1909/06/2024 CBC WITH DIFFE RENTI AL/PL ATELE T basos 2 % notest ab. Not Available [facility] ([facility]) [address] [facility], [place], [address], 09/07/2024 07:08:16 09/06/1909/06/2024 CBC WITH DIFFE RENTI AL/PL ATELE T neutrophils (absolute) 4.1 x10e3 /uL 1.4-7. 0 Not Available [facility] ([facility]) [address] [facility], [place], [address], 09/07/2024 07:08:16 09/06/19 25 09/06/2024 CBC WITH DIFFE RENTI AL/PL ATELE T lymphs (absolute) 1.8 x10e3 /uL 0.7-3. 1 Not Available [facility] ([facility]) [address] [place], [address], 09/07/2024 07:08:16 09/06/1909/06/2024 CBC WITH DIFFE RENTI AL/PL ATELE T monocytes(ab solute) 0.8 x10e3 /uL 0.1-0. 9 Not Available [facility] ([facility]) [address] [place], [address], 09/07/2024 07:08:16 09/06/1909/06/2024 CBC WITH DIFFE RENTI AL/PL ATELE T eos (absolute) 0.8 x10e3 /uL 0.0-0. 4 above high normal Not Available [facility] ([facility]) [address] [place], [address], 09/07/2024 07:08:16 09/06/19 25 09/06/2024 CBC WITH DIFFE RENTI AL/PL ATELE T baso (absolute) 0.2 x10e3 /uL 0.0-0. 2 Not Available [facility] ([facility]) [address] [facility], [place], [address], 09/07/2024 07:08:16 09/06/19 25 09/06/2024 CBC WITH DIFFE RENTI AL/PL ATELE T immature granulocytes 0 % notest ab. Not Available [facility] ([facility]) [address] [facility], [place], [address], 09/07/2024 07:08:16 09/06/19 25 09/06/2024 CBC WITH DIFFE RENTI AL/PL ATELE T immature grans (abs) 0.0 x10e3 /uL 0.0-0. 1 Not Available [facility] ([facility]) [address] [facility], [place], [address], 09/07/2024 07:08:16 12/22/19 25 12/21/2024 Gluco se [Mass /volu me] in Arter ial blood glucose [mass/volume ] in capillary blood by glucometer 151 mg/dL low: 70mg/d Lhigh: 99mg/d L high Not Available Not Available 12/23/2024 11:08:53 12/22/19 25 12/21/2024 Gluco se [Mass /volu me] in Arter ial blood specimen source identified Arteri al/Cap illary Not Available Not Available 11:08:53 12/22/19 25 12/21/2024 Gluco se [Mass /volu me] in Arter ial blood interpretati on and review of laboratory results Abnorm al Not Available Not Available 11:08:53 12/22/19 25 12/22/2024 Tissu e Patho logy biops y repor t pathology report.secti on heading Surgic al Pathol ogy Report Case: [id number] Author liat Burgos er: Karthik Vega MD [facility] renny: 2024 11:05 AM Orderi ng Locati on: [facility] Receiv ed: 2024 12:39 PM Pathol ogist: Erin juares, Aguilar caceres MD Specim ens: A) - Gastri c, gastri c lesion r/o cancer B) - Gastri c, gastri c antrum greate r curvat ure C) - Gastri c, gastri c antrum lesser curvat ure D) - Gastri c, incisu ra E) - Gastri c, gastri c body greate r curvat ure F) - Gastri c, gastri c body lesser curvat ure Not Available Not Available 11:08:53 12/22/1912/22/2024 Tissu e Patho logy biops y repor t pathology report final diagnosis narrative Stomac h, gastri c lesion , endomu cosal resect ion (A): - Focal intest inal metapl benoit - Negati ve for dyspla gm or malign carolina Stomac h, antrum greate r curvat ure, biopsy (B): - Mild chroni c gastri tis - No intest inal metapl benoit or dyspla gm - Negati ve for H. pylori [place]om[place] h, antrum lesser curvat ure, biopsy (C): - Mild chroni c gastri tis - No intest inal metapl benoit or dyspla gm - No active inflam mation or H. pylori organi sms (H&E examin ation) Stomac h, incisu ra, biopsy (D): - Mild chroni c gastri tis with focal intest inal metapl benoit - No dyspla gm - No active inflam mation or H. pylori organi sms (H&E examin ation) [place]omac h, body greate r curvat ure, biopsy (E): - Mild chroni c gastri tis - No intest inal metapl benoit or dyspla gm - No active inflam mation or H. pylori organi sms (H&E examin ation) [place]om[place] h, body lesser curvat ure, biopsy (F): - Mild chroni c gastri tis - No intest inal metapl benoit or dyspla gm - No active inflam mation or H. pylori organi sms (H&E examin ation) Not Available Not Available 11:08:53 12/22/1912/22/2024 Tissu e Patho logy biops y repor t pathology report microscopic observation narrative other stain The gastri c lesion endomu cosal resect ion specim en (part A) has only a locali zed focus of intest inal metapl benoit (~ 2 mm on 3 of 7 cross- sectio ns of the EMR), which is not presen t at margin s. There is no dyspla gm or malign carolina presen t. Each of the remain ing gastri c biopsi es has mild chroni c gastri tis, but no H. pylori , includ ing by immuno stain (block B1, with approp riatel y staini ng contro ls). Only the incisu ra biopsy (part D) has a very small focus of intest inal metapl benoit (compl ete, withou t dyspla gm). 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 Operat gonzalo proced ure/fi ndings : EGD - erythe matous and eroded mucosa on the lesser curvat ure, likely site of prior biopsy , endomu cosal resect ion rule out carcin deanne; gastri c mucosa l atroph y, biopsi ed for gastri c mappin g Not Available Not Available 11:08:53 12/22/1912/22/2024 Tissu e Patho logy biops y repor t pathology report gross observation narrative The requis ition and specim en(s) are identi fied with the marina johnson's name, Fina Mathis. Receiv ed in formal in, specim en A, is a 2.0 x 0.7 x 0.4 cm strip of gastri c mucosa . The mucosa l surfac e is red-br own, gliste tong with cheatham-wh ite adhere nt, nodula r exudat e. The deep margin consis ts of red-br own, ragged and cauter ized tissue . The margin is inked blue. Sectio tong shows a red-br own and gliste tong cut surfac e. The specim en is entire ly submit renny as casset te A1. Receiv ed in formal in, specim en B is one pink-t an, friabl e and irregu lar segmen t of soft tissue , 0.4 x 0.3 x 0.2 cm, submit renny in toto as casset te B1. Receiv ed in formal in, specim en C are two pink-t an irregu lar segmen ts of soft tissue , 0.2 and 0.3 cm, submit renny in toto as casset te C1. Receiv ed in formal in, specim en D are two pink-t an and wispy segmen ts of soft tissue , 0.2 and 0.3 cm, submit renny in toto as casset te D1. Receiv ed in formal in, specim en E are 4 cheatham-wh ite and irregu lar soft tissue fragme nts, 0.1 to 0.3 cm and 0.4 x 0.2 x 0.1 cm in aggreg ate, submit renny in toto as casset te E1. Receiv ed in formal in, specim en F are two pink-t an and gliste tong segmen ts of soft tissue , both 0.3 cm, submit renny in toto as casset te F1. AL Not Available Not Available 11:08:53 12/22/19 25 12/22/2024 Tissu e Patho logy biops y repor t pathologist location at [facility] Not Available Not Available 11:08:53 12/22/19 25 12/22/2024 Tissu e Patho logy biops y repor t service comment The perfor owen sheehan terist ics of all immuno histoc hemica l and indire ct immuno fluore scence stains (if any) cited in this report were determ ined by the Histop cathleen liz of [facility]. Some of these tests were develo ped by our own [place] and have not been cleare d or approv ed by the US Food and Drug Admini strati on. The FDA does not requir e this test to go throug h premar ket FDA review . These tests are used for clinic al purpos es. They should not be regard ed as invest igatio nal or for resear ch. This [place] is certif ied under the Clinic al [place] z[place] Improv ement Amendm ents (CLIA) as qualif ied to perfor m high [facility] [place] l[place] aron taras. This case has been person ally review ed and interp reted by the attend ing (teach ing) pathol ogist. Not Available Not Available 11:08:53 12/22/19 25 12/22/2024 Tissu e Patho logy biops y repor t embedded images Not Available Not Available 12/11 11:08:53 12/22/19 25 12/21/2024 Gluco se [Mass /volu me] in Arter ial blood glucose [mass/volume ] in capillary blood by glucometer 138 mg/dL low: 70mg/d Lhigh: 99mg/d L high Not Available Not Available 12/23/2024 11:08:53 12/22/19 25 12/21/2024 Gluco se [Mass /volu me] in Arter ial blood specimen source identified Arteri al/Cap illary Not Available Not Available 11:08:53 12/22/19 25 12/21/2024 Gluco se [Mass /volu me] in Arter ial blood interpretati on and review of laboratory results Abnorm al Not Available Not Available 11:08:53 05/06/20 24 05/06/2024 XR, chest No observ ation record ed. [address] [place] [address], [address], 05/09/2024 09:14:40 06/14/20 24 06/13/2024 XR, chest , 2 view No observ ation record ed. [address], [address], 06/18/2024 22:53:25 07/25/19 25 07/25/2024 XR, chest , 2 view No observ ation record ed. [address], [address], 07/27/2024 09:34:35 12/03/19 25 12/01/2024 XR, chest , 2 view No observ ation record ed. [facility] [address], [place], [address], 12/02/2024 17:37:18 12/03/19 25 12/01/2024 XR, chest , 2 view No observ ation record ed. [facility] [address] [facility] [address], [place], [address], 12/09/2024 15:59:40 12/13/19 25 12/12/2024 XR, chest , 2 view No observ ation record ed. [facility] [address] [facility] [address], [place], [address], 12/12/2024 22:40:39 12/27/19 25 elect rocar diogr am No observ ation record ed. [facility]LE[facility] In-Office Order Internal Use Only DO Not Attach Compendium DO Not Attach Compendium, Do Not Delete/merge, [id number] 12/26/2024 15:27:27 12/27/19 25 12/26/2024 elect rocar diogr am No observ ation record ed. [facility] In-Office Order Internal Use Only DO Not Attach Compendium DO Not Attach Compendium, Do Not Delete/merge, [id number] 12/26/2024 15:34:05 Result Notes None recorded. 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 135155124 Active Not Available [facility] 4 05:26:53 Essential hypertension 32967574 Active Not Available [facility] 4 05:26:53 Acute bronchitis 61922926 Active Not Available [facility] 4 05:26:53 Secondary erectile dysfunction 423623814 Active Not Available [facility] 4 05:26:53 Osteoarthriti s of joint of hand 11820238 Active Not Available [facility] 4 05:26:53 Ischemic congestive cardiomyopath y 443585066 Active 2023 Noam Reveles MD Attn: Accounting ,[address] [place], [address] , [facility] 4 21:59:48 Central cord syndrome 466699180 Active 2023 Noam Reveles MD Attn: Accounting ,[address] [place], [address] , [facility] 4 21:59:49 Problem Notes None recorded. Procedures Surgical History Date Name Laterality Status Provider Name and Address Organization Details Recorded Time Hernia Repair completed Martina Walsh MA [facility] 10/12/2023 14:30:07 simple cystectomy completed Martina Walsh MA [facility] 10/12/2023 14:30:15 Vasectomy completed Martina Walsh MA [facility] 10/12/2023 14:30:27 Imaging Results None recorded. Procedure Notes None recorded. Medical Equipment None Reported. Allergies Allergen ID Allergen Name Allergen Category Reaction Reaction Severity Criticality Documentation Date Start Date Code Code System Note Provider Name and Address Organization Details Recorded Time 417970 prednison e medicatio n other moderate high 09/05/2024 8640 RxNorm jitte rness & diffi culty sleep ing Sunita Patel LPN null, [facility] 5 14:19:38 Medications Name Sig Start Date [...] Endo put pt on per Emily @ [facility] Not Available Not Available Not Available donepezil [...] 1 box of viagra 50 mg. [id number]. 1 box sample of viagra 5omg, lot. [id number] 0. exp. 12/11/19 19. with package insert. Not Available Not Available Not Available metronida zole 250 mg tablet TAKE 1 TABLET BY MOUTH EVERY 8 HOURS FOR 10 DAYS 02/24 /2025 completed Not Available Not Available Not Available [...] three times daily as needed for pain 12/26 completed Not Available Not Available Not Available spironola ctone 25 mg tablet TAKE [...] 2nd Gen Pen Needle 32 gauge x USE TO INJECT FOUR TIMES DAILY DIRECTED [...] Available Not Available Not Available Dexcom G7 Nurses' Aide DIRECTED active Not Available Not Available No [...] in Arterial blood by Pulse oximetry Systolic And Diastolic Provider Name and Address Organization Details Last Updated DateTime 5 170.18 cm 26.6 kg/m2 92386.6 3 g 56 /min 96 % 96 % 120/62 mm[Hg] [place] [facility] 5 11:05:56 Date Recorded Body height Body mass index (BMI) Body weight Heart rate Oxygen saturation Oxygen saturation in Arterial blood by Pulse oximetry Systolic And Diastolic Provider Name and Address Organization Details Last Updated DateTime 5 170.18 cm 25.6 kg/m2 82533.9 9 g 76 /min 98 % 98 % 120/66 mm[Hg] Maria Ines Hammer [place] [facility] 5 16:06:54 Date Recorded Body height Body mass index (BMI) Body weight Heart rate Oxygen saturation Oxygen saturation in Arterial blood by Pulse oximetry Systolic And Diastolic Provider Name and Address Organization Details Last Updated DateTime 5 170.18 cm 23.6 kg/m2 92381.4 5 g 72 /min 95 % 95 % 120/76 mm[Hg] Joanne Mc [place] [facility] 5 15:03:27 Date Recorded Body height Body mass index (BMI) Body weight Heart rate Oxygen saturation Oxygen saturation in Arterial blood by Pulse oximetry Systolic And Diastolic Provider Name and Address Organization Details Last Updated DateTime 4 170.18 cm 24.3 kg/m2 90534.1 8 g 66 /min 93 % 93 % 126/62 mm[Hg] Maira Ines Hammer [place] [facility] 4 14:26:47 Date Recorded Body height Body mass index (BMI) Body weight Heart rate Oxygen saturation Oxygen saturation in Arterial blood by Pulse oximetry Systolic And Diastolic Provider Name and Address Organization Details Last Updated DateTime 4 170.18 cm 25.6 kg/m2 14375.3 5 g 55 /min 98 % 98 % 136/70 mm[Hg] Maria Ines Hammer [place] [facility] 4 14:23:25 Social History Question Answer Notes LastModified by Organizat ion Details LastModified Time Tobacco Smoking Status Former Smoker quit 1999 Chata arias [facility] 02/29/2024 12:31:51 Do You Have An Advance Directive? No Information not available 11/19/2023 Are You Blind Or Do You Have Difficulty Seeing? No Information not available 10/12/2023 What Is Your Level Of Caffeine Consumption? Moderate 3 Cups A Day [email or web address] Information not available 01/04/2024 In The 14 Days Before Symptom Onset, Have You Had Close Contact With A Laboratory-chirag ARORAID-19 While That Case Was Ill? No Information [...] Or The Highest Degree You Have Received? [id number] Information not available 02/29/2024 Are There Any Guns Present In Your Home? No Information not available 11/19/2023 In The Past 7 Days, How Many Days Did You Exercise? -1 Information not available 02/29/2024 In The Past 7 Days, How Much Pain Have You Delano? None Information not available 02/29/2024 In General, [...] Past 7 Days, How Often Have You Delano Sleepy In The Daytime? Sometimes Information not available 02/29/2024 # Alcohol Drinks Per Week 0 Information not available 02/29/2024 What Was The Date Of Your Most Recent Tobacco Screening? 12/26/2024 [email or web address] Information not available 12/26/2024 What Is Your Current Pack Years? 10packyears [...] anxious, or unable to sleep at night)? [id number] Information not available 10/12/2023 Family History Relationship [...] Problems N Kidney or Bladder Problems N GI Problems N Depression N COPD N Blood Clots N Have you had a mammogram in the last yea r? N Skin Problems N Anemia N Heart Attack (NM) N Diabetes Y Anxiety Disorder N Muscle, [...] mcg/0.3 mL dose 1 completed Not Available [facility] 08/05/2023 05:26:53 COVID-19, mRNA, LNP-S, PF, 30 mcg/0.3 mL dose 1 completed Not Available [facility] 08/05/2023 05:26:53 influenza, unspecified formulation 2 completed RORO Lee [place] - [facility] 09/05/2024 09:46:47 Influenza, split virus, quadrivalent, preservative 9 completed Not Available [facility] 08/05/2023 05:26:53 pneumococcal polysaccharide PPV23 1 completed [place]O [place] - [facility] 09/05/2024 09:46:47 Pneumococcal conjugate PCV 13 0 completed [place]O [place] [facility] 09/05/2024 09:46:47 zoster recombinant [...] [place], [place] [facility] 09/05/2024 10:54:09 COVID-19, mRNA, LNP-S, PF, darleen-sucrose, 30 mcg/0.3 mL 3 completed Not Available [facility] 12/26/2024 14:32:29 Influenza, adjuvanted, quadrivalent, PF 3 completed Not Available [facility] 12/26/2024 14:32:29 COVID-19, mRNA, LNP-S, PF, darleen-sucrose, 30 mcg/0.3 mL 4 completed Not Available [facility] 12/26/2024 14:32:29 Influenza, high-dose, trivalent, PF 4 completed Not Available [facility] 12/26/2024 14:32:29 Influenza, split virus, quadrivalent, preservative 7 completed Not Available [facility] 07/30/2019 02:49:48 Influenza, split virus, quadrivalent, preservative 1 completed Curtis Fox [place] null, [place] - [facility] 04/08/2021 13:12:07 Tdap 3 completed Stephy Guevara [place] null, [place] - [facility] 09/04/2022 12:19:54 Influenza, high-dose, trivalent, PF 5 completed Noam Reveles MD Attn: Accounting[address] [place], [address], [facility] 09/05/2024 20:53:10 Past Encounters Encounter ID Performer Location Encounter Start Date Encounter Closed Date Diagnosis/Indication Diagnosis SNOMED-CT Code Diagnosis ICD10 Code Diagnosis Note [id number] Nikky Mathews MD [facility] (Adult Med) [address] [place] [address] [id number] 09/13/2014 16:14:24 09/14/2014 11:03:15 Diabetes mellitus [id number] Hyperlipidemia 06972409 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 423436253 Essential hypertension 30114895 Acute bronchitis 26005580 [id number] Nikky Mathews MD [facility] (Adult Med) [address] [place] [address] [id number] 04/09/2015 13:36:28 04/09/2015 17:58:50 Diabetes mellitus 05274996 Essential hypertension 99280381 Hyperlipidemia 06006982 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 675595787 [id number] Nikky Mathews MD [facility] (Adult Med) [address] [place] [address] [id number] 09/13/2015 09:48:53 09/13/2015 11:14:18 Diabetes mellitus 34987624 E13.65 Essential hypertension 83645221 I10 Hyperlipidemia 82874661 E78.5 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 432893947 E11.21 Secondary erectile dysfunction 592658844 N52.8 [id number] Nikky Mathews MD [facility] (Adult Med) [address] [place] [address] [id number] 10/29/2015 11:50:40 10/29/2015 14:48:10 Diabetes mellitus 97076479 E11.9 Secondary erectile dysfunction 439059409 N52.8 Osteoarthr itis of joint of hand 47526224 M19.041 M19.042 [id number] Nikky Mathews MD [facility] (Adult Med) [address] [place] [address] [id number] 04/04/2016 16:28:18 04/04/2016 17:40:02 Diabetes mellitus 42764185 E11.9 Osteoarthr itis of joint of hand 39913822 M19.041 M19.042 Hyperlipidemia 96601304 E78.5 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 Hyperlipidemia 42814043 E78.5 Low saturated fat diet. Essential hypertension 81290464 I10 Covered by quinapril as well. Diabetes mellitus 058459 09 E11.9 Diabetic diet, exercise, keep the weight down. Annual eye check. [id number] MD [facility] (Adult Med) [address] [place] [address] [id number] 06/03/2017 09:47:08 06/03/2017 11:09:41 Type 2 diabetes mellitus 74670635 E11.65 diabetic diet, exercise, will adjust his medication s. He will change his eating habit. Essential hypertension 98699517 I10 Covered by quinapril as well. Low salt diet. will add amlodipine to bring down the BP to the more safe level. 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 Annual eye check. Type 2 kirsten betes mellitus 05434066 E11.65 diabetic diet, exercise, will adjust his medication s. He will change his eating habit. Essential hypertension 10563494 I10 Covered by quinapril as well. Low salt diet. will add amlodipine to bring down the BP to the more safe level. 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 Annual eye check. Patient agreed the metformin ER 1,00 mg twice /day to achieve the better control of his rachell 2 DM. [id number] Nikky Mathews MD [facility] (Adult Med) [address] [place] [address] [id number] 01/26/2018 12:20:07 01/26/2018 13:41:59 Essential hypertension 96802557 I10 Covered by quinapril as well. Low salt diet. will add amlodipine to bring down the BP to the more safe level.Will increase amlodipine to 10 mg/day. Type 2 kirsten betes mellitus without complication 632758373 E11.9 Diabetic diet, exercise, keep the weight down. OTC aspirin /day. Diabetes mellitus 762279 09 E11.9 Diabetic diet, exercise, keep the weight down. Annual eye check. Patient agreed the metformin ER 500 mg twice /day to achieve the better control of his rachell 2 DM. Dyslipidemia 028477006 E 78.5 Low saturated fat diet, exercise and keep the weight down Type 2 kirsten betes mellitus 69262672 E11.65 diabetic diet, exercise, will adjust his medication s. He will change his eating habit. [id number] Nikky Mathews MD [facility] (Adult Med) [address] [place] [address] [id number] 03/30/2018 10:04:31 03/30/2018 11:07:33 Furuncle 114801157 L02.92 Type 2 kirsten betes mellitus without complication 234548744 E11.9 Diabetic diet, exercise, keep the weight down. OTC aspirin /day. Has enough medication s. [id number] Nikky Mathews MD [facility] (Adult Med) [address] [place] [address] [id number] 04/01/2018 16:18:44 04/08/2018 16:12:51 Furuncle [id number] L02.92 Right buttock resolving, advised to continue clindamyci n. Discussed with patient and he understood and agreed. [id number] Nikky Mathews MD [facility] (Adult Med) [address] [place] [address] [id number] 04/06/2018 15:56:11 04/07/2018 12:14:40 Furuncle [id number] L02.92 Right buttock resolving, advised to continue clindamyci n. Discussed with patient and he understood and agreed. [id number] Nikky Mathews MD [facility] (Adult Med) [address] [place] [address] [id number] 08/27/2018 10:09:37 08/30/2018 09:32:56 Diabetes mellitus 77614179 E11.9 Diabetic diet, exercise, keep the weight down. Annual eye check. Patient agreed the metformin ER 500 mg twice /day to achieve the better control of his rachell 2 DM. Discussed with patient, he agreed with add on pioglitazo ne. Retinopath y due to diabetes mellitus 5918443 E13.3593 Under the care of his ophthalmol ogist. Essential hypertension 53089918 I10 Covered by quinapril as well. Low salt diet. will add amlodipine to bring down the BP to the more safe level.Will increase amlodipine to 10 mg/day. Blood sugar is 261 mg%, patient informed 08-27-2018 . Hyperlipidemia 43199694 E78.5 Low saturated fat diet. Type 2 kirsten betes mellitus without complication 113612036 E11.9 Diabetic diet, exercise, keep the weight down. OTC aspirin /day. Has enough medication s. Dyslipidemia 245695335 E 78.5 Low saturated fat diet, exercise and keep the weight down Type 2 kirsten betes mellitus 60480422 E11.65 diabetic diet, exercise, will adjust his medication s. He will change his eating habit. [id number] Nikky Mathews MD [facility] (Adult Med) [address] [place] [address] [id number] 10/25/2018 15:53:18 10/26/2018 09:24:31 Uncontrolled type 2 diabetes mellitus 951263164 E11.65 Will check HgA1C. Retinopath y due to diabetes mellitus 4262884 E13.3593 Under the care of his ophthalmol ogist. 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 Osteoarthr itis of joint of hand 34021496 M19.041 M19.042 Stable, able to ambulate by himself without assitance. Hyperlipidemia 64895551 E78.5 Low saturated fat diet. Essential hypertension 61480076 I10 Covered by quinapril as well. Low salt diet. will add amlodipine to bring down the BP to the more safe level.Will increase amlodipine to 10 mg/day. Blood sugar is 261 mg%, patient informed 08-27-2018 . [id number] Nikky Mathews MD [facility] (Adult Med) [address] [place] [address] [id number] 12/17/2018 16:46:47 12/20/2018 09:42:49 Type 2 diabetes mellitus without complication 804212006 E11.9 Diabetic diet, exercise, keep the weight down. OTC aspirin /day. Has enough medication s. Dyslipidem ia due to type 2 diabetes mellitus 3894517640 02 E78.5 On low saturated fat diet. and atorvastat in 90 dys supply with 3 more refills. Essential hypertension 97780143 I10 Covered by quinapril as well. Low salt diet. will add amlodipine to bring down the BP to the more safe level.Will increase amlodipine to 10 mg/day. Blood sugar is 261 mg%, patient informed 08-27-2018 . Dyslipidemia 257921774 E 78.5 Low saturated fat diet, exercise and keep the weight down Type 2 kirsten betes mellitus 59815873 E11.65 diabetic diet, exercise, will adjust his medication s. He will change his eating habit. [id number] [facility] [address] [place] [address] [id number] 02/24/2019 16:42:14 02/24/2019 17:27:56 Diabetes mellitus 24939236 E11.9 Diabetic diet, exercise, keep the weight down. Annual eye check. Patient agreed the metformin ER 500 mg twice /day to achieve the better control of his rachell 2 DM. Discussed with patient, he agreed with add on pioglitazo ne. [id number] Nikky Mathews MD [facility] (Adult Med) [address] [place] [address] [id number] 0 06/17/2019 10:32:26 06/20/2019 10:09:21 Osteoarthritis of joint of hand 49615083 M19.041 M19.042 Stable, able to ambulate by himself without assitance. Diabetes mellitus 451383 09 E11.9 Diabetic diet, exercise, keep the weight down. Annual eye check. Patient agreed the metformin ER 500 mg twice /day to achieve the better control of his rachell 2 DM. Discussed with patient, he agreed with add on pioglitazo ne. Essential hypertension 95602014 I10 Covered by quinapril as well. Low salt diet. will add amlodipine to bring down the BP to the more safe level.Will increase amlodipine to 10 mg/day. Blood sugar is 261 mg%, patient informed 08-27-2018 . Hyperlipidemia 25735372 E78.5 Low saturated fat diet. 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 On quinapril. Secondary erectile dysfunction 126236453 N52.8 Stable, not on viagra. Dyslipidemia 415910113 E 78.5 Low saturated fat diet, exercise and keep the weight down Type 2 kirsten betes mellitus without complication 847446883 E11.9 Diabetic diet, exercise, keep the weight down. OTC aspirin /day. Has enough medication s. Type 2 kirsten betes mellitus 47148484 E11.65 diabetic diet, exercise, will adjust his medication s. He will change his eating habit. [id number] MD [facility] (Adult Med) [address] [place] [address] [id number] 07/01/2019 12:23:14 07/04/2019 14:10:16 Acute bronchitis 96953795 J20.9 Discussed with patient, D/C smiley. [id number] Nikky Mathews MD [facility] (Adult Med) [address] [place] [address] [id number] 08/25/2019 15:29:19 08/26/2019 08:58:09 Diabetes mellitus 13365234 E11.9 Diabetic diet, exercise, keep the weight down. Annual eye check. Patient agreed the metformin ER 500 mg twice /day to achieve the better control of his rachell 2 DM. Discussed with patient, he agreed with add on pioglitazo ne. Osteoarthr itis of joint of hand 53024110 M19.041 M19.042 Stable, able to ambulate by himself without assitance. Essential hypertension 53633815 I10 Covered by quinapril as well. Low salt diet. will add amlodipine to bring down the BP to the more safe level.Will increase amlodipine to 10 mg/day. Blood sugar is 261 mg%, patient informed 08-27-2018 . Hyperlipidemia 80079859 E78.5 Low saturated fat diet. 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 On quinapril. Type 2 kirsten betes mellitus 66520681 E11.65 diabetic diet, exercise, will adjust his medication s. He will change his eating habit. Type 2 kirsten betes mellitus without complication 924901962 E11.9 Diabetic diet, exercise, keep the weight down. OTC aspirin /day. Has enough medication s. Dyslipidemia 974495453 E 78.5 Low saturated fat diet, exercise and keep the weight down [id number] Nikky Mathews MD [facility] (Adult Med) [address] [place] [address] [id number] 12/22/2019 08:14:26 12/23/2019 06:57:50 Type 2 diabetes mellitus 94917110 E11.65 diabetic diet, exercise, will adjust his medication s. He will change his eating habit. 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 [id number] MD [facility] (Adult Med) [address] [place] [address] [id number] 05/22/2020 08:32:52 05/23/2020 10:59:28 Acute bronchitis 21132690 J20.9 Discussed with patient, D/Mahnaz reis. Osteoarthr itis of joint of hand 96636780 M19.041 M19.042 Stable, able to ambulate by himself without assitance. Diabetes mellitus 442113 09 E11.9 Diabetic diet, exercise, keep the weight down. Annual eye check. Patient agreed the metformin ER 500 mg twice /day to achieve the better control of his rachell 2 DM. Discussed with patient, he agreed with add on pioglitazo ne. Essential hypertension 58556326 I10 Covered by quinapril as well. Low salt diet. will add amlodipine to bring down the BP to the more safe level.Will increase amlodipine to 10 mg/day. Blood sugar is 261 mg%, patient informed 08-27-2018 . Will continue to monitor Blood pressure., once porter virus pandemic is over. Hyperlipidemia 26076842 E78.5 Low saturated fat diet. Low animal fat diet. 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 On quinapril. Secondary erectile dysfunction 586278136 N52.8 Stable, not on viagra. Dyslipidemia 204492342 E 78.5 Low saturated fat diet, exercise and keep the weight down Type 2 kirsten betes mellitus without complication 394512608 E11.9 Diabetic diet, exercise, keep the weight down. OTC aspirin /day. Has enough medication s. Type 2 kirsten betes mellitus 06705818 E11.65 diabetic diet, exercise, will adjust his medication s. He will change his eating habit. [id number] MD Emma [facility] (Adult Med) [address] [place] [address] [id number] 08/13/2020 08:20:45 08/14/2020 08:43:41 Diabetes mellitus 14844911 E11.9 Diabetic diet, exercise, keep the weight down. Annual eye check. Patient agreed the metformin ER 500 mg twice /day to achieve the better control of his rachell 2 DM. Discussed with patient, he agreed with add on pioglitazo ne. Essential hypertension 96213422 I10 Covered by quinapril as well. Low salt diet. will add amlodipine to bring down the BP to the more safe level.Will increase amlodipine to 10 mg/day. Blood sugar is 261 mg%, patient informed 08-27-2018 . Will continue to monitor Blood pressure., once porter virus pandemic is over. Osteoarthr itis of joint of hand 05494243 M19.041 M19.042 Stable, able to ambulate by himself without assitance. [id number] MD Emma King ([facility]) [address] [place] [address] [phone] [id number] 01/01/2021 11:35:21 01/01/2021 12:15:57 Diabetes mellitus 86061673 E11.9 Diabetic diet, exercise, keep the weight down. Annual eye check. Patient agreed the metformin ER 500 mg twice /day to achieve the better control of his rachell 2 DM. Discussed with patient, he agreed with add on pioglitazo ne. Osteoarthr itis of joint of hand 60290408 M19.041 M19.042 Stable, able to ambulate by himself without assitance. Essential hypertension 75218601 I10 Covered by quinapril as well. Low [...] with current medication s. 01-01-2021 . Hyperlipidemia 00340707 E78.5 Low saturated fat diet. Low animal fat diet. 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 On quinapril. Secondary erectile dysfunction 649688254 N52.8 Stable, not on viagra. [id number] MD Emma King (Adult Med) [address] [place] [address] [id number] 04/08/2021 11:48:12 04/10/2021 16:10:15 Diabetes mellitus 88721451 E11.9 Diabetic diet, exercise, keep the weight down. Annual eye check. Patient agreed the metformin ER 500 mg twice /day to achieve the better control of his rachell 2 DM. Discussed with patient, he agreed with add on pioglitazo ne. Osteoarthr itis of joint of hand 11663841 M19.041 M19.042 Stable, able to ambulate by himself without assitance. Essential hypertension 55771834 I10 Covered by quinapril as well. Low [...] He is on quinapril. 04-08-2021 . Hyperlipidemia 31496741 E78.5 Low saturated fat diet. Low animal fat diet. 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 On quinapril. Secondary erectile dysfunction 221580100 N52.8 Stable, not on viagra. Administra tion of influenza vaccine 51863607 Z23 Will get annual flu shot. Dyslipidemia 825254195 E 78.5 Low saturated fat diet, exercise and keep the weight down Type 2 kirsten betes mellitus without complication 172140504 E11.9 Diabetic diet, exercise, keep the weight down. OTC aspirin /day. Has enough medication s. Type 2 kirsten betes mellitus 66850054 E11.65 diabetic diet, exercise, will adjust his medication s. He will change his eating habit. [id number] MD Emma King (Adult Med) [address] [place] [address] [phone] 05/21/2021 10:20:28 05/24/2021 12:24:20 Hyperlipidemia 30717840 E78.5 Low saturated fat diet. Low animal fat diet. Secondary erectile dysfunction 340107102 N52.8 Stable, not on viagra. Essential hypertension 28344071 I10 Covered by quinapril as well. Low [...] is on quinapril. 04-08-2021 . Diabetes mellitus 634142 09 E11.9 Diabetic diet, exercise, keep the weight down. Annual eye check. Patient agreed the metformin ER 500 mg twice /day to achieve the better control of his rachell 2 DM. Discussed with patient, he agreed with add on pioglitazo ne. Osteoarthr itis of joint of hand 92268067 M19.041 M19.042 Stable, able to ambulate by himself without assitance. Microalbum inuric diabetic nephropathy 280111674 E11.21 Normal renal functions, normal BUN, creatinine and GFR on 04-15-2021 , on 05-02-2021 elevated albumin/cr eatine ratio could be hypertensi ve and diabetic nephropath y, will increase quinapril to 20 mg /day . Copies of lab. explained and provided to patient today, 05-21-2021 . [id number] Nikky Mathews MD [facility] (Adult Med) [address] [place] [address] [phone] 0 08/05/2021 09:33:33 08/06/2021 10:04:23 Type 2 diabetes mellitus [id number] E11.65 diabetic diet, exercise, will adjust his medication s. He will change his eating habit. Persistent cough 8257345 02 R05.3 Will try benzontate for the mean time. [id number] [facility] [address] [place] [address] [phone] 0 08/30/2021 15:36:26 09/02/2021 12:30:09 Type 2 diabetes mellitus 15363045 E11.65 diabetic diet, exercise, will adjust his medication s. He will change his eating habit. Has lost some weight, also has gone to endocrinol ogist , januvia was D/C, and farxiga was put in , starting 5 mg/day , now is on 10 mg/day, stil on ozempic shot. he had seen his blood sugar has come down. 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 On quinapril. Repeat test of urine albumin reported to be normal from his endocrinol ogist office. 11-19-2021 . Screening for malignant neoplasm of prostate 737127313 Z12.5 He went to his urologist Dr. Saldana, and was suggested to have PSA screening. Type 2 kirsten betes mellitus 21157280 E11.65 diabetic diet, exercise, will adjust his [...] care of his endocrinol ogist.., 11-19-2021 . [id number] MD Emma King (Adult Med) [address] [place] [address] 88022-861 0 02/18/2022 10:15:10 02/19/2022 11:59:28 Type 2 diabetes mellitus 89179059 E11.65 diabetic diet, exercise, will adjust his [...] ia due to type 2 diabetes mellitus 2168050516 02 E78.5 On low saturated fat diet. and atorvastat in 90 dys supply with 3 more refills.As 02-18-2022 his LDL is 44 mg%. HDL is 35 mg% from out side lab. Open wound, heel 9318136 09 S91.301A Discussed with patient, will try ABS as ordered. Essential hypertension 60728150 I10 Covered by quinapril as well. Low [...] As 02-18-2022 blood pressure is 120/66 today. [id number] Nikky Mathews MD [facility] (Adult Med) [address] [place] [address] [phone] 0 07/11/2022 10:31:47 07/15/2022 14:49:24 Overweight 682272708 E66.3 BMI is 26.3, he has been advised to watch his diabetic diet, exercise and keep the weight down. Smoker 16353716 F17.200 Advised to quit smoking if he still smokes. Acute bronchitis 3110460 2 J20.9 Discussed with patient, D/C smiley. Type 2 kirsten betes mellitus 32123209 E11.65 diabetic diet, exercise, will adjust his [...] care of his endocrinol ogist.., 11-19-2021 . [id number] Nikky Mathews MD [facility] (Adult Med) [address] [place] [address] [phone] 0 09/04/2022 10:18:01 09/08/2022 15:20:39 Administration of diphtheria, pertussis, and tetanus vaccine 207802442 Z23 He tolerated shot well. Type 2 kirsten betes mellitus 71516150 E11.65 diabetic diet, exercise, will adjust his [...] 09-04-22, wants to refill test strip at [facility] , [facility].. Chronic cough 72329258 R 05.3 smokes once a while, benzonatat e only temporally relieve the cough, will x ray and try promethazi ne with codeine,.o r similar product. He agreed. Diabetic p eripheral neuropathy 313858041 E11.40 Pain of feet, on OTC cream, was told to have diabetic neuropathy , asking some med for relief. [id number] Nikky Mathews MD [facility] (Adult Med) [address] [place] [address] [phone] 0 12/11/2022 11:51:32 12/15/2022 16:10:44 Dementia 93861709 F03.90 wants him to be evaluated by neurologis t. She has no written consent, from patient, to relase [facility] informatio n to her, nor the latter has no signature or date on it, will keep copy in file, patient agreed for the referral. Type 2 kirsten betalexsu mellitus 88061401 E11.65 diabetic diet, exercise, will adjust his [...] 09-04-22, [facility] Administra tion of pneumococcal vaccine 94715004 Z23 He declined today 12-11-22. [id number] MD Emma King (Adult Med) [address] [place] [address] [phone] 0 01/29/2023 15:37:23 01/30/2023 14:36:48 Type 2 diabetes mellitus 70301760 E11.65 diabetic diet, exercise, will adjust his medication s. He will change his eating habit. Has lost some weight, also has gone to endocrinol ogist , ezequielсветланаjose was D/C, and xavierxisenthil was put in , starting 5 mg/day , now is on 10 mg/day, stil on ozempic shot. he had seen his blood sugar has come down.Heavenly nguyen he is under the care of his endocrinol ogist.., 11-19-2021 . as 09-04-22, [facility] Diabetic p eripheral neuropathy 143479931 E11.40 Pain of feet, on OTC cream, was told to have diabetic neuropathy , asking some med for relief. Wants 100 mg instead of 300 mg of gabapentin from which he took and made him sleep for 2 days. Urinary tr act infectious disease 80848424 N39.0 Will send urine to Lab for U/A and culture , ABS also been ordered in case, he agreed. 01-29-23. [id number] MD Emma King (Adult Med) [address] [place] [address] [phone] 03/30/2023 16:12:13 03/30/2023 17:01:55 Alzheimer's disease 42362230 G30.9 saw neurologis t, had spinal CSG analysis tau elevated. , he has been informed the diagnosis, might be referred to [facility] for ne treatment. Type 2 kirsten betes mellitus 01184390 E11.65 diabetic diet, exercise, will adjust his medication s. He will change his eating habit. Has lost some weight, also has gone to endocrinol ogist , rosalinda was D/C, and radu was put in , starting 5 mg/day , now is on 10 mg/day, stil on ozempic shot. he had seen his blood sugar has come down.Jaynecarmela wendy he is under the care of his endocrinol ogist.., 11-19-2021 . as 09-04-22, [facility] Acid reflux 062054801 K2 1.9 Med refills. Diabetic p eripheral neuropathy 460373067 E11.40 Pain of feet, on OTC cream, was told to have diabetic neuropathy , asking some med for relief. Wants 100 mg instead of 300 mg of gabapentin from which he took and made him sleep for 2 days. Essential hypertension 01112871 I10 Covered by quinapril as well. Low [...] he agreed, -03-30-23. SARS-CoV-2 mRNA vaccine declined 1037528240 Z28.21 He declined 03-30-23. [id number] Nikky Mathews MD [facility] (Adult Med) [address] [place] [phone] 06/26/2023 09:48:36 06/29/2023 14:43:57 Type 2 diabetes mellitus 80083575 E11.65 Diabetic diet, exercise and keep the weight down. Med refills. Alzheimer's disease 6103 9850 G30.9 saw neurologis t, had spinal CSG analysis tau elevated. , he has been informed the diagnosis, might be referred to [facility] for the treatment. Essential hypertension 49276288 I10 Covered by quinapril as well. Low [...] ia due to type 2 diabetes mellitus 4567754890 02 E78.5 On low saturated fat diet. and atorvastat in 90 dys supply with 3 more refills.As 02-18-2022 his LDL is 44 mg%. HDL is 35 mg% from out side lab. Diabetic p eripheral neuropathy 974257795 E11.40 Pain of feet, on OTC cream, was told to have diabetic neuropathy , asking some med for relief. Wants 100 mg instead of 300 mg of gabapentin from which he took and made him sleep for 2 days. Acid reflux 956194663 K2 1.9 Med refills. Acute bronchitis 2413012 2 J20.9 Discussed with patient, D/C smiley. [id number] Noam Reveles MD [facility] [employer] [address] [place] [address] 10/12/2023 14:13:47 10/12/2023 15:24:53 Diabetes mellitus 60072320 E11.9 Essential hypertension 23759406 I10 Screening for malignant neoplasm of prostate 570280634 Z12.5 Hyperlipidemia 50458051 E78.5 [id number] Noam Reveles MD [facility] [employer] [address] [place] [address] 11/19/2023 13:49:54 11/19/2023 14:48:10 Diabetes mellitus 32027893 E11.9 Essential hypertension 54250285 I10 Hyperlipidemia 23681895 E78.5 Ischemic c ongestive cardiomyopathy 113017675 I25.5 Central cord syndrome 28 8329139 S14.129D [id number] Noam Reveles MD [facility] [address] [place] [address] 01/04/2024 10:55:41 01/04/2024 12:03:07 Essential hypertension 29911137 I10 Diabetes mellitus 134995 09 E11.9 Central cord syndrome 28 7055984 S14.129D Ischemic c ongestive cardiomyopathy 827619947 I25.5 [id number] Noam Reveles MD [facility] [address] [place] [address] 02/29/2024 11:28:44 02/29/2024 13:10:10 Adult health examination 927997982 Z00.00 Health Risk Assessment collected and reviewed [id number] Noam Reveles MD [facility] [address] [place] [address] 04/04/2024 10:38:30 04/04/2024 12:08:46 Overweight 192598899 E66.3 Essential hypertension 89243208 I10 Hyperlipidemia 94674878 E78.5 Diabetes mellitus 885821 09 E11.9 Ischemic c ongestive cardiomyopathy 908447824 I25.5 [id number] Noam Reveles MD [facility] [place] [address] [place] [address] 05/16/2024 13:56:02 05/16/2024 15:19:59 Body mass index 20-24 - normal 048924416 Z68.24 Pneumonia 778226305 J18. 9 Essential hypertension 23231554 I10 Diabetes mellitus 150216 09 E11.9 Hyperlipidemia 11959771 E78.5 [id number] Noam Reveles MD [facility] [address] [place] [address] 06/06/2024 14:12:33 06/06/2024 15:10:12 Pneumonia 345953948 J18.9 Ischemic c ongestive cardiomyopathy 147489714 I25.5 Essential hypertension 55604358 I10 [id number] Noam Reveles MD [facility] [employer] [facility] [address] [place] [address] 09/05/2024 10:55:19 09/05/2024 11:41:03 Body mass index 25-29 - overweight 847229629 Z68.26 Overweight 963102405 E66 .3 Administra tion of influenza vaccine 23778709 Z23 Essential hypertension 24238010 I10 Diabetes mellitus 297123 09 E11.9 Hyperlipidemia 74157205 E78.5 [id number] Noam Reveles MD [facility] (Adult Med) [address] [place] [address] 11/08/2024 15:50:43 11/08/2024 16:27:18 Overweight in adulthood with body mass index of 25 or more but less than 30 500691724 E66.3 Z68.25 Overweight 579407223 E66 .3 Bronchitis 77473314 J40 [id number] Noam Reveles MD [facility] [employer] [facility] [address] [place] [address] 12/26/2024 14:30:27 12/26/2024 16:28:03 Body mass index 20-24 - normal 604522149 Z68.23 Preoperative state 70104 002 Z01.818 Diabetes mellitus 386086 09 E11.9 Ischemic c ongestive cardiomyopathy 831142483 I25.5 Essential hypertension 00545210 I10 Hyperlipidemia 08192550 E78.5 Health Concerns Section Related Observation LastModified by Organization Detai ls LastModified Time None Recorded Concern Status LastModified by Organization Details LastModified Time None Recorded Advance Directives Directive N: Payers Insurance Date Sequence Insurance Name Policy Number Policy Dang Covered Member ID Dang Member ID Guarantor Name 12/23/2024 [place] - FQHC Tolu Kirkpatrick [facility] [id number] Tolu Mathis 12/23/2024 1 [place] Tolu Mathis [id number] Tolu Mathis 11/09/2024 [place] [facility] [facility] Tolu Mathis [id number] Tolu Mathis 11/09/2024 2 [employer] - PL[employer] J (MEDICARE SUPPLEMENT) Tolu Mathis [id number] Tolu Mathis 01/27/2025 2 [employer] (MEDICARE SUPPLEMENT) Tolu Mathis [id number] Tolu Mathis 01/27/2025 [employer] (MEDICARE SUPPLEMENT) Tolu Mathis [id number] Tolu Mathis 11/09/2024 1 [place] [id number] Tolu Mathis [id number] Tolu Mathis Notes Date Note Type Note Provider Name and Address Organization Details Recorded Time 05/16/2024 text/html hospitalize [facility] pneumonia discharged on [...] symptomatology Noam Reveles MD Attn: [address] [place], [address], [facility] 05/22/2024 16:42:04 06/06/2024 text/html appears to be do ing fine with no interval developments or complaints getting over the pneumonia nicely Noam Reveles MD Attn: [address] [place], [address], [facility] 06/09/2024 14:58:51 09/05/2024 text/html hypertension no headache [...] GI Noam Reveles MD Attn: [address] [facility], [place], [address], [facility] 09/05/2024 20:56:53 11/08/2024 text/html Acute appointmen t 7-10 days of cough congestion now with some off yellow to yellowish sputum no hemoptysis granddaughter was sick last week no specific diagnosis such as COVID or flu or strep throat he is not short of breath but he feels a little tired Noam Reveles MD Attn: [address] [facility], [place], [address], [facility] 11/08/2024 21:58:35 12/26/2024 text/html Cataract surgery clearance. Cough gone. Denies shortness of breath denies chest pain he is not having any problems currently cardiovascular kelley just saw his machine sizer last week interval history had upper GI of which he says he was told everything was fine Noam Reveles MD Attn: [address] [facility], [place], [address], [facility] 12/26/2024 22:41:15
--- OUTSIDE RECORDS SUMMARY | 2025-01-31 00:40 | XMS_ITS | Clinical Summary ---
Author Organization [facility] [employer] Address [address] [place] [address] Care Team Providers Care Awake Overnight Counselor Name Role Phone Nikky Mathews MD Primary Care Provider [phone] Source Comments [facility] [employer],non-owned Affiliates and Associated Physician Practices is amultiple site organization consisting of ambulatory clinics and hospital sitesin [place], [place], [place] and [place]. This disclosure is being madepursuant to the Care Everywhere program and may not contain all information available regarding this patient. Last updated 18.[facility] [employer] Allergies No known active allergies Medications * Be aware that medications may not be up to date on this document. Alwaysverify current medications with the patient. metFORMIN (GLUCOPHAGE) 1000 MG tablet Take 1 (one) tablet by mouth 2 times daily with morning and evening meal Active atorvastatin (LIPITOR) 20 MG tablet Take 1 (one) tablet by mouth at bedtime Active glimepiride (AMARYL) 4 MG tablet Take 1 (one) tablet by mouth daily with breakfast Active lisinopril (PRINIVIL;ZESTR IL) 5 MG tablet Take 1 (one) tablet by mouth once daily Active aspirin 81 MG tablet Take 1 (one) tablet by mouth once daily Active rosuvastatin (Crestor) 5 MG tablet Take 1 (one) tablet by mouth once daily Active gabapentin (Neurontin) 300 MG capsule 1 (one) capsule 2 times daily 900mg in AM, 600mg at PM Active escitalopram (Lexapro) 10 MG tablet Take 1 (one) tablet by mouth once daily Active metoprolol succinate XL 24hr (Toprol XL) 50 MG tablet Take 1 (one) tablet by mouth once daily 09/15/19 25 Active omeprazole (PriLOSEC) 40 MG capsule Take 1 (one) capsule by mouth 2 times daily, before breakfast and supper 05/10/20 24 Active donepezil (Aricept) 5 MG tablet Take 1 (one) tablet by mouth at bedtime 10/06/19 25 025 Active dapagliflozin propanediol (Farxiga) 10 MG tablet Take 1 (one) tablet by mouth once daily 04/21/20 24 Active sacubitril-vals guevara (Entresto) 49-51 MG tablet Take 1 (one) tablet by mouth 2 times daily 01/01/20 24 Active Ozempic, 0.25 or 0.5 MG/DOSE, 2 MG/3ML SOPN Inject 2 mg subcutaneously every 7 days (once a week) 05/04/20 23 Active albuterol HFA (Proventil; Ventolin; Proair) 108 (90 Base) MCG/ACT inhaler Take 2 (two) puffs by mouth every 4 hours 11/24/19 25 Active Encounters Date Type Department Care Team Description 12/23/2024 Telephone [facility] [address] [place] [address] Rekha Gray Procedure (Egd 6 month follow up, Dr. 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 12/21/2024 10:00 AM CDT - 12/21/2024 11:00 AM CDT Surgery [facility] [address] [place] [address] Karthik Anderson MD Egd+ESD 12/21/2024 9:06 AM CDT - 12/21/2024 1:21 PM CDT Hospital Encounter [facility] [address] [place] [address] Karthik Anderson MD Surgery General Discharge Disposition: Home or Self Care 12/21/2024 Travel 12/13/2024 Travel 12/12/2024 Telephone [facility] - [facility] [address] [place] [phone] Amor Miller RN Appointment (procedure confirmed) 11/10/2024 Telephone [facility] END[facility]COPY [address] [place] [phone] Rekha Gray Procedure (External Referral, Egd+ESD, Dr. Eid ) 11/09/2024 Telephone [facility] [address] [place] [phone] Rekha Gray Follow-up from Last 3 Months Family History Medical History Relation Name Comments Diabetes Father Stroke Father CAD (Coronary Artery Disease) Mother Cancer Mother Diabetes Mother Relation Name Status Comments Father Mother Social History Tobacco Use Types Packs/Day Years Used Date Smoking Tobacco: Former Cigarettes Q uit: 08/01/1998 Smokeless Tobacco: Never Tobacco Cessation:Counseling Given: Not Answered Comments:OCCASIONAL CIGAR Alcohol Use Standard Drinks/Week Comments No 0 (1 standard drink = 0.6 oz pur e alcohol) Sex and Gender Information Value Date Recorded Sex Assigned at Not on file Legal Sex Male 1:09 PM [employer] Gender Identity Male 11/11/2024 4:55 PM CDT Sexual Orientation Straight 11/11/2024 4: 55 PM CDT Last Filed Vital Signs Vital Sign Reading Time Taken Comments Blood Pressure 159/66 12/21/2024 12:45 PM CDT Pulse 66 12/21/2024 12:52 PM CDT Temperature 36.5 C (97.7 F) 12/21/2024 12:28 PM CDT Respiratory Rate 17 12/21/2024 12:5 2 PM CDT Oxygen Saturation 94% 12/21/2024 12: 52 PM CDT Inhaled Oxygen Concentration - - Weight 70.3 kg (154 lb 14.4 oz) 12/21/2024 9:29 AM CDT Height 175.3 cm (5' 9) 12/21/2024 9:29 AM CDT Body Mass Index 22.87 12/21/2024 9:29 AM CDT Plan of Treatment Upcoming Encounters Date Type Department Care Team (Latest Contact Info) Description 06/21/2025 11:35 AM [employer] Hospital Encounter [facility]COPY [address] [place] [address] Karthik Anderson MD [address] [place] [phone] Surgery General 06/21/2025 11:35 AM [employer]PER[employer] - 06/21/2025 12:05 PM [employer] Surgery [facility] [address] [place] [phone] Karthik Anderson MD [facility] [place] [phone] ESOPHAGOGASTRODUODENOSCOPY (EGD) DIAGNOSTIC Scheduled Procedures Name Priority Associated Diagnoses Date/Ti me ESOPHAGOGASTRODUODENOSCOPY ( EGD) DIAGNOSTIC Gastric ulcer without hemorrhage or perforation, unspecified chronicity 06/21/2025 11:35 AM [employer] Health Maintenance Due Date Last Done Comments [...] 2002 ZOSTER VACCINE (1 of 2) 2002 Respiratory Syncytial Virus (RSV) Vaccine Pt: or over 60 yrs (1 - Risk 60-74 years 1-dose series) 2012 AAA SCREENING 2017 COVID-19 VACCINE ( season) 2024 04/27/2022, 11/14/2021, 05/29/2021, Additional history exists DEPRESSION SCREENING 07/13/2024 INFLUENZA VACCINE (#1) 2025 5, 04/12/2022, 04/08/2021, Additional history exists HEPATITIS B VACCINE Aged Out No longe [...] on patient's age to complete this topic Procedures Procedure Name Priority Date/Time Associated Diagnosis Comments GLUCOSE - POINT OF CARE Routine 12/21/2024 12:06 PM CDT PATHOLOGY TISSUE Routine 12/21/2024 11:0 5 AM CDT Congenital malformation of stomach ENDOTRACHEAL TUBE NOTE Routine 12/21/2024 10:17 AM CDT UT ED EGD FLEX TRANSORAL DX 12/21/2024 9:55 AM CDT Congenital malformation of stomach GLUCOSE - POINT OF CARE Routine 12/21/2024 9:55 AM CDT EGD Routine 12/21/2024 9:52 AM CDT EKG 12-LEAD STAT 12/21/2024 9:29 AM CDT Pre-op evaluation from Last 3 Months Results * (ABNORMAL) GLUCOSE - POINT OF CARE (12/21/2024 12:06 PM CDT) Only the most recent of2 resultswithin the time period is included. Glucose WB/POC 151(H) 70 - 99 mg/dL 12/21/2024 12:11 PM CDT [facility] Specimen Type Arterial/C apillary 12/21/2024 12:11 PM CDT [facility] Blood BLOOD SPECIMEN / Unknown 12/21/2024 12:06 PM CDT 12/21/2024 12:11 PM CDT us Karthik Anderson MD LAB - POINT OF CARE ORDERABLES Final Result [facility] [address] [place] [address], [facility] [phone] * PATHOLOGY TISSUE (12/21/2024 11:05 AM CDT) Case Report Surgical Pathology Report Case: [id number] Authorizing Provider: Karthik Anderson MD Collected: 12/21/2024 11:05 AM Ordering Location: [facility] Received: 12/21/2024 12:39 PM Pathologist: Birgit Carson MD Specimens: A) - Gastric, gastric lesion r/o cancer B) - Gastric, gastric antrum greater curvature C) - Gastric, gastric antrum lesser curvature D) - Gastric, incisura E) - Gastric, gastric body greater curvature F) - Gastric, gastric body lesser curvature 12/22/2024 4:08 PM CDT [facility] Final Diagnosis Stomach, gastric lesion, endomucosal resection (A): - Focal intestinal metaplasia - Negative for dysplasia or malignancy Stomach, antrum greater curvature, biopsy (B): - Mild chronic gastritis - No intestinal metaplasia or dysplasia - Negative for H. pylori Stomach, antrum lesser curvature, biopsy (C): - Mild chronic gastritis - No intestinal metaplasia or dysplasia - No active inflammation or H. pylori organisms (H&E examination) Stomach, incisura, biopsy (D): - Mild chronic gastritis with focal intestinal metaplasia - No dysplasia - No active inflammation or H. pylori organisms (H&E examination) Stomach, body greater curvature, biopsy (E): - Mild chronic gastritis - No intestinal metaplasia or dysplasia - No active inflammation or H. pylori organisms (H&E examination) Stomach, body lesser curvature, biopsy (F): - Mild chronic gastritis - No intestinal metaplasia or dysplasia - No active inflammation or H. pylori organisms (H&E examination) 12/22/2024 4:08 PM CDT [facility] at 1608 CDT Microscopic Description and Comment The gastric lesion endomucosal resection specimen (part A) has only a localized focus of intestinal metaplasia (~ 2 mm on 3 of 7 cross-sections of the EMR), which is not present at margins. There is no dysplasia or malignancy present. Each of the remaining gastric biopsies has mild chronic gastritis, but no H. pylori, including by immunostain (block B1, with appropriately staining controls). Only the incisura biopsy (part D) has a very small focus of intestinal metaplasia (complete, without dysplasia). 12/22/2024 4:08 PM [facility] Clinical History The patient is a 74-year-old man with gastric intestinal metaplasia with dysplasia. Operative procedure/findings: EGD - erythematous and eroded mucosa on the lesser curvature, likely site of prior biopsy, endomucosal resection rule out carcinoma; gastric mucosal atrophy, biopsied for gastric mapping 12/22/2024 4:08 PM [facility] Gross Description The requisition and specimen(s) are identified with the patient's name, Tolu Jha. Received in formalin, specimen A, is a 2.0 x 0.7 x 0.4 cm strip of gastric mucosa. The mucosal surface is red-brown, glistening with cheatham-white adherent, nodular exudate. The deep margin consists of red-brown, ragged and cauterized tissue. The margin is inked blue. Sectioning shows a red-brown and glistening cut surface. The specimen is entirely submitted as cassette A1. Received in formalin, specimen B is one pink-cheatham, friable and irregular segment of soft tissue, 0.4 x 0.3 x 0.2 cm, submitted in toto as cassette B1. Received in formalin, specimen C are two pink-cheatham irregular segments of soft tissue, 0.2 and 0.3 cm, submitted in toto as cassette C1. Received in formalin, specimen D are two pink-cheatham and wispy segments of soft tissue, 0.2 and 0.3 cm, submitted in toto as cassette D1. Received in formalin, specimen E are 4 cheatham-white and irregular soft tissue fragments, 0.1 to 0.3 cm and 0.4 x 0.2 x 0.1 cm in aggregate, submitted in toto as cassette E1. Received in formalin, specimen F are two pink-cheatham and glistening segments of soft tissue, both 0.3 cm, submitted in toto as cassette F1. AL 12/22/2024 4:08 PM CDT [facility] Pathologist Location at [facility] 12/22/2024 4:08 PM CDT [facility] Disclaimer The performance characteristics of all immunohistochemical and indirect immunofluorescence stains (if any) cited in this report were determined by the Histopathology Laboratory of [facility]. Some of these tests were developed by our own laboratory and have not been cleared or approved by the US Food and Drug Administration. The FDA does not require this test to go through premarket FDA review. These tests are used for clinical purposes. They should not be regarded as investigational or for research. This laboratory is certified under the Clinical Laboratory Improvement Amendments (CLIA) as qualified to perform high complexity clinical laboratory testing. This case has been personally reviewed and interpreted by the attending (teaching) pathologist. 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] Biopsy, NOS GASTRIC CONTENTS SPECIMEN / Unknown 12/21/2024 11:07 AM CDT 12/21/2024 12:39 PM CDT Comment:Pre-op diagnosis: 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] Biopsy, NOS GASTRIC CONTENTS SPECIMEN / Unknown 12/21/2024 11:07 AM CDT 12/21/2024 12:39 PM CDT Comment:Pre-op diagnosis: 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 [address], [facility] [phone] * ETT LINE PERFORMABLE (12/21/2024 10:17 AM CDT) Narrative Erika Zavaleta CAA - 12/21/2024 10:17 AM CDT Erika Zavaleta CAA 12/21/2024 10:17 AM Endotracheal Tube Placement: Patient Location: Other - please comment (ap1). Intubation Event Date/Time: 12/21/2024 10:11 AM Procedure: intubation ([id number]) Procedure Section: Sedation: under general anesthesia. Indications for Airway Management: anesthesia Procedure pretreatments used? No Induction: standard IV Patient Position: sniffing Mask Ventilation: easy. Blade Type: Pineda Blade Size: 2 Laryngoscopy View: grade 1 (full cords) Intubation Adjuncts: stylet Tube: endotracheal tube Placement: oral Tube type: cuff - inflated Tube Size (MM): 7 Depth of Insertion (CM): 22 Measured From: lips Cuff volume (mL): 9 Cuff Inflated With: air Number of Attempts: 1. Placement Verified By: direct visualization, bilateral breath sounds, chest auscultation and CO2 monitor Tube secured with: adhesive tape. Dentition unchanged? Yes Difficult Airway? No. Procedure Start Time: 12/21/2024 10:11 AM. Staff Section Anesthesia Provider: Erika Zavaleta CAA, Performed the procedure us Tena Aquino MD GENERAL ANESTHESIA ORDERABLES Fi nal Result * EGD (12/21/2024 9:52 AM CDT) Report Endoscopy POC Endoscopy Department Report _ Patient Name: Tolu Jha Procedure Date: 12/21/2024 9:52 AM Date of : 1950 Classification: Outpatient Gender: Male Ethnicity: Not or Race: White _ Providers: Karthik Anderson MD Referring MD: Fermin Gimenez Procedure: Upper GI endoscopy Indications: Gastric intestinal metaplasia with dysplasia Medications: Monitored Anesthesia Care Patient Profile: 74 year old male found to have gastric intestinal metaplasia with dysplasia referred for endoscopic resection. Description of Procedure: Pre-Anesthesia Assessment: - Prior to the procedure, a History and Physical was performed, and patient medications and allergies were reviewed. The patient's tolerance of previous anesthesia was also reviewed. The risks and benefits of the procedure and the sedation options and risks were discussed with the patient. All questions were answered, and informed consent was obtained. Prior Anticoagulants: The patient has taken no anticoagulant or antiplatelet agents. ASA Grade Assessment: III - A patient with severe systemic disease. After reviewing the risks and benefits, the patient was deemed in satisfactory condition to undergo the procedure. After obtaining informed consent, the endoscope was passed under direct vision. Throughout the procedure, the patient's blood pressure, pulse, and oxygen saturations were monitored continuously. The Endoscope was introduced through the mouth, and advanced to the second part of duodenum. The upper GI endoscopy was accomplished without difficulty. The patient tolerated the procedure well. Findings: The examined esophagus was normal. Diffuse atrophic mucosa was found in the entire examined stomach. Two biopsies were obtained on the greater curvature of the gastric body, on the lesser curvature of the gastric body, at the incisura, on the greater curvature of the gastric antrum and on the lesser curvature of the gastric antrum with cold forceps for histology. Localized depressed mucosal changes characterized by erythema and erosion were found on the lesser curvature of the stomach and likely representing site of previously biopsied dysplasia. Preparations were made for endoscopic submucosal dissection. Demarcation of the lesion was performed with high-definition white light, narrow band imaging and thermal marking to clearly identify the boundaries of the lesion. Eleview was injected with adequate lift of the lesion from the muscularis propria. A circumferential incision around the lesion into the submucosa was performed with ProKnife 1.5 mm. The lesion was then dissected from the underlying deep layers with the electrocautery knife and retrieved with a Villarreal net. A 25 mm area was resected. Resection and retrieval were complete. Resected tissue margins were examined and clear of polyp tissue. There was no bleeding at the end of the maneuver. To prevent bleeding after the polypectomy, three hemostatic clips were successfully placed (MR conditional). Clip telephone triage nurse: [employer]. There was no bleeding at the end of the maneuver. The first portion of the duodenum and second portion of the duodenum were normal. Estimated Blood Loss: Estimated blood loss: none. Complications: No immediate complications. Impression: - Normal esophagus. - Gastric mucosal atrophy. - Erythematous and eroded mucosa in the lesser curvature. Clips (MR conditional) were placed. Clip telephone triage nurse: [employer]. - Normal first portion of the duodenum and second portion of the duodenum. - Two biopsies were obtained on the greater curvature of the gastric body, on the lesser curvature of the gastric body, at the incisura, on the greater curvature of the gastric antrum and on the lesser curvature of the gastric antrum. - Endoscopic submucosal dissection was performed. Resection and retrieval were complete. Recommendation: - Discharge patient to home. - Full liquid diet today. - Continue present medications. - Use a proton pump inhibitor PO BID. - Await pathology results. - Repeat upper endoscopy for surveillance based on pathology results. - Patient has a contact number available for emergencies. The signs and symptoms of potential delayed complications were discussed with the patient. Return to normal activities tomorrow. Written discharge instructions were provided to the patient. Procedure Code(s): --- Professional --- 95199, Esophagogastroduod enoscopy, flexible, transoral; with biopsy, single or multiple [id number], Unlisted procedure, stomach Diagnosis Code(s): --- Professional --- K31.89, Other diseases of stomach and duodenum K25.9, Gastric ulcer, unspecified as acute or chronic, without hemorrhage or perforation K31.A29, Gastric intestinal metaplasia with dysplasia, unspecified CPT copyright 2021 [employer]. All rights reserved. The codes documented in this report are preliminary and upon charge attendant review may be revised to meet current compliance requirements. Karthik Anderson MD 12/21/2024 11:44:44 AM This report has been signed electronically. Note Initiated On: 12/21/2024 9:52 AM Number of Addenda: 0 [facility] [address] [place] [address] [facility] 12/21/2024 9:52 AM CDT us Karthik Anderson MD GI PROCEDURE ORDERABLES Edited Result - Final [facility] PROVATION * EKG 12-LEAD (12/21/2024 9:29 AM CDT) Ventricular Rate 66 BPM [facility] Atrial Rate 66 BPM [facility] P-R Interval 212 ms [facility] QRS Duration ms 114 ms [facility] Q-T Interval ms 398 ms [facility] QTC Calculation (Bezet) 417 ms [facility] Calculated P Romney 75 degrees [facility] Calculated R Romney -4 degrees [facility] Calculated T Romney -23 degrees [facility] Interpretation EKG SINUS RHYTHM WITH 1ST DEGREE A-V BLOCK WITH OCCASIONAL PREMATURE VENTRICULAR COMPLEXES INFERIOR INFARCT , AGE UNDETERMINED ABNORMAL ECG NO PREVIOUS ECGS AVAILABLE Confirmed by MARCELA DE LEÓN MD ([id number]) on 12/22/2024 8:09:47 AM [facility] 12/21/2024 9:29 AM CDT 12/22/2024 8:09 AM CDT us Bj Montoya MD ECG ORDERABLES Edited Result - Final [facility] MUSE from Last 3 Months Insurance [facility] MEDICARE [employer] SELF PAY NO INSURANCE Member Subscriber Plan / Payer (Ef fective for All Dates) Name:Tolu Jha Member ID:Not on file Relation to Subscriber:Not on file Name:TOLU JHA Subscriber ID:Not on file (Home) Address: [address] [place] [id number] Payer ID:Not on file Group ID:Not on file Type:Self Pay Address: [place], [place] Care Teams Awake Overnight Counselor Relationship Specialty Start Date End Date Nikky Mathews MD [address] [place] [address] PCP - General Internal Medicine 09/01/11
--- OUTSIDE RECORDS SUMMARY | 2025-01-31 00:40 | XMS_ITS | Clinical Summary ---
Author Organization [facility] Physician Office Building [address] [place] [id number] Care Team Providers Care Refurbish Technician Name Role Phone Lio Reveles MD Primary Care Provider + [phone] Vahe Rouse MD Unavailable Emily Staples RN [...] DAILY CONTINUING FOR 3 WEEKS AFTER SURGERY 5 Active Active Problems Problem Noted Date Diagnosed [...] 11/06/2023 Assessment & Plan (09/14/2024 11:48 AM PHYSICAL THERAPY SUPERVISOR): Denies therapies. Central cord syndrome at C4 level of cervical sp inal cord 11/06/2023 Central cord syndrome, initial encounter 024 Ischemic cardiomyopathy 10/28/2023 Assessment & Plan (09/14/2024 11:47 AM PHYSICAL THERAPY SUPERVISOR): ICM: Chronic systolic heart failure. Denies angina. [...] BMP - 10/25: Na 127 (133) - 16: Na 133 - Further management per PCP [...] Type Department Care Team Description 01/30/2025 Telephone [facility] Cardiology [address] [facility] 8th [place] [address] [place] [address] Liza Cristine 01/27/2025 Telephone [facility] Transplant Heart [address] [facility] [address][phone] [place] [address] Karina Amador 01/11/2025 11:15 AM CDT Office Visit [facility] [address] [facility] 6th Floor [address] [place] [address] Sara James NP Alzheimer's disease with late onset (HCC) (Primary Dx) 12/22/2024 Telephone [facility] Transplant Heart [address] [facility] [address] -[phone] [place] [address] Kalyani Muller 12/14/2024 11:45 AM CDT Lab [facility] [address] [place] [address] Chronic systolic heart failure (HCC) 12/14/2024 11:15 AM CDT Office Visit [facility] Cardiology [address] [facility] 8th [place] [address] [place] [address] Vickey Marinelli MD PhD Chronic systolic heart failure (HCC) (Primary Dx); Coronary artery disease involving [place] coronary artery of [place] heart without angina pectoris; VT (ventricular tachycardia) (HCC) 11/01/2024 Telephone [facility] Cardiology [address] [facility] 8th [place] [address] [place] [address] Yeison Tom MD 11/01/2024 Telephone [facility] Transplant Heart [address] [facility] [address] [phone] [place] [address] Avinash Cleaning from Last 3 Months Immunizations Immunization Administration Dates Next Due Influenza, Quad, Adjuvantate d, Intramuscular 04/28/2022 Influenza, Quadrivalent, Hig h Dose, Preservative Free, Intrr 04/10/2020 Influenza, Quadrivalent, Spl it, Intramuscular 04/08/2021,05/10/2019,06/03/2017 Influenza, Unspecified 04/12/2022 Pneumococcal Conjugate PCV 13 04/10/2020 Pneumococcal Polysaccharide PPV23 04/11/2021 Tdap 09/04/2022 ZOSTER Recombinant 08/14/2022,05/28/2022 Surgical History Surgery Date Site/Laterality Comments FL FLUORO GUIDED LUMBAR PUNCTURE 03/18/2023 Right HERNIA REPAIR 1994 SPINAL FUSION 10/28/2023 C4-6 laminectomy ; C3-T1 cervicothoracic fusion with instrumentation-Dr. Clyde Dotson CARDIAC CATHETERIZATION 10/12/2023 - 11/10/2023 COLONOSCOPY FRACTURE SURGERY 2023 Medical History Medical History Date Comments Diabetes mellitus (HCC) 1992 Hypertension 2006 GERD (gastroesophageal reflux disease) Alzheimer disease (HCC) Cataract 2021 Heart disease 2022 Arthritis 1999 Family History Medical History Relation Name Comments Alcohol abuse Father Martin Diabetes Father Martin Hypertension Father Martin Diabetes Mother Erin Diabetes type I Mother Erin heart problems Mother Erin Diabetes Sister Carolann Relation Name Status Comments Father Martin Mother Erin Sister Carolann Social History Tobacco Use Types Packs/Day Years Used Date Smoking Tobacco: Former Cigarettes Q uit: 1999 Passive Smoke Exposure: Never Smokeless Tobacco: Never Tobacco Cessation:Counseling Given: Not Answered [facility] Utilities Answer Date Recorded In the past 12 months has e [employer], gas, oil, or water [employer] threatened to shut off services in your [...] often do you attend chur ch or tenriism services? Never 11/02/2023 Do you belong to any clubs o r organizations such as restoration groups, unions, fraternal or athletic groups, or [...] on file Legal Sex Male 5:49 AM PHYSICAL THERAPY SUPERVISOR Gender Identity Male 03/25/2023 11:15 AM CDT [...] 01/11/2025 10:58 AM CDT Plan of Treatment Health Maintenance Due Date [...] Assessment 03/03/2025 03/03/2024, 03/10/20 23 Influenza Vaccine (#1) 2025 , 04/27/2024, 04/28/2022, Additional history exists eGFR 06/21/2025 06/21/2024, 05/13, 05/12/2024, Additional history exists DTaP/Tdap/Td Vaccine (2 - Td or Tdap) 09/04/2032 09/04/2022 Pneumococcal vaccine 65+ Completed 04/11/2021, 03/14 Zoster Vaccine Completed 08/14/2022, 05/28/2022 Abdominal Aortic Aneurysm (A AA) Screen Completed 10/22/2023 Medical Devices Implanted Type Area Fleet Maintenance Manager Device Identifier Shelf Expiration Date Model / Serial / Lot [employer]andice Angio-Seal Vip 6fr Closere Device [id number] - [id number] - [id number] Implanted:Qty: 1 on 11/05/2023 by Héctor Richards MD at [facility] Collagen Right: Groin [employer] 06/15/2024 [id number] / [id number] / [id number] [employer] Kandice Defibrillator Single Chamber Vigilant 0.99x5.37x7.36cm D232 - [id number] - [id number] Implanted:Qty: 1 on 03/03/2024 by Yeison Tom MD at [facility] ICD Left: Chest Wall [employer] Kandice 06/16/2025 D232 / [id number] / [id number] [employer] Kand[employer] Lead Cardioverter Defibrillator Bipolar Active Fixation Endocardium Steroid Eluting [place] 4 Front [id number] 0672 - [id number] - [id number] Implanted:Qty: 1 on 03/03/2024 by Yeison Tom MD at [facility] Lead Right: Ventricle [employer] Kandice 09/24/2025 0672 / [id number] / [id number] Allosource Crushed Fresh Frozen Cancellous 1-4mm Graft 15ml Bone [id number] - [id number] Implanted:Qty: 1 on 10/28/2023 by Clyde Dotson MD at [facility] N/A: Spine Cervical [employer]ource 12/15/2027 [id number] / / [id number] Nuv[employer] Screw Spine Reline C Lock Open Non-Sterile Latex Free [id number] - [id number] Implanted:Qty: 10 on 10/28/2023 by Clyde Dotson MD at [facility] N/A: Spine Cervical [employer] [id number] / / [employer] Screw Spinal Posterior Cervical Solid Reline C 3.5x14mm [id number] - [id number] Implanted:Qty: 6 on 10/28/2023 by Clyde Dotson MD at [facility] N/A: Spine Cervical [employer] [id number] / / Nuv[employer] Inc Reline C Screw 3.5x20mm Ma [id number] - [id number] Implanted:Qty: 2 on 10/28/2023 by Clyde Dotson MD at [facility] N/A: Spine Cervical [employer] [id number] / / [employer]uv[employer] Screw Spinal Thoracic Solid Reline 4.0x24mm Titanium [id number] - [id number] Implanted:Qty: 2 on 10/28/2023 by Clyde Dotson MD at [facility] N/A: Spine Cervical [employer]uv[employer] Inc [id number] / / Nuvasive Inc Melvin Spinal Posterior Cervical Prebent Reline 4.0x80mm Titanium [id number] - [id number] Implanted:Qty: 2 on 10/28/2023 by Clyde Dotson MD at [facility] N/A: Spine Cervical [employer] Inc [id number] / / Procedures Procedure Name Priority Date/Time Associated Diagnosis Comments PRO B-TYPE NATRIURETIC PEPTIDE Routine 12/14/2024 11:50 AM CDT Chronic systolic heart failure (HCC) BASIC METABOLIC PANEL Routine 06/21/2024 1:50 PM PHYSICAL THERAPY SUPERVISOR Ischemic cardiomyopathy LIPID PANEL Routine 01/06/2024 11:37 [...] et.al. Eur Heart J. 2006:27:330-337. 2. Salvatore RW, Edwina WONG. J. AM Cait Cardiol: Cardiovasc Imag. 2009;2: 216- 225. Interpretive Data Last Revised Date: 2018. Blood 12/14/2024 11:5 0 AM CDT 12/14/2024 12:06 PM CDT us Vickey Marinelli MD PhD LAB BLOOD ORDERABL ES Final Result [facility] Department [place] [address] * (ABNORMAL) Basic metabolic panel (06/21/2024 1:50 PM PHYSICAL THERAPY SUPERVISOR) Glucose 133(H) 70 - 99 mg/dL [facility] [...] [facility] - 01 Blood 06/21/2024 1:50 PM PHYSICAL THERAPY SUPERVISOR 06/21/2024 Narrative [facility] - 06/22/2024 7:10 AM PHYSICAL THERAPY SUPERVISOR Performed at: 01 - [address] [id number] Working Manager: Carlitos Jung PhD, Phone: [phone] us Vickey Marinelli MD PhD LAB BLOOD ORDERABL ES Final Result [facility] - 01 * (ABNORMAL) Lipid panel (01/06/2024 [...] on 2018. Triglycerides 368(H) <=149 mg/dL [facility] Comment: Interpretive Data Ages < or [...] revised on 2018. HDL 31(L) >=40 mg/dL [facility] Comment: Interpretive Data Ages < or = [...] on 2018. LDL, calculated 138(H) <=129 mg/dL [facility] Comment: Interpretive Data Ages < or = [...] revised on 2018. Non-HDL Cholesterol 212 mg/dL [facility] Comment: Interpretive Data Ages < or = [...] last revised on 2018. Chol/HDL ratio 8 [facility] Blood 01/06/2024 11:3 7 AM CDT 01/06/2024 2:09 PM CDT Benji Esparza MD LAB BLOOD ORDERABLES Final Result [facility] Department [place] [address] * CT Chest Abdomen Pelvis W Contrast [...] ORDERABLES Final Res ult [facility] Department [place] [address] from Last 3 Months or Most Recently Relevant to Health Maintenance Insurance MEDICARE [place] [facility] [place] MEDICARE [facility] [place] Advance Directives For more information, please contact: [phone] * Full Code (Latest Code Status on [...] 11:18 AM 10/27/2023 9:08 PM Care Teams Refurbish Technician Relationship Specialty Start Date End Date Lio Reveles MD PCP - General Internal Medicine 10/24/23 Vahe Rouse MD [address] [place] [address] Referring Physician Neurology 01/04/24 Emily Staples, machine boss Failure Coordinator Transplant 05/03/24 Gisselle Morgan, machine boss Failure Coordinator 05/03/24 Alie Joyner, health counselorDental Assistant Teacher 10/31/24 Kalyani Muller Primary Band Aid Machine Operator Transplant 10/31/24
[2025-01-31 09:46] VITALS: BP 144/68; PULSE 67; RESP 18; TEMP 36.4; O2SAT 99
[2025-01-31] MEDS: LACTATED RINGERS 1,000 ML 150 ML IV CONT (09:59)
--- NOTE | 2025-01-31 10:06 | SUR.PREOP ---
PT'S BLOOD SUGAR 115 PER DEXCOM, 86 PER HOSPITAL GLUCOSE MONITOR, PT HAS NO CONCERNS.
--- NOTE | 2025-01-31 10:31 | SUR.PREOP ---
PT AND PT SPOUSE UPDATED PROCEDURE ROOM RUNNING LATE, STATES NO CONCERNS.
--- NOTE | 2025-01-31 10:51 | WPDANESEPPF ---
Anes - Initial Pre Proc Eval Procedure: Operation Date: 01/31/25 11:00 Proposed Procedures p Colonoscopy - Brian Eid MD Date/Time: 01/31/25 10:51 Surgeon: Brian Eid MD Pre Op Diagnosis: Diarrhea, unspecified, Change in bowel habit Patient Data Age: 74 Gender: M Height: 1.7 m Weight: 71.8 kg Last Vital Signs Temp 97.6 F 01/31/25 09:46 Pulse 67 01/31/25 09:46 Resp 18 01/31/25 09:46 BP 144/68 H 01/31/25 09:46 Pulse Ox 99 01/31/25 09:46 O2 Del Method Room Air 01/31/25 09:46 Allergies Allergy/AdvReac Type Severity Reaction Status Date / Time prednisone AdvReac Unknown DOES NOT Verified 01/31/25 09:44 LIKE TO TAKE IT Home Medications ?Medication ?Instructions ?Recorded ?Confirmed ?Type donepezil 5 mg tablet 5 mg PO HS #30 tabs 11/16/23 01/31/25 Rx metoprolol succinate 25 mg 25 mg PO DAILY #30 tabs 11/16/23 01/31/25 Rx tablet,extended release 24 hr sacubitril 49 mg-valsartan 51 mg 1 tablet PO BID 01/12/24 01/31/25 History tablet (Entresto) dapagliflozin propanediol 5 mg 10 mg PO DAILY 05/06/24 01/31/25 History tablet (Farxiga) escitalopram oxalate 10 mg tablet 10 mg PO 1700 05/06/24 01/31/25 History metformin 500 mg tablet,extended 1,000 mg PO BID 05/06/24 01/31/25 History release 24 hr albuterol sulfate 90 mcg/actuation 2 puff inhalation QID PRN 05/08/24 01/18/25 Rx aerosol inhaler shortness of breath or wheezing #6.7 grams pen needle, diabetic 32 gauge x #400 ea 08/31/24 12/06/24 Rx /32 (BD Ultra-Fine Ai Pen Needle) rosuvastatin 5 mg tablet 5 mg PO DAILY #90 tabs 09/14/24 01/31/25 Rx semaglutide 1 mg/dose (4 mg/3 mL) 1 mg (0.75 mL) subcut WEEKLY #9 mL 11/22/24 01/31/25 Rx subcutaneous pen injector gabapentin 300 mg capsule See Rx Instructions PO .COMPLEX 12/06/24 01/31/25 History omeprazole 40 mg capsule,delayed 40 mg PO BID 01/18/25 01/31/25 History release blood-glucose sensor (Dexcom G7 #9 ea 01/23/25 Rx Sensor device) Laboratory Tests 01/31/25 10:03 POC Capillary Glucose 86 mg/dl (65-105) Patient hx anesthesia problems: none Family hx anesthesia problems: none Results Review: All pre-operative results and documents have been reviewed as part of the pre-operative evaluation. [facility] Past Medical History Medical History Nocturnal diarrhea Change in stool caliber Change in bowel habits Elevated fecal calprotectin Cardiomyopathy ICD (implantable cardioverter-defibrillator) in place Alzheimer's dementia Anemia Black stools Diarrhea Diabetic neuropathy Central cord syndrome Hyperlipidemia Hypertension Diabetes mellitus Surgical History Surgical History H/O hernia repair AICD (automatic cardioverter/defibrillator) present History of colonoscopy Social History Social History Smoking packs per day: 2 Smoking cigarettes per day: 40.0 Years smoked: 30 Smoking pack-years: 60.00 Smoking status: Former smoker Tobacco type: cigarettes Alcohol intake: never Substance use: never Substance use type: does not use Other substance usage details: OCC. GUMMY Do You Feel Safe in your Home?: Yes Lack of Transportation: No Lack of Food: Never True Current Housing: I Have Housing Concerned About Future Housing: No Difficulty Paying Gas/Electric Bills: No Difficulty Paying for Meds: No Currently Unemployed: No Education: High School Diploma/GED Difficulty w/ Childcare or Family Care: No Living arrangements: with family Spiritual care concerns: No Anes - Eval Final PreProcedure Day of Procedure 01/31/25 10:51 Patient weight: overweight Lungs: normal air movement Airway: Mallampati scale class II Neurological: alert and oriented Last oral intake: >/= 8 hours ASA classification: IV Emergent: no Anesthetic plan: proceed Anesthesia type and monitoring: general GIVS and standard monitoring Results Review: All pre-operative results and documents have been reviewed as part of the pre-operative evaluation. CAD, hx nonischemia CM w AICD which has never been triggered, DM fsbs 79, early onset dementia. Informed Consent: The patient's anesthetic plan and its attendant risks and benefits were discussed with the patient/family/POA. Questions were solicited and answers provided to the satisfaction of the patient/family/POA.
--- NOTE | 2025-01-31 11:51 | PM.IMHP ---
H&P: HPI History of Present Illness Date/Time: 01/31/25 11:51 Chief Complaint: Diarrhea Narrative: patient seen in our office, complaining of intermittent diarrhea. He is referred for colonoscopy and biopsies to rule out microscopic colitis. Review of Systems Review of Systems: All systems reviewed & are unremarkable except as noted in HPI and below PMFSH Past Medical History Medical History Nocturnal diarrhea Change in stool caliber Change in bowel habits Elevated fecal calprotectin Cardiomyopathy ICD (implantable cardioverter-defibrillator) in place Alzheimer's dementia Anemia Black stools Diarrhea Diabetic neuropathy Central cord syndrome Hyperlipidemia Hypertension Diabetes mellitus Surgical History Surgical History H/O hernia repair AICD (automatic cardioverter/defibrillator) present History of colonoscopy Social History Social History Smoking packs per day: 2 Smoking cigarettes per day: 40.0 Years smoked: 30 Smoking pack-years: 60.00 Smoking status: Former smoker Tobacco type: cigarettes Alcohol intake: never Substance use: never Substance use type: does not use Other substance usage details: OCC. GUMMY Do You Feel Safe in your Home?: Yes Lack of Transportation: No Lack of Food: Never True Current Housing: I Have Housing Concerned About Future Housing: No Difficulty Paying Gas/Electric Bills: No Difficulty Paying for Meds: No Currently Unemployed: No Education: High School Diploma/GED Difficulty w/ Childcare or Family Care: No Living arrangements: with family Spiritual care concerns: No Meds Home Medications and Allergies Home Medications ?Medication ?Instructions ?Recorded ?Confirmed ?Type donepezil 5 mg tablet 5 mg PO HS #30 tabs 11/16/23 01/31/25 Rx metoprolol succinate 25 mg 25 mg PO DAILY #30 tabs 11/16/23 01/31/25 Rx tablet,extended release 24 hr sacubitril 49 mg-valsartan 51 mg 1 tablet PO BID 01/12/24 01/31/25 History tablet (Entresto) dapagliflozin propanediol 5 mg 10 mg PO DAILY 05/06/24 01/31/25 History tablet (Farxiga) escitalopram oxalate 10 mg tablet 10 mg PO 1700 05/06/24 01/31/25 History metformin 500 mg tablet,extended 1,000 mg PO BID 05/06/24 01/31/25 History release 24 hr albuterol sulfate 90 mcg/actuation 2 puff inhalation QID PRN 05/08/24 01/18/25 Rx aerosol inhaler shortness of breath or wheezing #6.7 grams pen needle, diabetic 32 gauge x #400 ea 08/31/24 12/06/24 Rx 5/32 (BD Ultra-Fine Ai Pen Needle) rosuvastatin 5 mg tablet 5 mg PO DAILY #90 tabs 09/14/24 01/31/25 Rx semaglutide 1 mg/dose (4 mg/3 mL) 1 mg (0.75 mL) subcut WEEKLY #9 mL 11/22/24 01/31/25 Rx subcutaneous pen injector gabapentin 300 mg capsule See Rx Instructions PO .COMPLEX 12/06/24 01/31/25 History omeprazole 40 mg capsule,delayed 40 mg PO BID 01/18/25 01/31/25 History release blood-glucose sensor (Dexcom G7 #9 ea 01/23/25 Rx Sensor device) Allergies Allergy/AdvReac Type Severity Reaction Status Date / Time prednisone AdvReac Unknown DOES NOT Verified 01/31/25 09:44 LIKE TO TAKE IT Vital Signs Vital Signs - 24 hr 01/31/25 09:46 Temperature 97.6 F Pulse Rate 67 Respiratory Rate 18 Blood Pressure 144/68 H Pulse Oximetry 99 Oxygen Delivery Room Air Exam Const: General: cooperative and healthy appearing Resp: Effort & Inspection: normal respiratory effort and able to speak in complete sentences Auscultation: clear to auscultation bilaterally Cardio: Rate: regular rate Rhythm: regular rhythm GI: Inspection: normal to inspection GI Palp: No No hepatosplenomegaly present Auscultation: normal bowel sounds Rectal Exam: deferred Skin: General skin exam: normal color Psych: Appearance: grossly normal Mental Status: mental status grossly normal Assessment and Plan Assessment and plan (1) History of colon polyps: Code(s): Z86.010 - Personal history of colon polyps Status: Acute Assessment and Plan: The patient is deemed a good candidate for the procedure. Consent signed. Will proceed.
[2025-01-31 12:08] VITALS: BP 136/64; PULSE 58; RESP 30; O2SAT 99
--- NOTE | 2025-01-31 12:08 | S_PTH ---
PATIENT: Tolu Mathis LOC: [facility] U#:[id number] AGE/SX: 74/M ROOM: RE01/31/[address]: Brian Eid MD : 1950 BED: DIS: 01/31/2025 SPEC #: [id number] RECD: 01/31/25 12:45 STATUS: GEOVANNI REQ #: [id number] RAMSES: 01/31/25 12:[address]: Brian Eid DEPT: [facility] Surgical RECD BY: Long Bravo ENTERED: 01/31/25 12:45 SP TYPE: Surgical OTHR DR: Lio RevelesMD Tissues: A - Colon Biopsy B - Colon Biopsy Procedures: Hematoxylin and Eosin Stain Gross and Microscopic Level 4
[2025-01-31 12:18] VITALS: BP 135/66; PULSE 58; RESP 16; O2SAT 99
[2025-01-31 12:28] VITALS: BP 159/76; PULSE 58; RESP 24; O2SAT 100
== END 2025-01-31 12:41 | disposition home or self-care (01) ==
PROVIDERS: PCP Internal Medicine; Referring Provider Nurse Practitioner Family; Visit Provider Internal Medicine Gastroenterology
PROC: 0DJD8ZZ Inspection of Lower Intestinal Tract, Via Natural or Artificial Opening Endoscopic (ICD-10-PCS; CPT 45378; principal; 2025-01-31 11:00)
DX: K52.89 Other specified noninfective gastroenteritis and colitis (principal); K57.30 Diverticulosis of large intestine without perforation or abscess without bleeding; E78.5 Hyperlipidemia, unspecified; I10 Essential (primary) hypertension; D64.9 Anemia, unspecified; E11.40 Type 2 diabetes mellitus with diabetic neuropathy, unspecified; I25.10 Atherosclerotic heart disease of native coronary artery without angina pectoris; I42.8 Other cardiomyopathies; G30.9 Alzheimer's disease, unspecified; F02.80 Dementia in other diseases classified elsewhere, unspecified severity, without behavioral disturbance, psychotic disturbance, mood disturbance, and anxiety; F12.90 Cannabis use, unspecified, uncomplicated; Z79.84 Long term (current) use of oral hypoglycemic drugs; Z79.51 Long term (current) use of inhaled steroids; Z79.85 Long-term (current) use of injectable non-insulin antidiabetic drugs; Z98.890 Other specified postprocedural states; Z95.810 Presence of automatic (implantable) cardiac defibrillator; Z87.891 Personal history of nicotine dependence; Z86.0100 Personal history of colon polyps, unspecified; Z87.828 Personal history of other (healed) physical injury and trauma
CPT/HCPCS: 45380; 82948; 88305; J2003; J2704; J7120